=== PATIENT | female | born 1980 | race American Indian/Alaskan Native ===

== ENCOUNTER 2019-06-13 17:12 | Emergency (ER) | payer MEDICARE ==
[2019-06-13 17:28] VITALS: BP 132/84
[2019-06-13] MEDS ORDERED: HYDROcodone/ACETAMINOPHEN 5-325 MG TAB PO ONE (17:30)
--- NOTE | 2019-06-13 17:32 | Event Note ---
ED Screening Note Date of service: 06/13/19 Time: 17:26 ED Screening Note: 38 y o female presents with hot water burn to skin last night cc of pain to site inner thighs applied vaseline last night This initial assessment/diagnostic orders/clinical plan/treatment(s) is/are subject to change based on patients health status, clinical progression and re- assessment by fellow clinical providers in the ED. Further treatment and workup at subsequent clinical providers discretion. Patient/guardian urged not to elope from the ED as their condition may be serious if not clinically assessed and managed. Initial orders include:
--- NOTE | 2019-06-13 18:44 | Emergency Department Report ---
Burn HPI - History Stated Complaint: BURNED INNER THIGH /WATER Chief Complaint: Burn/Smoke Inhalation Time Seen by Provider: 06/13/19 18:39 Duration of Burn: 2 Days Burn Location: Legs (inner thighs) Burn Etiology: Accidental, Hot Object, Other (hot water) Pain: Moderate Tetanus Status: Up to Date Symptoms:: Yes Blistering, Yes Able to Tolerate Fluids, No Malaise, No Myalgias, No Fever, No Vomiting Other History: 38-year-old female presents with pain from accidental burn to her inner thighs from hot water. She denies fevers/chills/nausea vomiting. She states that she is up-to-date on her vaccinations. - Home Meds and Allergies Home Medications: Previous Rx's Medication Instructions Recorded Last Taken Type Cephalexin [Keflex] 750 mg PO BID #20 capsule 06/13/19 Unknown Rx HYDROcodone/APAP 5-325 [[place] 1 each PO Q6HR PRN #10 tablet 06/13/19 Unknown Rx 5/325] Ibuprofen [Motrin] 800 mg PO Q8HR #30 tablet 06/13/19 Unknown Rx Allergies/Adverse Reactions: Allergies Allergy/AdvReac Type Severity Reaction Status Date / Time Penicillins Allergy Swelling Verified 06/13/19 17:18 ED Review of Systems ROS: Stated complaint: BURNED INNER THIGH /WATER Other details as noted in HPI Comment: All other systems reviewed and negative ED Past Medical Hx - Past Medical History Previous Medical History?: Yes Hx Deep Vein Thrombosis: Yes Hx Pulmonary Embolism: Yes Additional medical history: ITP. VASULAR NEUROSIS / LUPUS - Surgical History Past Surgical History?: Yes Hx Cholecystectomy: Yes Additional Surgical History: AMPUITEE. left AKA. left hip surgery x30 per pt. spleenectomy. lower back sx - Social History Smoking Status: Never Smoker Substance Use Type: None - Medications Home Medications: Home Medications Medication Instructions Recorded Confirmed Last Taken Type Cephalexin [Keflex] 750 mg PO BID #20 capsule 06/13/19 Unknown Rx HYDROcodone/APAP 5-325 [[place] 1 each PO Q6HR PRN #10 tablet 06/13/19 Unknown Rx 5/325] Ibuprofen [Motrin] 800 mg PO Q8HR #30 tablet 06/13/19 Unknown Rx Exam - Exam General: Vital signs noted. No distress. Alert and acting appropriately. HEENT: Yes Moist Mucous Membranes, No Conjuctival Injection, No Corneal Edema Skin: Yes Blistering, Yes Tenderness, No Erythroderma, No Edema Exam: Yes Normal Heart Sounds, No Respiratory Distress, No Sensory Deficits, No Musculoskeletal Pain Exam: blisters around inner thighs ED Course Vital Signs 06/13/19 17:26 Temperature 99.5 F Pulse Rate 124 H Respiratory 20 Rate Blood Pressure 132/84 O2 Sat by Pulse 98 Oximetry ED Medical Decision Making - Medical Decision Making Patient is a 38-year-old female presents with superficial first-degree goldman inner thighs from hot water The patient received silver Silvadene cream which was applied to goldman and inner thigh. Patient also received a call in the ED for pain Patient is in no acute distress. Discussed with patient to follow up with her primary care physician within 3-5 days Vital signs are normal patient is in no acute distress. Critical care attestation.: If time is entered above; I have spent that time in minutes in the direct care of this critically ill patient, excluding procedure time. ED Disposition Clinical Impression: First degree burn Disposition: TO HOME OR SELFCARE Is pt being admited?: No Does the pt Need Aspirin: No Condition: Stable Instructions: Superficial Burn (ED), Partial Thickness Burn (ED) Additional Instructions: follow up with burn center and wound care take medication as prescribed Prescriptions: Cephalexin [Keflex] 750 mg PO BID #20 capsule Ibuprofen [Motrin] 800 mg PO Q8HR #30 tablet HYDROcodone/APAP 5-325 [[place] 5/325] 1 each PO Q6HR PRN #10 tablet PRN Reason: Pain Referrals: INGRIS OLIVAS MD [Primary Care Provider] - 3-5 Days [facility] [Outside] - 3-5 Days Forms: Accompanied Note, Work/School Release Form(ED) Time of Disposition: 18:43
== END 2019-06-13 18:52 | disposition home or self-care (01) ==
LOC: ED 17:12
DX: T24.112A Burn of first degree of left thigh, initial encounter (principal); Z88.0 Allergy status to penicillin; Z79.1 Long term (current) use of non-steroidal anti-inflammatories (NSAID); Z86.711 Personal history of pulmonary embolism; Z86.718 Personal history of other venous thrombosis and embolism; Z90.49 Acquired absence of other specified parts of digestive tract; Z98.890 Other specified postprocedural states; Z79.899 Other long term (current) drug therapy; X11.8XXA Contact with other hot tap-water, initial encounter; Y93.89 Activity, other specified; Y92.89 Other specified places as the place of occurrence of the external cause; Y99.8 Other external cause status

== ENCOUNTER 2019-07-11 13:32 | Emergency (ER) | payer MEDICARE ==
--- NOTE | 2019-07-11 16:55 | Event Note ---
ED Screening Note Date of service: 07/11/19 Time: 16:51 ED Screening Note: This is a 39 y.o. F. that presents to the ER with burning sensation and foul smelling drainage to left inner thigh from burn. Patient states she burned her thighs 2 weeks ago prescribed medication with no change in symptoms. + fever States RLE pain and think related to lupus flare. This initial assessment/diagnostic orders/clinical plan/treatment(s) is/are subject to change based on patients health status, clinical progression and re- assessment by fellow clinical providers in the ED. Further treatment and workup at subsequent clinical providers discretion. Patient/guardian urged not to elope from the ED as their condition may be serious if not clinically assessed and managed. Initial orders include: Labs
[2019-07-11 18:08] LABS: Basophils # (Auto) 0.1 K/mm3 (0.0-0.1); Basophils % (Auto) 1.3 % (0.0-1.8); Eosinophils # (Auto) 0.4 K/mm3 (0.0-0.4); Eosinophils % (Auto) 4.9 % (0.0-4.3); Hematocrit 36.1 % (30.3-42.9); Hemoglobin 11.9 gm/dl (10.1-14.3); Lymphocytes # (Auto) 2.9 K/mm3 (1.2-5.4); Lymphocytes % (Auto) 38.6 % (13.4-35.0); Mean Corpuscular HGB Conc 33 % (30-34); Mean Corpuscular Volume 84 fl (79-97); Monocytes # (Auto) 0.6 K/mm3 (0.0-0.8); Monocytes % (Auto) 8.5 % (0.0-7.3); Platelet Count 426 K/mm3 (140-440); Red Blood Count 4.33 M/mm3 (3.65-5.03); Red Cell Distribution Width 17.2 % (13.2-15.2)
[2019-07-11 18:34] LABS: Bilirubin,Urine NEG (Negative); Blood,Urine SM (Negative); Color,Urine Yellow (Yellow); Protein,Urine <15 mg/dL mg/dL (Negative); Urobilinogen,Urine < 2.0 mg/dL (<2.0)
[2019-07-11 18:35] LABS: Albumin 3.8 g/dL (3.9-5); BUN/Creatinine Ratio 26; Blood Urea Nitrogen 13 mg/dL (7-17); Calcium 9.5 mg/dL (8.4-10.2); Hemolysis Index 221
[2019-07-11 18:38] LABS: Alanine Aminotransferase 13 units/L (7-56)
[2019-07-11] MEDS ORDERED: methylPREDNISolone Sod Succinate 125 MG/2 ML INJ IV ONE (19:57)
[2019-07-11] MEDS ORDERED: CLINDAMYCIN 600 MG/50 mL 600 MG/50 ML BAG IV ONE (19:57)
[2019-07-11] MEDS ORDERED: HYDROmorphone 2 MG/1 ML INJ IV ONE (19:57)
--- NOTE | 2019-07-11 19:59 | Emergency Department Report ---
ED General Adult HPI - General Chief complaint: Burn/Smoke Inhalation Stated complaint: POSS INF DUE TO BOLDEN Time Seen by Provider: 07/11/19 19:55 Source: patient Mode of arrival: Wheelchair Limitations: Physical Limitation - History of Present Illness Initial comments: Patient is a 39-year-old female that presents emergency room with a lupus flareup and a possible infection on her right inner thigh secondary to a burn. Patient states she burned her leg 2 weeks ago. Patient states she's had some discharge from the burn site. Patient denies fever and chills. Patient states that her pain is a 10 out of 10. Patient states this pain feels exactly like her last lupus flareup. Patient states her last tetanus was a year ago. Patient states her pain is better with rest and worse with movement. Patient states she had her left leg amputated secondary to the lupus complication. Last tetanus one year ago -: Sudden, days(s) (3-4 days) Severity scale (0 -10): 9 Quality: stabbing Consistency: constant Improves with: rest Worsens with: movement Associated Symptoms: denies: confusion, chest pain, cough, diaphoresis, fever/chills, headaches, loss of appetite, malaise, nausea/vomiting, rash, seizure, shortness of breath, syncope, weakness Treatments Prior to Arrival: none - Related Data Previous Rx's Medication Instructions Recorded Last Taken Type Cephalexin [Keflex] 750 mg PO BID #20 capsule 06/13/19 Unknown Rx Ibuprofen [Motrin] 800 mg PO Q8HR #30 tablet 06/13/19 Unknown Rx HYDROcodone/APAP 5-325 [[place] 1 each PO Q6HR PRN #10 tablet 07/11/19 Unknown Rx 5-325 mg TAB] Silver Sulfadiazine [Silvadene] 400 gm TP BID 10 Days #1 cream..g. 07/11/19 Unknown Rx Sulfamethoxazole/Trimethoprim 1 each PO BID 10 Days #20 tablet 07/11/19 Unknown Rx [Bactrim DS TAB] methylPREDNISolone [Medrol 4MG 4 mg PO DAILY 6 Days #1 tab.ds.pk 07/11/19 Unknown Rx DOSEPAK (21 tabs)] Allergies Allergy/AdvReac Type Severity Reaction Status Date / Time Penicillins Allergy Swelling Verified 07/11/19 16:48 ED Review of Systems ROS: Stated complaint: POSS INF DUE TO BOLDEN Other details as noted in HPI Constitutional: denies: chills, fever Eyes: denies: eye pain, eye discharge, vision change ENT: denies: ear pain, throat pain Respiratory: denies: cough, shortness of breath, wheezing Cardiovascular: denies: chest pain, palpitations Endocrine: no symptoms reported Gastrointestinal: denies: abdominal pain, nausea, diarrhea Genitourinary: denies: urgency, dysuria, discharge Musculoskeletal: back pain, arthralgia, myalgia. denies: joint swelling Skin: denies: rash, lesions Neurological: denies: headache, weakness, paresthesias Psychiatric: denies: anxiety, depression Hematological/Lymphatic: denies: easy bleeding, easy bruising ED Past Medical Hx - Past Medical History Previous Medical History?: Yes Hx Deep Vein Thrombosis: Yes Hx Pulmonary Embolism: Yes Additional medical history: ITP. VASULAR NEUROSIS / LUPUS - Surgical History Past Surgical History?: Yes Hx Cholecystectomy: Yes Additional Surgical History: AMPUITEE. left AKA. left hip surgery x30 per pt. spleenectomy. lower back sx - Family History Family history: no significant - Social History Smoking Status: Never Smoker Substance Use Type: None - Medications Home Medications: Home Medications Medication Instructions Recorded Confirmed Last Taken Type Cephalexin [Keflex] 750 mg PO BID #20 capsule 06/13/19 Unknown Rx Ibuprofen [Motrin] 800 mg PO Q8HR #30 tablet 06/13/19 Unknown Rx HYDROcodone/APAP 5-325 [[place] 1 each PO Q6HR PRN #10 tablet 07/11/19 Unknown Rx 5-325 mg TAB] Silver Sulfadiazine [Silvadene] 400 gm TP BID 10 Days #1 cream..g. 07/11/19 Unknown Rx Sulfamethoxazole/Trimethoprim 1 each PO BID 10 Days #20 tablet 07/11/19 Unknown Rx [Bactrim DS TAB] methylPREDNISolone [Medrol 4MG 4 mg PO DAILY 6 Days #1 tab.ds.pk 07/11/19 Unknown Rx DOSEPAK (21 tabs)] ED Physical Exam - General Limitations: Physical Limitation General appearance: alert, in no apparent distress - Head Head exam: Present: atraumatic, normocephalic - Eye Eye exam: Present: normal appearance - ENT ENT exam: Present: mucous membranes moist - Neck Neck exam: Present: normal inspection - Respiratory Respiratory exam: Present: normal lung sounds bilaterally. Absent: respiratory distress - Cardiovascular Cardiovascular Exam: Present: regular rate, normal rhythm. Absent: systolic murmur, diastolic murmur, rubs, gallop - GI/Abdominal GI/Abdominal exam: Present: soft, normal bowel sounds - Extremities Exam Extremities exam: Present: other (left AKA. Right inner thigh burn noted. Steffi appears to be healing well. Pain: Bed noted. No signs of infection. No redness. No tenderness to palpation. No discharge noted) - Back Exam Back exam: Present: normal inspection - Neurological Exam Neurological exam: Present: alert, oriented X3 - Psychiatric Psychiatric exam: Present: normal affect, normal mood - Skin Skin exam: Present: warm, dry, normal color, other ( Right inner thigh burn noted: Burn appears to be healing well. [place] wound bed noted. No signs of infection. No redness. No tenderness to palpation. No discharge noted). Absent: rash ED Course Vital Signs 07/11/19 07/11/19 07/11/19 16:52 20:35 20:45 Temperature 98.5 F 98.7 F Pulse Rate 111 H 101 H 99 H Respiratory 20 12 12 Rate Blood Pressure 171/113 133/83 Blood Pressure 144/99 [Left] O2 Sat by Pulse 99 100 100 Oximetry 07/11/19 07/11/19 07/11/19 20:58 21:15 21:30 Temperature Pulse Rate 102 H 105 H Respiratory 18 14 12 Rate Blood Pressure 141/81 143/92 Blood Pressure [Left] O2 Sat by Pulse 100 100 Oximetry 07/11/19 07/11/19 21:45 22:15 Temperature Pulse Rate 108 H 112 H Respiratory 19 12 Rate Blood Pressure 149/97 149/93 Blood Pressure [Left] O2 Sat by Pulse 100 99 Oximetry - Reevaluation(s) Reevaluation #1: Patient states her pain has improved. Patient states her pain now is a 3 out of 10. 07/11/19 21:17 Reevaluation #2: Patient states her pain has resolved. Patient is ready for discharge. Patient will be discharged home. Patient given discharge instructions. Patient voiced understanding of discharge instructions. 07/11/19 22:21 ED Medical Decision Making - Lab Data Result diagrams: 07/11/19 17:16 07/11/19 17:16 - Medical Decision Making Patient is a 39-year-old female that presents emergency room with complaints of generalized pain and a lupus flareup and a burn to her right inner thigh. Patient initially stated that her burn site was infected however on examination there is no signs of infection and the burn appears to be healing well. Patient's labs essentially unremarkable for dehydration and a UTI. Patient instructed to increase water. Patient given antibiotics for UTI. Patient given pain medications for her lupus exacerbation. Patient stable for discharge. Patient discharged home. - Differential Diagnosis Lupus flare, UTI, pain, burn, site infection Critical care attestation.: If time is entered above; I have spent that time in minutes in the direct care of this critically ill patient, excluding procedure time. ED Disposition Clinical Impression: Lupus, Burn, Hyperkalemia, Myalgia, SLE exacerbation Leg pain Qualifiers: Laterality: right Qualified Code(s): M79.604 - Pain in right leg UTI (urinary tract infection) Qualifiers: Urinary tract infection type: acute cystitis Hematuria presence: with hematuria Qualified Code(s): N30.01 - Acute cystitis with hematuria Disposition: TO HOME OR SELFCARE Is pt being admited?: No Does the pt Need Aspirin: No Condition: Stable Instructions: Urinary Tract Infection in Women (ED), Superficial Burn (ED), Leg Cramps (ED) Additional Instructions: [place] patient to follow up with primary care in 2-3 days. Patient to return to ER if condition changes, worsens or new symptoms arise. Patient to take Tylenol or ibuprofen when necessary for pain. Patient take meds as directed. Patient increase water. Patient to rest. Patient to return to ER any signs of infection to the right thigh. Patient to use topical prescription as instructed. Prescriptions: Sulfamethoxazole/Trimethoprim [Bactrim DS TAB] 1 each PO BID 10 Days #20 tablet methylPREDNISolone [Medrol 4MG DOSEPAK (21 tabs)] 4 mg PO DAILY 6 Days #1 tab.ds.pk HYDROcodone/APAP 5-325 [[place] 5-325 mg TAB] 1 each PO Q6HR PRN #10 tablet PRN Reason: Pain Silver Sulfadiazine [Silvadene] 400 gm TP BID 10 Days #1 cream..g. Referrals: WILLA BUCKLEY MD [Primary Care Provider] - 3-5 Days Time of Disposition: 22:22
[2019-07-11 22:35] VITALS: BP 149/93
== END 2019-07-11 22:50 | disposition home or self-care (01) ==
LOC: ED 13:32
DX: T24.011D Burn of unspecified degree of right thigh, subsequent encounter (principal); M32.9 Systemic lupus erythematosus, unspecified; E87.5 Hyperkalemia; M79.18 Myalgia, other site; N39.0 Urinary tract infection, site not specified; X58.XXXD Exposure to other specified factors, subsequent encounter
CPT/HCPCS: 36415; 80053; 81001; 82550; 85025; 87086; 96365; 96375; 99284; J1170; J2930

== ENCOUNTER 2019-07-22 14:11 | Emergency (ER) | payer MEDICARE ==
[2019-07-22] MEDS ORDERED: IPRATROPIUM 0.02% NEBU 2.5 ML IH ONE (16:38)
[2019-07-22] MEDS ORDERED: ALBUTEROL 2.5 MG/3 ML NEBU IH ONE (16:38)
--- NOTE | 2019-07-22 16:38 | Event Note ---
ED Screening Note ED Screening Note: productive cough that began three days ago vomiting, diarrhea SOB PMHx Lupus, depression, insomnia, anxiety, asthma uses albuterol inhaler and neb tx LNMP: 07/06/19 This initial assessment/diagnostic orders/clinical plan/treatment(s) is/are subject to change based on patients health status, clinical progression and re- assessment by fellow clinical providers in the ED. Further treatment and workup at subsequent clinical providers discretion. Patient/guardian urged not to elope from the ED as their condition may be serious if not clinically assessed and managed. Initial orders include: CXR, neb tx
--- NOTE | 2019-07-22 18:04 | XRay Report ---
CHEST 2 VIEWS 1735 INDICATION / CLINICAL INFORMATION: productive cough, wheezing COMPARISON: None available. FINDINGS: SUPPORT DEVICES: None. HEART / MEDIASTINUM: No significant abnormality. LUNGS / PLEURA: No significant pulmonary or pleural abnormality. No pneumothorax. ADDITIONAL FINDINGS: Both humeral heads show large areas of bone lysis with sclerotic borders and int erstitial disease. These do not clearly expand the bone but extend to the cortical surface in some ar eas. Given the history of lupus possibly this could represent an unusual presentation of osteonecrosi s. If this is not a known finding clinical correlation is suggested. IMPRESSION: No significant acute abnormality. Humeral head abnormalities as above. Reviewed with a musculoskeletal radiologist. Signer Name: Maxim English MD Signed: 07/22/2019 5:59 PM Workstation Name: [id number]
[2019-07-22] MEDS ORDERED: methylPREDNISolone Sod Succinate 125 MG/2 ML INJ IM ONE (20:53)
--- NOTE | 2019-07-22 20:54 | Emergency Department Report ---
- General Chief Complaint: Upper Respiratory Infection Stated Complaint: LUPUS FLARE UP/SOB Time Seen by Provider: 07/22/19 16:36 Source: patient Mode of arrival: Wheelchair Limitations: No Limitations - History of Present Illness Initial Comments: 39 yo female c/o cough, body-aches,chills, fever x 5 days. She denies chest pain and SOB. States she's wheezing using her inhaler with no results. PMH of Asthma, Lupus and L BKA, Vascular neurosis MD Complaint: fever, cough -: days(s) (5) Consistency: constant Improves With: nothing Worsens With: nothing Associated Symptoms: fever, chills, myalgias, nasal congestion, cough, vomiting, other (generalized body pain ). denies: rhinorrhea, sore throat, abdominal pain - Related Data Previous Rx's Medication Instructions Recorded Last Taken Type Cephalexin [Keflex] 750 mg PO BID #20 capsule 06/13/19 Unknown Rx Ibuprofen [Motrin] 800 mg PO Q8HR #30 tablet 06/13/19 Unknown Rx HYDROcodone/APAP 5-325 [[place] 1 each PO Q6HR PRN #10 tablet 07/11/19 Unknown Rx 5-325 mg TAB] Silver Sulfadiazine [Silvadene] 400 gm TP BID 10 Days #1 cream..g. 07/11/19 Unknown Rx Sulfamethoxazole/Trimethoprim 1 each PO BID 10 Days #20 tablet 07/11/19 Unknown Rx [Bactrim DS TAB] methylPREDNISolone [Medrol 4MG 4 mg PO DAILY 6 Days #1 tab.ds.pk 07/11/19 Unknown Rx DOSEPAK (21 tabs)] Benzonatate [Tessalon Perles] 100 mg PO Q8HR PRN 5 Days #15 07/22/19 Unknown Rx capsule predniSONE [Deltasone] 40 mg PO QDAY 3 Days #6 tab 07/22/19 Unknown Rx Allergies Allergy/AdvReac Type Severity Reaction Status Date / Time Penicillins Allergy Swelling Verified 07/22/19 16:38 ED Review of Systems ROS: Stated complaint: LUPUS FLARE UP/SOB Other details as noted in HPI Comment: All other systems reviewed and negative Constitutional: chills, fever, malaise Respiratory: cough, wheezing Cardiovascular: denies: chest pain, palpitations, dyspnea on exertion Gastrointestinal: vomiting. denies: abdominal pain, diarrhea, constipation, hematemesis ED Past Medical Hx - Past Medical History Previous Medical History?: Yes Hx Deep Vein Thrombosis: Yes Hx Pulmonary Embolism: Yes Additional medical history: ITP. VASULAR NEUROSIS / LUPUS - Surgical History Past Surgical History?: Yes Hx Cholecystectomy: Yes Additional Surgical History: AMPUITEE. left AKA. left hip surgery x30 per pt. spleenectomy. lower back sx - Social History Smoking Status: Never Smoker Substance Use Type: None - Medications Home Medications: Home Medications Medication Instructions Recorded Confirmed Last Taken Type Cephalexin [Keflex] 750 mg PO BID #20 capsule 06/13/19 Unknown Rx Ibuprofen [Motrin] 800 mg PO Q8HR #30 tablet 06/13/19 Unknown Rx HYDROcodone/APAP 5-325 [[place] 1 each PO Q6HR PRN #10 tablet 07/11/19 Unknown Rx 5-325 mg TAB] Silver Sulfadiazine [Silvadene] 400 gm TP BID 10 Days #1 cream..g. 07/11/19 Unknown Rx Sulfamethoxazole/Trimethoprim 1 each PO BID 10 Days #20 tablet 07/11/19 Unknown Rx [Bactrim DS TAB] methylPREDNISolone [Medrol 4MG 4 mg PO DAILY 6 Days #1 tab.ds.pk 07/11/19 Unknown Rx DOSEPAK (21 tabs)] Benzonatate [Tessalon Perles] 100 mg PO Q8HR PRN 5 Days #15 07/22/19 Unknown Rx capsule predniSONE [Deltasone] 40 mg PO QDAY 3 Days #6 tab 07/22/19 Unknown Rx ED Physical Exam - General Limitations: No Limitations General appearance: alert, in no apparent distress - Head Head exam: Present: atraumatic - Eye Eye exam: Present: normal appearance, other (wears corrective lens) - ENT ENT exam: Present: normal exam, mucous membranes moist, TM's normal bilaterally - Neck Neck exam: Absent: tenderness - Respiratory Respiratory exam: Present: wheezes. Absent: accessory muscle use, decreased breath sounds - Cardiovascular Cardiovascular Exam: Present: regular rate, normal rhythm, normal heart sounds - GI/Abdominal GI/Abdominal exam: Absent: soft, distended, tenderness - Extremities Exam Extremities exam: Present: other (left BKA) - Skin Skin exam: Present: dry (excessive dryness ) ED Course Vital Signs 07/22/19 07/22/19 16:36 22:17 Temperature 99 F 98.6 F Pulse Rate 108 H 114 H Respiratory 24 18 Rate Blood Pressure 164/88 140/77 [Right] O2 Sat by Pulse 98 98 Oximetry ED Medical Decision Making - Radiology Data Radiology results: report reviewed chest xray No significant acute abnormality - Medical Decision Making 39 yo female with cough and wheezing. She has hx of Asthma no relief from home inhalers. Cxr no acute findings Solumedrol 125 mg IM and Duoneb treatment given pt reports improvement .Lungs reassed and wheezing has cleared up. Vital signs stable Continue with daily prednisone x 3 days Continue albuterol nebulizer at home Pt without distress no current complaints in my opinion she is safe for discharge home Pt eager to go home she plans to follow up with PCP. Critical care attestation.: If time is entered above; I have spent that time in minutes in the direct care of this critically ill patient, excluding procedure time. ED Disposition Clinical Impression: Asthma Qualifiers: Asthma severity: mild Asthma persistence: intermittent Asthma complication ty pe: uncomplicated Qualified Code(s): J45.20 - Mild intermittent asthma, uncomplicated URI (upper respiratory infection) Qualifiers: URI type: unspecified URI Qualified Code(s): J06.9 - Acute upper respiratory infection, unspecified Disposition: DC-01 TO HOME OR SELFCARE Is pt being admited?: No Does the pt Need Aspirin: No Condition: Stable Instructions: Asthma (ED) Prescriptions: predniSONE [Deltasone] 40 mg PO QDAY 3 Days #6 tab Benzonatate [Tessalon Perles] 100 mg PO Q8HR PRN 5 Days #15 capsule PRN Reason: Cough Referrals: PRIMARY CARE, [Primary Care Provider] - 3-5 Days Time of Disposition: 21:58
[2019-07-22] MEDS ORDERED: oxyCODONE /ACETAMINOPHEN 5-325MG TAB PO ONE (20:59)
[2019-07-22] MEDS ORDERED: IPRATROPIUM/ALBUTEROL SULFATE 3 ML AMPUL.NEB IH ONE ×2 (21:12→21:16)
[2019-07-22 22:21] VITALS: BP 140/77
== END 2019-07-22 22:10 | disposition home or self-care (01) ==
LOC: ED 14:11
DX: J45.909 Unspecified asthma, uncomplicated (principal); J06.9 Acute upper respiratory infection, unspecified; Z90.49 Acquired absence of other specified parts of digestive tract; Z98.890 Other specified postprocedural states; Z79.1 Long term (current) use of non-steroidal anti-inflammatories (NSAID); Z79.899 Other long term (current) drug therapy; Z88.0 Allergy status to penicillin; Z86.718 Personal history of other venous thrombosis and embolism; Z86.711 Personal history of pulmonary embolism
CPT/HCPCS: 71046; 94640; 96372; 99283; J2930

== ENCOUNTER 2019-08-08 15:32 | Inpatient (IN) | payer MEDICARE ==
[2019-08-08] MEDS ORDERED: SODIUM CHLORIDE 0.9% 1000 ML 1,000 ML IV ONE (15:53)
[2019-08-08] MEDS ORDERED: HYDROmorphone 2 MG/1 ML INJ IV ONE (15:53)
[2019-08-08] MEDS ORDERED: methylPREDNISolone Sod Succinate 125 MG/2 ML INJ IV ONE (15:53)
--- NOTE | 2019-08-08 15:54 | Emergency Department Report ---
ED General Adult HPI - General Stated complaint: BODY PAIN Time Seen by Provider: 08/08/19 15:50 Source: patient Mode of arrival: Stretcher Limitations: Physical Limitation - History of Present Illness Initial comments: Patient is a 39-year-old female that presents emergency with complaints of body pain. Patient states her entire body is hurting and has been going on for 2-3 d ays. Patient states her pain is severe at a 10 out of 10. Patient states the pain is better with rest and worse with movement and palpation. Patient states she is having a lupus flareup and she has had lupus for 16 years. -: Sudden Severity scale (0 -10): 10 Quality: stabbing Consistency: constant Improves with: rest Worsens with: movement Associated Symptoms: denies other symptoms, loss of appetite, malaise, weakness. denies: confusion, chest pain, cough, diaphoresis, fever/chills, headaches, nausea/vomiting, rash, seizure, shortness of breath, syncope Treatments Prior to Arrival: none - Related Data Previous Rx's Medication Instructions Recorded Last Taken Type Ibuprofen [Motrin] 800 mg PO Q8HR #30 tablet 06/13/19 Unknown Rx HYDROcodone/APAP 5-325 [[place] 1 each PO Q6HR PRN #10 tablet 07/11/19 Unknown Rx 5-325 mg TAB] Allergies Allergy/AdvReac Type Severity Reaction Status Date / Time Penicillins Allergy Swelling Verified 07/22/19 16:38 ED Review of Systems ROS: Stated complaint: BODY PAIN Other details as noted in HPI Constitutional: denies: chills, fever Eyes: denies: eye pain, eye discharge, vision change ENT: denies: ear pain, throat pain Respiratory: denies: cough, shortness of breath, wheezing Cardiovascular: denies: chest pain, palpitations Endocrine: no symptoms reported Gastrointestinal: denies: abdominal pain, nausea, diarrhea Genitourinary: denies: urgency, dysuria, discharge Musculoskeletal: denies: back pain, joint swelling, arthralgia Skin: denies: rash, lesions Neurological: denies: headache, weakness, paresthesias Psychiatric: denies: anxiety, depression Hematological/Lymphatic: denies: easy bleeding, easy bruising ED Past Medical Hx - Past Medical History Previous Medical History?: Yes Hx Deep Vein Thrombosis: Yes Hx Pulmonary Embolism: Yes Additional medical history: ITP. VASULAR NEUROSIS / LUPUS - Surgical History Past Surgical History?: Yes Hx Cholecystectomy: Yes Additional Surgical History: AMPUITEE. left AKA. left hip surgery x30 per pt. spleenectomy. lower back sx - Family History Family history: no significant - Social History Smoking Status: Never Smoker Substance Use Type: None - Medications Home Medications: Home Medications Medication Instructions Recorded Confirmed Last Taken Type Ibuprofen [Motrin] 800 mg PO Q8HR #30 tablet 06/13/19 08/08/19 Unknown Rx HYDROcodone/APAP 5-325 [[place] 1 each PO Q6HR PRN #10 tablet 07/11/19 08/08/19 Unknown Rx 5-325 mg TAB] ED Physical Exam - General Limitations: Physical Limitation General appearance: alert, in no apparent distress - Head Head exam: Present: atraumatic, normocephalic - Eye Eye exam: Present: normal appearance, PERRL Pupils: Present: normal accommodation - ENT ENT exam: Present: mucous membranes dry - Neck Neck exam: Present: normal inspection - Respiratory Respiratory exam: Present: normal lung sounds bilaterally. Absent: respiratory distress, wheezes, rales - Cardiovascular Cardiovascular Exam: Present: regular rate, normal rhythm. Absent: systolic murmur, diastolic murmur, rubs, gallop - GI/Abdominal GI/Abdominal exam: Present: soft, normal bowel sounds. Absent: distended, tenderness, guarding - Extremities Exam Extremities exam: Present: normal inspection (except for left leg) - Back Exam Back exam: Present: normal inspection - Neurological Exam Neurological exam: Present: alert, oriented X3 - Psychiatric Psychiatric exam: Present: normal affect, normal mood - Skin Skin exam: Present: warm, dry, intact, normal color. Absent: rash ED Course Vital Signs 08/08/19 08/08/19 17:45 18:07 Pulse Rate 74 130 H Respiratory 16 16 Rate Blood Pressure 108/72 109/52 [Left] O2 Sat by Pulse 100 97 Oximetry - Reevaluation(s) Reevaluation #1: Multiple attempts made for a ultrasound-guided peripheral line and multiple peripheral IVs attempted by nurses. Patient's blood pressure is low and patient is tachycardic/. We will start a central line. Patient's current blood pressure is 88/60. 08/08/19 16:33 Reevaluation #2: central line placed without difficulty. The patient will have a chest x-ray and then given a saline bolus. 08/08/19 17:21 Reevaluation #3: A systolic blood pressure has improved with fluids. Patient has received Dilaudid for her pain. Patient states her pain is better. 08/08/19 18:53 - Central Line Placement Right IJ Consent Obtained: verbal consent, emergent situation Time Out Performed: Yes Patient Placed on Monitor/Pulse Ox: Yes MD Prep: mask, gown, gloves Central Line Prep: Chlorhexidine scrub, sterile drapes applied Local Anesthesia Used: Lidocaine 1% Amount of Anesthesia Used (mls): 5 Ultrasound Used for Placement: Yes Central Line Lumen Inserted: triple Bloods Obtained for Lab: Yes Central Line Position: good blood return, all ports aspirated, flus, sutured in place with 2-0 Dressing Applied: Tegaderm Post Procedure X-Ray: tip of catheter in good p Patient Tolerated Procedure: well, no complications Complications: none ED Medical Decision Making - Lab Data Result diagrams: 08/08/19 18:00 08/08/19 17:30 - Radiology Data Radiology results: image reviewed interpreted by me: No acute findings on chest x-ray and line in good placement - Medical Decision Making Patient is a 39-year-old female that presents emergency room with complaints of generalized body pain and fatigue. Patient's initial blood pressure in the ER was low. Multiple attempts made to place a peripheral IV and were unsuccessful. Due the patient's upper situation patient required a central line. Patient had a right IJ place. Patient tolerated procedure well. X-ray done shows good placement. No other acute findings on chest x-ray. Patient responded well to fluids. Patient's blood pressure normalized with fluid. Patient's found to have acute renal failure. Patient does have a history of kidney disease. Patient's only past history is lupus. Patient also found to have lactic acidosis and elevated white count. Patient's source of infection was a UTI. Patient given antibiotics. Patient admitted to the ICU and to the hospitalist team. - Differential Diagnosis sepsis, kidney failure, hypotension, Sirs, generalized pain. Dehydration Critical Care Time: Yes Critical care time in (mins) excluding proc time.: 50 Critical care attestation.: If time is entered above; I have spent that time in minutes in the direct care of this critically ill patient, excluding procedure time. Critical Care Time: 50 minutes ED Disposition Clinical Impression: Generalized pain, Lactic acid acidosis, Metabolic acidosis Hypotension Qualifiers: Hypotension type: unspecified hypotension type Qualified Code(s): I95.9 - Hypotension, unspecified Renal failure Qualifiers: Renal failure chronicity: acute Acute renal failure type: unspecified Qualified Code(s): N17.9 - Acute kidney failure, unspecified Elevated WBC count Qualifiers: Leukocytosis type: unspecified Qualified Code(s): D72.829 - Elevated white blood cell count, unspecified Anemia Qualifiers: Anemia type: unspecified type Qualified Code(s): D64.9 - Anemia, unspecified Lupus (systemic lupus erythematosus) Qualifiers: Systemic lupus erythematosus type: unspecified Systemic lupus erythematosus organ involvement: unspecified Qualified Code(s): M32.9 - Systemic lupus erythematosus, unspecified Sepsis Qualifiers: Sepsis type: sepsis due to unspecified organism Sepsis acute organ dysfunction status: with acute organ dysfunction Severe sepsis acute organ dysfunction type: acute renal failure Acute renal failure type: unspecified Severe sepsis shock status: without septic shock Qualified Code(s): A41.9 - Sepsis, unspecified organism UTI (urinary tract infection) Qualifiers: Urinary tract infection type: acute cystitis Hematuria presence: with hematuria Qualified Code(s): N30.01 - Acute cystitis with hematuria Disposition: OP ADMIT IP TO THIS HOSP Is pt being admited?: Yes Does the pt Need Aspirin: No Condition: Critical Time of Disposition: 19:06
--- NOTE | 2019-08-08 17:51 | XRay Report ---
CHEST 1 VIEW 08/08/2019 5:27 PM INDICATION / CLINICAL INFORMATION: s/p cvl right IJ. COMPARISON: None available. FINDINGS: SUPPORT DEVICES: Right IJ central venous catheter has been placed with the tip projecting over the dominique perior cavoatrial junction. HEART / MEDIASTINUM: No significant abnormality. LUNGS / PLEURA: No significant pulmonary or pleural abnormality. No pneumothorax. ADDITIONAL FINDINGS: No significant additional findings. IMPRESSION: 1. Right IJ central venous catheter tip projects over the superior cavoatrial junction. Signer Name: Kelvin Rousseau MD Signed: 08/08/2019 5:46 PM Workstation Name: [id number]
[2019-08-08] MEDS ORDERED: SODIUM CHLORIDE 0.9% 1000 ML IV SOLN IV ONE (17:54)
[2019-08-08] MEDS ORDERED: methylPREDNISolone Sod Succinate 125 MG/2 ML INJ ONE (18:01)
[2019-08-08] MEDS ORDERED: HYDROmorphone 2 MG/1 ML INJ ONE (18:01)
[2019-08-08 18:05] LABS: Albumin 2.5 g/dL (3.9-5); Calcium 6.3 mg/dL (8.4-10.2)
[2019-08-08 18:39] LABS: Hematocrit 27.9 % (30.3-42.9); Mean Corpuscular HGB Conc 32 % (30-34); Mean Corpuscular Volume 83 fl (79-97); Platelet Count 132 K/mm3 (140-440); Red Blood Count 3.35 M/mm3 (3.65-5.03); Red Cell Distribution Width 17.1 % (13.2-15.2)
[2019-08-08 19:14] LABS: Band Neutrophils # (Manual) 0.5 K/mm3; Basophils % (Manual) 0 % (0.0-1.8); Eosinophils % (Manual) 0 % (0.0-4.3); Total Cells Counted 100
[2019-08-08 20:45] LABS: Bacteria,Urine 1+ /HPF (Negative); Bilirubin,Urine NEG (Negative); Blood,Urine MOD (Negative); Color,Urine Yellow (Yellow); Mucus,Urine FEW /HPF; Protein,Urine >500 mg/dL (Negative); Urobilinogen,Urine < 2.0 mg/dL (<2.0); WBC,Urine > 182.0 /HPF (0.0-6.0)
[2019-08-08] MEDS ORDERED: SODIUM CHLORIDE 0.9% 1000 ML 1,000 ML ONE (23:40)
[2019-08-08] MEDS ORDERED: HYDROmorphone 1 MG/1 ML INJ ONE (23:40)
--- NOTE | 2019-08-08 23:41 | History and Physical Report ---
History of Present Illness Date of examination: 08/08/19 Date of admission: 08/08/19 19:35 Chief complaint: Pain all over for 2 to 3 days History of present illness: 39-year-old -[place] female with history of lupus comes in for pain all over for the last 2 to 3 days. Patient has not been taking Plaquenil because of side effects on the eye. Was on prednisone for 1 week and stopped 1 week ago. Patient is hurting in all the joints the small and big joints. No fever or chills. No nausea no vomiting. No chest pain. No altered sensorium. Past Medical History Previous Medical History?: Yes Deep Vein Thrombosis: Yes Pulmonary Embolism: Yes Additional medical history: ITP. VASULAR NEUROSIS / LUPUS Surgical History Past Surgical History?: Yes Cholecystectomy: Yes Additional Surgical History: AMPUITEE. left AKA. left hip surgery x30 per pt. spleenectomy. lower back sx Family History Family history: no significant Social History Smoking Status: Never Smoker Substance Use Type: None Medications Home Medications: Home Medications Medication Instructions Recorded Confirmed Last Taken Type Ibuprofen [Motrin] 800 mg PO Q8HR #30 tablet 06/13/19 08/08/19 Unknown Rx HYDROcodone/APAP 5-325 [[place] 1 each PO Q6HR PRN #10 tablet 07/11/19 08/08/19 Unknown Rx 5-325 mg TAB] Review of Systems ROS: Stated complaint: BODY PAIN Other details as noted in HPI Constitutional: denies: chills, fever Eyes: denies: eye pain, eye discharge, vision change ENT: denies: ear pain, throat pain Respiratory: denies: cough, shortness of breath, wheezing Cardiovascular: denies: chest pain, palpitations Endocrine: no symptoms reported Gastrointestinal: denies: abdominal pain, nausea, diarrhea Genitourinary: denies: urgency, dysuria, discharge Musculoskeletal: denies: back pain, joint swelling, arthralgia Skin: denies: rash, lesions Neurological: denies: headache, weakness, paresthesias Psychiatric: denies: anxiety, depression Hematological/Lymphatic: denies: easy bleeding, easy bruising Medications and Allergies Allergies Allergy/AdvReac Type Severity Reaction Status Date / Time Penicillins Allergy Swelling Verified 07/22/19 16:38 Home Medications Medication Instructions Recorded Confirmed Last Taken Type Ibuprofen [Motrin] 800 mg PO Q8HR #30 tablet 06/13/19 08/08/19 Unknown Rx HYDROcodone/APAP 5-325 [[place] 1 each PO Q6HR PRN #10 tablet 07/11/19 08/08/19 Unknown Rx 5-325 mg TAB] Exam - Constitutional Vitals: Temp Pulse Resp BP Pulse Ox 130 H 16 109/52 97 08/08/19 18:07 08/08/19 18:07 08/08/19 18:07 08/08/19 18:07 General appearance: Present: mild distress, well-nourished - EENT Eyes: Present: PERRL ENT: hearing intact, clear oral mucosa - Neck Neck: Present: supple, normal ROM - Respiratory Respiratory effort: normal Respiratory: bilateral: CTA - Cardiovascular Heart rate: 76 Rhythm: regular Heart Sounds: Present: S1 & S2. Absent: rub, click - Extremities Extremities: no ischemia, pulses intact, pulses symmetrical, No edema, abnormal Extremity abnormal: other (Left above-knee amputation near the left hip joint) Peripheral Pulses: within normal limits - Abdominal General gastrointestinal: Present: soft, non-tender, non-distended, normal bowel sounds Female genitourinary: Present: normal - Integumentary Integumentary: Present: clear, warm, dry - Musculoskeletal Musculoskeletal: gait normal, strength equal bilaterally - Psychiatric Psychiatric: appropriate mood/affect, intact judgment & insight - Neurologic Neurologic: CNII-XII intact, moves all extremities Results - Labs CBC & Chem 7: 08/08/19 18:00 08/08/19 17:30 Labs: Laboratory Last Values WBC 25.8 K/mm3 (4.5-11.0) H 08/08/19 18:00 RBC 3.35 M/mm3 (3.65-5.03) L 08/08/19 18:00 Hgb 9.0 gm/dl (10.1-14.3) L 08/08/19 18:00 Hct 27.9 % (30.3-42.9) L 08/08/19 18:00 MCV 83 fl (79-97) 08/08/19 18:00 MCH 27 pg (28-32) L 08/08/19 18:00 MCHC 32 % (30-34) 08/08/19 18:00 RDW 17.1 % (13.2-15.2) H 08/08/19 18:00 Plt Count 132 K/mm3 (140-440) L 08/08/19 18:00 [place] % (Auto) Rodent Exterminator 08/08/19 18:00 Lymph # Rodent Exterminator 08/08/19 18:00 Add Manual Diff Complete 08/08/19 18:00 Total Counted 100 08/08/19 18:00 Seg Neuts % (Manual) 79.0 % (40.0-70.0) H 08/08/19 18:00 Band Neutrophils % 2.0 % 08/08/19 18:00 Lymphocytes % (Manual) 18.0 % (13.4-35.0) 08/08/19 18:00 Reactive Lymphs % (Man) 0 % 08/08/19 18:00 Monocytes % (Manual) 1.0 % (0.0-7.3) 08/08/19 18:00 Eosinophils % (Manual) 0 % (0.0-4.3) 08/08/19 18:00 Basophils % (Manual) 0 % (0.0-1.8) 08/08/19 18:00 Metamyelocytes % 0 % 08/08/19 18:00 Myelocytes % 0 % 08/08/19 18:00 Promyelocytes % 0 % 08/08/19 18:00 Blast Cells % 0 % 08/08/19 18:00 Nucleated RBC % Not Reportable 08/08/19 18:00 Seg Neutrophils # Man 20.4 K/mm3 (1.8-7.7) H 08/08/19 18:00 Band Neutrophils # 0.5 K/mm3 08/08/19 18:00 Lymphocytes # (Manual) 4.6 K/mm3 (1.2-5.4) 08/08/19 18:00 Abs React Lymphs (Man) 0.0 K/mm3 08/08/19 18:00 Monocytes # (Manual) 0.3 K/mm3 (0.0-0.8) 08/08/19 18:00 Eosinophils # (Manual) 0.0 K/mm3 (0.0-0.4) 08/08/19 18:00 Basophils # (Manual) 0.0 K/mm3 (0.0-0.1) 08/08/19 18:00 Metamyelocytes # 0.0 K/mm3 08/08/19 18:00 Myelocytes # 0.0 K/mm3 08/08/19 18:00 Promyelocytes # 0.0 K/mm3 08/08/19 18:00 Blast Cells # 0.0 K/mm3 08/08/19 18:00 WBC Morphology Not Reportable 08/08/19 18:00 Hypersegmented Neuts Not Reportable 08/08/19 18:00 Hyposegmented Neuts Not Reportable 08/08/19 18:00 Hypogranular Neuts Not Reportable 08/08/19 18:00 Smudge Cells Not Reportable 08/08/19 18:00 Toxic Granulation Not Reportable 08/08/19 18:00 Toxic Vacuolation Not Reportable 08/08/19 18:00 Dohle Bodies Not Reportable 08/08/19 18:00 Pelger-Huet Anomaly Not Reportable 08/08/19 18:00 Doyle Rods Not Reportable 08/08/19 18:00 Platelet Estimate Not Reportable 08/08/19 18:00 Clumped Platelets Not Reportable 08/08/19 18:00 Plt Clumps, EDTA Not Reportable 08/08/19 18:00 Large Platelets Not Reportable 08/08/19 18:00 Giant Platelets Not Reportable 08/08/19 18:00 Platelet Satelliting Not Reportable 08/08/19 18:00 Plt Morphology Comment Not Reportable 08/08/19 18:00 RBC Morphology Not Reportable 08/08/19 18:00 Dimorphic RBCs Not Reportable 08/08/19 18:00 Polychromasia 1+ 08/08/19 18:00 Hypochromasia Not Reportable 08/08/19 18:00 Poikilocytosis Not Reportable 08/08/19 18:00 Anisocytosis Not Reportable 08/08/19 18:00 Microcytosis Not Reportable 08/08/19 18:00 Macrocytosis Not Reportable 08/08/19 18:00 Spherocytes Not Reportable 08/08/19 18:00 Pappenheimer Bodies Not Reportable 08/08/19 18:00 Sickle Cells Not Reportable 08/08/19 18:00 Target Cells Not Reportable 08/08/19 18:00 Tear Drop Cells Not Reportable 08/08/19 18:00 Ovalocytes Not Reportable 08/08/19 18:00 Helmet Cells Not Reportable 08/08/19 18:00 Quint[place]ornbeak Bodies Not Reportable 08/08/19 18:00 [place] Rings Not Reportable 08/08/19 18:00 Raven Cells Not Reportable 08/08/19 18:00 Bite Cells Not Reportable 08/08/19 18:00 Crenated Cell Not Reportable 08/08/19 18:00 Elliptocytes Not Reportable 08/08/19 18:00 Acanthocytes (Spur) Not Reportable 08/08/19 18:00 Rouleaux Not Reportable 08/08/19 18:00 Hemoglobin C Crystals Not Reportable 08/08/19 18:00 Schistocytes Not Reportable 08/08/19 18:00 Malaria parasites Not Reportable 08/08/19 18:00 Carlo Bodies Not Reportable 08/08/19 18:00 Hem Pathologist Commnt No 08/08/19 18:00 VBG pH 7.183 (7.320-7.420) L* 08/08/19 17:30 Sodium 133 mmol/L (137-145) L 08/08/19 17:30 Potassium 3.2 mmol/L (3.6-5.0) L 08/08/19 17:30 Chloride 95.2 mmol/L (98-107) L 08/08/19 17:30 Carbon Dioxide 10 mmol/L (22-30) L 08/08/19 17:30 Anion Gap 31 mmol/L 08/08/19 17:30 BUN 64 mg/dL (7-17) H 08/08/19 17:30 Creatinine 6.3 mg/dL (0.7-1.2) H 08/08/19 17:30 Estimated GFR 9 ml/min 08/08/19 17:30 BUN/Creatinine Ratio 10 % 08/08/19 17:30 Glucose 82 mg/dL (65-100) 08/08/19 17:30 Lactic Acid 2.40 mmol/L (0.7-2.0) H* 08/08/19 18:25 Calcium 6.3 mg/dL (8.4-10.2) L 08/08/19 17:30 Total Bilirubin 1.30 mg/dL (0.1-1.2) H 08/08/19 17:30 AST 43 units/L (5-40) H 08/08/19 17:30 ALT 32 units/L (7-56) 08/08/19 17: Alkaline Phosphatase 685 units/L (35-129) H 08/08/19: Troponin T 0.011 ng/mL (0.00-0.029) 08/08/19 18:00 Total Protein 7.2 g/dL (6.3-8.2) 08/08/19: Albumin 2.5 g/dL (3.9-5) L 08/08/19 Albumin/Globulin Ratio 0.5 % 08/08/19 Urine Color Yellow (Yellow) 08/08/19: Urine Turbidity Cloudy (Clear) 08/08/19: Urine pH 5.0 (5.0-7.0) 08/08/19 Ur Specific [place] 1.015 (1.003-1.030) 08/08/19: Urine Protein >500 mg/dL (Negative) 08/08/19 Urine Glucose (UA) Neg mg/dL (Negative) 08/08/19 Urine Ketones Neg mg/dL (Negative) 08/08/19: Urine Blood Mod (Negative) 08/08/19: Urine Nitrite Neg (Negative) 08/08/19 Urine Bilirubin Neg (Negative) 08/08/19 Urine Urobilinogen < 2.0 mg/dL (<2.0) 08/08/19 20: Ur Leukocyte Esterase Lg (Negative) 08/08/19: Urine WBC (Auto) > 182.0 /HPF (0.0-6.0) H 08/08/19 Urine RBC (Auto) 61.0 /HPF (0.0-6.0) 08/08/19 Urine Bacteria (Auto) 1+ /HPF (Negative) 08/08/19 Urine WBC Clumps 3+ /HPF 08/08/19 Urine Mucus Few /HPF 08/08/19 Assessment and Plan Advance Directives: Yes (Full code) Plan of care discussed with patient/family: Yes - Patient Problems (1) SIRS (systemic inflammatory response syndrome) Current Visit: Yes Status: Acute Plan to address problem: Elevated lactic acid, tachycardia consistent with Sirs (2) Exacerbation of systemic lupus erythematosus Current Visit: Yes Status: Acute Plan to address problem: Patient initiated on IV Solu-Medrol at low-dose of 40 mg every 8 Patient to be transitioned to prednisone by the primary team Check TITA dsDNA and sed rate (3) MOSES (acute kidney injury) Current Visit: Yes Status: Acute Plan to address problem: Patient's baseline creatinine is not known Possible CKD/end-stage renal disease IV fluids for now gently Nephrology consulted (4) Hypokalemia Current Visit: Yes Status: Acute Plan to address problem: Supplemented (5) Hyponatremia Current Visit: Yes Status: Acute Plan to address problem: Mild Gentle IV hydration for now Renal consult requested for elevated creatinine of 6 (6) DVT prophylaxis Current Visit: Yes Status: Acute Plan to address problem: On heparin and GI prophylaxis
[2019-08-08] MEDS ORDERED: SODIUM CHLORIDE 0.9% 1000 ML 1,000 ML IV SCH (23:45)
[2019-08-08] MEDS ORDERED: ONDANSETRON 4 MG/2 ML INJ IV PRN (23:48)
[2019-08-08] MEDS ORDERED: POTASSIUM CHLORIDE ER 20 MEQ TAB PO ONE (23:51)
[2019-08-09] MEDS ORDERED: HYDROmorphone 1 MG/1 ML INJ IV ONE (00:22)
[2019-08-09] MEDS ORDERED: SODIUM CHLORIDE 0.9% 1000 ML 1,000 ML IV ONE (00:23)
[2019-08-09] MEDS ORDERED: methylPREDNISolone Sod Succinate 40 MG/1 ML INJ ONE ×2 (00:30→06:49)
[2019-08-09] MEDS ORDERED: POTASSIUM CHLORIDE ER 20 MEQ TAB PO ONE (00:30)
[2019-08-09] MEDS: methylPREDNISolone Sod Succinate 40 MG/1 ML INJ IV SCH ×2 (00:39→07:04)
[2019-08-09] MEDS ORDERED: FAMOTIDINE 20 MG TAB ONE ×2 (02:20→13:45)
[2019-08-09] MEDS ORDERED: CLOPIDOGREL 75 MG TAB ONE (02:20)
[2019-08-09 05:22] LABS: Hematocrit 25.3 % (30.3-42.9); Hemoglobin 8.4 gm/dl (10.1-14.3); Mean Corpuscular HGB Conc 33 % (30-34); Mean Corpuscular Volume 83 fl (79-97); Platelet Count 115 K/mm3 (140-440); Red Blood Count 3.05 M/mm3 (3.65-5.03); Red Cell Distribution Width 17.6 % (13.2-15.2)
[2019-08-09 06:03] LABS: Albumin 2.4 g/dL (3.9-5)
[2019-08-09 06:13] LABS: Band Neutrophils # (Manual) 0.5 K/mm3; Basophils % (Manual) 0 % (0.0-1.8); Eosinophils % (Manual) 0 % (0.0-4.3); Monocytes % (Manual) 0 % (0.0-7.3); Target Cells 1+; Total Cells Counted 100
[2019-08-09 06:14] LABS: Burr Cells Few
[2019-08-09 06:15] LABS: Platelet Estimate Consistent w Auto
[2019-08-09 06:37] LABS: Calcium 5.7 mg/dL (8.4-10.2)
[2019-08-09] MEDS ORDERED: SODIUM BICARB 8.4% 50 MEQ/50 ML SYRINGE IV ONE ×2 (06:45→06:49)
--- NOTE | 2019-08-09 06:46 | Event Note ---
Nurse called to report bicarb of 7. Increase IV fluids from 75 to 150. Give bicarb, follow-up BMP
[2019-08-09] MEDS ORDERED: SODIUM CHLORIDE 0.9% 1000 ML 1,000 ML ONE (06:49)
[2019-08-09] MEDS: SODIUM BICARB 8.4% 50 MEQ/50 ML SYRINGE IV ONE ×2 (08:23→08:51)
--- NOTE | 2019-08-09 12:00 | Consultation ---
History of Present Illness - Reason for Consult acute renal failure Requesting physician: ANA GODWIN - History of Present Illness 39-year-old -Malag[place] female with history of lupus comes in for pain all over for the last 2 to 3 days. Patient has not been taking Plaquenil because of side effects on the eye. Was on prednisone for 1 week and stopped 1 week ago. Patient is hurting in all the joints the small and big joints. No fever or chills. No nausea no vomiting. No chest pain. No altered sensorium. Patient states that she has not taken her Plaquenil for at least last 2-3 months. Complains of feeling thirsty. She has been having nausea and vomiting for the past couple of weeks. She has been having shortness of breath as well. She has been taking ibuprofen for her aches and pains. Patient states that several years ago she also had acute kidney injury requiring dialysis for a few months. Past History Past Medical History: other (history of lupus and acute kidney injury) Social history: no significant social history Family history: no significant family history Medications and Allergies Allergies Allergy/AdvReac Type Severity Reaction Status Date / Time Penicillins Allergy Swelling Verified 07/22/19 16:38 Home Medications Medication Instructions Recorded Confirmed Last Taken Type Ibuprofen [Motrin] 800 mg PO Q8HR #30 tablet 06/13/19 08/08/19 Unknown Rx HYDROcodone/APAP 5-325 [[place] 1 each PO Q6HR PRN #10 tablet 07/11/19 08/08/19 Unknown Rx 5-325 mg TAB] Active Meds: Active Medications Acetaminophen (Tylenol) 650 mg PO Q4H PRN PRN Reason: Pain MILD(1-3)/Fever >100.5/MARIO Famotidine (Pepcid) 10 mg PO BID [facility] Hydromorphone HCl (Dilaudid) 0.5 mg IV Q3H PRN PRN Reason: Pain , Severe (7-10) Sodium Chloride (Nacl 0.9% 1000 Ml) 1,000 mls @ 150 mls/hr IV DIRECT SHEKHAR Stop: 08/09/19 12:00 Last Admin: 08/09/19 07:03 Dose: 150 mls/hr Documented by: Methylprednisolone Sodium Succinate (Solu-Medrol) 40 mg IV Q8HR [facility] Last Admin: 08/09/19 07:04 Dose: 40 mg Documented by: Morphine Sulfate (Morphine) 2 mg IV Q4H PRN PRN Reason: Pain, Moderate (4-6) Ondansetron HCl (Zofran) 4 mg IV Q8H PRN PRN Reason: Nausea And Vomiting Oxycodone/Acetaminophen (Percocet 5/325) 1 tab PO Q6H PRN PRN Reason: Pain, Moderate (4-6) Sodium Chloride (Sodium Chloride Flush Syringe 10 Ml) 10 ml IV BID SHEKHAR Sodium Chloride (Sodium Chloride Flush Syringe 10 Ml) 10 ml IV PRN PRN PRN Reason: LINE FLUSH Review of Systems All systems: negative (negative except as noted above) Exam - Vital Signs Vital signs: Vital Signs Pulse Resp BP Pulse Ox 74 16 108/72 100 08/08/19 17:45 08/08/19 17:45 08/08/19 17:45 08/08/19 17:45 - General Appearance General appearance: well-developed, well-nourished, appears stated age EENT: PERRL, mucous membranes dry Neck: Present: neck supple, trachea midline. Absent: JVD/HJR, Masses Respiratory: Clear to Ascultation Heart: regular, normal heart rate, S1S2, no murmurs Gastrointestinal: Present: normal, normoactive bowel sounds Integumentary: no rash, other Results - Lab Results 08/09/19 04:52 08/09/19 04:52 Most recent lab results Calcium 5.7 mg/dL (8.4-10.2) L* 08/09/19 04:52 Assessment and Plan Impression * Acute kidney injury * Severe metabolic acidosis * Lupus * Lactic acidosis * Hypocalcemia * Anemia * Leukocytosis Recommendation * Patient has acute kidney injury with severe metabolic acidosis. Her urine shows 4+ dipstick protein with associated pyuria as well as microhematuria. Need to consider lupus nephritis. Clinically she looks volume depleted as well. She most likely has a component of prerenal azotemia also. * However given her severe acidosis and worsening renal function, she needs renal replacement therapy. * Discussed with vascular surgery for Vas-Cath placement. Plan to initiate dialysis after access * Hydrate her with bicarbonate containing fluid * Check a fractional excretion of sodium * Check vasculitis workup * Avoid nephrotoxins * Monitor fluid status and electrolytes closely * Shall also give her pulse dose steroids * Empirically treated with antibiotic for pyuria. Check a urine culture as well * Thank you very much for the consultation. Shall follow along with you
[2019-08-09] MEDS ORDERED: SODIUM CHLORIDE 0.9% 100 ML IV PRN (12:11)
--- NOTE | 2019-08-09 12:13 | Operative Report ---
Operative Report Operative Report: Exam: Ultrasound guided placement of Vascath Clinical indication: Patient with a history of lupus and acute renal failure requiring dialysis access Date: 08/09/2019 Procedure: Following an explanation of the risks, benefits and alternatives; written informed consent was obtained. The procedure was performed at bedside in the ICU. The patient has a right neck triple-lumen catheter. Review of the chest x-ray demonstrates appropriate positioning in the internal trigger the pain. The patient's right neck and triple-lumen catheter were prepped and draped in the usual sterile fashion. Ultrasound was used to evaluate the catheter positioning and the catheter was noted to be within the internal jugular vein. 1% lidocaine was used for anesthesia of the catheter entry site. His 0.035 guidewire was advanced through the central lumen of the triple-lumen catheter. The triple-lumen catheter was then removed intact. Following serial dilation over the guidewire, a 15 cm dialysis catheter with a pigtail was advanced over the guidewire centrally easily. Guidewire was removed. Nonpulsatile blood return from all 3 ports. The catheter was securely flushed with sterile saline and locked with sterile saline. The catheter was sutured to the neck using 2-0 Ethilon suture and a sterile dressing applied. The patient tolerated the procedure well. There were no immediate post procedure complications. A postprocedure chest x-ray was performed to document appropriate positioning. Impression: Ultrasound guided placement of Vas-Cath via the right internal jugular vein
[2019-08-09] MEDS ORDERED: SODIUM BICARBONATE IV SCH (13:00)
[2019-08-09] MEDS ORDERED: methylPREDNISolone Sod Succinate 40 MG/1 ML INJ IV SCH (13:00)
[2019-08-09] MEDS ORDERED: SODIUM CHLORIDE 0.45% IV SCH (13:00)
--- NOTE | 2019-08-09 13:29 | XRay Report ---
CHEST 1 VIEW INDICATION / CLINICAL INFORMATION: Right IJ TLC to Vascath conversion. COMPARISON: 08/08/2019 FINDINGS: SUPPORT DEVICES: The central line has been exchanged for a larger caliber catheter. Tip remains in th e region of the superior vena cava appearing to be in good position. HEART / MEDIASTINUM: No significant abnormality. LUNGS / PLEURA: No significant pulmonary or pleural abnormality. No pneumothorax. ADDITIONAL FINDINGS: No significant additional findings. IMPRESSION: 1 New central line placement without pneumothorax. Signer Name: Santi Hernandez MD Signed: 08/09/2019 1:24 PM Workstation Name: [id number]
[2019-08-09] MEDS ORDERED: MORPHINE 2 MG/1 ML INJ ONE (13:46)
[2019-08-09] MEDS: MORPHINE 2 MG/1 ML INJ IV PRN (13:46)
[2019-08-09] MEDS ORDERED: methylPREDNISolone Sod Succinate 125 MG/2 ML INJ IV SCH (14:00)
[2019-08-09] MEDS: FAMOTIDINE 10 MG TAB PO SCH ×2 (14:38→21:53)
[2019-08-09] MEDS ORDERED: SODIUM BICARBONATE 150 MEQ in SODIUM CHLORIDE 0.45% 1000 ML 1,000 ML IV ONE (15:00)
--- NOTE | 2019-08-09 15:02 | Progress Note ---
Assessment and Plan Assessment and plan: -- SIRS (systemic inflammatory response syndrome) Elevated lactic acid, tachycardia consistent with Sirs. Follow cultures --Lactic acidosis: Resolved IV fluids and supportive care. Follow cultures --Exacerbation of systemic lupus erythematosus Patient initiated on IV Solu-Medrol at low-dose of 40 mg every 8 Patient to be transitioned to prednisone by the primary team Check TITA dsDNA and sed rate --Possible lupus nephritis; continue IV steroids, nephrology following Patient needs to follow with feed blender Upon discharge --MOSES (acute kidney injury) Severe metabolic acidosis, And acute kidney injury, Nephro, evaluated ,recommend stat hemodialysis Vascular placed, dialysis catheter Hemodialysis today and as needed --Metabolic acidosis; secondary to acute kidney injury Nephrology following, replacement therapy Hemodialysis, closely monitor -- Hypokalemia Supplemented, monitor electrolytes --Hyponatremia Mild, hemodialysis, Gentle IV hydration for now Monitor electrolytes -- DVT prophylaxis On heparin renal dose Monitor closely and adjust management as needed Plan of care reviewed with the patient and her nurse After hemodialysis, if the patient feels better May downgrade to medical floor Critical care time 35 minutes History Interval history: Patient seen and examined medical records reviewed Patient was awaiting in ER for bed assignment 39-year-old -[place] female patient with significant past medical history of lupus was admitted through emergency room with generalized body pains of 2 to 3 days duration on evaluation patient is noted to be in acute renal failure with severe metabolic acidosis nephrology evaluate the patient recommend start hemodialysis vascular placed hemodialysis catheter. Hospitalist Physical - Constitutional Vitals: Temp Pulse Resp BP Pulse Ox 110 H 16 120/85 93 08/09/19 14:45 08/09/19 14:45 08/09/19 14:45 08/09/19 14:45 General appearance: Present: mild distress, well-nourished - EENT Eyes: Present: PERRL - Neck Neck: Present: supple, normal ROM - Respiratory Respiratory effort: normal Respiratory: bilateral: diminished, rales, negative: rhonchi, wheezing - Cardiovascular Rhythm: regular Heart Sounds: Present: S1 & S2 - Extremities Extremities: no ischemia Extremity abnormal: edema - Abdominal General gastrointestinal: soft, non-tender, non-distended, normal bowel sounds - Integumentary Integumentary: Present: clear, warm - Psychiatric Psychiatric: appropriate mood/affect, cooperative - Neurologic Neurologic: CNII-XII intact, moves all extremities Results - Labs CBC & Chem 7: 08/09/19 04:52 08/09/19 04:52 Labs: Laboratory Last Values WBC 24.5 K/mm3 (4.5-11.0) H 08/09/19 04:52 RBC 3.05 M/mm3 (3.65-5.03) L 08/09/19 04:52 Hgb 8.4 gm/dl (10.1-14.3) L 08/09/19 04:52 Hct 25.3 % (30.3-42.9) L 08/09/19 04:52 MCV 83 fl (79-97) 08/09/19 04:52 MCH 28 pg (28-32) 08/09/19 04:52 MCHC 33 % (30-34) 08/09/19 04:52 RDW 17.6 % (13.2-15.2) H 08/09/19 04:52 Plt Count 115 K/mm3 (140-440) L 08/09/19 04:52 [place] % (Auto) [employer] 08/09/19 04:52 Lymph # [employer] 08/09/19 04:52 Add Manual Diff Complete 08/09/19 04:52 Total Counted 100 08/09/19 04:52 Seg Neuts % (Manual) 88.0 % (40.0-70.0) H 08/09/19 04:52 Band Neutrophils % 2.0 % 08/09/19 04:52 Lymphocytes % (Manual) 9.0 % (13.4-35.0) L 08/09/19 04:52 Reactive Lymphs % (Man) 0 % 08/09/19 04:52 Monocytes % (Manual) 0 % (0.0-7.3) 08/09/19 04:52 Eosinophils % (Manual) 0 % (0.0-4.3) 08/09/19 04:52 Basophils % (Manual) 0 % (0.0-1.8) 08/09/19 04:52 Metamyelocytes % 1.0 % 08/09/19 04:52 Myelocytes % 0 % 08/09/19 04:52 Promyelocytes % 0 % 08/09/19 04:52 Blast Cells % 0 % 08/09/19 04:52 Nucleated RBC % 4.0 % (0.0-0.9) H 08/09/19 04:52 Seg Neutrophils # Man 21.6 K/mm3 (1.8-7.7) H 08/09/19 04:52 Band Neutrophils # 0.5 K/mm3 08/09/19 04:52 Lymphocytes # (Manual) 2.2 K/mm3 (1.2-5.4) 08/09/19 04:52 Abs React Lymphs (Man) 0.0 K/mm3 08/09/19 04:52 Monocytes # (Manual) 0.0 K/mm3 (0.0-0.8) 08/09/19 04:52 Eosinophils # (Manual) 0.0 K/mm3 (0.0-0.4) 08/09/19 04:52 Basophils # (Manual) 0.0 K/mm3 (0.0-0.1) 08/09/19 04:52 Metamyelocytes # 0.2 K/mm3 08/09/19 04:52 Myelocytes # 0.0 K/mm3 08/09/19 04:52 Promyelocytes # 0.0 K/mm3 08/09/19 04:52 Blast Cells # 0.0 K/mm3 08/09/19 04:52 WBC Morphology Not Reportable 08/09/19 04:52 Hypersegmented Neuts Not Reportable 08/09/19 04:52 Hyposegmented Neuts Not Reportable 08/09/19 04:52 Hypogranular Neuts Not Reportable 08/09/19 04:52 Smudge Cells Not Reportable 08/09/19 04:52 Toxic Granulation Not Reportable 08/09/19 04:52 Toxic Vacuolation Not Reportable 08/09/19 04:52 Dohle Bodies Not Reportable 08/09/19 04:52 Pelger-Huet Anomaly Not Reportable 08/09/19 04:52 Doyle Rods Not Reportable 08/09/19 04:52 Platelet Estimate Consistent w auto 08/09/19 04:52 Clumped Platelets Not Reportable 08/09/19 04:52 Plt Clumps, EDTA Not Reportable 08/09/19 04:52 Large Platelets Not Reportable 08/09/19 04:52 Giant Platelets Not Reportable 08/09/19 04:52 Platelet Satelliting Not Reportable 08/09/19 04:52 Plt Morphology Comment Not Reportable 08/09/19 04:52 RBC Morphology Not Reportable 08/09/19 04:52 Dimorphic RBCs Not Reportable 08/09/19 04:52 Polychromasia Not Reportable 08/09/19 04:52 Hypochromasia Not Reportable 08/09/19 04:52 Poikilocytosis Not Reportable 08/09/19 04:52 Anisocytosis Not Reportable 08/09/19 04:52 Microcytosis Not Reportable 08/09/19 04:52 Macrocytosis Not Reportable 08/09/19 04:52 Spherocytes Not Reportable 08/09/19 04:52 Pappenheimer Bodies Not Reportable 08/09/19 04:52 Sickle Cells Not Reportable 08/09/19 04:52 Target Cells 1+ 08/09/19 04:52 Tear Drop Cells Not Reportable 08/09/19 04:52 Ovalocytes Not Reportable 08/09/19 04:52 Helmet Cells Not Reportable 08/09/19 04:52 [place] Bodies Not Reportable 08/09/19 04:52 [place] Rings Not Reportable 08/09/19 04:52 Dina Cells Few 08/09/19 04:52 Bite Cells Not Reportable 08/09/19 04:52 Crenated Cell Not Reportable 08/09/19 04:52 Elliptocytes Not Reportable 08/09/19 04:52 Acanthocytes (Spur) Not Reportable 08/09/19 04:52 Rouleaux Not Reportable 08/09/19 04:52 Hemoglobin C Crystals Not Reportable 08/09/19 04:52 Schistocytes Not Reportable 08/09/19 04:52 Malaria parasites Not Reportable 08/09/19 04:52 ESR 99 mm/Hr (0-20) 08/09/19 00:35 Carlo Bodies Not Reportable 08/09/19 04:52 Hem Pathologist Commnt No 08/09/19 04:52 VBG pH 7.183 (7.320-7.420) L* 08/08/19 17:30 Sodium 133 mmol/L (137-145) L 08/09/19 04:52 Potassium 3.9 mmol/L (3.6-5.0) D 08/09/19 04:52 Chloride 99.0 mmol/L (98-107) 08/09/19 04:52 Carbon Dioxide 7 mmol/L (22-30) L* 08/09/19 04:52 Anion Gap 31 mmol/L 08/09/19 04:52 BUN 72 mg/dL (7-17) H 08/09/19 04:52 Creatinine 5.7 mg/dL (0.7-1.2) H 08/09/19 04:52 Estimated GFR 10 ml/min 08/09/19 04:52 BUN/Creatinine Ratio 13 % 08/09/19 04:52 Glucose 98 mg/dL (65-100) 08/09/19 04:52 Hemoglobin A1c 5.4 % (4-6) 08/09/19 04:52 Lactic Acid 1.30 mmol/L (0.7-2.0) 08/08/19 23:28 Calcium 5.7 mg/dL (8.4-10.2) L* 08/09/19 04:52 Total Bilirubin 0.90 mg/dL (0.1-1.2) 08/09/19 04:52 AST 51 units/L (5-40) H 08/09/19 04:52 ALT 31 units/L (7-56) 08/09/19 04:52 Alkaline Phosphatase 531 units/L (35-129) H 08/09/19 04:52 Troponin T 0.011 ng/mL (0.00-0.029) 08/08/19 18:00 Total Protein 7.2 g/dL (6.3-8.2) 08/09/19 04:52 Albumin 2.4 g/dL (3.9-5) L 08/09/19 04:52 Albumin/Globulin Ratio 0.5 % 08/09/19 04:52 Urine Color Yellow (Yellow) 08/08/19 20:23 Urine Turbidity Cloudy (Clear) 08/08/19 20: Urine pH 5.0 (5.0-7.0) 08/08/19 20: Ur Specific [place] 1.015 (1.003-1.030) 08/08/19 20: Urine Protein >500 mg/dL (Negative) 08/08/19 20:23 Urine Glucose (UA) Neg mg/dL (Negative) 08/08/19 20: Urine Ketones Neg mg/dL (Negative) 08/08/19 20:23 Urine Blood Mod (Negative) 08/08/19 20:23 Urine Nitrite Neg (Negative) 08/08/19 20:23 Urine Bilirubin Neg (Negative) 08/08/19 20:23 Urine Urobilinogen < 2.0 mg/dL (<2.0) 08/08/19 20:23 Ur Leukocyte Esterase Lg (Negative) 08/08/19 20:23 Urine WBC (Auto) > 182.0 /HPF (0.0-6.0) H 08/08/19 20:23 Urine RBC (Auto) 61.0 /HPF (0.0-6.0) 08/08/19 20:23 Urine Bacteria (Auto) 1+ /HPF (Negative) 08/08/19 20: Urine WBC Clumps 3+ /HPF 08/08/19 20: Urine Mucus Few /HPF 08/08/19 20:23 Active Medications - Current Medications Current Medications: Generic Name Dose Route Start Last Admin Trade Name Freq PRN Reason Stop Dose Admin Acetaminophen 650 mg 08/08/19 23:48 Tylenol PO Q4H PRN Pain MILD(1-3)/Fever >100.5/MARIO Famotidine 10 mg 08/09/19 10:00 08/09/19 14:38 Pepcid PO 10 mg BID SHEKHAR Administration Hydromorphone HCl 0.5 mg 08/08/19 23:49 Dilaudid IV Q3H PRN Pain , Severe (7-10) Sodium Chloride 100 mls @ 999 mls/hr 08/09/19 12:11 Nacl 0.9% IV JOSE PRN Hypotension Methylprednisolone Sodium 58 mls @ 116 mls/hr 08/09/19 14:00 Succinate 500 mg/ Dextrose IV Q12H [facility] Sodium Bicarbonate 150 meq/ 1,150 mls @ 125 mls/hr 08/09/19 15:00 08/09/19 14:38 Sodium Chloride IV 08/10/19 00:11 125 mls/hr ONCE ONE Administration Morphine Sulfate 2 mg 08/08/19 23:49 08/09/19 13:46 Morphine IV 2 mg Q4H PRN Administration Pain, Moderate (4-6) Ondansetron HCl 4 mg 08/08/19 23:48 Zofran IV Q8H PRN Nausea And Vomiting Oxycodone/Acetaminophen 1 tab 08/08/19 23:49 Percocet 5/325 PO Q6H PRN Pain, Moderate (4-6) Sodium Chloride 10 ml 08/09/19 10:00 08/09/19 13:41 Sodium Chloride Flush Syringe 10 Ml IV 10 ml BID SHEKHAR Administration Sodium Chloride 10 ml 08/08/19 23:48 Sodium Chloride Flush Syringe 10 Ml IV PRN PRN LINE FLUSH
[2019-08-09] MEDS ORDERED: HYDROmorphone 1 MG/1 ML INJ ONE ×2 (15:04→19:19)
[2019-08-09] MEDS: HYDROmorphone 1 MG/1 ML INJ IV PRN ×3 (15:06→21:52)
[2019-08-09] MEDS: WATER IV SCH (15:31)
[2019-08-09] MEDS: METHYLPREDNISOLONE SOD SUC IV SCH (15:31)
[2019-08-09] MEDS: DEXTROSE 5% IV SCH (15:31)
[2019-08-09 23:36] LABS: Hepatitis B Surface Antigen Non-Reactive (Negative); Hepatitis C Virus Antibody Non-Reactive (NonReactive)
[2019-08-10 00:15] LABS: Fractional Sodium Excretion 8.2; Protein/Creatinine Ratio,Urine 3.76
[2019-08-10] MEDS: DEXTROSE 5% IV SCH ×2 (03:18→13:40)
[2019-08-10] MEDS: WATER IV SCH ×2 (03:18→13:40)
[2019-08-10] MEDS: METHYLPREDNISOLONE SOD SUC IV SCH ×2 (03:18→13:40)
[2019-08-10 05:12] LABS: Hematocrit 20.8 % (30.3-42.9); Mean Corpuscular HGB Conc 34 % (30-34); Mean Corpuscular Volume 81 fl (79-97); Red Blood Count 2.57 M/mm3 (3.65-5.03); Red Cell Distribution Width 16.3 % (13.2-15.2)
[2019-08-10 05:15] LABS: Platelet Count 81 K/mm3 (140-440)
[2019-08-10 05:36] LABS: Calcium 7.3 mg/dL (8.4-10.2)
[2019-08-10] MEDS ORDERED: POTASSIUM CHLORIDE ER 20 MEQ TAB PO ONE ×2 (05:48→08:00)
[2019-08-10 06:59] LABS: Basophils % (Manual) 0 % (0.0-1.8); Eosinophils % (Manual) 0 % (0.0-4.3); Total Cells Counted 100
[2019-08-10 07:00] LABS: Anisocytosis Few; Platelet Estimate Consistent w Auto; Target Cells 2+
--- NOTE | 2019-08-10 07:42 | Progress Note ---
Assessment and Plan Assessment and plan: -- Hypokalemia; potassium 2.9 Supplement with oral KCl ,monitor electrolytes --MOSES (acute kidney injury) vasomotor nephropathy Severe metabolic acidosis, And acute kidney injury, Nephro, evaluated ,recommend stat hemodialysis Vascular placed, dialysis catheter Hemodialysis today and as needed --Anemia due to acute kidney injury; Procrit during dialysis, monitor H&H and transfuse as needed --Metabolic acidosis; Slightly improved , received hemodialysis yesterday . Nephrology following, replacement therapy as needed Hemodialysis, closely monitor --Hyponatremia; mild improvement Hemodialysis, Gentle IV hydration Monitor electrolytes. 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 Follow cultures --Lactic acidosis: Resolved IV fluids and supportive care. Follow cultures --Severe malnutrition/hypoalbuminemia; Nutrition supplements and supportive care, nutrition consult As needed -- DVT prophylaxis On heparin renal dose Monitor closely and adjust management as needed Plan of care reviewed with the patient and her nurse Patient is stable to be transferred out of ICU to medical floor Critical care time 32 minutes History Interval history: Patient seen and examined medical records reviewed Patient was admitted with acute renal failure, evaluated by nephrology had started hemodialysis Today patient feels slightly better Complains of mild headache Vital signs reviewed Hospitalist Physical - Constitutional Vitals: Temp Pulse Resp BP Pulse Ox 98.5 F 94 H 11 L 142/90 97 08/10/19 03:30 08/10/19 06:00 08/10/19 06:00 08/10/19 06:00 08/10/19 05:31 General appearance: Present: mild distress, well-nourished - EENT Eyes: Present: PERRL, EOM intact - Neck Neck: Present: supple, normal ROM - Respiratory Respiratory effort: normal Respiratory: bilateral: diminished, rales, negative: rhonchi, wheezing - Cardiovascular Rhythm: regular Heart Sounds: Present: S1 & S2 - Extremities Extremities: no ischemia, No edema - Abdominal General gastrointestinal: soft, non-tender, non-distended, normal bowel sounds - Integumentary Integumentary: Present: clear, warm - Psychiatric Psychiatric: appropriate mood/affect, cooperative - Neurologic Neurologic: CNII-XII intact, moves all extremities Results - Labs CBC & Chem 7: 08/10/19 04:35 08/10/19 04:35 Labs: Laboratory Last Values WBC 11.2 K/mm3 (4.5-11.0) H 08/10/19 04:35 RBC 2.57 M/mm3 (3.65-5.03) L 08/10/19 04:35 Hgb 7.0 gm/dl (10.1-14.3) L 08/10/19 04:35 Hct 20.8 % (30.3-42.9) L 08/10/19 04:35 MCV 81 fl (79-97) 08/10/19 04:35 MCH 27 pg (28-32) L 08/10/19 04:35 MCHC 34 % (30-34) 08/10/19 04:35 RDW 16.3 % (13.2-15.2) H 08/10/19 04:35 Plt Count 81 K/mm3 (140-440) L 08/10/19 04:35 [place] % (Auto) Final Coat Sprayer 08/10/19 04:35 Lymph # Final Coat Sprayer 08/09/19 04:52 Add Manual Diff Complete 08/10/19 04:35 Total Counted 100 08/10/19 04:35 Seg Neuts % (Manual) 90.0 % (40.0-70.0) H 08/10/19 04:35 Band Neutrophils % 0 % 08/10/19 04:35 Lymphocytes % (Manual) 9.0 % (13.4-35.0) L 08/10/19 04:35 Reactive Lymphs % (Man) 0 % 08/10/19 04:35 Monocytes % (Manual) 1.0 % (0.0-7.3) 08/10/19 04:35 Eosinophils % (Manual) 0 % (0.0-4.3) 08/10/19 04:35 Basophils % (Manual) 0 % (0.0-1.8) 08/10/19 04:35 Metamyelocytes % 0 % 08/10/19 04:35 Myelocytes % 0 % 08/10/19 04:35 Promyelocytes % 0 % 08/10/19 04:35 Blast Cells % 0 % 08/10/19 04:35 Nucleated RBC % 3.0 % (0.0-0.9) H 08/10/19 04:35 Seg Neutrophils # Man 10.1 K/mm3 (1.8-7.7) H 08/10/19 04:35 Band Neutrophils # 0.0 K/mm3 08/10/19 04:35 Lymphocytes # (Manual) 1.0 K/mm3 (1.2-5.4) L 08/10/19 04:35 Abs React Lymphs (Man) 0.0 K/mm3 08/10/19 04:35 Monocytes # (Manual) 0.1 K/mm3 (0.0-0.8) 08/10/19 04:35 Eosinophils # (Manual) 0.0 K/mm3 (0.0-0.4) 08/10/19 04:35 Basophils # (Manual) 0.0 K/mm3 (0.0-0.1) 08/10/19 04:35 Metamyelocytes # 0.0 K/mm3 08/10/19 04:35 Myelocytes # 0.0 K/mm3 08/10/19 04:35 Promyelocytes # 0.0 K/mm3 08/10/19 04:35 Blast Cells # 0.0 K/mm3 08/10/19 04:35 WBC Morphology Not Reportable 08/10/19 04:35 Hypersegmented Neuts Not Reportable 08/10/19 04:35 Hyposegmented Neuts Not Reportable 08/10/19 04:35 Hypogranular Neuts Not Reportable 08/10/19 04:35 Smudge Cells Not Reportable 08/10/19 04:35 Toxic Granulation Not Reportable 08/10/19 04:35 Toxic Vacuolation Not Reportable 08/10/19 04:35 Dohle Bodies Not Reportable 08/10/19 04:35 Pelger-Huet Anomaly Not Reportable 08/10/19 04:35 Doyle Rods Not Reportable 08/10/19 04:35 Platelet Estimate Consistent w auto 08/10/19 04:35 Clumped Platelets Not Reportable 08/10/19 04:35 Plt Clumps, EDTA Not Reportable 08/10/19 04:35 Large Platelets Not Reportable 08/10/19 04:35 Giant Platelets Not Reportable 08/10/19 04:35 Platelet Satelliting Not Reportable 08/10/19 04:35 Plt Morphology Comment Not Reportable 08/10/19 04:35 RBC Morphology Not Reportable 08/10/19 04:35 Dimorphic RBCs Not Reportable 08/10/19 04:35 Polychromasia Not Reportable 08/10/19 04:35 Hypochromasia Not Reportable 08/10/19 04:35 Poikilocytosis Not Reportable 08/10/19 04:35 Anisocytosis Few 08/10/19 04:35 Microcytosis Not Reportable 08/10/19 04:35 Macrocytosis Not Reportable 08/10/19 04:35 Spherocytes Not Reportable 08/10/19 04:35 Pappenheimer Bodies Not Reportable 08/10/19 04:35 Sickle Cells Not Reportable 08/10/19 04:35 Target Cells 2+ 08/10/19 04:35 Tear Drop Cells Not Reportable 08/10/19 04:35 Ovalocytes Not Reportable 08/10/19 04:35 Helmet Cells Not Reportable 08/10/19 04:35 Quint[place] Bodies Not Reportable 08/10/19 04:35 [place] Rings Not Reportable 08/10/19 04:35 Dina Cells Not Reportable 08/10/19 04:35 Bite Cells Not Reportable 08/10/19 04:35 Crenated Cell Not Reportable 08/10/19 04:35 Elliptocytes Not Reportable 08/10/19 04:35 Acanthocytes (Spur) Not Reportable 08/10/19 04:35 Rouleaux Not Reportable 08/10/19 04:35 Hemoglobin C Crystals Not Reportable 08/10/19 04:35 Schistocytes Not Reportable 08/10/19 04:35 Malaria parasites Not Reportable 08/10/19 04:35 ESR 99 mm/Hr (0-20) 08/09/19 00:35 Carlo Bodies Not Reportable 08/10/19 04:35 Hem Pathologist Commnt No 08/10/19 04:35 VBG pH 7.183 (7.320-7.420) L* 08/08/19 17:30 Sodium 138 mmol/L (137-145) 08/10/19 04:35 Potassium 2.9 mmol/L (3.6-5.0) L* D 08/10/19 04:35 Chloride 98.4 mmol/L (98-107) 08/10/19 04:35 Carbon Dioxide 18 mmol/L (22-30) L D 08/10/19 04:35 Anion Gap 25 mmol/L 08/10/19 04:35 BUN 45 mg/dL (7-17) H 08/10/19 04:35 Creatinine 3.1 mg/dL (0.7-1.2) H 08/10/19 04:35 Estimated GFR 20 ml/min 08/10/19 04:35 BUN/Creatinine Ratio 15 % 08/10/19 04:35 Glucose 166 mg/dL (65-100) H 08/10/19 04:35 Hemoglobin A1c 5.4 % (4-6) 08/09/19 04:52 Lactic Acid 1.30 mmol/L (0.7-2.0) 08/08/19 23:28 Calcium 7.3 mg/dL (8.4-10.2) L D 08/10/19 04:35 Total Bilirubin 0.90 mg/dL (0.1-1.2) 08/09/19 04:52 AST 51 units/L (5-40) H 08/09/19 04:52 ALT 31 units/L (7-56) 08/09/19 04:52 Alkaline Phosphatase 531 units/L (35-129) H 08/09/19 04:52 Troponin T 0.011 ng/mL (0.00-0.029) 08/08/19 18:00 Total Protein 7.2 g/dL (6.3-8.2) 08/09/19 04:52 Albumin 2.4 g/dL (3.9-5) L 08/09/19 04:52 Albumin/Globulin Ratio 0.5 % 08/09/19 04:52 Urine Color Yellow (Yellow) 08/08/19 20:23 Urine Turbidity Cloudy (Clear) 08/08/19 20:23 Urine pH 5.0 (5.0-7.0) 08/08/19 20:23 Ur Specific [place] 1.015 (1.003-1.030) 08/08/19 20:23 Urine Protein >500 mg/dL (Negative) 08/08/19 20:23 Urine Glucose (UA) Neg mg/dL (Negative) 08/08/19 20:23 Urine Ketones Neg mg/dL (Negative) 08/08/19 20:23 Urine Blood Mod (Negative) 08/08/19 20:23 Urine Nitrite Neg (Negative) 08/08/19 20:23 Urine Bilirubin Neg (Negative) 08/08/19 20:23 Urine Urobilinogen < 2.0 mg/dL (<2.0) 08/08/19 20:23 Ur Leukocyte Esterase Lg (Negative) 08/08/19 20:23 Urine WBC (Auto) > 182.0 /HPF (0.0-6.0) H 08/08/19 20:23 Urine RBC (Auto) 61.0 /HPF (0.0-6.0) 08/08/19 20:23 Urine Bacteria (Auto) 1+ /HPF (Negative) 08/08/19 20: Urine WBC Clumps 3+ /HPF 08/08/19 20:23 Urine Mucus Few /HPF 08/08/19 20:23 Urine Eosinophils None seen (None Seen) 08/09/19 14:46 Urine Creatinine 41.0 mg/dL (0.1-20.0) H 08/09/19 14:46 Protein/Creatinin Ratio 3.76 08/09/19 14:46 Urine Sodium 84 mmol/L 08/09/19 14:46 Fraction Sodium Excret 8.2 08/09/19 14:46 Urine Total Protein 154 mg/dL (5-11.8) H 08/09/19 14:46 Hepatitis A IgM Ab Non-reactive (NonReactive) 08/09/19 12:30 Hep Bs Antigen Non-reactive (Negative) 08/09/19 12:30 Hep B Core IgM Ab Non-reactive (NonReactive) 08/09/19 12:30 Hepatitis C Antibody Non-reactive (NonReactive) 08/09/19 12:30 Active Medications - Current Medications Current Medications: Generic Name Dose Route Start Last Admin Trade Name Freq PRN Reason Stop Dose Admin Acetaminophen 650 mg 08/08/19 23:48 Tylenol PO Q4H PRN Pain MILD(1-3)/Fever >100.5/MARIO Famotidine 10 mg 08/09/19 10:00 08/09/19 21:53 Pepcid PO 10 mg BID SHEKHAR Administration Hydromorphone HCl 0.5 mg 08/08/19 23:49 08/09/19 21:52 Dilaudid IV 0.5 mg Q3H PRN Administration Pain , Severe (7-10) Sodium Chloride 100 mls @ 999 mls/hr 08/09/19 12:11 Nacl 0.9% IV JOSE PRN Hypotension Methylprednisolone Sodium 58 mls @ 116 mls/hr 08/09/19 14:00 08/10/19 03:18 Succinate 500 mg/ Dextrose IV 116 mls/hr Q12H SHEKHAR Administration Morphine Sulfate 2 mg 08/08/19 23:49 08/09/19 13:46 Morphine IV 2 mg Q4H PRN Administration Pain, Moderate (4-6) Ondansetron HCl 4 mg 08/08/19 23:48 Zofran IV Q8H PRN Nausea And Vomiting Oxycodone/Acetaminophen 1 tab 08/08/19 23:49 Percocet 5/325 PO Q6H PRN Pain, Moderate (4-6) Potassium Chloride 40 meq 08/10/19 10:00 K-Dur PO 08/10/19 10:01 ONCE ONE Sodium Chloride 10 ml 08/09/19 10:00 08/09/19 21:54 Sodium Chloride Flush Syringe 10 Ml IV 10 ml BID SHEKHAR Administration Sodium Chloride 10 ml 08/08/19 23:48 Sodium Chloride Flush Syringe 10 Ml IV PRN PRN LINE FLUSH
[2019-08-10] MEDS: HYDROmorphone 1 MG/1 ML INJ IV PRN ×2 (09:23→12:02)
[2019-08-10] MEDS: FAMOTIDINE 10 MG TAB PO SCH ×2 (09:26→22:07)
--- NOTE | 2019-08-10 12:22 | Progress Note ---
Assessment and Plan Impression * Acute kidney injury * Severe metabolic acidosis * Lupus * Lactic acidosis * Hypocalcemia * Anemia * Leukocytosis Recommendation * Patient has acute kidney injury with severe metabolic acidosis. Her urine shows 4+ dipstick protein with associated pyuria as well as microhematuria. Need to consider lupus nephritis. * Patient had urgent hemodialysis yesterday mainly because of severe metabolic acidosis. * Patient is approximately 125 mL of concentrated urine in the urine bag. Fractional excretion of sodium however came back as 8.4%. Urine is negative for eosinophils * No urgent indication for dialysis today. Reassess tomorrow regarding need for dialysis * Continue IV fluid with bicarbonate. * She will most likely require a kidney biopsy. Discussed briefly with patient. Tentatively shall plan for Sunday. Check coags tomorrow . * Follow up results of vasculitis workup * Avoid nephrotoxins * Monitor fluid status and electrolytes closely * Day 2 of pulse dose steroids. Patient will need high-dose oral prednisone after 3 days of IV steroids * Continue broad-spectrum IV antibiotic. Urine culture showing mixed azeb Subjective Date of service: 08/10/19 Interval history: Patient is currently in the ICU. Right IJ Vas-Cath was placed yesterday and she had urgent dialysis yesterday. Her shortness of breath is better. She still complains of feeling somewhat thirsty. Currently has indwelling Meyer catheter in place. Objective - Vital Signs Vital signs: Vital Signs - 12hr 08/10/19 08/10/19 08/10/19 00:31 01:00 01:31 Temperature Pulse Rate 100 H 103 H 102 H Pulse Rate [ From Monitor] Respiratory 10 L 11 L 10 L Rate Blood Pressure 137/84 141/85 141/85 O2 Sat by Pulse 98 96 96 Oximetry 08/10/19 08/10/19 08/10/19 02:00 02:31 03:00 Temperature Pulse Rate 105 H 102 H 100 H Pulse Rate [ From Monitor] Respiratory 10 L 11 L 8 L Rate Blood Pressure 138/82 138/82 138/87 O2 Sat by Pulse 97 95 98 Oximetry 08/10/19 08/10/19 08/10/19 03:30 03:31 04:00 Temperature 98.5 F Pulse Rate 97 H 97 H Pulse Rate [ 97 H From Monitor] Respiratory 11 L 12 Rate Blood Pressure 138/87 148/85 O2 Sat by Pulse 97 96 Oximetry 08/10/19 08/10/1908/10/20 04:31 05:00 05:31 Temperature Pulse Rate 97 H 100 H 96 H Pulse Rate [ From Monitor] Respiratory 10 L 12 9 L Rate Blood Pressure 148/85 142/86 142/86 O2 Sat by Pulse 97 97 97 Oximetry 08/10/19 08/10/19 08/10/19 06:00 06:30 07:00 Temperature Pulse Rate 94 H 97 H 93 H Pulse Rate [ From Monitor] Respiratory 11 L 10 L 12 Rate Blood Pressure 142/90 142/90 143/90 O2 Sat by Pulse 98 97 Oximetry 08/10/19 08/10/19 08/10/19 07:31 08:00 08:31 Temperature 98.2 F Pulse Rate 99 H 94 H 94 H Pulse Rate [ From Monitor] Respiratory 11 L 12 12 Rate Blood Pressure 143/90 144/91 144/91 O2 Sat by Pulse 99 100 Oximetry 08/10/19 08/10/19 08/10/19 09:00 09:31 10:00 Temperature Pulse Rate 93 H 101 H 95 H Pulse Rate [ From Monitor] Respiratory 12 12 11 L Rate Blood Pressure 147/91 147/91 154/100 O2 Sat by Pulse Oximetry 08/10/19 08/10/19 08/10/19 10:31 11:00 11:31 Temperature Pulse Rate 93 H 96 H 95 H Pulse Rate [ From Monitor] Respiratory 13 12 13 Rate Blood Pressure 154/100 152/99 152/99 O2 Sat by Pulse Oximetry - General Appearance General appearance: well-developed, well-nourished, appears stated age EENT: PERRL, mucous membranes dry Neck: no JVD, no thyromegaly, no carotid bruit, supple, other (right IJ Vas-Cath in place) Respiratory: Present: Clear to Ascultation Cardiology: regular, normal heart rate, S1S2, no murmurs Gastrointestinal: normal, normoactive bowel sounds Integumentary: other (no edema) - Lab 08/10/19 04:35 08/10/19 04:35 Most recent lab results Calcium 7.3 mg/dL (8.4-10.2) L D 08/10/19 04:35 Urine Creatinine 41.0 mg/dL (0.1-20.0) H 08/09/19 14:46 Urine Sodium 84 mmol/L 08/09/19 14:46 Urine Total Protein 154 mg/dL (5-11.8) H 08/09/19 14:46 Medications & Allergies - Medications Allergies/Adverse Reactions: Allergies Penicillins Allergy (Verified 07/22/19 16:38) Swelling Home Medications: Home Medications Medication Instructions Recorded Confirmed Last Taken Type Ibuprofen [Motrin] 800 mg PO Q8HR #30 tablet 06/13/19 08/08/19 Unknown Rx HYDROcodone/APAP 5-325 [[place] 1 each PO Q6HR PRN #10 tablet 07/11/19 08/08/19 Unknown Rx 5-325 mg TAB] Active Medications: Generic Name Dose Route Start Last Admin Trade Name Freq PRN Reason Stop Dose Admin Acetaminophen 650 mg 08/08/19 23:48 Tylenol PO Q4H PRN Pain MILD(1-3)/Fever >100.5/MARIO Famotidine 10 mg 08/09/19 10:00 08/10/19 09:26 Pepcid PO 10 mg BID SHEKHAR Administration Hydromorphone HCl 0.5 mg 08/08/19 23:49 08/10/19 12:02 Dilaudid IV 0.5 mg Q3H PRN Administration Pain , Severe (7-10) Sodium Chloride 100 mls @ 999 mls/hr 08/09/19 12:11 Nacl 0.9% IV JOSE PRN Hypotension Methylprednisolone Sodium 58 mls @ 116 mls/hr 08/09/19 14:00 08/10/19 03:18 Succinate 500 mg/ Dextrose IV 116 mls/hr Q12H SHEKHAR Administration Morphine Sulfate 2 mg 08/08/19 23:49 08/09/19 13:46 Morphine IV 2 mg Q4H PRN Administration Pain, Moderate (4-6) Ondansetron HCl 4 mg 08/08/19 23:48 Zofran IV Q8H PRN Nausea And Vomiting Oxycodone/Acetaminophen 1 tab 08/08/19 23:49 Percocet 5/325 PO Q6H PRN Pain, Moderate (4-6) Sodium Chloride 10 ml 08/09/19 10:00 08/10/19 12:03 Sodium Chloride Flush Syringe 10 Ml IV 10 ml BID SHEKHAR Administration Sodium Chloride 10 ml 08/08/19 23:48 Sodium Chloride Flush Syringe 10 Ml IV PRN PRN LINE FLUSH
[2019-08-10] MEDS ORDERED: SODIUM CHLORIDE 0.45% 1000 ML 1,000 ML with SODIUM BICARBONATE 75 MEQ IV SCH (13:00)
--- NOTE | 2019-08-10 19:15 | Ultrasound Report ---
ULTRASOUND RENAL INDICATION / CLINICAL INFORMATION: acute kidney injury. COMPARISON: None available. FINDINGS: RIGHT KIDNEY: Length = 14.8 cm. - Echogenicity: Normal. - Cortical Thickness: Normal. - Hydronephrosis: None. - Cyst or mass: No significant abnormality. - Stones: None seen. LEFT KIDNEY: Length = 12.8 cm. - Echogenicity: Normal. - Cortical Thickness: Normal. - Hydronephrosis: None. - Cyst or mass: No significant abnormality. - Stones: None seen. URINARY BLADDER: Contracted around a Meyer catheter. FREE FLUID: None. ADDITIONAL FINDINGS: None. IMPRESSION: 1. No acute sonographic abnormality of the kidneys. Signer Name: Ashwin Bran MD Signed: 08/10/2019 7:11 PM Workstation Name: [id number]
[2019-08-10] MEDS: MORPHINE 2 MG/1 ML INJ IV PRN (22:07)
[2019-08-11] MEDS: DEXTROSE 5% IV SCH ×2 (01:56→14:00)
[2019-08-11] MEDS: WATER IV SCH ×2 (01:56→14:00)
[2019-08-11] MEDS: METHYLPREDNISOLONE SOD SUC IV SCH ×2 (01:56→14:00)
[2019-08-11] MEDS: MORPHINE 2 MG/1 ML INJ IV PRN ×3 (02:01→16:34)
[2019-08-11 07:03] LABS: Hemoglobin 6.6 gm/dl (10.1-14.3); Mean Corpuscular HGB Conc 35 % (30-34); Mean Corpuscular Volume 80 fl (79-97); Red Blood Count 2.41 M/mm3 (3.65-5.03); Red Cell Distribution Width 16.6 % (13.2-15.2)
[2019-08-11 07:13] LABS: Platelet Count 69 K/mm3 (140-440)
[2019-08-11 07:15] LABS: Hematocrit 19.2 % (30.3-42.9)
[2019-08-11 07:29] LABS: Calcium 6.4 mg/dL (8.4-10.2)
[2019-08-11 08:10] LABS: Basophils % (Manual) 0 % (0.0-1.8); Eosinophils % (Manual) 0 % (0.0-4.3); Total Cells Counted 100
[2019-08-11 08:11] LABS: Anisocytosis Few; Large Platelets Rare; Platelet Estimate Consistent w Auto; Target Cells 3+
[2019-08-11] MEDS ORDERED: SODIUM CHLORIDE 0.9% 500 ML 500 ML IV NR (09:03)
[2019-08-11] MEDS: SODIUM BICARBONATE 150 MEQ in DEXTROSE 5% IN WATER 1,000 ML IV SCH (09:29)
[2019-08-11] MEDS: FAMOTIDINE 10 MG TAB PO SCH ×2 (10:13→22:34)
--- NOTE | 2019-08-11 10:14 | Progress Note ---
Assessment and Plan - Patient Problems (1) MOSES (acute kidney injury) Current Visit: Yes Status: Acute Plan to address problem: Acute kidney injury baseline creatinine about 0.5 mg/DL Worsening renal function noted Her dialysis catheter placed on admission currently on dialysis I reviewed urinalysis which showed significant proteinuria numerous white blood cells and numerous red blood cells Patient does appear clinically volume depleted however given proteinuria hematuria and underlying SLE concern for lupus flare Currently on pulse dose steroids She will benefit from renal biopsy unless kidney function improves Obtain repeat urinalysis Continue intravenous fluids Dialysis for solute clearance given underlying confusion Patient does have some thrombocytopenia Check coagulation studies Giving confusion concern for UTI and significant thrombocytopenia would need a lot of this to improve before she would be able to tolerate to biopsy given risks involved We'll repeat dialysis today (2) Anemia Current Visit: Yes Status: Acute Qualifiers: Anemia type: unspecified type Qualified Code(s): D64.9 - Anemia, unspecified Plan to address problem: Worsening anemia Recommend 2 units of PRBC Avoid heparin given low platelet counts Recommend obtaining a hematology evaluation (3) Exacerbation of systemic lupus erythematosus Current Visit: Yes Status: Acute Plan to address problem: Sle Concern for lupus nephritis Needs rheumatology involvement as well Currently on pulse steroids (4) UTI (urinary tract infection) Current Visit: Yes Status: Acute Qualifiers: Urinary tract infection type: acute cystitis Hematuria presence: with hematuria Qualified Code(s): N30.01 - Acute cystitis with hematuria Plan to address problem: UTi please obtain repeat urinalysis Continue antibiotics (5) Encephalopathy Current Visit: Yes Status: Acute Plan to address problem: Encephalopathy. This does not resolve obtain CT imaging Neurology involvement Continue treatment of underlying lupus Subjective Interval history: 39 year old lady with systemic lupus previously on Plaquenil and steroids admitted with acute kidney injury currently requiring dialysis Patient appears very confused this morning unable to provide any history Nurses staff refused IV fluids overnight-up patient cannot make a decision at this point given her confusion Meyer in place urine Will repeat Dialysis today given confusion and worsening renal function Has had worsening anemia Objective - Vital Signs Vital signs: Vital Signs - 12hr 08/11/19 05:13 Temperature 98.0 F Pulse Rate 84 Respiratory 20 Rate Blood Pressure 149/97 O2 Sat by Pulse 100 Oximetry - General Appearance General appearance: well-developed, well-nourished EENT: ATNC, PERRL Neck: no JVD Respiratory: Present: Clear to Ascultation Cardiology: regular, S1S2 Gastrointestinal: normal, normoactive bowel sounds Integumentary: no rash Neurologic: confused, disoriented Musculoskeletal: other (left leg [id number] amputation) Psychiatric: depressed - Lab 08/11/19 Unknown 08/11/19 Unknown Most recent lab results Calcium 6.4 mg/dL (8.4-10.2) L 08/11/19 Unknown Urine Creatinine 41.0 mg/dL (0.1-20.0) H 08/09/19 14:46 Urine Sodium 84 mmol/L 08/09/19 14:46 Urine Total Protein 154 mg/dL (5-11.8) H 08/09/19 14:46 - Imaging Chest x-ray: image reviewed (chest x-ray reviewed without edema) Medications & Allergies - Medications Allergies/Adverse Reactions: Allergies Penicillins Allergy (Verified 07/22/19 16:38) Swelling Home Medications: Home Medications Medication Instructions Recorded Confirmed Last Taken Type Ibuprofen [Motrin] 800 mg PO Q8HR #30 tablet 06/13/19 08/08/19 Unknown Rx HYDROcodone/APAP 5-325 [[place] 1 each PO Q6HR PRN #10 tablet 07/11/19 08/08/19 Unknown Rx 5-325 mg TAB] Active Medications: Generic Name Dose Route Start Last Admin Trade Name Efraq PRN Reason Stop Dose Admin Acetaminophen 650 mg 08/08/19 23:48 Tylenol PO Q4H PRN Pain MILD(1-3)/Fever >100.5/MARIO Famotidine 10 mg 08/09/19 10:00 08/10/19 22:07 Pepcid PO 10 mg BID SHEKHAR Administration Hydromorphone HCl 0.5 mg 08/08/19 23:49 08/10/19 12:02 Dilaudid IV 0.5 mg Q3H PRN Administration Pain , Severe (7-10) Sodium Chloride 100 mls @ 999 mls/hr 08/09/19 12:11 Nacl 0.9% IV JOSE PRN Hypotension Methylprednisolone Sodium 58 mls @ 116 mls/hr 08/09/19 14:00 08/11/19 01:56 Succinate 500 mg/ Dextrose IV 116 mls/hr Q12H SHEKHAR Administration Sodium Bicarbonate 150 meq/ 1,150 mls @ 150 mls/hr 08/11/19 09:00 08/11/19 09:29 Dextrose IV 150 mls/hr DIRECT SHEKHAR Administration Sodium Chloride 500 mls @ 0 mls/hr 08/11/19 09:03 Nacl 0.9% 500 Ml IV 08/11/19 12:00 ONCE NR As Directed Morphine Sulfate 2 mg 08/08/19 23:49 08/11/19 02:01 Morphine IV 2 mg Q4H PRN Administration Pain, Moderate (4-6) Ondansetron HCl 4 mg 08/08/19 23:48 Zofran IV Q8H PRN Nausea And Vomiting Oxycodone/Acetaminophen 1 tab 08/08/19 23:49 Percocet 5/325 PO Q6H PRN Pain, Moderate (4-6) Sodium Chloride 10 ml 08/09/19 10:00 08/10/19 22:08 Sodium Chloride Flush Syringe 10 Ml IV 10 ml BID SHEKHAR Administration Sodium Chloride 10 ml 08/08/19 23:48 Sodium Chloride Flush Syringe 10 Ml IV PRN PRN LINE FLUSH
[2019-08-11 12:11] LABS: INR 1.2 (0.87-1.13)
[2019-08-11 12:12] LABS: Partial Thromboplastin Time 25.8 Sec. (24.2-36.6)
--- NOTE | 2019-08-11 14:43 | Progress Note ---
Assessment and Plan Assessment and plan: -- Gram neg sepsis: positive blood cultures Ecoli antibiotics,ID evaluation -- Hypokalemia; potassium 2.9 Supplement with oral KCl ,monitor electrolytes --MOSES (acute kidney injury) vasomotor nephropathy Severe metabolic acidosis, And acute kidney injury, Nephro, evaluated ,recommend stat hemodialysis Vascular placed, dialysis catheter Hemodialysis today and as needed --Anemia due to acute kidney injury; Procrit during dialysis, monitor H&H and transfuse as needed --Metabolic acidosis; Slightly improved , received hemodialysis yesterday . Nephrology following, replacement therapy as needed Hemodialysis, closely monitor --Hyponatremia; mild improvement Hemodialysis, Gentle IV hydration Monitor electrolytes. --Exacerbation of systemic lupus erythematosus Steroids, pain medication, supportive care Advised to follow superintendent circus upon discharge --Possible lupus nephritis; continue IV steroids, nephrology following Patient needs to follow with superintendent circus Upon discharge -- SIRS (systemic inflammatory response syndrome) Elevated lactic acid, tachycardia consistent with Sirs. Follow cultures --Lactic acidosis: Resolved IV fluids and supportive care. Follow cultures --Severe malnutrition/hypoalbuminemia; Nutrition supplements and supportive care, nutrition consult As needed -- DVT prophylaxis On heparin renal dose Monitor closely and adjust management as needed Plan of care reviewed with the patient and her nurse Disposition:Out patient HD set up DC when stable History Interval history: Patient feels better No new complaints Vital signs stable Hospitalist Physical - Constitutional Vitals: Temp Pulse Resp BP Pulse Ox 98.2 F 84 18 194/117 194 H 08/11/19 14:27 08/11/19 14:27 08/11/19 14:27 08/11/19 14:27 08/11/19 14:27 General appearance: Present: mild distress, well-nourished - EENT Eyes: Present: PERRL, EOM intact - Neck Neck: Present: supple, normal ROM - Respiratory Respiratory effort: normal Respiratory: bilateral: diminished, wheezing, negative: rales, rhonchi - Cardiovascular Rhythm: regular Heart Sounds: Present: S1 & S2 - Extremities Extremities: no ischemia, No edema - Abdominal General gastrointestinal: soft, non-tender, non-distended, normal bowel sounds - Integumentary Integumentary: Present: clear, warm - Psychiatric Psychiatric: appropriate mood/affect, cooperative - Neurologic Neurologic: moves all extremities Results - Labs CBC & Chem 7: 08/11/19 Unknown 08/11/19 Unknown Labs: Laboratory Last Values WBC 8.7 K/mm3 (4.5-11.0) 08/11/19 Unknown RBC 2.41 M/mm3 (3.65-5.03) L 08/11/19 Unknown Hgb 6.6 gm/dl (10.1-14.3) L 08/11/19 Unknown Hct 19.2 % (30.3-42.9) L* 08/11/19 Unknown MCV 80 fl (79-97) 08/11/19 Unknown MCH 28 pg (28-32) 08/11/19 Unknown MCHC 35 % (30-34) H 08/11/19 Unknown RDW 16.6 % (13.2-15.2) H 08/11/19 Unknown Plt Count 69 K/mm3 (140-440) L 08/11/19 Unknown [place] % (Auto) Electroencephalograph Technologist 08/10/19 04:35 Lymph # Electroencephalograph Technologist 08/09/19 04:52 Add Manual Diff Complete 08/11/19 Unknown Total Counted 100 08/11/19 Unknown Seg Neuts % (Manual) 85.0 % (40.0-70.0) H 08/11/19 Unknown Band Neutrophils % 0 % 08/11/19 Unknown Lymphocytes % (Manual) 12.0 % (13.4-35.0) L 08/11/19 Unknown Reactive Lymphs % (Man) 0 % 08/11/19 Unknown Monocytes % (Manual) 3.0 % (0.0-7.3) 08/11/19 Unknown Eosinophils % (Manual) 0 % (0.0-4.3) 08/11/19 Unknown Basophils % (Manual) 0 % (0.0-1.8) 08/11/19 Unknown Metamyelocytes % 0 % 08/11/19 Unknown Myelocytes % 0 % 08/11/19 Unknown Promyelocytes % 0 % 08/11/19 Unknown Blast Cells % 0 % 08/11/19 Unknown Nucleated RBC % Not Reportable 08/11/19 Unknown Seg Neutrophils # Man 7.4 K/mm3 (1.8-7.7) 08/11/19 Unknown Band Neutrophils # 0.0 K/mm3 08/11/19 Unknown Lymphocytes # (Manual) 1.0 K/mm3 (1.2-5.4) L 08/11/19 Unknown Abs React Lymphs (Man) 0.0 K/mm3 08/11/19 Unknown Monocytes # (Manual) 0.3 K/mm3 (0.0-0.8) 08/11/19 Unknown Eosinophils # (Manual) 0.0 K/mm3 (0.0-0.4) 08/11/19 Unknown Basophils # (Manual) 0.0 K/mm3 (0.0-0.1) 08/11/19 Unknown Metamyelocytes # 0.0 K/mm3 08/11/19 Unknown Myelocytes # 0.0 K/mm3 08/11/19 Unknown Promyelocytes # 0.0 K/mm3 08/11/19 Unknown Blast Cells # 0.0 K/mm3 08/11/19 Unknown WBC Morphology Not Reportable 08/11/19 Unknown Hypersegmented Neuts Not Reportable 08/11/19 Unknown Hyposegmented Neuts Not Reportable 08/11/19 Unknown Hypogranular Neuts Not Reportable 08/11/19 Unknown Smudge Cells Not Reportable 08/11/19 Unknown Toxic Granulation Not Reportable 08/11/19 Unknown Toxic Vacuolation Not Reportable 08/11/19 Unknown Dohle Bodies Not Reportable 08/11/19 Unknown Pelger-Huet Anomaly Not Reportable 08/11/19 Unknown Doyle Rods Not Reportable 08/11/19 Unknown Platelet Estimate Consistent w auto 08/11/19 Unknown Clumped Platelets Not Reportable 08/11/19 Unknown Plt Clumps, EDTA Not Reportable 08/11/19 Unknown Large Platelets Rare 08/11/19 Unknown Giant Platelets Not Reportable 08/11/19 Unknown Platelet Satelliting Not Reportable 08/11/19 Unknown Plt Morphology Comment Not Reportable 08/11/19 Unknown RBC Morphology Not Reportable 08/11/19 Unknown Dimorphic RBCs Not Reportable 08/11/19 Unknown Polychromasia Not Reportable 08/11/19 Unknown Hypochromasia Not Reportable 08/11/19 Unknown Poikilocytosis Not Reportable 08/11/19 Unknown Anisocytosis Few 08/11/19 Unknown Microcytosis Not Reportable 08/11/19 Unknown Macrocytosis Not Reportable 08/11/19 Unknown Spherocytes Not Reportable 08/11/19 Unknown Pappenheimer Bodies Not Reportable 08/11/19 Unknown Sickle Cells Not Reportable 08/11/19 Unknown Target Cells 3+ 08/11/19 Unknown Tear Drop Cells Not Reportable 08/11/19 Unknown Ovalocytes Not Reportable 08/11/19 Unknown Helmet Cells Not Reportable 08/11/19 Unknown [place] Bodies Not Reportable 08/11/19 Unknown [place] Rings Not Reportable 08/11/19 Unknown Dina Cells Not Reportable 08/11/19 Unknown Bite Cells Not Reportable 08/11/19 Unknown Crenated Cell Not Reportable 08/11/19 Unknown Elliptocytes Not Reportable 08/11/19 Unknown Acanthocytes (Spur) Few 08/11/19 Unknown Rouleaux Not Reportable 08/11/19 Unknown Hemoglobin C Crystals Not Reportable 08/11/19 Unknown Schistocytes Not Reportable 08/11/19 Unknown Malaria parasites Not Reportable 08/11/19 Unknown ESR 99 mm/Hr (0-20) 08/09/19 00:35 Carlo Bodies Not Reportable 08/11/19 Unknown Hem Pathologist Commnt No 08/11/19 Unknown PT 15.4 Sec. (12.2-14.9) H 08/11/19 11:35 INR 1.20 (0.87-1.13) H 08/11/19 11:35 APTT 25.8 Sec. (24.2-36.6) 08/11/19 11:35 VBG pH 7.183 (7.320-7.420) L* 08/08/19 17:30 Sodium 135 mmol/L (137-145) L 08/11/19 Unknown Potassium 3.5 mmol/L (3.6-5.0) L D 08/11/19 Unknown Chloride 97.0 mmol/L (98-107) L 08/11/19 Unknown Carbon Dioxide 16 mmol/L (22-30) L 08/11/19 Unknown Anion Gap 26 mmol/L 08/11/19 Unknown BUN 85 mg/dL (7-17) H 08/11/19 Unknown Creatinine 4.3 mg/dL (0.7-1.2) H 08/11/19 Unknown Estimated GFR 14 ml/min 08/11/19 Unknown BUN/Creatinine Ratio 20 % 08/11/19 Unknown Glucose 166 mg/dL (65-100) H 08/11/19 Unknown Hemoglobin A1c 5.4 % (4-6) 08/09/19 04:52 Lactic Acid 1.30 mmol/L (0.7-2.0) 08/08/19 23:28 Calcium 6.4 mg/dL (8.4-10.2) L 08/11/19 Unknown Total Bilirubin 0.90 mg/dL (0.1-1.2) 08/09/19 04:52 AST 51 units/L (5-40) H 08/09/19 04:52 ALT 31 units/L (7-56) 08/09/19 04:52 Alkaline Phosphatase 531 units/L (35-129) H 08/09/19 04:52 Troponin T 0.011 ng/mL (0.00-0.029) 08/08/19 18:00 NT-Pro-B Natriuret Pep 038306 pg/mL (0-450) H 08/11/19 Unknown Total Protein 7.2 g/dL (6.3-8.2) 08/09/19 04:52 Albumin 2.4 g/dL (3.9-5) L 08/09/19 04:52 Albumin/Globulin Ratio 0.5 % 08/09/19 04:52 Urine Color Yellow (Yellow) 08/08/19 20: Urine Turbidity Cloudy (Clear) 08/08/19 20: Urine pH 5.0 (5.0-7.0) 08/08/19 20: Ur Specific [place] 1.015 (1.003-1.030) 08/08/19 20: Urine Protein >500 mg/dL (Negative) 08/08/19 20: Urine Glucose (UA) Neg mg/dL (Negative) 08/08/19 20: Urine Ketones Neg mg/dL (Negative) 08/08/19 20: Urine Blood Mod (Negative) 08/08/19 20: Urine Nitrite Neg (Negative) 08/08/19: Urine Bilirubin Neg (Negative) 08/08/19 Urine Urobilinogen < 2.0 mg/dL (<2.0) 08/08/19 20: Ur Leukocyte Esterase Lg (Negative) 08/08/19 20: Urine WBC (Auto) > 182.0 /HPF (0.0-6.0) H 08/08/19 20: Urine RBC (Auto) 61.0 /HPF (0.0-6.0) 08/08/19 20:23 Urine Bacteria (Auto) 1+ /HPF (Negative) 08/08/19 20:23 Urine WBC Clumps 3+ /HPF 08/08/19 20:23 Urine Mucus Few /HPF 08/08/19 20:23 Urine Eosinophils None seen (None Seen) 08/09/19 14:46 Urine Creatinine 41.0 mg/dL (0.1-20.0) H 08/09/19 14:46 Protein/Creatinin Ratio 3.76 08/09/19 14:46 Urine Sodium 84 mmol/L 08/09/19 14:46 Fraction Sodium Excret 8.2 08/09/19 14:46 Urine Total Protein 154 mg/dL (5-11.8) H 08/09/19 14:46 Hepatitis A IgM Ab Non-reactive (NonReactive) 08/09/19 12:30 Hep Bs Antigen Non-reactive (Negative) 08/09/19 12:30 Hep B Core IgM Ab Non-reactive (NonReactive) 08/09/19 12:30 Hepatitis C Antibody Non-reactive (NonReactive) 08/09/19 12:30 Blood Type O POSITIVE 08/11/19 11:35 Antibody Screen Negative 08/11/19 11:35 Crossmatch See Detail 08/11/19 11:35 Active Medications - Current Medications Current Medications: Generic Name Dose Route Start Last Admin Trade Name Freq PRN Reason Stop Dose Admin Acetaminophen 650 mg 08/08/19 23:48 Tylenol PO Q4H PRN Pain MILD(1-3)/Fever >100.5/MARIO Famotidine 10 mg 08/09/19 10:00 08/11/19 10:13 Pepcid PO 10 mg BID SHEKHAR Administration Hydromorphone HCl 0.5 mg 08/08/19 23:49 08/10/19 12:02 Dilaudid IV 0.5 mg Q3H PRN Administration Pain , Severe (7-10) Sodium Chloride 100 mls @ 999 mls/hr 08/09/19 12:11 Nacl 0.9% IV JOSE PRN Hypotension Methylprednisolone Sodium 58 mls @ 116 mls/hr 08/09/19 14:00 08/11/19 01:56 Succinate 500 mg/ Dextrose IV 116 mls/hr Q12H SHEKHAR Administration Sodium Bicarbonate 150 meq/ 1,150 mls @ 150 mls/hr 08/11/19 09:00 08/11/19 09:29 Dextrose IV 150 mls/hr DIRECT SHEKHAR Administration Morphine Sulfate 2 mg 08/08/19 23:49 08/11/19 10:12 Morphine IV 2 mg Q4H PRN Administration Pain, Moderate (4-6) Ondansetron HCl 4 mg 08/08/19 23:48 Zofran IV Q8H PRN Nausea And Vomiting Oxycodone/Acetaminophen 1 tab 08/08/19 23:49 Percocet 5/325 PO Q6H PRN Pain, Moderate (4-6) Sodium Chloride 10 ml 08/09/19 10:00 08/11/19 10:14 Sodium Chloride Flush Syringe 10 Ml IV 10 ml BID SHEKHAR Administration Sodium Chloride 10 ml 08/08/19 23:48 Sodium Chloride Flush Syringe 10 Ml IV PRN PRN LINE FLUSH
[2019-08-11] MEDS: HYDROmorphone 1 MG/1 ML INJ IV PRN (20:29)
[2019-08-11] MEDS ORDERED: CEFEPIME/NS 2 GM/100 ML 2 GM/100 ML BAG IV SCH (22:00)
[2019-08-11] MEDS: CEFEPIME/NS 1 GM/100 ML 1 GM/100 ML BAG IV SCH (22:35)
[2019-08-12] MEDS: WATER IV SCH ×2 (03:48→15:05)
[2019-08-12] MEDS: DEXTROSE 5% IV SCH ×2 (03:48→15:05)
[2019-08-12] MEDS: METHYLPREDNISOLONE SOD SUC IV SCH ×2 (03:48→15:05)
[2019-08-12] MEDS ORDERED: SODIUM CHLORIDE 0.9% 500 ML 500 ML IV NR (08:46)
[2019-08-12 09:40] LABS: Hematocrit 31.1 % (30.3-42.9); Hemoglobin 10.5 gm/dl (10.1-14.3); Mean Corpuscular HGB Conc 34 % (30-34); Mean Corpuscular Volume 81 fl (79-97); Red Blood Count 3.84 M/mm3 (3.65-5.03); Red Cell Distribution Width 17.2 % (13.2-15.2)
[2019-08-12 09:46] LABS: Platelet Count 23 K/mm3 (140-440)
[2019-08-12] MEDS: FAMOTIDINE 10 MG TAB PO SCH ×2 (09:49→22:13)
[2019-08-12] MEDS: MORPHINE 2 MG/1 ML INJ IV PRN ×4 (09:50→23:16)
[2019-08-12] MEDS: CEFEPIME/NS 1 GM/100 ML 1 GM/100 ML BAG IV SCH (09:50)
[2019-08-12 10:03] LABS: Calcium 7.6 mg/dL (8.4-10.2)
[2019-08-12 13:36] LABS: Bilirubin,Urine NEG (Negative); Blood,Urine LG (Negative); Color,Urine Yellow (Yellow); Mucus,Urine FEW /HPF; Urobilinogen,Urine < 2.0 mg/dL (<2.0)
--- NOTE | 2019-08-12 13:51 | Consultation ---
History of Present Illness - Reason for Consult Consult date: 08/12/19 - History of Present Illness 39-year-old female with past medical history of lupus into the hospital for generalized pain. She notices symptoms began approximately 3 days prior to admission. She usually takes Plaquenil for her lupus. However she has not been taking it recently due to side effects. Denies receiving a one-week course of prednisone which finished approximately a week prior to admission. The pain is particularly present in all of her joints. She otherwise denies symptoms including fevers, sweats, chills. She denies abdominal pain, nausea, vomiting, diarrhea. she does report recent goldman to bilateral inner thighs due to hot water. She also has a chronic sacral wound. She denies any foul odor or increased discharge from the sacral wound. Afebrile since admission with a white count of 13. She is currently receiving cefepime. Urinalysis with pyuria, blood cultures positive for Escherichia coli. imaging personally reviewed: chest x-ray: No acute infectious abnormality. Review of Systems: Bold if positive, otherwise negative General: fevers, chills, rigors HEENT: visual disturbance, diplopia, eye pain Respiratory: cough, sputum, hemoptysis, shortness of breath Cardiovascular: chest pain, syncope Gastrointestinal: nausea, vomiting, diarrhea, abdominal pain Genitourinary: dysuria, hematuria, flank pain Musculoskeletal: neck pain, back pain, joint pain, edema Neurologic: headaches, seizures Hematologic: easy bruising or bleeding Endocrine: night sweats, acute weight loss Skin: rash, jaundice, redness Psychiatric: suicidal, homicidal ideation Past History Past Medical History: other (history of lupus and acute kidney injury) Social history: no significant social history Family history: no significant family history Medications and Allergies Allergies Allergy/AdvReac Type Severity Reaction Status Date / Time Penicillins Allergy Swelling Verified 07/22/19 16:38 Home Medications Medication Instructions Recorded Confirmed Last Taken Type Ibuprofen [Motrin] 800 mg PO Q8HR #30 tablet 06/13/19 08/08/19 Unknown Rx HYDROcodone/APAP 5-325 [[place] 1 each PO Q6HR PRN #10 tablet 07/11/19 08/08/19 Unknown Rx 5-325 mg TAB] Active Meds: Active Medications Acetaminophen (Tylenol) 650 mg PO Q4H PRN PRN Reason: Pain MILD(1-3)/Fever >100.5/MARIO Famotidine (Pepcid) 10 mg PO BID [facility] Last Admin: 08/12/19 09:49 Dose: 10 mg Documented by: Hydromorphone HCl (Dilaudid) 0.5 mg IV Q3H PRN PRN Reason: Pain , Severe (7-10) Last Admin: 08/11/19 20:29 Dose: 0.5 mg Documented by: Sodium Chloride (Nacl 0.9%) 100 mls @ 999 mls/hr IV JOSE PRN PRN Reason: Hypotension Methylprednisolone Sodium (Succinate 500 mg/ Dextrose) 58 mls @ 116 mls/hr IV Q12H SHEKHAR Last Admin: 08/12/19 03:48 Dose: 116 mls/hr Documented by: Sodium Bicarbonate 150 meq/ (Dextrose) 1,150 mls @ 150 mls/hr IV DIRECT [facility] Last Admin: 08/11/19 09:29 Dose: 150 mls/hr Documented by: Sodium Chloride (Nacl 0.9% 500 Ml) 500 mls @ 0 mls/hr IV ONCE NR Stop: 08/13/19 08:45 Cefepime HCl (Cefepime/Ns 2 Gm/100 Ml) 2 gm in 100 mls @ 200 mls/hr IV Q24HR [facility]; Protocol Morphine Sulfate (Morphine) 2 mg IV Q4H PRN PRN Reason: Pain, Moderate (4-6) Last Admin: 08/12/19 09:50 Dose: 2 mg Documented by: Ondansetron HCl (Zofran) 4 mg IV Q8H PRN PRN Reason: Nausea And Vomiting Oxycodone/Acetaminophen (Percocet 5/325) 1 tab PO Q6H PRN PRN Reason: Pain, Moderate (4-6) Sodium Chloride (Sodium Chloride Flush Syringe 10 Ml) 10 ml IV BID [facility] Last Admin: 08/12/19 10:07 Dose: 10 ml Documented by: Sodium Chloride (Sodium Chloride Flush Syringe 10 Ml) 10 ml IV PRN PRN PRN Reason: LINE FLUSH Last Admin: 08/12/19 03:48 Dose: 10 ml Documented by: Physical Examination - Physical Exam Narrative exam: Constitutional: Alert, cooperative. No acute distress Head, Ears, Nose: Normocephalic, atraumatic. External ears, nose normal Eyes: Conjunctivae/corneas clear. No icterus. No ptosis. Neck: Supple, no meningeal signs Oral: dentition fair, no thrush Cardiovascular: S1, S2 normal. Respiratory: Good air entry, clear to auscultation bilaterally GI: Soft, non-tender; bowel sounds normal. No peritoneal signs. Musculoskeletal: No pedal edema, no cyanosis. Sacral wound without obvious drainage. Skin: No rash or abscess. Bilateral inner thigh wounds, clean/dry/intact Hem/Lymphatic: No palpable cervical or supraclavicular nodes. No lymphangitis Psych: Mood ok. Affect normal Neurological: Awake, alert, oriented. No gross abnormality - Constitutional Vitals: Vital Signs Temp Pulse Resp BP Pulse Ox 98.8 F 79 18 150/99 96 08/12/19 12:53 08/12/19 12:53 08/12/19 12:53 08/12/19 12:53 08/12/19 12:53 Temperature -Last 24 Hours Temperature 98.8 F Temperature 97.6 F Temperature 98.3 F Temperature 99.1 F Temperature 98.6 F Temperature 98.1 F Temperature 98.2 F Temperature 98.2 F Results - Labs CBC & Chem 7: 08/12/19 08:56 08/12/19 08:56 Labs: Abnormal lab results 08/11/19 08/12/19 08/12/19 Range/Units 11:35 08:56 08:56 WBC 13.3 H (4.5-11.0) K/mm3 MCH 27 L (28-32) pg RDW 17.2 H (13.2-15.2) % Plt Count 23 L (140-440) K/mm3 Sodium 134 L (137-145) mmol/L Potassium 3.4 L (3.6-5.0) mmol/L Chloride 94.6 L (98-107) mmol/L BUN 51 H (7-17) mg/dL Creatinine 2.5 H (0.7-1.2) mg/dL Glucose 228 H (65-100) mg/dL Calcium 7.6 L D (8.4-10.2) mg/dL NT-Pro-B Natriuret Pep (0-450) pg/mL Urine WBC (Auto) (0.0-6.0) /HPF Crossmatch See Detail 08/12/19 08/12/19 Range/Units 08:56 Unknown WBC (4.5-11.0) K/mm3 MCH (28-32) pg RDW (13.2-15.2) % Plt Count (140-440) K/mm3 Sodium (137-145) mmol/L Potassium (3.6-5.0) mmol/L Chloride (98-107) mmol/L BUN (7-17) mg/dL Creatinine (0.7-1.2) mg/dL Glucose (65-100) mg/dL Calcium (8.4-10.2) mg/dL NT-Pro-B Natriuret Pep 77317 H (0-450) pg/mL Urine WBC (Auto) 154.0 H (0.0-6.0) /HPF Crossmatch Assessment and Plan Cultures: 08/08/2019 blood cultures: E coli, I to Cipro 08/08/2019 urine culture: negative A&P - 39 yo F PMHx Lupus, not currently beingtreated admitted for generalized myalgias found to have MOSES requiring HD and E coli Bacteremia. #E coli bacteremia - from urine vs sacral wound source. More likely urine given pyuria. Would de-escalate to ceftriaxone for now, no need for Pseudomonas coverage with cefepime. Also, given possibly improving renal function will be easier to keep up with dosing. #UTI - as above #MOSES requiring HD - had vas cath placed emergently while bacteremic. OK to keep for now during treatment given fairly non-virulent bacteria as potential to be removed if renal function recovers. If patient is to require a more permanent line, would recommend removal of vas cath and obtaining new blood cultures after removal to ensure bacteremia is cleared prior to placement of permanent line. #Lupus - no current treatment, recently finished a prednisone course. #Penicillin allergy - tolerating cefepime without issue. Recommendations: - stopped cefepime - started ceftriaxone 2g q24h - recommend removal of vas-cath when feasible from HD standpoint. - if placing permacath, recommend repeat blood cultures after removal of vas cath prior to placement of permacath. Thank you for the consult, will follow. MD Fabi Hernandez [facility] M: [phone] O: [phone] F: [phone]
[2019-08-12 14:27] LABS: Anisocytosis 1+; Basophils % (Manual) 0 % (0.0-1.8); Eosinophils % (Manual) 0 % (0.0-4.3); Monocytes % (Manual) 0 % (0.0-7.3); Platelet Estimate Consistent w Auto; Poikilocytosis 3+; Target Cells 3+; Total Cells Counted 100
--- NOTE | 2019-08-12 15:07 | Progress Note ---
Assessment and Plan /Gram neg bacteremia with sepsis: positive blood cultures Ecoli antibiotics,ID evaluation / Hypokalemia; Supplemented with oral KCl ,monitor electrolytes /MOSES (acute kidney injury) vasomotor nephropathy Severe metabolic acidosis, And acute kidney injury, Nephro, evaluated, recommend stat hemodialysis Vascular placed dialysis catheter, on HD now /Anemia due to acute kidney injury; Procrit during dialysis, monitor H&H and transfuse as needed /Metabolic acidosis; Slightly improved , received hemodialysis yesterday . Nephrology following, replacement therapy as needed Hemodialysis, closely monitor /-Hyponatremia; mild improvement Hemodialysis, Gentle IV hydration Monitor electrolytes. /Exacerbation of systemic lupus erythematosus Steroids, pain medication, supportive care Advised to follow hot frame tender upon discharge /-Possible lupus nephritis; continue IV steroids, nephrology following Patient needs to follow with hot frame tender Upon discharge /Lactic acidosis: Resolved IV fluids and supportive care. Follow cultures /-Severe malnutrition/hypoalbuminemia; Nutrition supplements and supportive care, nutrition consult As needed -- DVT prophylaxis On heparin renal dose Monitor closely and adjust management as needed Plan of care reviewed with the patient and her nurse Disposition:Out patient HD set up DC when stable Hospitalist Physical General appearance: Present: mild distress, well-nourished - EENT Eyes: Present: PERRL, EOM intact - Neck Neck: Present: supple, normal ROM - Respiratory Respiratory effort: normal Respiratory: bilateral: diminished, wheezing, negative: rales, rhonchi - Cardiovascular Rhythm: regular Heart Sounds: Present: S1 & S2 - Extremities Extremities: no ischemia, No edema - Abdominal General gastrointestinal: soft, non-tender, non-distended, normal bowel sounds - Integumentary Integumentary: Present: clear, warm - Psychiatric Psychiatric: appropriate mood/affect, cooperative - Neurologic Neurologic: moves all extremities Subjective Date of service: 08/12/19 Interval history: Patient seen and examined c/o generalized weakness no chest pain Objective - Constitutional Vitals: Vital Signs - 12hr 08/12/19 08/12/19 08/12/19 05:23 06:32 12:53 Temperature 97.6 F 98.8 F Pulse Rate 73 79 Respiratory 20 18 18 Rate Blood Pressure 167/101 157/105 150/99 O2 Sat by Pulse 100 96 Oximetry - Labs CBC & Chem 7: 08/12/19 08:56 08/13/19 13:40 Labs: Abnormal lab results 08/11/19 08/12/19 08/12/19 Range/Units 11:35 08:56 08:56 WBC 13.3 H (4.5-11.0) K/mm3 MCH 27 L (28-32) pg RDW 17.2 H (13.2-15.2) % Plt Count 23 L (140-440) K/mm3 Seg Neuts % (Manual) 96.0 H (40.0-70.0) % Lymphocytes % (Manual) 3.0 L (13.4-35.0) % Nucleated RBC % 4.0 H (0.0-0.9) % Seg Neutrophils # Man 12.8 H (1.8-7.7) K/mm3 Lymphocytes # (Manual) 0.4 L (1.2-5.4) K/mm3 Sodium 134 L (137-145) mmol/L Potassium 3.4 L (3.6-5.0) mmol/L Chloride 94.6 L (98-107) mmol/L BUN 51 H (7-17) mg/dL Creatinine 2.5 H (0.7-1.2) mg/dL Glucose 228 H (65-100) mg/dL Calcium 7.6 L D (8.4-10.2) mg/dL NT-Pro-B Natriuret Pep (0-450) pg/mL Urine WBC (Auto) (0.0-6.0) /HPF Crossmatch See Detail 08/12/19 08/12/19 Range/Units 08:56 Unknown WBC (4.5-11.0) K/mm3 MCH (28-32) pg RDW (13.2-15.2) % Plt Count (140-440) K/mm3 Seg Neuts % (Manual) (40.0-70.0) % Lymphocytes % (Manual) (13.4-35.0) % Nucleated RBC % (0.0-0.9) % Seg Neutrophils # Man (1.8-7.7) K/mm3 Lymphocytes # (Manual) (1.2-5.4) K/mm3 Sodium (137-145) mmol/L Potassium (3.6-5.0) mmol/L Chloride (98-107) mmol/L BUN (7-17) mg/dL Creatinine (0.7-1.2) mg/dL Glucose (65-100) mg/dL Calcium (8.4-10.2) mg/dL NT-Pro-B Natriuret Pep 93945 H (0-450) pg/mL Urine WBC (Auto) 154.0 H (0.0-6.0) /HPF Crossmatch
--- NOTE | 2019-08-12 17:22 | Progress Note ---
Assessment and Plan - Patient Problems (1) MOSES (acute kidney injury) Current Visit: Yes Status: Acute Plan to address problem: Acute kidney injury baseline creatinine about 0.5 mg/DL Worsening renal function noted Her dialysis catheter placed on admission currently on dialysis I reviewed urinalysis which showed significant proteinuria numerous white blood cells and numerous red blood cells Patient does appear clinically volume depleted however given proteinuria hematuria and underlying SLE concern for lupus flare Currently on pulse dose steroids She will benefit from renal biopsy unless kidney function improves Obtain repeat urinalysis Continue intravenous fluids Dialysis for solute clearance given underlying confusion Patient does have some thrombocytopenia which is worsening so we'll have to hold off kidney biopsy for now Check coagulation studies Encephalopathy appears resolved (2) Anemia Current Visit: Yes Status: Acute Qualifiers: Anemia type: unspecified type Qualified Code(s): D64.9 - Anemia, unspecified Plan to address problem: Anemia improved current hemoglobin is 10 Avoid heparin given low platelet counts Recommend obtaining a hematology evaluation (3) Exacerbation of systemic lupus erythematosus Current Visit: Yes Status: Acute Plan to address problem: Sle Concern for lupus nephritis Needs rheumatology involvement as well Currently on pulse steroids (4) UTI (urinary tract infection) Current Visit: Yes Status: Acute Qualifiers: Urinary tract infection type: acute cystitis Hematuria presence: with hematuria Qualified Code(s): N30.01 - Acute cystitis with hematuria Plan to address problem: UTi please obtain repeat urinalysis Continue antibiotics (5) Encephalopathy Current Visit: Yes Status: Acute Plan to address problem: Encephalopathy. Resolved Neurology involvement Continue treatment of underlying lupus Subjective Interval history: 39 year old lady with systemic lupus previously on Plaquenil and steroids adm itted with acute kidney injury currently requiring dialysis Patient is much less confused today appears oriented to person and place and time Tolerated dialysis yesterday She appears agreeable to the kidney biopsy However she significantly thrombocytopenic I will have to hold off until this improves Continue fluid hydration Objective - Vital Signs Vital signs: Vital Signs - 12hr 08/12/19 08/12/19 08/12/19 05:23 06:32 12:53 Temperature 97.6 F 98.8 F Pulse Rate 73 79 Respiratory 20 18 18 Rate Blood Pressure 167/101 157/105 150/99 O2 Sat by Pulse 100 96 Oximetry - General Appearance General appearance: well-developed, well-nourished EENT: ATNC, PERRL Neck: no JVD Respiratory: Present: Clear to Ascultation Cardiology: regular, S1S2 Gastrointestinal: normal, normoactive bowel sounds Integumentary: no rash Neurologic: alert and oriented x3 Psychiatric: mood/affect appropriate - Lab 08/12/19 08:56 08/12/19 08:56 Most recent lab results Calcium 7.6 mg/dL (8.4-10.2) L D 08/12/19 08:56 Urine Creatinine 41.0 mg/dL (0.1-20.0) H 08/09/19 14:46 Urine Sodium 84 mmol/L 08/09/19 14:46 Urine Total Protein 154 mg/dL (5-11.8) H 08/09/19 14:46 - Imaging Chest x-ray: image reviewed (I reviewed chest x-ray I reviewed chest x-ray) Medications & Allergies - Medications Allergies/Adverse Reactions: Allergies Penicillins Allergy (Verified 07/22/19 16:38) Swelling Home Medications: Home Medications Medication Instructions Recorded Confirmed Last Taken Type Ibuprofen [Motrin] 800 mg PO Q8HR #30 tablet 06/13/19 08/08/19 Unknown Rx HYDROcodone/APAP 5-325 [[place] 1 each PO Q6HR PRN #10 tablet 07/11/19 08/08/19 Unknown Rx 5-325 mg TAB] Active Medications: Generic Name Dose Route Start Last Admin Trade Name Freq PRN Reason Stop Dose Admin Acetaminophen 650 mg 08/08/19 23:48 Tylenol PO Q4H PRN Pain MILD(1-3)/Fever >100.5/MARIO Famotidine 10 mg 08/09/19 10:00 08/12/19 09:49 Pepcid PO 10 mg BID SHEKHAR Administration Hydromorphone HCl 0.5 mg 08/08/19 23:49 08/11/19 20:29 Dilaudid IV 0.5 mg Q3H PRN Administration Pain , Severe (7-10) Sodium Chloride 100 mls @ 999 mls/hr 08/09/19 12:11 Nacl 0.9% IV JOSE PRN Hypotension Methylprednisolone Sodium 58 mls @ 116 mls/hr 08/09/19 14:00 08/12/19 15:05 Succinate 500 mg/ Dextrose IV 116 mls/hr Q12H SHEKHAR Administration Sodium Bicarbonate 150 meq/ 1,150 mls @ 150 mls/hr 08/11/19 09:00 08/11/19 09:29 Dextrose IV 150 mls/hr DIRECT SHEKHAR Administration Sodium Chloride 500 mls @ 0 mls/hr 08/12/19 08:46 Nacl 0.9% 500 Ml IV 08/13/19 08:45 ONCE NR As Directed Ceftriaxone Sodium 2 gm in 100 mls @ 200 mls/hr 08/12/19 16:00 Rocephin/Ns 2 Gm/100 Ml IV Q24HR SHE[facility] Protocol Morphine Sulfate 2 mg 08/08/19 23:49 08/12/19 15:01 Morphine IV 2 mg Q4H PRN Administration Pain, Moderate (4-6) Ondansetron HCl 4 mg 08/08/19 23:48 Zofran IV Q8H PRN Nausea And Vomiting Oxycodone/Acetaminophen 1 tab 08/08/19 23:49 Percocet 5/325 PO Q6H PRN Pain, Moderate (4-6) Sodium Chloride 10 ml 08/09/19 10:00 08/12/19 10:07 Sodium Chloride Flush Syringe 10 Ml IV 10 ml BID SHEKHAR Administration Sodium Chloride 10 ml 08/08/19 23:48 08/12/19 03:48 Sodium Chloride Flush Syringe 10 Ml IV 10 ml PRN PRN Administration LINE FLUSH
[2019-08-12] MEDS: cefTRIAXone/NS 2 GM/100 ML 2 GM/100 ML BAG IV SCH (18:23)
[2019-08-12] MEDS: SODIUM BICARBONATE 150 MEQ in DEXTROSE 5% IN WATER 1,000 ML IV SCH (20:23)
[2019-08-13] MEDS: DEXTROSE 5% IV SCH ×2 (01:44→13:28)
[2019-08-13] MEDS: WATER IV SCH ×2 (01:44→13:28)
[2019-08-13] MEDS: METHYLPREDNISOLONE SOD SUC IV SCH ×2 (01:44→13:28)
[2019-08-13] MEDS: MORPHINE 2 MG/1 ML INJ IV PRN ×4 (03:28→20:31)
[2019-08-13] MEDS: SODIUM BICARBONATE 150 MEQ in DEXTROSE 5% IN WATER 1,000 ML IV SCH ×2 (04:37→15:44)
--- NOTE | 2019-08-13 07:51 | Event Note ---
Date: 08/13/19 LOW PLT - h/o ITP in past - pt on steroids for renal issues HIV test - def Ix and follow Lupus or meds may have a role pharmacy review of meds will help [phone]
[2019-08-13 09:24] LABS: Iron 75 ug/dL (37-170); Total Iron Binding Capacity 197 mcg/dL (250-450)
[2019-08-13] MEDS: cefTRIAXone/NS 2 GM/100 ML 2 GM/100 ML BAG IV SCH (09:53)
[2019-08-13] MEDS: FAMOTIDINE 10 MG TAB PO SCH ×2 (09:53→21:08)
[2019-08-13] MEDS ORDERED: CEFEPIME/NS 2 GM/100 ML 2 GM/100 ML BAG IV SCH (10:00)
[2019-08-13] MEDS: HYDROmorphone 1 MG/1 ML INJ IV PRN ×4 (10:32→22:27)
--- NOTE | 2019-08-13 13:44 | Progress Note ---
Assessment and Plan Cultures: 08/08/2019 blood cultures: E coli, I to Cipro 08/08/2019 urine culture: negative A&P - 39 yo F PMHx Lupus, not currently beingtreated admitted for generalized myalgias found to have MOSES requiring HD and E coli Bacteremia. #E coli bacteremia - from urine vs sacral wound source. More likely urine given pyuria. Would de-escalate to ceftriaxone for now, no need for Pseudomonas coverage with cefepime. Also, given possibly improving renal function will be easier to keep up with dosing. #UTI - as above #MOSES requiring HD - had vas cath placed emergently while bacteremic. OK to keep for now during treatment given fairly non-virulent bacteria as potential to be removed if renal function recovers. If patient is to require a more permanent line, would recommend removal of vas cath and obtaining new blood cultures after removal to ensure bacteremia is cleared prior to placement of permanent line. #Lupus - no current treatment, recently finished a prednisone course. #Penicillin allergy - tolerating cefepime without issue. Recommendations: - continue ceftriaxone 2g q24h - recommend removal of vas-cath when feasible from HD standpoint. - if placing permacath, recommend repeat blood cultures after removal of vas cath prior to placement of permacath. - repeat CBC in a.m. Thank you for the consult, will follow. Chanel Mcadams MD [facility] M: [phone] O: [phone] F: [phone] Subjective Date of service: 08/13/19 Interval history: afebrile, slightly increased white count. No new complaints. Objective - Exam Narrative Exam: Constitutional: Alert, cooperative. No acute distress Cardiovascular: S1, S2 normal. Respiratory: Good air entry, clear to auscultation bilaterally GI: Soft, non-tender; bowel sounds normal. No peritoneal signs. Musculoskeletal: No pedal edema, no cyanosis. Sacral wound without obvious drainage. Skin: No rash or abscess. Bilateral inner thigh wounds, clean/dry/intact Hem/Lymphatic: No palpable cervical or supraclavicular nodes. No lymphangitis Psych: Mood ok. Affect normal Neurological: Awake, alert, oriented. No gross abnormality - Constitutional Vitals: Vital Signs Temp Pulse Resp BP Pulse Ox 98.2 F 85 20 130/71 95 08/13/19 11:11 08/13/19 11:11 08/13/19 13:25 08/13/19 11:11 08/13/19 11:11 Temperature -Last 24 Hours Temperature 98.2 F Temperature 98.7 F Temperature 98.6 F Temperature 99.5 F - Labs CBC & Chem 7: 08/12/19 08:56 08/12/19 08:56 Labs: Abnormal lab results 08/12/19 08/13/19 08/13/19 Range/Units 08:56 08:32 08:32 Seg Neuts % (Manual) 96.0 H (40.0-70.0) % Lymphocytes % (Manual) 3.0 L (13.4-35.0) % Nucleated RBC % 4.0 H (0.0-0.9) % Seg Neutrophils # Man 12.8 H (1.8-7.7) K/mm3 Lymphocytes # (Manual) 0.4 L (1.2-5.4) K/mm3 TIBC 197 L (250-450) mcg/dL Ferritin 1990.0 H (13.0-400.0) ng/mL Vitamin B12 (211-911) pg/mL Folate (7.3-26.0) ng/mL 08/13/19 08/13/19 Range/Units 08:32 08:32 Seg Neuts % (Manual) (40.0-70.0) % Lymphocytes % (Manual) (13.4-35.0) % Nucleated RBC % (0.0-0.9) % Seg Neutrophils # Man (1.8-7.7) K/mm3 Lymphocytes # (Manual) (1.2-5.4) K/mm3 TIBC (250-450) mcg/dL Ferritin (13.0-400.0) ng/mL Vitamin B12 1229 H (211-911) pg/mL Folate 5.36 L (7.3-26.0) ng/mL
[2019-08-13 14:22] LABS: INR 1.12 (0.87-1.13)
[2019-08-13 14:23] LABS: Partial Thromboplastin Time 22.7 Sec. (24.2-36.6)
--- NOTE | 2019-08-13 14:37 | Progress Note ---
Assessment and Plan - Patient Problems (1) MOSES (acute kidney injury) Current Visit: Yes Status: Acute Plan to address problem: Acute kidney injury baseline creatinine about 0.5 mg/DL Her dialysis catheter placed on admission currently on dialysis I reviewed urinalysis which showed significant proteinuria numerous white blood cells and numerous red blood cells Patient does appear clinically volume depleted however given proteinuria hematuria and underlying SLE concern for lupus flare We'll change PULSE steroids to prednisone 60 mg Creatinine appears stable in the past 24 hours likely some renal recovery She will benefit from renal biopsy unless kidney function improves Obtain repeat urinalysis Continue intravenous fluids We'll hold off Dialysis for solute clearance Patient does have some thrombocytopenia which is worsening so we'll have to hold off kidney biopsy for now Check coagulation studies Encephalopathy appears resolved (2) Anemia Current Visit: Yes Status: Acute Qualifiers: Anemia type: unspecified type Qualified Code(s): D64.9 - Anemia, unspecified Plan to address problem: Anemia improved current hemoglobin is 10 Avoid heparin given low platelet counts Recommend obtaining a hematology evaluation (3) Exacerbation of systemic lupus erythematosus Current Visit: Yes Status: Acute Plan to address problem: Sle Concern for lupus nephritis Needs rheumatology involvement as well DC IV steroids Complement levels are within normal limits We'll change to oral steroids (4) UTI (urinary tract infection) Current Visit: Yes Status: Acute Qualifiers: Urinary tract infection type: acute cystitis Hematuria presence: with hematuria Qualified Code(s): N30.01 - Acute cystitis with hematuria (5) Encephalopathy Current Visit: Yes Status: Acute Plan to address problem: Encephalopathy. Resolved Neurology involvement Continue treatment of underlying lupus Subjective Interval history: 39 year old lady with systemic lupus previously on Plaquenil and steroids admi tted with acute kidney injury and has required dialysis Patient is much less confused today appears oriented to person and place and time Last dialysis was 08/11 She appears agreeable to the kidney biopsy However she significantly thrombocytopenic I will have to hold off until this improves Continue fluid hydration Objective - Vital Signs Vital signs: Vital Signs - 12hr 08/13/19 08/13/19 08/13/19 05:35 11:11 13:25 Temperature 98.7 F 98.2 F Pulse Rate 75 85 Respiratory 20 20 20 Rate Blood Pressure 129/73 130/71 O2 Sat by Pulse 96 95 Oximetry - General Appearance General appearance: well-developed, well-nourished EENT: ATNC, PERRL Neck: no JVD Respiratory: Present: Clear to Ascultation Cardiology: regular, S1S2 Gastrointestinal: normal, normoactive bowel sounds Integumentary: no rash Neurologic: alert and oriented x3, CN 3-12 intact Psychiatric: mood/affect appropriate - Lab 08/12/19 08:56 08/13/19 13:40 Most recent lab results Calcium 6.0 mg/dL (8.4-10.2) L D 08/13/19 13:40 Urine Creatinine 41.0 mg/dL (0.1-20.0) H 08/09/19 14:46 Urine Sodium 84 mmol/L 08/09/19 14:46 Urine Total Protein 154 mg/dL (5-11.8) H 08/09/19 14:46 Medications & Allergies - Medications Allergies/Adverse Reactions: Allergies Penicillins Allergy (Verified 07/22/19 16:38) Swelling Home Medications: Home Medications Medication Instructions Recorded Confirmed Last Taken Type Ibuprofen [Motrin] 800 mg PO Q8HR #30 tablet 06/13/19 08/08/19 Unknown Rx HYDROcodone/APAP 5-325 [[place] 1 each PO Q6HR PRN #10 tablet 07/11/19 08/08/19 Unknown Rx 5-325 mg TAB] Active Medications: Generic Name Dose Route Start Last Admin Trade Name Efraq PRN Reason Stop Dose Admin Acetaminophen 650 mg 08/08/19 23:48 Tylenol PO Q4H PRN Pain MILD(1-3)/Fever >100.5/MARIO Famotidine 10 mg 08/09/19 10:00 08/13/19 09:53 Pepcid PO 10 mg BID SHEKHAR Administration Hydromorphone HCl 0.5 mg 08/08/19 23:49 08/13/19 10:32 Dilaudid IV 0.5 mg Q3H PRN Administration Pain , Severe (7-10) Sodium Bicarbonate 150 meq/ 1,150 mls @ 150 mls/hr 08/11/19 09:00 08/13/19 04:37 Dextrose IV 150 mls/hr DIRECT SHEKHAR Administration Ceftriaxone Sodium 2 gm in 100 mls @ 200 mls/hr 08/12/19 16:00 08/13/19 09:53 Rocephin/Ns 2 Gm/100 Ml IV 200 mls/hr Q24HR SHEKHAR Administration Protocol Morphine Sulfate 2 mg 08/08/19 23:49 08/13/19 13:25 Morphine IV 2 mg Q4H PRN Administration Pain, Moderate (4-6) Ondansetron HCl 4 mg 08/08/19 23:48 Zofran IV Q8H PRN Nausea And Vomiting Oxycodone/Acetaminophen 1 tab 08/08/19 23:49 Percocet 5/325 PO Q6H PRN Pain, Moderate (4-6) Prednisone 60 mg 08/14/19 10:00 Deltasone PO QDAY SHEKHAR Sodium Chloride 10 ml 08/09/19 10:00 08/13/19 09:54 Sodium Chloride Flush Syringe 10 Ml IV 10 ml BID SHEKHAR Administration Sodium Chloride 10 ml 08/08/19 23:48 08/12/19 03:48 Sodium Chloride Flush Syringe 10 Ml IV 10 ml PRN PRN Administration LINE FLUSH
[2019-08-13] MEDS ORDERED: POTASSIUM CHLORIDE ER 20 MEQ TAB PO ONE (16:55)
--- NOTE | 2019-08-13 16:59 | Progress Note ---
Assessment and Plan /Gram neg bacteremia with sepsis: positive blood cultures Ecoli cont antibiotics, ID following - need vas cath removed / Hypokalemia; Supplement with oral and iv KCl, monitor electrolytes /MOSES (acute kidney injury) vasomotor nephropathy Severe metabolic acidosis with acute kidney injury, Nephro evaluated, stated on hemodialysis placed on vas cath - need to remove vascath /Anemia due to acute kidney injury; Procrit during dialysis, monitor H&H and transfuse as needed /Metabolic acidosis; Slightly improved , received hemodialysis yesterday . Nephrology following, replacement therapy as needed Hemodialysis, closely monitor /-Hyponatremia; mild improvement Hemodialysis, Gentle IV hydration Monitor electrolytes. /Exacerbation of systemic lupus erythematosus Steroids, pain medication, supportive care Advised to follow geological specialist upon discharge /-Possible lupus nephritis; continue IV steroids, nephrology following Patient needs to follow with geological specialist Upon discharge /Lactic acidosis: Resolved IV fluids and supportive care. Follow cultures /-Severe malnutrition/hypoalbuminemia; Nutrition supplements and supportive care, nutrition consult As needed -- DVT prophylaxis On heparin renal dose Monitor closely and adjust management as needed Plan of care reviewed with the patient and her nurse Disposition:Out patient HD set up DC when stable Hospitalist Physical General appearance: Present: mild distress, well-nourished - EENT Eyes: Present: PERRL, EOM intact - Neck Neck: Present: supple, normal ROM - Respiratory Respiratory effort: normal Respiratory: bilateral: diminished, wheezing, negative: rales, rhonchi - Cardiovascular Rhythm: regular Heart Sounds: Present: S1 & S2 - Extremities Extremities: no ischemia, No edema, left leg amputated - single right leg - Abdominal General gastrointestinal: soft, non-tender, non-distended, normal bowel sounds - Integumentary Integumentary: Present: clear, warm - Psychiatric Psychiatric: appropriate mood/affect, cooperative - Neurologic Neurologic: moves all extremities Subjective Date of service: 08/13/19 Interval history: Patient seen and examined c/o generalized weakness no chest pain k level 2.9, h/h stable Objective - Constitutional Vitals: Vital Signs - 12hr 08/13/19 08/13/19 08/13/19 05:35 11:11 13:25 Temperature 98.7 F 98.2 F Pulse Rate 75 85 Respiratory 20 20 20 Rate Blood Pressure 129/73 130/71 O2 Sat by Pulse 96 95 Oximetry 08/13/19 13:55 Temperature Pulse Rate Respiratory 20 Rate Blood Pressure O2 Sat by Pulse Oximetry - Labs CBC & Chem 7: 08/14/19 07:07 08/14/19 07:07 Labs: Abnormal lab results 08/13/19 08/13/19 08/13/19 Range/Units 08:32 08:32 08:32 APTT (24.2-36.6) Sec. Sodium (137-145) mmol/L Potassium (3.6-5.0) mmol/L Chloride (98-107) mmol/L BUN (7-17) mg/dL Creatinine (0.7-1.2) mg/dL Glucose (65-100) mg/dL Calcium (8.4-10.2) mg/dL TIBC 197 L (250-450) mcg/dL Ferritin 1990.0 H (13.0-400.0) ng/mL Vitamin B12 1229 H (211-911) pg/mL Folate (7.3-26.0) ng/mL 08/13/19 08/13/19 08/13/19 Range/Units 08:32 13:40 13:40 APTT 22.7 L (24.2-36.6) Sec. Sodium 131 L (137-145) mmol/L Potassium 2.6 L* D (3.6-5.0) mmol/L Chloride 80.5 L (98-107) mmol/L BUN 66 H (7-17) mg/dL Creatinine 2.5 H (0.7-1.2) mg/dL Glucose 425 H (65-100) mg/dL Calcium 6.0 L D (8.4-10.2) mg/dL TIBC (250-450) mcg/dL Ferritin (13.0-400.0) ng/mL Vitamin B12 (211-911) pg/mL Folate 5.36 L (7.3-26.0) ng/mL
[2019-08-13 20:27] LABS: Myeloperoxidase Antibody <1.0 AI (<1.0)
[2019-08-13] MEDS: POTASSIUM CHLORIDE 10 MEQ 10 MEQ/100 ML BAG IV SCH ×3 (21:09→23:56)
[2019-08-13 23:17] LABS: Albumin 2.1 g/dL (3.8-4.8); Gamma Globulin 1.3 g/dL (0.8-1.7)
[2019-08-14] MEDS: MORPHINE 2 MG/1 ML INJ IV PRN ×2 (00:06→06:40)
[2019-08-14] MEDS: oxyCODONE /ACETAMINOPHEN 5-325MG TAB PO PRN (02:02)
[2019-08-14] MEDS: HYDROmorphone 1 MG/1 ML INJ IV PRN ×5 (03:54→22:05)
[2019-08-14] MEDS: SODIUM BICARBONATE 150 MEQ in DEXTROSE 5% IN WATER 1,000 ML IV SCH (04:30)
--- NOTE | 2019-08-14 07:17 | Hem/Onc Progress Note ---
Assessment and Plan 1. 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 This may be idiopathic thrombocytopenic purpura issues. The patient is already on steroid treatment for renal issues. We will continue the same. 2. Renal impairment. Nephrology following. 3. Anemia, chronic kidney disease may have a role. 4. History of left above-knee amputation. 5. History of splenectomy. 6. We will follow the trend of platelets if needed. If there is no improvement, we will look into other intervention like IVIG. Due to her renal issues, would need coordination with Nephrology team. ITP - on steroids - Patient Problems (1) Thrombocytopenia Current Visit: Yes Status: Acute Subjective Date of service: 08/14/19 Principal diagnosis: LOW PLT Interval history: no bleeding Objective - Exam Narrative Exam: Pain - none General appearance - feeling better Performance status limited self care Eyes - no icterus ENT - no bleeding LNs cervical not palpable Neck - no LN Respiratory Normal - on o2 Breath sounds - decreased air entry in bases CVS S1 S2 + Extremities no edema General GI Soft Rectal deferred female - deferred Skin warm Musculoskeletal - moves limbs Neurologically awake - oriented - Constitutional Vitals: Last Vital Signs Temp 98.7 F 08/14/19 05:15 Pulse 86 08/14/19 05:15 Resp 18 08/14/19 05:15 BP 126/62 08/14/19 05:15 Pulse Ox 90 08/14/19 05:15 - Labs Lab Results: Laboratory Results - last 24 hr 08/09/19 08/09/19 08/09/19 12:30 12:30 12:30 PT INR APTT Sodium Potassium Chloride Carbon Dioxide Anion Gap BUN Creatinine Estimated GFR BUN/Creatinine Ratio Glucose Calcium Iron TIBC Ferritin Serum Total Protein Albumin Lgwdf-6-Wdxvbnqdh Qvfyy-5-Lutjtasun Beta Globulins Gamma Globulins Abnorm Protein Band 1 PEP Interpretation Vitamin B12 Folate Proteinase 3 (PR3) Ab <1.0 Myeloperoxidase Ab <1.0 Complement C3 150 Complement C4 49 08/10/19 08/13/19 08/13/19 04:35 08:32 08:32 PT INR APTT Sodium Potassium Chloride Carbon Dioxide Anion Gap BUN Creatinine Estimated GFR BUN/Creatinine Ratio Glucose Calcium Iron 75 TIBC 197 L Ferritin 1990.0 H Serum Total Protein 5.5 L Albumin 2.1 L Borwe-2-Lqzhgxjse 0.8 H Pzbhj-3-Esetyzcof 0.7 Beta Globulins 0.4 Gamma Globulins 1.3 Abnorm Protein Band 1 see below PEP Interpretation see below H Vitamin B12 Folate Proteinase 3 (PR3) Ab Myeloperoxidase Ab Complement C3 Complement C4 08/13/19 08/13/19 08/13/19 08:32 08:32 13:40 PT 14.6 INR 1.12 APTT 22.7 L Sodium Potassium Chloride Carbon Dioxide Anion Gap BUN Creatinine Estimated GFR BUN/Creatinine Ratio Glucose Calcium Iron TIBC Ferritin Serum Total Protein Albumin Ryiod-8-Ghgklonwu Arjjl-6-Fpayibxrv Beta Globulins Gamma Globulins Abnorm Protein Band 1 PEP Interpretation Vitamin B12 1229 H Folate 5.36 L Proteinase 3 (PR3) Ab Myeloperoxidase Ab Complement C3 Complement C4 08/13/19 13:40 PT INR APTT Sodium 131 L Potassium 2.6 L* D Chloride 80.5 L Carbon Dioxide 30 D Anion Gap 23 BUN 66 H Creatinine 2.5 H Estimated GFR 26 BUN/Creatinine Ratio 26 Glucose 425 H Calcium 6.0 L D Iron TIBC Ferritin Serum Total Protein Albumin Dbiti-8-Bzqlujqxd Cagnu-7-Ryjlfumry Beta Globulins Gamma Globulins Abnorm Protein Band 1 PEP Interpretation Vitamin B12 Folate Proteinase 3 (PR3) Ab Myeloperoxidase Ab Complement C3 Complement C4 Medications & Allergies - Medications Allergies/Adverse Reactions: Allergies Penicillins Allergy (Verified 07/22/19 16:38) Swelling Home Medications: Home Medications Medication Instructions Recorded Confirmed Last Taken Type Ibuprofen [Motrin] 800 mg PO Q8HR #30 tablet 06/13/19 08/08/19 Unknown Rx HYDROcodone/APAP 5-325 [[place] 1 each PO Q6HR PRN #10 tablet 07/11/19 08/08/19 Unknown Rx 5-325 mg TAB] Active Medications: Generic Name Dose Route Start Last Admin Trade Name Freq PRN Reason Stop Dose Admin Acetaminophen 650 mg 08/08/19 23:48 Tylenol PO Q4H PRN Pain MILD(1-3)/Fever >100.5/MARIO Famotidine 10 mg 08/09/19 10:00 08/13/19 21:08 Pepcid PO 10 mg BID SHEKHAR Administration Hydromorphone HCl 0.5 mg 08/08/19 23:49 08/14/19 03:54 Dilaudid IV 0.5 mg Q3H PRN Administration Pain , Severe (7-10) Sodium Bicarbonate 150 meq/ 1,150 mls @ 150 mls/hr 08/11/19 09:00 08/14/19 04:30 Dextrose IV 150 mls/hr DIRECT SHEKHAR Administration Ceftriaxone Sodium 2 gm in 100 mls @ 200 mls/hr 08/12/19 16:00 08/13/19 09:53 Rocephin/Ns 2 Gm/100 Ml IV 200 mls/hr Q24HR SHEKHAR Administration Protocol Morphine Sulfate 2 mg 08/08/19 23:49 08/14/19 06:40 Morphine IV 2 mg Q4H PRN Administration Pain, Moderate (4-6) Ondansetron HCl 4 mg 08/08/19 23:48 Zofran IV Q8H PRN Nausea And Vomiting Oxycodone/Acetaminophen 1 tab 08/08/19 23:49 08/14/19 02:02 Percocet 5/325 PO 1 tab Q6H PRN Administration Pain, Moderate (4-6) Prednisone 60 mg 08/14/19 10:00 Deltasone PO QDAY SHEKHAR Sodium Chloride 10 ml 08/09/19 10:00 08/13/19 22:34 Sodium Chloride Flush Syringe 10 Ml IV 10 ml BID SHEKHAR Administration Sodium Chloride 10 ml 08/08/19 23:48 08/12/19 03:48 Sodium Chloride Flush Syringe 10 Ml IV 10 ml PRN PRN Administration LINE FLUSH
--- NOTE | 2019-08-14 07:41 | Consultation ---
HISTORY OF PRESENT ILLNESS: I saw the patient, a 39-year-old female in the medical floor. The patient has history of lupus with pain issues. She was on Plaquenil in the past, but this was stopped because of issues. The patient was also given steroids. The patient is having joint pain issues. PAST MEDICAL HISTORY: ITP, lupus. PAST SURGICAL HISTORY: Left leg surgery and hip surgery, spleen removal. FAMILY HISTORY: Noncontributory. SOCIAL HISTORY: Nonsmoker. HOME MEDICATIONS: IBUPROFEN, HYDROCODONE. REVIEW OF SYSTEMS: During this hospitalization, the patient has been seen by Nephrology and ID team. No history of abdominal pain, nausea, vomiting, diarrhea. Chronic sacral wound present. I have been consulted because of low platelet. PHYSICAL EXAMINATION: VITAL SIGNS: Temperature 98.2, pulse 85, respirations 20, BP 136/77. GENERAL: During this admission, the patient was anemic and she received transfusion support. The patient has been seen by the Nephrology team for renal impairment. Dialysis is being planned. HEENT: Pallor present, no icterus. NECK: No neck lymph nodes. HEART: S1, S2. LUNGS: Clear to auscultation anteriorly. ABDOMEN: Soft. EXTREMITIES: Left leg surgery. NEUROLOGIC: Alert, awake, answers simple questions. LABORATORY DATA: White cell 13, hemoglobin 10.5, MCV 81, platelet 169 and then 23, hemoglobin was 6.6 and then 10.5. RADIOLOGY: Renal ultrasound and chest x-ray was done. ASSESSMENT: 1. 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 This may be idiopathic thrombocytopenic purpura issues. The patient is already on steroid treatment for renal issues. We will continue the same. 2. Renal impairment. Nephrology following. 3. Anemia, chronic kidney disease may have a role. 4. History of left above-knee amputation. 5. History of splenectomy. 6. We will follow the trend of platelets if needed. If there is no improvement, we will look into other intervention like IVIG. Due to her renal issues, would need coordination with Nephrology team. JOB# [id number] NM/NTS
[2019-08-14 08:50] LABS: Hematocrit 23.4 % (30.3-42.9); Hemoglobin 7.9 gm/dl (10.1-14.3); Mean Corpuscular HGB Conc 34 % (30-34); Mean Corpuscular Volume 82 fl (79-97); Red Blood Count 2.86 M/mm3 (3.65-5.03); Red Cell Distribution Width 16.7 % (13.2-15.2)
[2019-08-14] MEDS: FAMOTIDINE 10 MG TAB PO SCH ×2 (09:14→21:29)
[2019-08-14] MEDS: cefTRIAXone/NS 2 GM/100 ML 2 GM/100 ML BAG IV SCH (09:14)
[2019-08-14 09:38] LABS: Calcium 5.6 mg/dL (8.4-10.2)
[2019-08-14 09:49] LABS: Basophils % (Manual) 0 % (0.0-1.8); Eosinophils % (Manual) 0 % (0.0-4.3); Total Cells Counted 100
[2019-08-14 09:50] LABS: Anisocytosis 1+; Ovalocytes Few; Platelet Estimate Consistent w Auto; Poikilocytosis 3+; Target Cells 3+
[2019-08-14 09:52] LABS: Platelet Count 47 K/mm3 (140-440)
[2019-08-14] MEDS ORDERED: predniSONE 20 MG TAB PO SCH (10:00)
[2019-08-14] MEDS ORDERED: CALCIUM GLUCONATE IV ONE (10:30)
[2019-08-14] MEDS ORDERED: POTASSIUM CHLORIDE ER 20 MEQ TAB PO ONE ×2 (10:30→18:00)
[2019-08-14] MEDS ORDERED: SODIUM CHLORIDE 0.9% IV ONE (10:30)
[2019-08-14] MEDS: POTASSIUM CHLORIDE 10 MEQ 10 MEQ/100 ML BAG IV SCH ×3 (12:33→16:45)
--- NOTE | 2019-08-14 13:05 | Progress Note ---
Assessment and Plan - Patient Problems (1) MOSES (acute kidney injury) Current Visit: Yes Status: Acute Plan to address problem: Acute kidney injury baseline creatinine about 0.5 mg/DL Her dialysis catheter placed on admission currently on dialysis I reviewed urinalysis which showed significant proteinuria numerous white blood cells and numerous red blood cells Patient does appear clinically volume depleted however given proteinuria hematuria and underlying SLE concern for lupus flare We'll change PULSE steroids to prednisone 60 mg Creatinine slightly improved past 24 hours likely some renal recovery Creatinine 2.3 mg/DL She will benefit from renal biopsy unless kidney function improves Obtain repeat urinalysis Continue intravenous fluids We'll hold off Dialysis for solute clearance Patient does have some thrombocytopenia which is worsening so we'll have to hold off kidney biopsy for now Check coagulation studies Encephalopathy appears resolved (2) Anemia Current Visit: Yes Status: Acute Qualifiers: Anemia type: unspecified type Qualified Code(s): D64.9 - Anemia, unspecified Plan to address problem: Anemia improved current hemoglobin is 10 Avoid heparin given low platelet counts Recommend obtaining a hematology evaluation (3) Exacerbation of systemic lupus erythematosus Current Visit: Yes Status: Acute Plan to address problem: Sle Concern for lupus nephritis Needs rheumatology involvement as well DC IV steroids Complement levels are within normal limits We'll change to oral steroids (4) UTI (urinary tract infection) Current Visit: Yes Status: Acute Qualifiers: Urinary tract infection type: acute cystitis Hematuria presence: with hematuria Qualified Code(s): N30.01 - Acute cystitis with hematuria Plan to address problem: UTi please obtain repeat urinalysis Continue antibiotics (5) Encephalopathy Current Visit: Yes Status: Acute Plan to address problem: Encephalopathy. Resolved Neurology involvement Continue treatment of underlying lupus (6) Thrombocytopenia Current Visit: Yes Status: Acute Plan to address problem: Platelet angy was 23,000 current count is 47,000 appreciate hematology evaluation Hold off biopsy for now given severe thrombocytopenia and improving renal function. Subjective Interval history: 39 year old lady with systemic lupus previously on Plaquenil and steroids admitted with acute kidney injury and has required dialysis Patient is much less confused today appears oriented to person and place and time Last dialysis was 08/11 She appears agreeable to the kidney biopsy However she significantly thrombocytopenic I will have to hold off until this improves Continue fluid hydration Renal function continues to improve Objective - Vital Signs Vital signs: Vital Signs - 12hr 08/14/19 08/14/19 08/14/19 02:02 03:54 05:15 Temperature 98.7 F Pulse Rate 86 Respiratory 0 L 18 18 Rate Blood Pressure 126/62 O2 Sat by Pulse 90 Oximetry - General Appearance General appearance: well-developed, well-nourished EENT: ATNC, PERRL Neck: no JVD ( ) Respiratory: Present: Clear to Ascultation Cardiology: regular, S1S2 Gastrointestinal: normal, normoactive bowel sounds Integumentary: no rash Neurologic: alert and oriented x3, CN 3-12 intact Psychiatric: mood/affect appropriate - Lab 08/14/19 07:07 08/14/19 07:07 Most recent lab results Calcium 5.6 mg/dL (8.4-10.2) L* 08/14/19 07:07 Urine Creatinine 41.0 mg/dL (0.1-20.0) H 08/09/19 14:46 Urine Sodium 84 mmol/L 08/09/19 14:46 Urine Total Protein 154 mg/dL (5-11.8) H 08/09/19 14:46 - Imaging Chest x-ray: image reviewed (review chest x-ray without pulmonary edema) Medications & Allergies - Medications Allergies/Adverse Reactions: Allergies Penicillins Allergy (Verified 07/22/19 16:38) Swelling Home Medications: Home Medications Medication Instructions Recorded Confirmed Last Taken Type Ibuprofen [Motrin] 800 mg PO Q8HR #30 tablet 06/13/19 08/08/19 Unknown Rx HYDROcodone/APAP 5-325 [[place] 1 each PO Q6HR PRN #10 tablet 07/11/19 08/08/19 Unknown Rx 5-325 mg TAB] Active Medications: Generic Name Dose Route Start Last Admin Trade Name Freq PRN Reason Stop Dose Admin Acetaminophen 650 mg 08/08/19 23:48 Tylenol PO Q4H PRN Pain MILD(1-3)/Fever >100.5/MARIO Calcium Carbonate/Glycine 1,250 mg 08/15/19 10:00 Oscal PO QDAY SHEKHAR Famotidine 10 mg 08/09/19 10:00 08/14/19 09:14 Pepcid PO 10 mg BID SHEKHAR Administration Hydromorphone HCl 0.5 mg 08/08/19 23:49 08/14/19 09:37 Dilaudid IV 0.5 mg Q3H PRN Administration Pain , Severe (7-10) Ceftriaxone Sodium 2 gm in 100 mls @ 200 mls/hr 08/12/19 16:00 08/14/19 09:14 Rocephin/Ns 2 Gm/100 Ml IV 200 mls/hr Q24HR SHEKHAR Administration Protocol Potassium Chloride 10 meq in 100 mls @ 100 mls/hr 08/14/19 11:30 08/14/19 12:33 Kcl 10meq/100ml IV 08/14/19 14:29 100 mls/hr Q1H SHEKHAR Administration Sodium Chloride 1,000 mls @ 75 mls/hr 08/14/19 13:00 Nacl 0.9% 1000 Ml IV DIRECT SHEKHAR Morphine Sulfate 2 mg 08/08/19 23:49 08/14/19 06:40 Morphine IV 2 mg Q4H PRN Administration Pain, Moderate (4-6) Ondansetron HCl 4 mg 08/08/19 23:48 Zofran IV Q8H PRN Nausea And Vomiting Oxycodone/Acetaminophen 1 tab 08/08/19 23:49 08/14/19 02:02 Percocet 5/325 PO 1 tab Q6H PRN Administration Pain, Moderate (4-6) Potassium Chloride 40 meq 08/14/19 18:00 K-Dur PO 08/14/19 18:01 ONCE ONE Prednisone 30 mg 08/14/19 12:57 Deltasone PO QDAY SHEKHAR Sodium Chloride 10 ml 08/09/19 10:00 08/14/19 09:15 Sodium Chloride Flush Syringe 10 Ml IV 10 ml BID SHEKHAR Administration Sodium Chloride 10 ml 08/08/19 23:48 08/12/19 03:48 Sodium Chloride Flush Syringe 10 Ml IV 10 ml PRN PRN Administration LINE FLUSH
[2019-08-14] MEDS: SODIUM CHLORIDE 0.9% 1000 ML 1,000 ML IV SCH (14:13)
--- NOTE | 2019-08-14 14:42 | Progress Note ---
Assessment and Plan Cultures: 08/08/2019 blood cultures: E coli, I to Cipro 08/08/2019 urine culture: negative A&P - 39 yo F PMHx Lupus, not currently beingtreated admitted for generalized myalgias found to have MOSES requiring HD and E coli Bacteremia. #E coli bacteremia - from urine vs sacral wound source. More likely urine given pyuria. Would de-escalate to ceftriaxone for now, no need for Pseudomonas coverage with cefepime. Also, given possibly improving renal function will be easier to keep up with dosing. #UTI - as above #MOSES requiring HD - had vas cath placed emergently while bacteremic. OK to keep for now during treatment given fairly non-virulent bacteria as potential to be removed if renal function recovers. If patient is to require a more permanent line, would recommend removal of vas cath and obtaining new blood cultures after removal to ensure bacteremia is cleared prior to placement of permanent line. #Lupus - no current treatment, recently finished a prednisone course. #Penicillin allergy - tolerating cefepime without issue. Recommendations: - continue ceftriaxone 2g q24h - recommend removal of vas-cath when feasible from HD standpoint. - if placing permacath, recommend repeat blood cultures after removal of vas cath prior to placement of permacath. - repeated blood cultures - Ordered CT abdomen and pelvis to rule out abscess formation given largely increased white count - if CT negative would recommend immediate removal of Vas-Cath Thank you for the consult, will follow. Chanel Mcadams MD [facility] M: [phone] O: [phone] F: [phone] Subjective Date of service: 08/14/19 Interval history: afebrile, white count largely increased. Objective - Exam Narrative Exam: Constitutional: Alert, cooperative. No acute distress Cardiovascular: S1, S2 normal. Respiratory: Good air entry, clear to auscultation bilaterally GI: Soft, non-tender; bowel sounds normal. No peritoneal signs. Musculoskeletal: No pedal edema, no cyanosis. Sacral wound without obvious drainage. Skin: No rash or abscess. Bilateral inner thigh wounds, clean/dry/intact Hem/Lymphatic: No palpable cervical or supraclavicular nodes. No lymphangitis Psych: Mood ok. Affect normal Neurological: Awake, alert, oriented. No gross abnormality - Constitutional Vitals: Vital Signs Temp Pulse Resp BP Pulse Ox 98.0 F 83 20 127/52 100 08/14/19 11:40 08/14/19 11:40 08/14/19 11:40 08/14/19 11:40 08/14/19 11:40 Temperature -Last 24 Hours Temperature 98.0 F Temperature 98.7 F Temperature 98.2 F Temperature 97.0 F - Labs CBC & Chem 7: 08/14/19 07:07 08/14/19 07:07 Labs: Abnormal lab results 08/10/19 08/14/19 08/14/19 Range/Units 04:35 07:07 07:07 WBC 23.5 H (4.5-11.0) K/mm3 RBC 2.86 L (3.65-5.03) M/mm3 Hgb 7.9 L (10.1-14.3) gm/dl Hct 23.4 L D (30.3-42.9) % RDW 16.7 H (13.2-15.2) % Plt Count 47 L D (140-440) K/mm3 Seg Neuts % (Manual) 95.0 H (40.0-70.0) % Lymphocytes % (Manual) 2.0 L (13.4-35.0) % Seg Neutrophils # Man 22.3 H (1.8-7.7) K/mm3 Lymphocytes # (Manual) 0.5 L (1.2-5.4) K/mm3 Sodium 135 L (137-145) mmol/L Potassium 2.9 L* (3.6-5.0) mmol/L Chloride 82.2 L (98-107) mmol/L Carbon Dioxide 33 H (22-30) mmol/L BUN 61 H (7-17) mg/dL Creatinine 2.3 H (0.7-1.2) mg/dL Glucose 289 H (65-100) mg/dL Calcium 5.6 L* (8.4-10.2) mg/dL Serum Total Protein 5.5 L (6.1-8.1) g/dL Albumin 2.1 L (3.8-4.8) g/dL [id number] 0.8 H (0.2-0.3) g/dL PEP Interpretation see below H
--- NOTE | 2019-08-14 16:04 | Progress Note ---
Assessment and Plan /Gram neg bacteremia with sepsis: positive blood cultures Ecoli cont antibiotics, ID following - need vas cath removed - vascular consulted / Hypokalemia; Supplement with oral and iv KCl, monitor electrolytes /hypocalcemia, replete, follow nephrology recommendation /MOSES (acute kidney injury) vasomotor nephropathy and -Possible lupus nephritis; Severe metabolic acidosis with acute kidney injury, Nephro evaluated, stated on hemodialysis as needed placed on vas cath - need to remove vascath for bacteremia continue IV steroids, nephrology following Patient needs to follow with product support representative Upon discharge /Anemia due to acute kidney injury; Procrit during dialysis, monitor H&H and transfuse as needed /Metabolic acidosis; Slightly improved , received hemodialysis yesterday . Nephrology following, replacement therapy as needed Hemodialysis, closely monitor /-Hyponatremia; mild improvement Gentle IV hydration Monitor electrolytes. /Exacerbation of systemic lupus erythematosus Steroids, pain medication, supportive care Advised to follow product support representative upon discharge /h/o Lupus continue IV steroids, Patient needs to follow with product support representative Upon discharge /Lactic acidosis: Resolved IV fluids and supportive care. Follow cultures /-Severe malnutrition/hypoalbuminemia; Nutrition supplements and supportive care, nutrition consult As needed -- DVT prophylaxis On heparin renal dose Monitor closely and adjust management as needed Plan of care reviewed with the patient and her nurse Disposition:Out patient HD set up DC when stable Hospitalist Physical General appearance: Present: mild distress, well-nourished - EENT Eyes: Present: PERRL, EOM intact - Neck Neck: Present: supple, normal ROM - Respiratory Respiratory effort: normal Respiratory: bilateral: diminished, wheezing, negative: rales, rhonchi - Cardiovascular Rhythm: regular Heart Sounds: Present: S1 & S2 - Extremities Extremities: no ischemia, No edema, left leg amputated - single right leg - Abdominal General gastrointestinal: soft, non-tender, non-distended, normal bowel sounds - Integumentary Integumentary: Present: clear, warm - Psychiatric Psychiatric: appropriate mood/affect, cooperative - Neurologic Neurologic: moves all extremities Subjective Date of service: 08/21/19 Interval history: Patient seen and examined c/o generalized weakness no chest pain K and Ca level noted low Objective - Constitutional Vitals: Vital Signs - 12hr 08/14/19 08/14/19 05:15 11:40 Temperature 98.7 F 98.0 F Pulse Rate 86 83 Respiratory 18 20 Rate Blood Pressure 126/62 127/52 O2 Sat by Pulse 90 100 Oximetry - Labs CBC & Chem 7: 08/14/19 07:07 08/15/19 06:45 Labs: Abnormal lab results 08/10/19 08/14/19 08/14/19 Range/Units 04:35 07:07 07:07 WBC 23.5 H (4.5-11.0) K/mm3 RBC 2.86 L (3.65-5.03) M/mm3 Hgb 7.9 L (10.1-14.3) gm/dl Hct 23.4 L D (30.3-42.9) % RDW 16.7 H (13.2-15.2) % Plt Count 47 L D (140-440) K/mm3 Seg Neuts % (Manual) 95.0 H (40.0-70.0) % Lymphocytes % (Manual) 2.0 L (13.4-35.0) % Seg Neutrophils # Man 22.3 H (1.8-7.7) K/mm3 Lymphocytes # (Manual) 0.5 L (1.2-5.4) K/mm3 Sodium 135 L (137-145) mmol/L Potassium 2.9 L* (3.6-5.0) mmol/L Chloride 82.2 L (98-107) mmol/L Carbon Dioxide 33 H (22-30) mmol/L BUN 61 H (7-17) mg/dL Creatinine 2.3 H (0.7-1.2) mg/dL Glucose 289 H (65-100) mg/dL Calcium 5.6 L* (8.4-10.2) mg/dL Serum Total Protein 5.5 L (6.1-8.1) g/dL Albumin 2.1 L (3.8-4.8) g/dL [id number] 0.8 H (0.2-0.3) g/dL PEP Interpretation see below H
[2019-08-14] MEDS: LOPERAMIDE 2 MG CAP PO PRN (21:38)
[2019-08-15] MEDS: HYDROmorphone 1 MG/1 ML INJ IV PRN ×4 (01:43→12:37)
[2019-08-15] MEDS: LOPERAMIDE 2 MG CAP PO PRN (04:19)
[2019-08-15] MEDS: oxyCODONE /ACETAMINOPHEN 5-325MG TAB PO PRN ×2 (04:19→22:09)
[2019-08-15] MEDS: SODIUM CHLORIDE 0.9% 1000 ML 1,000 ML IV SCH ×2 (04:34→23:55)
[2019-08-15 07:31] LABS: Calcium 5.2 mg/dL (8.4-10.2)
--- NOTE | 2019-08-15 08:14 | Hem/Onc Progress Note ---
Assessment and Plan 1. 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 This may be idiopathic thrombocytopenic purpura issues. The patient is already on steroid treatment for renal issues. We will continue the same. 2. Renal impairment. Nephrology following. 3. Anemia, chronic kidney disease may have a role. 4. History of left above-knee amputation. 5. History of splenectomy. 6. We will follow the trend of platelets if needed. If there is no improvement, we will look into other intervention like IVIG. Due to her renal issues, would need coordination with Nephrology team. ITP - on steroids Plt improving - Patient Problems (1) Thrombocytopenia Current Visit: Yes Status: Acute Subjective Date of service: 08/15/19 Principal diagnosis: ITP Interval history: no bleeding requesting jose l and maria guadalupe Objective - Exam Narrative Exam: Pain - none General appearance - feeling better Performance status limited self care Eyes - no icterus ENT - no bleeding LNs cervical not palpable Neck - no LN Respiratory Normal - on o2 Breath sounds - decreased air entry in bases CVS S1 S2 + Extremities no edema General GI Soft Rectal deferred female - deferred Skin warm Musculoskeletal - moves limbs Neurologically awake - oriented - Constitutional Vitals: Last Vital Signs Temp 98.6 F 08/15/19 03:39 Pulse 87 08/14/19 17:16 Resp 17 08/15/19 05:08 BP 131/62 08/15/19 03:39 Pulse Ox 94 08/15/19 03:00 - Labs Lab Results: Laboratory Results - last 24 hr 08/14/19 08/14/19 08/15/19 07:07 07:07 06:45 WBC 23.5 H RBC 2.86 L Hgb 7.9 L Hct 23.4 L D MCV 82 MCH 28 MCHC 34 RDW 16.7 H Plt Count 47 L D Add Manual Diff Complete Total Counted 100 Seg Neutrophils % Bunch Maker Seg Neuts % (Manual) 95.0 H Band Neutrophils % 0 Lymphocytes % (Manual) 2.0 L Reactive Lymphs % (Man) 0 Monocytes % (Manual) 3.0 Eosinophils % (Manual) 0 Basophils % (Manual) 0 Metamyelocytes % 0 Myelocytes % 0 Promyelocytes % 0 Blast Cells % 0 Nucleated RBC % Not Reportable Seg Neutrophils # Man 22.3 H Band Neutrophils # 0.0 Lymphocytes # (Manual) 0.5 L Abs React Lymphs (Man) 0.0 Monocytes # (Manual) 0.7 Eosinophils # (Manual) 0.0 Basophils # (Manual) 0.0 Metamyelocytes # 0.0 Myelocytes # 0.0 Promyelocytes # 0.0 Blast Cells # 0.0 WBC Morphology Not Reportable Hypersegmented Neuts Not Reportable Hyposegmented Neuts Not Reportable Hypogranular Neuts Not Reportable Smudge Cells Not Reportable Toxic Granulation Not Reportable Toxic Vacuolation Not Reportable Dohle Bodies Not Reportable Pelger-Huet Anomaly Not Reportable Doyle Rods Not Reportable Platelet Estimate Consistent w auto Clumped Platelets Not Reportable Plt Clumps, EDTA Not Reportable Large Platelets Not Reportable Giant Platelets Not Reportable Platelet Satelliting Not Reportable Plt Morphology Comment Not Reportable RBC Morphology Not Reportable Dimorphic RBCs Not Reportable Polychromasia Not Reportable Hypochromasia Not Reportable Poikilocytosis 3+ Anisocytosis 1+ Microcytosis Not Reportable Macrocytosis Not Reportable Spherocytes Not Reportable Pappenheimer Bodies Not Reportable Sickle Cells Not Reportable Target Cells 3+ Tear Drop Cells Not Reportable Ovalocytes Few Helmet Cells Not Reportable [place] Bodies Not Reportable [place] Rings Not Reportable Dixon Cells Not Reportable Bite Cells Not Reportable Crenated Cell Not Reportable Elliptocytes Not Reportable Acanthocytes (Spur) Not Reportable Rouleaux Not Reportable Hemoglobin C Crystals Not Reportable Schistocytes Not Reportable Malaria parasites Not Reportable Carlo Bodies Not Reportable Hem Pathologist Commnt No Sodium 135 L Potassium 2.9 L* Chloride 82.2 L Carbon Dioxide 33 H Anion Gap 23 BUN 61 H Creatinine 2.3 H Estimated GFR 29 BUN/Creatinine Ratio 27 Glucose 289 H Calcium 5.6 L* Phosphorus 2.40 L 08/15/19 06:45 WBC RBC Hgb Hct MCV MCH MCHC RDW Plt Count Add Manual Diff Total Counted Seg Neutrophils % Seg Neuts % (Manual) Band Neutrophils % Lymphocytes % (Manual) Reactive Lymphs % (Man) Monocytes % (Manual) Eosinophils % (Manual) Basophils % (Manual) Metamyelocytes % Myelocytes % Promyelocytes % Blast Cells % Nucleated RBC % Seg Neutrophils # Man Band Neutrophils # Lymphocytes # (Manual) Abs React Lymphs (Man) Monocytes # (Manual) Eosinophils # (Manual) Basophils # (Manual) Metamyelocytes # Myelocytes # Promyelocytes # Blast Cells # WBC Morphology Hypersegmented Neuts Hyposegmented Neuts Hypogranular Neuts Smudge Cells Toxic Granulation Toxic Vacuolation Dohle Bodies Pelger-Huet Anomaly Doyle Rods Platelet Estimate Clumped Platelets Plt Clumps, EDTA Large Platelets Giant Platelets Platelet Satelliting Plt Morphology Comment RBC Morphology Dimorphic RBCs Polychromasia Hypochromasia Poikilocytosis Anisocytosis Microcytosis Macrocytosis Spherocytes Pappenheimer Bodies Sickle Cells Target Cells Tear Drop Cells Ovalocytes Helmet Cells [place] Bodies [place] Rings Dina Cells Bite Cells Crenated Cell Elliptocytes Acanthocytes (Spur) Rouleaux Hemoglobin C Crystals Schistocytes Malaria parasites Carlo Bodies Hem Pathologist Commnt Sodium 140 Potassium 3.1 L Chloride 89.0 L Carbon Dioxide 35 H Anion Gap 19 BUN 43 H Creatinine 1.6 H Estimated GFR 44 BUN/Creatinine Ratio 27 Glucose 140 H Calcium 5.2 L* Phosphorus Medications & Allergies - Medications Allergies/Adverse Reactions: Allergies Penicillins Allergy (Verified 07/22/19 16:38) Swelling Home Medications: Home Medications Medication Instructions Recorded Confirmed Last Taken Type Ibuprofen [Motrin] 800 mg PO Q8HR #30 tablet 06/13/19 08/08/19 Unknown Rx HYDROcodone/APAP 5-325 [[place] 1 each PO Q6HR PRN #10 tablet 07/11/19 08/08/19 Unknown Rx 5-325 mg TAB] Active Medications: Generic Name Dose Route Start Last Admin Trade Name Freq PRN Reason Stop Dose Admin Acetaminophen 650 mg 08/08/19 23:48 Tylenol PO Q4H PRN Pain MILD(1-3)/Fever >100.5/MARIO Calcium Carbonate/Glycine 1,250 mg 08/15/19 10:00 Oscal PO QDAY SHEKHAR Famotidine 10 mg 08/09/19 10:00 08/14/19 21:29 Pepcid PO 10 mg BID SHEKHAR Administration Hydromorphone HCl 0.5 mg 08/08/19 23:49 08/15/19 07:42 Dilaudid IV 0.5 mg Q3H PRN Administration Pain , Severe (7-10) Ceftriaxone Sodium 2 gm in 100 mls @ 200 mls/hr 08/12/19 16:00 08/14/19 09:14 Rocephin/Ns 2 Gm/100 Ml IV 200 mls/hr Q24HR SHEKHAR Administration Protocol Sodium Chloride 1,000 mls @ 75 mls/hr 08/14/19 13:00 08/15/19 04:34 Nacl 0.9% 1000 Ml IV 75 mls/hr DIRECT SHEKHAR Administration Calcium Gluconate 2,000 mg/ 270 mls @ 270 mls/hr 08/15/19 09:00 Sodium Chloride IV 08/15/19 09:59 ONCE ONE Loperamide HCl 2 mg 08/14/19 18:47 08/15/19 04:19 Imodium PO 2 mg Q2H PRN Administration Diarrhea Morphine Sulfate 2 mg 08/08/19 23:49 08/14/19 06:40 Morphine IV 2 mg Q4H PRN Administration Pain, Moderate (4-6) Ondansetron HCl 4 mg 08/08/19 23:48 Zofran IV Q8H PRN Nausea And Vomiting Oxycodone/Acetaminophen 1 tab 08/08/19 23:49 08/14/19 02:02 Percocet 5/325 PO 1 tab Q6H PRN Administration Pain, Moderate (4-6) Potassium Chloride 30 meq 08/15/19 10:00 K-Dur PO QDAY SHEKHAR Prednisone 30 mg 08/15/19 10:00 Deltasone PO QDAY SHEKHAR Sodium Chloride 10 ml 08/09/19 10:00 08/14/19 21:31 Sodium Chloride Flush Syringe 10 Ml IV 10 ml BID SHEKHAR Administration Sodium Chloride 10 ml 08/08/19 23:48 08/12/19 03:48 Sodium Chloride Flush Syringe 10 Ml IV 10 ml PRN PRN Administration LINE FLUSH
[2019-08-15] MEDS ORDERED: CALCIUM GLUCONATE IV ONE (09:00)
[2019-08-15] MEDS ORDERED: SODIUM CHLORIDE 0.9% IV ONE (09:00)
--- NOTE | 2019-08-15 10:34 | Cat Scan Report ---
CT ABDOMEN AND PELVIS WITH CONTRAST INDICATION: Possible abscess. COMPARISON: Renal ultrasound from 08/09/2019. TECHNIQUE: Axial, coronal and sagittal CT imaging of the abdomen and pelvis was performed after inje ction of 100 mL Omnipaque [address] scans at this location are performed using CT dose re duction for ALARA by means of automated exposure control. FINDINGS: LOWER CHEST: Small bilateral pleural effusions are seen with associated atelectasis. No additional si gnificant abnormality. LIVER: No significant abnormality. BILIARY: Prior cholecystectomy. No biliary ductal dilatation. PANCREAS: No significant abnormality. SPLEEN: Surgically absent. ADRENALS: No significant abnormality. KIDNEYS AND URETERS: Generalized heterogeneity is noted throughout the kidneys with numerous bilatera l probable tiny cysts. No suspicious mass, hydroureteronephrosis or stones are seen. GI TRACT: No significant abnormality of the stomach, small bowel or colon. Unremarkable appendix. PERITONEUM: A small amount of free fluid is seen along the pelvis. No free air. No fluid collection. LYMPH NODES: No significant adenopathy. VASCULATURE: No significant abnormality. An infrarenal IVC filter appears unremarkable. URINARY BLADDER: Drained by a Meyer catheter. REPRODUCTIVE ORGANS: No significant abnormality. ADDITIONAL FINDINGS: Anasarca is noted. SKELETAL SYSTEM: The left femur is absent. Irregularity of the left acetabulum is nonspecific, but co uld be related to prior trauma, surgery or infection. Sclerosis is noted along the right femoral head with irregularity and destruction of the right acetabulum and severe right hip joint space loss. No other significant abnormality. IMPRESSION: 1. No abscess is identified within the abdomen or pelvis. 2. Nonspecific heterogeneity of the kidneys as above could be secondary to polynephritis or other chr onic kidney disease. Please correlate with clinical findings. 3. Nonspecific abnormal appearance of the bones of the pelvis as above could be related to prior trau ma/surgery or infection. Please correlate with the clinical findings. 4. Additional findings as above. Signer Name: Alfredo Mendez MD Signed: 08/15/2019 10:30 AM Workstation Name: [id number]
[2019-08-15] MEDS: POTASSIUM CHLORIDE ER 10 MEQ TAB PO SCH (10:54)
[2019-08-15] MEDS: predniSONE 20 MG TAB PO SCH (10:54)
[2019-08-15] MEDS: FAMOTIDINE 10 MG TAB PO SCH ×2 (10:54→22:10)
[2019-08-15] MEDS: cefTRIAXone/NS 2 GM/100 ML 2 GM/100 ML BAG IV SCH (10:55)
[2019-08-15] MEDS: CALCIUM CARBONATE 1250 MG TAB PO SCH (10:55)
--- NOTE | 2019-08-15 12:04 | Progress Note ---
Assessment and Plan Cultures: 08/08/2019 blood cultures: E coli, I to Cipro 08/08/2019 urine culture: negative A&P - 39 yo F PMHx Lupus, not currently beingtreated admitted for generalized myalgias found to have MOSES requiring HD and E coli Bacteremia. #E coli bacteremia - from urine vs sacral wound source. More likely urine given pyuria. Would de-escalate to ceftriaxone for now, no need for Pseudomonas coverage with cefepime. Also, given possibly improving renal function will be easier to keep up with dosing. #UTI - as above #MOSES requiring HD - had vas cath placed emergently while bacteremic. OK to keep for now during treatment given fairly non-virulent bacteria as potential to be removed if renal function recovers. If patient is to require a more permanent line, would recommend removal of vas cath and obtaining new blood cultures after removal to ensure bacteremia is cleared prior to placement of permanent line. #Lupus - no current treatment, recently finished a prednisone course. #Penicillin allergy - tolerating cefepime without issue. #Leukocytosis - possibly secondary to high dose steroids. Patient remains afebrile. #Sacral wound - possible osteomyelitis seen on CT, will order MRI to further evaluate infection. Recommendations: - continue ceftriaxone 2g q24h - recommend removal of vas-cath when feasible from HD standpoint. - if placing permacath, recommend repeat blood cultures after removal of vas cath prior to placement of permacath. - repeated blood cultures - ordered MRi to evaluate possible osteo seen on CT. Thank you for the consult, will follow. MD [facility] M: [phone] O: [phone] F: [phone] Subjective Date of service: 08/15/19 Principal diagnosis: LOW PLT Interval history: afebrile, no new complaints. Remains mildly confused. Objective - Exam Narrative Exam: Constitutional: Alert, cooperative. No acute distress Cardiovascular: S1, S2 normal. Respiratory: Good air entry, clear to auscultation bilaterally GI: Soft, non-tender; bowel sounds normal. No peritoneal signs. Musculoskeletal: No pedal edema, no cyanosis. Sacral wound without obvious drainage. Skin: No rash or abscess. Bilateral inner thigh wounds, clean/dry/intact Hem/Lymphatic: No palpable cervical or supraclavicular nodes. No lymphangitis Psych: Mood ok. Affect normal Neurological: Awake, alert, oriented. No gross abnormality - Constitutional Vitals: Vital Signs Temp Pulse Resp BP Pulse Ox 98.6 F 87 17 131/62 94 08/15/19 03:39 08/14/19 17:16 08/15/19 05:08 08/15/19 03:39 08/15/19 03:00 Temperature -Last 24 Hours Temperature 98.6 F Temperature 98.6 F Temperature 98.7 F Temperature 97.0 F - Labs CBC & Chem 7: 08/14/19 07:07 08/15/19 06:45 Labs: Abnormal lab results 08/15/19 08/15/19 Range/Units 06:45 06:45 Potassium 3.1 L (3.6-5.0) mmol/L Chloride 89.0 L (98-107) mmol/L Carbon Dioxide 35 H (22-30) mmol/L BUN 43 H (7-17) mg/dL Creatinine 1.6 H (0.7-1.2) mg/dL Glucose 140 H (65-100) mg/dL Calcium 5.2 L* (8.4-10.2) mg/dL Phosphorus 2.40 L (2.5-4.5) mg/dL
[2019-08-15] MEDS: PHOS-NAK POWDER PACKET PO SCH ×2 (12:37→22:10)
--- NOTE | 2019-08-15 14:09 | Progress Note ---
Assessment and Plan /Gram neg bacteremia with sepsis: positive blood cultures Ecoli cont antibiotics, ID following - need vas cath removed - ordered / Hypokalemia; Supplement with oral and iv KCl, monitor electrolytes /hypocalcemia, replete, follow nephrology recommendation /MOSES (acute kidney injury) vasomotor nephropathy vs Drug induced ATN with -Possi ble lupus nephritis; Severe metabolic acidosis with acute kidney injury, Nephro evaluated, placed on vas cath , stated on hemodialysis as needed continue IV steroids, nephrology following Patient needs to follow with ice hockey coach Upon discharge not on HD now, - need to remove vascath for bacteremia /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 Nephrology following, replacement therapy as needed Hemodialysis, closely monitor /-Hyponatremia; mild improvement Gentle IV hydration Monitor electrolytes. /Exacerbation of systemic lupus erythematosus Steroids, pain medication, supportive care Advised to follow ice hockey coach upon discharge /Lactic acidosis: Resolved IV fluids and supportive care. Follow cultures /-Severe malnutrition/hypoalbuminemia; Nutrition supplements and supportive care, nutrition consult As needed /Chronic pain syndrome with drug seeking behaviour - minimize pain meds as tolerated, counselled in length at bedside with mother and with pt -- DVT prophylaxis On heparin renal dose Monitor closely and adjust management as needed Plan of care reviewed with the patient and her nurse Disposition:need SNF and DC when clinically stable Hospitalist Physical General appearance: Present: mild distress, well-nourished - EENT Eyes: Present: PERRL, EOM intact - Neck Neck: Present: supple, normal ROM - Respiratory Respiratory effort: normal Respiratory: bilateral: diminished, wheezing, negative: rales, rhonchi - Cardiovascular Rhythm: regular Heart Sounds: Present: S1 & S2 - Extremities Extremities: no ischemia, No edema, left leg amputated - single right leg - Abdominal General gastrointestinal: soft, non-tender, non-distended, normal bowel sounds - Integumentary Integumentary: Present: clear, warm - Psychiatric Psychiatric: appropriate mood/affect, cooperative - Neurologic Neurologic: moves all extremities Subjective Date of service: 08/15/19 Principal diagnosis: LOW PLT Interval history: Patient seen and examined c/o generalized weakness no chest pain K and Ca level noted low discussed with patient's mother - pt has drug seeking behaviour and had multiple similar admission in the past for drug OD leading to renal failure. reviewed her pain medication which were filled on 07/28/19 for a month of supply but those are all empty now Objective - Constitutional Vitals: Vital Signs - 12hr 08/15/19 08/15/19 08/15/19 02:13 03:00 03:39 Temperature 98.6 F 98.6 F Pulse Rate Respiratory 18 18 18 Rate Blood Pressure 131/62 131/62 O2 Sat by Pulse 94 Oximetry 08/15/19 08/15/19 08/15/19 04:38 05:08 11:20 Temperature 98.0 F Pulse Rate 98 H Respiratory 18 17 18 Rate Blood Pressure 133/79 O2 Sat by Pulse 89 Oximetry - Labs CBC & Chem 7: 08/16/19 04:30 08/16/19 04:30 Labs: Abnormal lab results 08/15/19 08/15/19 Range/Units 06:45 06:45 Potassium 3.1 L (3.6-5.0) mmol/L Chloride 89.0 L (98-107) mmol/L Carbon Dioxide 35 H (22-30) mmol/L BUN 43 H (7-17) mg/dL Creatinine 1.6 H (0.7-1.2) mg/dL Glucose 140 H (65-100) mg/dL Calcium 5.2 L* (8.4-10.2) mg/dL Phosphorus 2.40 L (2.5-4.5) mg/dL
--- NOTE | 2019-08-15 15:36 | Progress Note ---
Assessment and Plan - Patient Problems (1) MOSES (acute kidney injury) Current Visit: Yes Status: Acute Plan to address problem: Acute kidney injury baseline creatinine about 0.5 mg/DL Her dialysis catheter placed on admission currently on dialysis I reviewed urinalysis which showed significant proteinuria numerous white blood cells and numerous red blood cells Patient does appear clinically volume depleted however given proteinuria hematuria and underlying SLE concern for lupus flare We'll change PULSE steroids to prednisone 30 mg Creatinine improving consistent with renal recovery Creatinine 1.6 mg/DL Patient received CT with contrast today and is at risk for contrast injury. She may benefit from renal biopsy though this may be outpatient or later in hospitalization given signficant thrombocytopenia. No indication for dialysis. continue Current IVF . coagulation studies reviewed Encephalopathy appears resolved (2) Anemia Current Visit: Yes Status: Acute Qualifiers: Anemia type: unspecified type Qualified Code(s): D64.9 - Anemia, unspecified Plan to address problem: Anemia improved current hemoglobin is 7.9 Avoid heparin given low platelet counts appreciate hematology recs history of ITP Patient is already on steroids. (3) Exacerbation of systemic lupus erythematosus Current Visit: Yes Status: Acute Plan to address problem: Sle Concern for lupus nephritis Needs rheumatology involvement as well DC IV steroids Complement levels are within normal limits We'll change to oral steroids resume Plaquenil as well. (4) UTI (urinary tract infection) Current Visit: Yes Status: Acute Qualifiers: Urinary tract infection type: acute cystitis Hematuria presence: with hematuria Qualified Code(s): N30.01 - Acute cystitis with hematuria Plan to address problem: UTi please obtain repeat urinalysis Continue antibiotics (5) Encephalopathy Current Visit: Yes Status: Acute Plan to address problem: Encephalopathy. Resolved Neurology involvement Continue treatment of underlying lupus (6) Thrombocytopenia Current Visit: Yes Status: Acute Plan to address problem: Platelet angy was 23,000 current count is 47,000 appreciate hematology evaluation history of idiopathic thrombocytopenic purpura. Hold off biopsy for now given severe thrombocytopenia and improving renal function. Subjective Principal diagnosis: LOW PLT Interval history: 39 year old lady with systemic lupus previously on Plaquenil and steroids admitted with acute kidney injury and has required dialysis Patient is much less confused today appears oriented to person and place and time Last dialysis was 08/11 She appears agreeable to the kidney biopsy However she is significantly thrombocytopenic I will have to hold off until this improves Continue fluid hydration Renal function continues to improve Objective - Vital Signs Vital signs: Vital Signs - 12hr 08/15/19 08/15/19 08/15/19 03:39 04:38 05:08 Temperature 98.6 F Pulse Rate Respiratory 18 18 17 Rate Blood Pressure 131/62 O2 Sat by Pulse Oximetry 08/15/19 11:20 Temperature 98.0 F Pulse Rate 98 H Respiratory 18 Rate Blood Pressure 133/79 O2 Sat by Pulse 89 Oximetry - General Appearance General appearance: well-developed, well-nourished EENT: ATNC, PERRL, mucous membranes moist Neck: no JVD Respiratory: Present: Clear to Ascultation Cardiology: regular, S1S2 Gastrointestinal: normal, normoactive bowel sounds Integumentary: no rash Neurologic: no focal deficit, alert and oriented x3 Psychiatric: mood/affect appropriate - Lab 08/14/19 07:07 08/15/19 06:45 Most recent lab results Calcium 5.2 mg/dL (8.4-10.2) L* 08/15/19 06:45 Phosphorus 2.40 mg/dL (2.5-4.5) L 08/15/19 06:45 Urine Creatinine 41.0 mg/dL (0.1-20.0) H 08/09/19 14:46 Urine Sodium 84 mmol/L 08/09/19 14:46 Urine Total Protein 154 mg/dL (5-11.8) H 08/09/19 14:46 - Imaging Chest x-ray: image reviewed (i reviewed CXR without pulmonary edema. ) Medications & Allergies - Medications Allergies/Adverse Reactions: Allergies Penicillins Allergy (Verified 07/22/19 16:38) Swelling Home Medications: Home Medications Medication Instructions Recorded Confirmed Last Taken Type Ibuprofen [Motrin] 800 mg PO Q8HR #30 tablet 06/13/19 08/08/19 Unknown Rx HYDROcodone/APAP 5-325 [[place] 1 each PO Q6HR PRN #10 tablet 07/11/19 08/08/19 Unknown Rx 5-325 mg TAB] Active Medications: Generic Name Dose Route Start Last Admin Trade Name Freq PRN Reason Stop Dose Admin Acetaminophen 650 mg 08/08/19 23:48 Tylenol PO Q4H PRN Pain MILD(1-3)/Fever >100.5/MARIO Calcium Carbonate/Glycine 1,250 mg 08/15/19 10:00 08/15/19 10:55 Oscal PO 1,250 mg QDAY SHEKHAR Administration Famotidine 10 mg 08/09/19 10:00 08/15/19 10:54 Pepcid PO 10 mg BID SHEKHAR Administration Hydromorphone HCl 0.5 mg 08/08/19 23:49 08/15/19 12:37 Dilaudid IV 0.5 mg Q3H PRN Administration Pain , Severe (7-10) Ceftriaxone Sodium 2 gm in 100 mls @ 200 mls/hr 08/12/19 16:00 08/15/19 10:55 Rocephin/Ns 2 Gm/100 Ml IV 200 mls/hr Q24HR SHEKHAR Administration Protocol Sodium Chloride 1,000 mls @ 75 mls/hr 08/14/19 13:00 08/15/19 04:34 Nacl 0.9% 1000 Ml IV 75 mls/hr DIRECT SHEKHAR Administration Loperamide HCl 2 mg 08/14/19 18:47 08/15/19 04:19 Imodium PO 2 mg Q2H PRN Administration Diarrhea Morphine Sulfate 2 mg 08/08/19 23:49 08/14/19 06:40 Morphine IV 2 mg Q4H PRN Administration Pain, Moderate (4-6) Ondansetron HCl 4 mg 08/08/19 23:48 Zofran IV Q8H PRN Nausea And Vomiting Oxycodone/Acetaminophen 1 tab 08/08/19 23:49 08/14/19 02:02 Percocet 5/325 PO 1 tab Q6H PRN Administration Pain, Moderate (4-6) Potassium Chloride 30 meq 08/15/19 10:00 08/15/19 10:54 K-Dur PO 30 meq QDAY SHEKHAR Administration Potassium Phos/Sodium Phos 1 each 08/15/19 12:00 08/15/19 12:37 Phos-Nak PO 1 each Q12HR SHEKHAR Administration Prednisone 30 mg 08/15/19 10:00 08/15/19 10:54 Deltasone PO 30 mg QDAY SHEKHAR Administration Sodium Chloride 10 ml 08/09/19 10:00 08/15/19 10:55 Sodium Chloride Flush Syringe 10 Ml IV 10 ml BID SHEKHAR Administration Sodium Chloride 10 ml 08/08/19 23:48 08/12/19 03:48 Sodium Chloride Flush Syringe 10 Ml IV 10 ml PRN PRN Administration LINE FLUSH
[2019-08-15] MEDS: POTASSIUM CHLORIDE 10 MEQ 10 MEQ/100 ML BAG IV SCH (16:59)
--- NOTE | 2019-08-15 17:52 | Magnetic Resonance Report ---
MR pelvis wo con INDICATION / CLINICAL INFORMATION: r.o osteomyelitis. TECHNIQUE: Multiplanar, multisequence MR images were obtained. COMPARISON: CT abdomen and pelvis from today FINDINGS: The majority of the left leg has been amputated up to the groin region. No large fluid collection is seen. Diffuse subcutaneous edema is seen in the pelvis and thighs. Abnormal signal is seen in the rig ht femoral head which could represent avascular necrosis or severe degenerative change. A small right hip joint effusion is present. A small amount of ascites is seen in the pelvis. There is no evidence of osteomyelitis on this exam IMPRESSION: 1. High left thigh amputation 2. Few subcutaneous edema in the pelvis and thighs 3. Abnormal signal in the right femoral head representing either avascular necrosis or severe degener ative change. A small right hip joint effusion is present. The presence of septic arthritis is possib le. 4. No definite evidence of osteomyelitis on this exam 5. Small bowel ascites in the pelvis Signer Name: Michael Abbott MD FACR Signed: 08/15/2019 5:48 PM Workstation Name: [id number]
[2019-08-16 05:36] LABS: Hemoglobin 8.2 gm/dl (10.1-14.3); Mean Corpuscular HGB Conc 33 % (30-34); Mean Corpuscular Volume 83 fl (79-97); Platelet Count 151 K/mm3 (140-440); Red Cell Distribution Width 17.3 % (13.2-15.2)
[2019-08-16 05:46] LABS: BUN/Creatinine Ratio 22; Blood Urea Nitrogen 24 mg/dL (7-17); Hemolysis Index 7
[2019-08-16 05:58] LABS: Calcium 4.9 mg/dL (8.4-10.2)
--- NOTE | 2019-08-16 06:04 | Hem/Onc Progress Note ---
Assessment and Plan 1. 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 This may be idiopathic thrombocytopenic purpura issues. The patient is already on steroid treatment for renal issues. We will continue the same. 2. Renal impairment. Nephrology following. 3. Anemia, chronic kidney disease may have a role. 4. History of left above-knee amputation. 5. History of splenectomy. 6. We will follow the trend of platelets if needed. If there is no improvement, we will look into other intervention like IVIG. Due to her renal issues, would need coordination with Nephrology team. ITP - on steroids Plt improving - >100k - Patient Problems (1) Thrombocytopenia Current Visit: Yes Status: Acute Subjective Date of service: 08/16/19 Principal diagnosis: ITP Interval history: No bleeding D/w RN Objective - Exam Narrative Exam: Pain - none General appearance - feeling better Performance status limited self care Eyes - no icterus ENT - no bleeding LNs cervical not palpable Neck - no LN Respiratory Normal - on o2 Breath sounds - decreased air entry in bases CVS S1 S2 + Extremities no edema General GI Soft Rectal deferred female - deferred Skin warm Musculoskeletal - moves limbs Neurologically awake - oriented - Constitutional Vitals: Last Vital Signs Temp 98.8 F 08/15/19 22:37 Pulse 94 H 08/15/19 22:37 Resp 20 08/15/19 22:37 BP 136/67 08/15/19 22:37 Pulse Ox 88 08/15/19 22:37 - Labs Lab Results: Laboratory Results - last 24 hr 08/08/19 08/09/19 08/15/19 18:00 00:35 06:45 WBC RBC Hgb Hct MCV MCH MCHC RDW Plt Count WBC Morphology Not Reportable Sodium Potassium Chloride Carbon Dioxide Anion Gap BUN Creatinine Estimated GFR BUN/Creatinine Ratio Glucose Calcium Phosphorus 2.40 L Double Strand DNA Ab See scanned result 08/15/19 08/16/19 08/16/19 06:45 04:30 04:30 WBC 27.5 H RBC 3.00 L Hgb 8.2 L Hct 25.0 L MCV 83 MCH 27 L MCHC 33 RDW 17.3 H Plt Count 151 D WBC Morphology Sodium 140 143 Potassium 3.1 L 3.0 L Chloride 89.0 L 92.4 L Carbon Dioxide 35 H 35 H Anion Gap 19 19 BUN 43 H 24 H Creatinine 1.6 H 1.1 Estimated GFR 44 > 60 BUN/Creatinine Ratio 27 22 Glucose 140 H 116 H Calcium 5.2 L* 4.9 L* Phosphorus Double Strand DNA Ab Medications & Allergies - Medications Allergies/Adverse Reactions: Allergies Penicillins Allergy (Verified 07/22/19 16:38) Swelling Home Medications: Home Medications Medication Instructions Recorded Confirmed Last Taken Type Ibuprofen [Motrin] 800 mg PO Q8HR #30 tablet 06/13/19 08/08/19 Unknown Rx HYDROcodone/APAP 5-325 [[place] 1 each PO Q6HR PRN #10 tablet 07/11/19 08/08/19 Unknown Rx 5-325 mg TAB] Active Medications: Generic Name Dose Route Start Last Admin Trade Name Freq PRN Reason Stop Dose Admin Acetaminophen 650 mg 08/08/19 23:48 Tylenol PO Q4H PRN Pain MILD(1-3)/Fever >100.5/MARIO Calcium Carbonate/Glycine 1,250 mg 08/15/19 10:00 08/15/19 10:55 Oscal PO 1,250 mg QDAY SHEKHAR Administration Famotidine 10 mg 08/09/19 10:00 08/15/19 22:10 Pepcid PO 10 mg BID SHEKHAR Administration Ceftriaxone Sodium 2 gm in 100 mls @ 200 mls/hr 08/12/19 16:00 08/15/19 10:55 Rocephin/Ns 2 Gm/100 Ml IV 200 mls/hr Q24HR SHEKHAR Administration Protocol Sodium Chloride 1,000 mls @ 75 mls/hr 08/14/19 13:00 08/15/19 23:55 Nacl 0.9% 1000 Ml IV 75 mls/hr DIRECT SHEKHAR Administration Loperamide HCl 2 mg 08/14/19 18:47 08/15/19 04:19 Imodium PO 2 mg Q2H PRN Administration Diarrhea Morphine Sulfate 2 mg 08/15/19 16:06 Morphine IV Q8H PRN Pain , Severe (7-10) Ondansetron HCl 4 mg 08/08/19 23:48 Zofran IV Q8H PRN Nausea And Vomiting Oxycodone/Acetaminophen 1 tab 08/08/19 23:49 08/15/19 22:09 Percocet 5/325 PO 1 tab Q6H PRN Administration Pain, Moderate (4-6) Oxycodone/Acetaminophen 1 tab 08/15/19 16:06 Percocet 5/325 PO Q6H PRN Pain, Moderate (4-6) Potassium Chloride 30 meq 08/15/19 10:00 08/15/19 10:54 K-Dur PO 30 meq QDAY SHEKHAR Administration Potassium Phos/Sodium Phos 1 each 08/15/19 12:00 08/15/19 22:10 Phos-Nak PO 1 each Q12HR SHEKHAR Administration Prednisone 30 mg 08/15/19 10:00 08/15/19 10:54 Deltasone PO 30 mg QDAY SHEKHAR Administration Sodium Chloride 10 ml 08/09/19 10:00 08/15/19 22:10 Sodium Chloride Flush Syringe 10 Ml IV 10 ml BID SHEKHAR Administration Sodium Chloride 10 ml 08/08/19 23:48 08/12/19 03:48 Sodium Chloride Flush Syringe 10 Ml IV 10 ml PRN PRN Administration LINE FLUSH
[2019-08-16] MEDS ORDERED: SODIUM CHLORIDE 0.9% IV ONE (06:18)
[2019-08-16] MEDS ORDERED: CALCIUM GLUCONATE IV ONE (06:18)
[2019-08-16] MEDS ORDERED: CALCIUM GLUCONATE 2,000 MG in SODIUM CHLORIDE 0.9% 100 ML IV ONE ×2 (07:00→11:50)
[2019-08-16 08:25] LABS: Band Neutrophils # (Manual) 0.3 K/mm3; Total Cells Counted 100
[2019-08-16 08:26] LABS: Anisocytosis 1+; Basophils % (Manual) 0 % (0.0-1.8); Hypochromasia 2+; Poikilocytosis 3+; Target Cells 3+
[2019-08-16 08:27] LABS: Ovalocytes 1+; Platelet Estimate Consistent w Auto; Schistocytes Rare
[2019-08-16] MEDS: FAMOTIDINE 10 MG TAB PO SCH ×2 (10:15→21:39)
[2019-08-16] MEDS: POTASSIUM CHLORIDE ER 10 MEQ TAB PO SCH (10:15)
[2019-08-16] MEDS: predniSONE 20 MG TAB PO SCH (10:16)
[2019-08-16] MEDS: PHOS-NAK POWDER PACKET PO SCH ×2 (10:17→21:39)
[2019-08-16] MEDS: oxyCODONE /ACETAMINOPHEN 5-325MG TAB PO PRN ×2 (10:17→21:38)
[2019-08-16] MEDS: CALCIUM CARBONATE 1250 MG TAB PO SCH (10:20)
--- NOTE | 2019-08-16 13:24 | Progress Note ---
Assessment and Plan /Gram neg bacteremia with sepsis: positive blood cultures Ecoli cont antibiotics, ID following - need vas cath removed - ordered persistent leukocytosis likely from chronic steroid /Avascular necrosis of Rt hip - may need ortho evaluation, cont to monitor / Hypokalemia; Supplement with oral and iv KCl, monitor electrolytes /hypocalcemia, replete, follow nephrology recommendation /MOSES (acute kidney injury) vasomotor nephropathy vs Drug induced ATN with - Possible lupus nephritis; Severe metabolic acidosis with acute kidney injury, Nephro evaluated, placed on vas cath , stated on hemodialysis as needed continue IV steroids, nephrology following Patient needs to follow with desktop publishing operator Upon discharge not on HD now, - need to remove vascath for bacteremia /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 Nephrology following, replacement therapy as needed Hemodialysis, closely monitor /-Hyponatremia; mild improvement Gentle IV hydration Monitor electrolytes. /Exacerbation of systemic lupus erythematosus Steroids, pain medication, supportive care Advised to follow desktop publishing operator upon discharge /Lactic acidosis: Resolved IV fluids and supportive care. Follow cultures /-Severe malnutrition/hypoalbuminemia; Nutrition supplements and supportive care, nutrition consult As needed /Chronic pain syndrome with drug seeking behaviour - minimize pain meds as tolerated, counselled in length at bedside with mother and with pt -- DVT prophylaxis On heparin renal dose Monitor closely and adjust management as needed Plan of care reviewed with the patient and her nurse Disposition:need SNF and DC when clinically stable Hospitalist Physical General appearance: Present: mild distress, well-nourished - EENT Eyes: Present: PERRL, EOM intact - Neck Neck: Present: supple, normal ROM - Respiratory Respiratory effort: normal Respiratory: bilateral: diminished, wheezing, negative: rales, rhonchi - Cardiovascular Rhythm: regular Heart Sounds: Present: S1 & S2 - Extremities Extremities: no ischemia, No edema, left leg amputated - single right leg - Abdominal General gastrointestinal: soft, non-tender, non-distended, normal bowel sounds - Integumentary Integumentary: Present: clear, warm - Psychiatric Psychiatric: appropriate mood/affect, cooperative - Neurologic Neurologic: moves all extremities Subjective Date of service: 08/16/19 Principal diagnosis: LOW PLT Interval history: Patient seen and examined c/o generalized weakness no chest pain K and Ca level noted low Objective - Constitutional Vitals: Vital Signs - 12hr 08/16/19 08/16/19 05:18 11:54 Temperature 99.0 F 98.9 F Pulse Rate 95 H 129 H Respiratory 18 22 Rate Blood Pressure 136/65 149/85 O2 Sat by Pulse 100 85 Oximetry - Labs CBC & Chem 7: 08/18/19 08:19 08/18/19 08:19 Labs: Abnormal lab results 08/16/19 08/16/19 Range/Units 04:30 04:30 WBC 27.5 H (4.5-11.0) K/mm3 RBC 3.00 L (3.65-5.03) M/mm3 Hgb 8.2 L (10.1-14.3) gm/dl Hct 25.0 L (30.3-42.9) % MCH 27 L (28-32) pg RDW 17.3 H (13.2-15.2) % Seg Neuts % (Manual) 91.0 H (40.0-70.0) % Lymphocytes % (Manual) 4.0 L (13.4-35.0) % Seg Neutrophils # Man 25.0 H (1.8-7.7) K/mm3 Lymphocytes # (Manual) 1.1 L (1.2-5.4) K/mm3 Potassium 3.0 L (3.6-5.0) mmol/L Chloride 92.4 L (98-107) mmol/L Carbon Dioxide 35 H (22-30) mmol/L BUN 24 H (7-17) mg/dL Glucose 116 H (65-100) mg/dL Calcium 4.9 L* (8.4-10.2) mg/dL
[2019-08-16] MEDS: SODIUM CHLORIDE 0.9% 1000 ML 1,000 ML IV SCH ×2 (13:47→21:50)
[2019-08-16] MEDS: MORPHINE 2 MG/1 ML INJ IV PRN (14:21)
[2019-08-16] MEDS: cefTRIAXone/NS 2 GM/100 ML 2 GM/100 ML BAG IV SCH (16:15)
--- NOTE | 2019-08-16 16:25 | Progress Note ---
Assessment and Plan Impression * Nonolguric acute kidney injury - resolved --Etiology secondary to lupus nephritis (however, rarely resolves this quickly; C3,C4 wnl) vs prerenal azotemia * EColi bacteremia * Severe metabolic acidosis secondary to lactic acidosis * SLE * Hypocalcemia * Anemia * Thrombocytopenia Recommendation * No acute indication for hemodialysis - renal function has recovered * Agree with removing vascath in light of fever * Abx per primary team * Hold kidney bx for now in light of thrombocytopenia, recovery of renal function * She is s/p pulse steroids - continue daily prednisone * Note order for Ca repletion. Will obtain iCa in AM * Avoid nephrotoxins * Monitor fluid status and electrolytes closely Subjective Date of service: 08/16/19 Principal diagnosis: LOW PLT Interval history: Patient febrile today. Objective - Vital Signs Vital signs: Vital Signs - 12hr 08/16/19 08/16/19 05:18 11:54 Temperature 99.0 F 98.9 F Pulse Rate 95 H 129 H Respiratory 18 22 Rate Blood Pressure 136/65 149/85 O2 Sat by Pulse 100 85 Oximetry - General Appearance General appearance: well-developed, well-nourished EENT: ATNC Respiratory: Present: Decreased Breath Sounds Cardiology: regular, S1S2 Integumentary: warm and dry Musculoskeletal: other (no edema) Psychiatric: cooperative - Lab 08/16/19 04:30 08/16/19 04:30 Most recent lab results Calcium 4.9 mg/dL (8.4-10.2) L* 08/16/19 04:30 Phosphorus 2.40 mg/dL (2.5-4.5) L 08/15/19 06:45 Urine Creatinine 41.0 mg/dL (0.1-20.0) H 08/09/19 14:46 Urine Sodium 84 mmol/L 08/09/19 14:46 Urine Total Protein 154 mg/dL (5-11.8) H 08/09/19 14:46 Medications & Allergies - Medications Allergies/Adverse Reactions: Allergies Penicillins Allergy (Verified 07/22/19 16:38) Swelling Home Medications: Home Medications Medication Instructions Recorded Confirmed Last Taken Type Ibuprofen [Motrin] 800 mg PO Q8HR #30 tablet 06/13/19 08/08/19 Unknown Rx HYDROcodone/APAP 5-325 [[place] 1 each PO Q6HR PRN #10 tablet 07/11/19 08/08/19 Unknown Rx 5-325 mg TAB] Active Medications: Generic Name Dose Route Start Last Admin Trade Name Freq PRN Reason Stop Dose Admin Acetaminophen 650 mg 08/08/19 23:48 Tylenol PO Q4H PRN Pain MILD(1-3)/Fever >100.5/MARIO Calcium Carbonate/Glycine 1,250 mg 08/15/19 10:00 08/16/19 10:20 Oscal PO 1,250 mg QDAY SHEKHAR Administration Famotidine 10 mg 08/09/19 10:00 08/16/19 10:15 Pepcid PO 10 mg BID SHEKHAR Administration Ceftriaxone Sodium 2 gm in 100 mls @ 200 mls/hr 08/12/19 16:00 08/16/19 16:15 Rocephin/Ns 2 Gm/100 Ml IV 200 mls/hr Q24HR SHEKHAR Administration Protocol Sodium Chloride 1,000 mls @ 75 mls/hr 08/14/19 13:00 08/16/19 13:47 Nacl 0.9% 1000 Ml IV 75 mls/hr DIRECT SHEKHAR Administration Loperamide HCl 2 mg 08/14/19 18:47 08/15/19 04:19 Imodium PO 2 mg Q2H PRN Administration Diarrhea Morphine Sulfate 2 mg 08/15/19 16:06 08/16/19 14:21 Morphine IV 2 mg Q8H PRN Administration Pain , Severe (7-10) Ondansetron HCl 4 mg 08/08/19 23:48 Zofran IV Q8H PRN Nausea And Vomiting Oxycodone/Acetaminophen 1 tab 08/15/19 16:06 Percocet 5/325 PO Q6H PRN Pain, Moderate (4-6) Potassium Chloride 30 meq 08/15/19 10:00 08/16/19 10:15 K-Dur PO 30 meq QDAY SHEKHAR Administration Potassium Phos/Sodium Phos 1 each 08/15/19 12:00 08/16/19 10:17 Phos-Nak PO 1 each Q12HR SHEKHAR Administration Prednisone 30 mg 08/15/19 10:00 08/16/19 10:16 Deltasone PO 30 mg QDAY SHEKHAR Administration Sodium Chloride 10 ml 08/09/19 10:00 08/16/19 13:48 Sodium Chloride Flush Syringe 10 Ml IV 10 ml BID SHEKHAR Administration Sodium Chloride 10 ml 08/08/19 23:48 08/12/19 03:48 Sodium Chloride Flush Syringe 10 Ml IV 10 ml PRN PRN Administration LINE FLUSH
[2019-08-16] MEDS: ACETAMINOPHEN 325 MG TAB PO PRN (17:40)
--- NOTE | 2019-08-16 21:58 | XRay Report ---
. 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 Osteonecrosis righ t femoral head with advanced degenerative arthrosis of right hip. SOFT TISSUES: No significant abnormality. ADDITIONAL FINDINGS: Amputation of left femur, unchanged. Signer Name: Ever Cadet MD Signed: 08/16/2019 9:54 PM Workstation Name: [id number]
[2019-08-17 07:40] LABS: BUN/Creatinine Ratio 14; Blood Urea Nitrogen 15 mg/dL (7-17); Hemolysis Index 5
[2019-08-17 07:58] LABS: Calcium 4.8 mg/dL (8.4-10.2)
--- NOTE | 2019-08-17 08:14 | Hem/Onc Progress Note ---
Assessment and Plan 1. 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 This may be idiopathic thrombocytopenic purpura issues. The patient is already on steroid treatment for renal issues. We will continue the same. 2. Renal impairment. Nephrology following. 3. Anemia, chronic kidney disease may have a role. 4. History of left above-knee amputation. 5. History of splenectomy. 6. We will follow the trend of platelets if needed. If there is no improvement, we will look into other intervention like IVIG. Due to her renal issues, would need coordination with Nephrology team. ITP - on steroids Plt improving - >100k - Patient Problems (1) Thrombocytopenia Current Visit: Yes Status: Acute Subjective Date of service: 08/17/19 Principal diagnosis: ITP Interval history: feeling better Objective - Exam Narrative Exam: Pain - none General appearance - feeling better Performance status limited self care Eyes - no icterus ENT - no bleeding LNs cervical not palpable Neck - no LN Respiratory Normal - on o2 Breath sounds - decreased air entry in bases CVS S1 S2 + Extremities no edema General GI Soft Rectal deferred female - deferred Skin warm Musculoskeletal - moves limb - left leg amputation Neurologically awake - oriented - Constitutional Vitals: Last Vital Signs Temp 99.6 F 08/17/19 04:59 Pulse 97 H 08/17/19 04:59 Resp 20 08/17/19 04:59 BP 144/81 08/17/19 04:59 Pulse Ox 92 08/17/19 04:59 - Labs Lab Results: Laboratory Results - last 24 hr 08/16/19 08/17/19 04:30 06:54 Add Manual Diff Complete Total Counted 100 Seg Neuts % (Manual) 91.0 H Band Neutrophils % 1.0 Lymphocytes % (Manual) 4.0 L Reactive Lymphs % (Man) 0 Monocytes % (Manual) 3.0 Eosinophils % (Manual) 1.0 Basophils % (Manual) 0 Metamyelocytes % 0 Myelocytes % 0 Promyelocytes % 0 Blast Cells % 0 Nucleated RBC % Not Reportable Seg Neutrophils # Man 25.0 H Band Neutrophils # 0.3 Lymphocytes # (Manual) 1.1 L Abs React Lymphs (Man) 0.0 Monocytes # (Manual) 0.8 Eosinophils # (Manual) 0.3 Basophils # (Manual) 0.0 Metamyelocytes # 0.0 Myelocytes # 0.0 Promyelocytes # 0.0 Blast Cells # 0.0 WBC Morphology Not Reportable Hypersegmented Neuts Not Reportable Hyposegmented Neuts Not Reportable Hypogranular Neuts Not Reportable Smudge Cells Not Reportable Toxic Granulation Not Reportable Toxic Vacuolation Not Reportable Dohle Bodies Not Reportable Pelger-Huet Anomaly Not Reportable Doyle Rods Not Reportable Platelet Estimate Consistent w auto Clumped Platelets Not Reportable Plt Clumps, EDTA Not Reportable Large Platelets Not Reportable Giant Platelets Not Reportable Platelet Satelliting Not Reportable Plt Morphology Comment Not Reportable RBC Morphology Not Reportable Dimorphic RBCs Not Reportable Polychromasia Not Reportable Hypochromasia 2+ Poikilocytosis 3+ Anisocytosis 1+ Microcytosis Not Reportable Macrocytosis Not Reportable Spherocytes Not Reportable Pappenheimer Bodies Not Reportable Sickle Cells Not Reportable Target Cells 3+ Tear Drop Cells Not Reportable Ovalocytes 1+ Helmet Cells Not Reportable [place] Bodies Not Reportable Hustler Rings Not Reportable Dina Cells Not Reportable Bite Cells Not Reportable Crenated Cell Not Reportable Elliptocytes Few Acanthocytes (Spur) Not Reportable Rouleaux Not Reportable Hemoglobin C Crystals Not Reportable Schistocytes Rare Malaria parasites Not Reportable Carlo Bodies Not Reportable Hem Pathologist Commnt No Sodium 143 Potassium 2.9 L* Chloride 97.9 L Carbon Dioxide 26 D Anion Gap 22 BUN 15 Creatinine 1.1 Estimated GFR > 60 BUN/Creatinine Ratio 14 Glucose 139 H Calcium 4.8 L* Medications & Allergies - Medications Allergies/Adverse Reactions: Allergies Penicillins Allergy (Verified 07/22/19 16:38) Swelling Home Medications: Home Medications Medication Instructions Recorded Confirmed Last Taken Type Ibuprofen [Motrin] 800 mg PO Q8HR #30 tablet 06/13/19 08/08/19 Unknown Rx HYDROcodone/APAP 5-325 [[place] 1 each PO Q6HR PRN #10 tablet 07/11/19 08/08/19 Unknown Rx 5-325 mg TAB] Active Medications: Generic Name Dose Route Start Last Admin Trade Name Freq PRN Reason Stop Dose Admin Acetaminophen 650 mg 08/08/19 23:48 08/16/19 17:40 Tylenol PO 650 mg Q4H PRN Administration Pain MILD(1-3)/Fever >100.5/MARIO Calcium Carbonate/Glycine 1,250 mg 08/15/19 10:00 08/16/19 10:20 Oscal PO 1,250 mg QDAY SHEKHAR Administration Famotidine 10 mg 08/09/19 10:00 08/16/19 21:39 Pepcid PO 10 mg BID SHEKHAR Administration Ceftriaxone Sodium 2 gm in 100 mls @ 200 mls/hr 08/12/19 16:00 08/16/19 16:15 Rocephin/Ns 2 Gm/100 Ml IV 200 mls/hr Q24HR SHEKHAR Administration Protocol Sodium Chloride 1,000 mls @ 75 mls/hr 08/14/19 13:00 08/16/19 21:50 Nacl 0.9% 1000 Ml IV 75 mls/hr DIRECT SHEKHAR Administration Loperamide HCl 2 mg 08/14/19 18:47 08/15/19 04:19 Imodium PO 2 mg Q2H PRN Administration Diarrhea Morphine Sulfate 2 mg 08/15/19 16:06 08/16/19 14:21 Morphine IV 2 mg Q8H PRN Administration Pain , Severe (7-10) Ondansetron HCl 4 mg 08/08/19 23:48 Zofran IV Q8H PRN Nausea And Vomiting Oxycodone/Acetaminophen 1 tab 08/15/19 16:06 08/16/19 21:38 Percocet 5/325 PO 1 tab Q6H PRN Administration Pain, Moderate (4-6) Potassium Chloride 30 meq 08/15/19 10:00 08/16/19 10:15 K-Dur PO 30 meq QDAY SHEKHAR Administration Potassium Phos/Sodium Phos 1 each 08/15/19 12:00 08/16/19 21:39 Phos-Nak PO 1 each Q12HR SHEKHAR Administration Prednisone 30 mg 08/15/19 10:00 08/16/19 10:16 Deltasone PO 30 mg QDAY SHEKHAR Administration Sodium Chloride 10 ml 08/09/19 10:00 08/16/19 23:06 Sodium Chloride Flush Syringe 10 Ml IV 10 ml BID SHEKHAR Administration Sodium Chloride 10 ml 08/08/19 23:48 08/12/19 03:48 Sodium Chloride Flush Syringe 10 Ml IV 10 ml PRN PRN Administration LINE FLUSH
--- NOTE | 2019-08-17 09:30 | Consultation ---
History of Present Illness - HPI Consult date: 08/17/19 Consult reason: joint pain History of present illness: 39 y/o female with c/o right hip pain, hx of Lupus, s/p left hip disarticular '17... Past History Past Medical History: other (history of lupus and acute kidney injury) Social history: no significant social history Family history: no significant family history Medications and Allergies Allergies Allergy/AdvReac Type Severity Reaction Status Date / Time Penicillins Allergy Swelling Verified 07/22/19 16:38 Home Medications Medication Instructions Recorded Confirmed Last Taken Type Ibuprofen [Motrin] 800 mg PO Q8HR #30 tablet 06/13/19 08/08/19 Unknown Rx HYDROcodone/APAP 5-325 [[place] 1 each PO Q6HR PRN #10 tablet 07/11/19 08/08/19 Unknown Rx 5-325 mg TAB] Active Meds: Active Medications Acetaminophen (Tylenol) 650 mg PO Q4H PRN PRN Reason: Pain MILD(1-3)/Fever >100.5/MARIO Last Admin: 08/16/19 17:40 Dose: 650 mg Documented by: Calcium Carbonate/Glycine (Oscal) 1,250 mg PO QDAY [facility] Last Admin: 08/16/19 10:20 Dose: 1,250 mg Documented by: Famotidine (Pepcid) 10 mg PO BID [facility] Last Admin: 08/16/19 21:39 Dose: 10 mg Documented by: Ceftriaxone Sodium (Rocephin/Ns 2 Gm/100 Ml) 2 gm in 100 mls @ 200 mls/hr IV Q24HR SHEKHAR; Protocol Last Admin: 08/16/19 16:15 Dose: 200 mls/hr Documented by: Sodium Chloride (Nacl 0.9% 1000 Ml) 1,000 mls @ 75 mls/hr IV DIRECT SHEKHAR Last Admin: 08/16/19 21:50 Dose: 75 mls/hr Documented by: Loperamide HCl (Imodium) 2 mg PO Q2H PRN PRN Reason: Diarrhea Last Admin: 08/15/19 04:19 Dose: 2 mg Documented by: Morphine Sulfate (Morphine) 2 mg IV Q8H PRN PRN Reason: Pain , Severe (7-10) Last Admin: 08/16/19 14:21 Dose: 2 mg Documented by: Ondansetron HCl (Zofran) 4 mg IV Q8H PRN PRN Reason: Nausea And Vomiting Oxycodone/Acetaminophen (Percocet 5/325) 1 tab PO Q6H PRN PRN Reason: Pain, Moderate (4-6) Last Admin: 08/16/19 21:38 Dose: 1 tab Documented by: Potassium Chloride (K-Dur) 30 meq PO QDAY [facility] Last Admin: 08/16/19 10:15 Dose: 30 meq Documented by: Potassium Phos/Sodium Phos (Phos-Nak) 1 each PO Q12HR [facility] Last Admin: 08/16/19 21:39 Dose: 1 each Documented by: Prednisone (Deltasone) 30 mg PO QDAY [facility] Last Admin: 08/16/19 10:16 Dose: 30 mg Documented by: Sodium Chloride (Sodium Chloride Flush Syringe 10 Ml) 10 ml IV BID [facility] Last Admin: 08/16/19 23:06 Dose: 10 ml Documented by: Sodium Chloride (Sodium Chloride Flush Syringe 10 Ml) 10 ml IV PRN PRN PRN Reason: LINE FLUSH Last Admin: 08/12/19 03:48 Dose: 10 ml Documented by: Physical Examination - Physical exam Narrative exam: On physical examination we have a female who appears older than stated age patient has multiple skin rashes and lesions to face and upper body areas significant musculoskeletal findings relates to the lower extremity. Patient told to have a well-healed hip to Zyrtec on the left on the right patient does have some tenderness on palpation in the groin area as well as passive range of motion elicits pain and tenderness plain xrays right hip reveal significant OA from AVN right femoral head... Eyes: PERRL ENT: Positive: clear oral mucosa Respiratory effort: normal Respiratory: bilateral: CTA Rhythm: regular Heart Sounds: Positive: S1 & S2 General gastrointestinal: Positive: soft, non-tender, non-distended, normal bowel sounds Integumentary: clear, warm, dry Neurologic: Positive: CNII-XII intact, moves all extremities, gait normal. Negative: focal deficits Assessment and Plan AVN right hip with significant DJD will try conservative route, intra-articular depomedrol injection may help...
[2019-08-17] MEDS ORDERED: CALCIUM GLUCONATE 2,000 MG in SODIUM CHLORIDE 0.9% 100 ML IV ONE ×2 (11:20→16:26)
[2019-08-17] MEDS: POTASSIUM CHLORIDE 10 MEQ 10 MEQ/100 ML BAG IV SCH ×4 (11:21→15:47)
[2019-08-17] MEDS: POTASSIUM CHLORIDE ER 10 MEQ TAB PO SCH (11:28)
[2019-08-17] MEDS: CALCIUM CARBONATE 1250 MG TAB PO SCH ×2 (11:28→20:27)
[2019-08-17] MEDS: FAMOTIDINE 10 MG TAB PO SCH ×2 (11:28→22:43)
[2019-08-17] MEDS: predniSONE 20 MG TAB PO SCH (11:29)
[2019-08-17] MEDS: PHOS-NAK POWDER PACKET PO SCH ×2 (11:33→22:43)
[2019-08-17] MEDS: SODIUM CHLORIDE 0.9% 1000 ML 1,000 ML IV SCH (14:16)
[2019-08-17] MEDS: oxyCODONE /ACETAMINOPHEN 5-325MG TAB PO PRN ×2 (14:16→20:26)
[2019-08-17 14:34] LABS: ANA Screen, IFA Positive (Negative)
--- NOTE | 2019-08-17 15:27 | Progress Note ---
Assessment and Plan Impression * Nonolguric acute kidney injury - resolved --Etiology secondary to lupus nephritis (however, rarely resolves this quickly; C3,C4 wnl) vs prerenal azotemia * EColi bacteremia * Blood cx: EColi (Aug 08), NGTD (Aug 14), Pending (Aug 16) * Severe metabolic acidosis secondary to lactic acidosis * SLE * Hypocalcemia * Anemia * Thrombocytopenia Recommendation * No acute indication for hemodialysis - renal function has recovered * Replete K - patient is s/p KCl 40meq IV and 30meq po today. * Ionized calcium pending. Increase calcium from daily to TID; start calcitriol. She is s/p Ca Gluconate. Will reorder * AM labs - renal panel and Mg * Abx per ID * Hematology following * Hold kidney bx for now in light of thrombocytopenia, recovery of renal function * She is s/p pulse steroids - continue daily prednisone * Avoid nephrotoxins * Monitor fluid status and electrolytes closely Subjective Date of service: 08/17/19 Principal diagnosis: LOW PLT Interval history: Vas cath removed yesterday. Patient has no complaints this AM. Mental status improved c/w yesterday. Objective - Vital Signs Vital signs: Vital Signs - 12hr 08/17/19 08/17/19 04:59 12:24 Temperature 99.6 F 99.5 F Pulse Rate 97 H 96 H Respiratory 20 32 H Rate Blood Pressure 144/81 137/77 O2 Sat by Pulse 92 96 Oximetry - General Appearance General appearance: well-developed EENT: ATNC Respiratory: Present: Clear to Ascultation Cardiology: regular, S1S2 Gastrointestinal: normal Integumentary: warm and dry Musculoskeletal: other (Left LE amputeation) Psychiatric: cooperative - Lab 08/16/19 04:30 08/17/19 06:54 Most recent lab results Calcium 4.8 mg/dL (8.4-10.2) L* 08/17/19 06:54 Phosphorus 2.40 mg/dL (2.5-4.5) L 08/15/19 06:45 Urine Creatinine 41.0 mg/dL (0.1-20.0) H 08/09/19 14:46 Urine Sodium 84 mmol/L 08/09/19 14:46 Urine Total Protein 154 mg/dL (5-11.8) H 08/09/19 14:46 Medications & Allergies - Medications Allergies/Adverse Reactions: Allergies Penicillins Allergy (Verified 07/22/19 16:38) Swelling Home Medications: Home Medications Medication Instructions Recorded Confirmed Last Taken Type Ibuprofen [Motrin] 800 mg PO Q8HR #30 tablet 06/13/19 08/08/19 Unknown Rx HYDROcodone/APAP 5-325 [[place] 1 each PO Q6HR PRN #10 tablet 07/11/19 08/08/19 Unknown Rx 5-325 mg TAB] Active Medications: Generic Name Dose Route Start Last Admin Trade Name Freq PRN Reason Stop Dose Admin Acetaminophen 650 mg 08/08/19 23:48 08/16/19 17:40 Tylenol PO 650 mg Q4H PRN Administration Pain MILD(1-3)/Fever >100.5/MARIO Calcium Carbonate/Glycine 1,250 mg 08/15/19 10:00 08/17/19 11:28 Oscal PO 1,250 mg QDAY SHEKHAR Administration Famotidine 10 mg 08/09/19 10:00 08/17/19 11:28 Pepcid PO 10 mg BID SHEKHAR Administration Ceftriaxone Sodium 2 gm in 100 mls @ 200 mls/hr 08/12/19 16:00 08/16/19 16:15 Rocephin/Ns 2 Gm/100 Ml IV 200 mls/hr Q24HR SHEKHAR Administration Protocol Sodium Chloride 1,000 mls @ 75 mls/hr 08/14/19 13:00 08/17/19 14:16 Nacl 0.9% 1000 Ml IV 75 mls/hr DIRECT SHEKHAR Administration Loperamide HCl 2 mg 08/14/19 18:47 08/15/19 04:19 Imodium PO 2 mg Q2H PRN Administration Diarrhea Morphine Sulfate 2 mg 08/15/19 16:06 08/16/19 14:21 Morphine IV 2 mg Q8H PRN Administration Pain , Severe (7-10) Ondansetron HCl 4 mg 08/08/19 23:48 Zofran IV Q8H PRN Nausea And Vomiting Oxycodone/Acetaminophen 1 tab 08/15/19 16:06 08/17/19 14:16 Percocet 5/325 PO 1 tab Q6H PRN Administration Pain, Moderate (4-6) Potassium Chloride 30 meq 08/15/19 10:00 08/17/19 11:28 K-Dur PO 30 meq QDAY SHEKHAR Administration Potassium Phos/Sodium Phos 1 each 08/15/19 12:00 08/17/19 11:33 Phos-Nak PO 1 each Q12HR SHEKHAR Administration Prednisone 30 mg 08/15/19 10:00 08/17/19 11:29 Deltasone PO 30 mg QDAY SHEKHAR Administration Sodium Chloride 10 ml 08/09/19 10:00 08/17/19 11:36 Sodium Chloride Flush Syringe 10 Ml IV 10 ml BID SHEKHAR Administration Sodium Chloride 10 ml 08/08/19 23:48 08/12/19 03:48 Sodium Chloride Flush Syringe 10 Ml IV 10 ml PRN PRN Administration LINE FLUSH
--- NOTE | 2019-08-17 17:01 | Progress Note ---
Assessment and Plan /Gram neg bacteremia with sepsis: positive blood cultures Ecoli cont antibiotics, ID following - need vas cath removed - ordered persistent leukocytosis likely from chronic steroid /Avascular necrosis of Rt hip - consulted ortho : recommended intra-articular depomedrol injection / Hypokalemia; Supplement with oral and iv KCl, monitor electrolytes check Mg level /hypocalcemia, replete, follow nephrology recommendation /MOSES (acute kidney injury) vasomotor nephropathy vs Drug induced ATN with - Possible lupus nephritis; Severe metabolic acidosis with acute kidney injury, Nephro evaluated, placed on vas cath , stated on hemodialysis as needed continue IV steroids, nephrology following Patient 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 Nephrology following, replacement therapy as needed Hemodialysis, closely monitor /-Hyponatremia; mild improvement Gentle IV hydration Monitor electrolytes. /Exacerbation of systemic lupus erythematosus Steroids, pain medication, supportive care Advised to follow millinery department manager upon discharge /Lactic acidosis: Resolved IV fluids and supportive care. Follow cultures /-Severe malnutrition/hypoalbuminemia; Nutrition supplements and supportive care, nutrition consult As needed /Chronic pain syndrome with drug seeking behaviour - minimize pain meds as tolerated, counselled in length at bedside with mother and with pt -- DVT prophylaxis On heparin renal dose Monitor closely and adjust management as needed Plan of care reviewed with the patient and her nurse Disposition:need SNF and DC when clinically stable and electrolytes stable Hospitalist Physical General appearance: Present: mild distress, well-nourished - EENT Eyes: Present: PERRL, EOM intact - Neck Neck: Present: supple, normal ROM - Respiratory Respiratory effort: normal Respiratory: bilateral: diminished, wheezing, negative: rales, rhonchi - Cardiovascular Rhythm: regular Heart Sounds: Present: S1 & S2 - Extremities Extremities: no ischemia, No edema, left leg amputated - single right leg - Abdominal General gastrointestinal: soft, non-tender, non-distended, normal bowel sounds - Integumentary Integumentary: Present: clear, warm - Psychiatric Psychiatric: appropriate mood/affect, cooperative - Neurologic Neurologic: moves all extremities Subjective Date of service: 08/17/19 Principal diagnosis: LOW PLT Interval history: Patient seen and examined c/o generalized weakness no chest pain K and Ca level noted low Objective - Constitutional Vitals: Vital Signs - 12hr 08/17/19 08/17/19 12:24 16:41 Temperature 99.5 F 99.7 F H Pulse Rate 96 H 91 H Respiratory 32 H 28 H Rate Blood Pressure 137/77 150/97 O2 Sat by Pulse 96 100 Oximetry - Labs CBC & Chem 7: 08/18/19 08:19 08/18/19 08:19 Labs: Abnormal lab results 08/09/19 08/17/19 Range/Units 00:35 06:54 Potassium 2.9 L* (3.6-5.0) mmol/L Chloride 97.9 L (98-107) mmol/L Glucose 139 H (65-100) mg/dL Calcium 4.8 L* (8.4-10.2) mg/dL TITA Screen Positive H (Negative)
[2019-08-17] MEDS: cefTRIAXone/NS 2 GM/100 ML 2 GM/100 ML BAG IV SCH (18:04)
[2019-08-17] MEDS: CALCITRIOL 0.5 MCG CAP PO SCH (18:44)
[2019-08-17] MEDS: ACETAMINOPHEN 325 MG TAB PO PRN (20:31)
[2019-08-18 07:05] LABS: HIV-1 Antibody Differentiation SEE SCANNED RESULT; HIV-2 Antibody Differentiation SEE SCANNED RESULT
--- NOTE | 2019-08-18 08:21 | Hem/Onc Progress Note ---
Assessment and Plan 1. 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 This may be idiopathic thrombocytopenic purpura issues. The patient got steroid treatment for renal issues. We will continue the same. 2. Renal impairment. Nephrology following. 3. Anemia, chronic kidney disease may have a role. 4. History of left above-knee amputation. 5. History of splenectomy. 6. We will follow the trend of platelets if needed. If there is no improvement, we will look into other intervention like IVIG. Due to her renal issues, would need coordination with Nephrology team. ITP - steroids - that was used for renal/lupus issues - helped the pt Plt improving - >100k - Patient Problems (1) Thrombocytopenia Current Visit: Yes Status: Acute Subjective Date of service: 08/18/19 Principal diagnosis: ITP - anemia Interval history: no bleeding Objective - Exam Narrative Exam: Pain - none General appearance - feeling better Performance status limited self care Eyes - no icterus ENT - no bleeding LNs cervical not palpable Neck - no LN Respiratory Normal - on o2 Breath sounds - decreased air entry in bases CVS S1 S2 + Extremities no edema General GI Soft Rectal deferred female - deferred Skin warm Musculoskeletal - moves limb - left leg amputation Neurologically awake - oriented - Constitutional Vitals: Last Vital Signs Temp 97.7 F 08/18/19 05:47 Pulse 86 08/18/19 05:47 Resp 20 08/18/19 05:47 BP 159/80 08/18/19 05:47 Pulse Ox 97 08/18/19 05:47 - Labs Lab Results: Laboratory Results - last 24 hr 08/09/19 08/13/19 00:35 08:32 TITA Screen Positive H HIV-1 Antibody See scanned result HIV-2 Ab (Immunoblot) See scanned result Medications & Allergies - Medications Allergies/Adverse Reactions: Allergies Penicillins Allergy (Verified 07/22/19 16:38) Swelling Home Medications: Home Medications Medication Instructions Recorded Confirmed Last Taken Type Ibuprofen [Motrin] 800 mg PO Q8HR #30 tablet 06/13/19 08/08/19 Unknown Rx HYDROcodone/APAP 5-325 [[place] 1 each PO Q6HR PRN #10 tablet 07/11/19 08/08/19 Unknown Rx 5-325 mg TAB] Active Medications: Generic Name Dose Route Start Last Admin Trade Name Freq PRN Reason Stop Dose Admin Acetaminophen 650 mg 08/08/19 23:48 08/17/19 20:31 Tylenol PO 650 mg Q4H PRN Administration Pain MILD(1-3)/Fever >100.5/MARIO Calcitriol 0.5 mcg 08/17/19 18:00 08/17/19 18:44 Rocaltrol PO 0.5 mcg QDAY SHEKHAR Administration Calcium Carbonate/Glycine 1,250 mg 08/17/19 20:00 08/17/19 20:27 Oscal PO 1,250 mg TID SHEKHAR Administration Famotidine 10 mg 08/09/19 10:00 08/17/19 22:43 Pepcid PO 10 mg BID SHEKHAR Administration Ceftriaxone Sodium 2 gm in 100 mls @ 200 mls/hr 08/12/19 16:00 08/17/19 18:04 Rocephin/Ns 2 Gm/100 Ml IV 200 mls/hr Q24HR SHEKHAR Administration Protocol Sodium Chloride 1,000 mls @ 75 mls/hr 08/14/19 13:00 08/17/19 14:16 Nacl 0.9% 1000 Ml IV 75 mls/hr DIRECT SHEKHAR Administration Loperamide HCl 2 mg 08/14/19 18:47 08/15/19 04:19 Imodium PO 2 mg Q2H PRN Administration Diarrhea Morphine Sulfate 2 mg 08/15/19 16:06 08/16/19 14:21 Morphine IV 2 mg Q8H PRN Administration Pain , Severe (7-10) Ondansetron HCl 4 mg 08/08/19 23:48 Zofran IV Q8H PRN Nausea And Vomiting Oxycodone/Acetaminophen 1 tab 08/15/19 16:06 08/17/19 20:26 Percocet 5/325 PO 1 tab Q6H PRN Administration Pain, Moderate (4-6) Potassium Chloride 30 meq 08/15/19 10:00 08/17/19 11:28 K-Dur PO 30 meq QDAY SHEKHAR Administration Potassium Phos/Sodium Phos 1 each 08/15/19 12:00 08/17/19 22:43 Phos-Nak PO 1 each Q12HR SHEKHAR Administration Prednisone 30 mg 08/15/19 10:00 08/17/19 11:29 Deltasone PO 30 mg QDAY SHEKHAR Administration Sodium Chloride 10 ml 08/09/19 10:00 01/26/20 22:46 Sodium Chloride Flush Syringe 10 Ml IV 10 ml BID SHEKHAR Administration Sodium Chloride 10 ml 08/08/19 23:48 08/12/19 03:48 Sodium Chloride Flush Syringe 10 Ml IV 10 ml PRN PRN Administration LINE FLUSH
[2019-08-18 08:40] LABS: Hematocrit 23.9 % (30.3-42.9); Hemoglobin 7.7 gm/dl (10.1-14.3); Mean Corpuscular HGB Conc 32 % (30-34); Mean Corpuscular Volume 84 fl (79-97); Platelet Count 270 K/mm3 (140-440); Red Blood Count 2.85 M/mm3 (3.65-5.03)
[2019-08-18 08:58] LABS: BUN/Creatinine Ratio 10; Blood Urea Nitrogen 11 mg/dL (7-17); Hemolysis Index 2
[2019-08-18 09:04] LABS: Calcium 4.8 mg/dL (8.4-10.2)
[2019-08-18 09:42] LABS: Basophils % (Manual) 0 % (0.0-1.8); Eosinophils % (Manual) 0 % (0.0-4.3); Total Cells Counted 100
[2019-08-18 09:43] LABS: Anisocytosis 1+; Hypochromasia Few; Large Platelets Rare; Ovalocytes 1+; Platelet Estimate Consistent w Auto; Poikilocytosis 1+; Schistocytes Rare; Target Cells 2+
[2019-08-18] MEDS: CALCITRIOL 0.5 MCG CAP PO SCH (10:14)
[2019-08-18] MEDS: CALCIUM CARBONATE 1250 MG TAB PO SCH ×3 (10:15→20:22)
[2019-08-18] MEDS: predniSONE 20 MG TAB PO SCH (10:15)
[2019-08-18] MEDS: POTASSIUM CHLORIDE ER 10 MEQ TAB PO SCH (10:15)
[2019-08-18] MEDS: cefTRIAXone/NS 2 GM/100 ML 2 GM/100 ML BAG IV SCH (10:16)
[2019-08-18] MEDS: PHOS-NAK POWDER PACKET PO SCH ×2 (10:16→22:04)
[2019-08-18] MEDS: FAMOTIDINE 10 MG TAB PO SCH ×2 (10:16→22:04)
--- NOTE | 2019-08-18 10:57 | Progress Note ---
Assessment and Plan Impression * Nonolguric acute kidney injury - resolved --Etiology secondary to lupus nephritis (however, rarely resolves this quickly; C3,C4 wnl) vs prerenal azotemia * EColi bacteremia * Blood cx: EColi (Aug 08), NGTD (Aug 14), Pending (Aug 16) * Severe metabolic acidosis secondary to lactic acidosis * SLE * Hypocalcemia * hypomagnesemia * hypokalemia * Anemia * Thrombocytopenia Recommendation * No acute indication for hemodialysis - renal function has recovered * Replete K - and Mag prn * Ionized calcium pending. Increase calcium from daily to TID; increase calcitriol. She is s/p Ca Gluconate. Will reorder * AM labs - renal panel and Mg daily * Abx per ID * Hematology following * Hold kidney bx for now in light of thrombocytopenia, recovery of renal function * She is s/p pulse steroids - add hydrocortisone with elec derangements * may have RTA, will follow up daily * Avoid nephrotoxins * Monitor fluid status and electrolytes closely Subjective Date of service: 08/18/19 Principal diagnosis: ITP Interval history: resting in bed today Objective - Exam Narrative Exam: General appearance: well-developed EENT: ATNC Respiratory: Present: Clear to Ascultation Cardiology: regular, S1S2 Gastrointestinal: normal Integumentary: warm and dry Musculoskeletal: other (Left LE amputeation) Psychiatric: cooperative - Vital Signs Vital signs: Vital Signs - 12hr 08/18/19 05:47 Temperature 97.7 F Pulse Rate 86 Respiratory 20 Rate Blood Pressure 159/80 O2 Sat by Pulse 97 Oximetry - Lab 08/18/19 08:19 08/18/19 08:19 Most recent lab results Calcium 4.8 mg/dL (8.4-10.2) L* 08/18/19 08:19 Phosphorus 2.40 mg/dL (2.5-4.5) L 08/15/19 06:45 Magnesium 0.50 mg/dL (1.7-2.3) L* 08/18/19 08:19 Urine Creatinine 41.0 mg/dL (0.1-20.0) H 08/09/19 14:46 Urine Sodium 84 mmol/L 08/09/19 14:46 Urine Total Protein 154 mg/dL (5-11.8) H 08/09/19 14:46 Medications & Allergies - Medications Allergies/Adverse Reactions: Allergies Penicillins Allergy (Verified 07/22/19 16:38) Swelling Home Medications: Home Medications Medication Instructions Recorded Confirmed Last Taken Type Ibuprofen [Motrin] 800 mg PO Q8HR #30 tablet 06/13/19 08/08/19 Unknown Rx HYDROcodone/APAP 5-325 [[place] 1 each PO Q6HR PRN #10 tablet 07/11/19 08/08/19 Unknown Rx 5-325 mg TAB] Active Medications: Generic Name Dose Route Start Last Admin Trade Name Freq PRN Reason Stop Dose Admin Acetaminophen 650 mg 08/08/19 23:48 08/17/19 20:31 Tylenol PO 650 mg Q4H PRN Administration Pain MILD(1-3)/Fever >100.5/MARIO Calcitriol 1 mcg 08/18/19 10:51 Rocaltrol PO QDAY SHEKHAR Calcium Carbonate/Glycine 1,250 mg 08/17/19 20:00 08/18/19 10:15 Oscal PO 1,250 mg TID SHEKHAR Administration Famotidine 10 mg 08/09/19 10:00 08/18/19 10:16 Pepcid PO 10 mg BID SHEKHAR Administration Ceftriaxone Sodium 2 gm in 100 mls @ 200 mls/hr 08/12/19 16:00 08/18/19 10:16 Rocephin/Ns 2 Gm/100 Ml IV 200 mls/hr Q24HR SHEKHAR Administration Protocol Sodium Chloride 1,000 mls @ 75 mls/hr 08/14/19 13:00 08/17/19 14:16 Nacl 0.9% 1000 Ml IV 75 mls/hr DIRECT SHEKHAR Administration Magnesium Sulfate 2 gm in 50 mls @ 25 mls/hr 08/18/19 10:50 Magnesium Sulfate 2gm/50ml IV 08/18/19 12:49 DAILY ONE Calcium Gluconate 2,000 mg/ 120 mls @ 660 mls/hr 08/18/19 10:51 Sodium Chloride IV 08/18/19 11:01 ONCE ONE Loperamide HCl 2 mg 08/14/19 18:47 08/15/19 04:19 Imodium PO 2 mg Q2H PRN Administration Diarrhea Morphine Sulfate 2 mg 08/15/19 16:06 08/16/19 14:21 Morphine IV 2 mg Q8H PRN Administration Pain , Severe (7-10) Ondansetron HCl 4 mg 08/08/19 23:48 Zofran IV Q8H PRN Nausea And Vomiting Oxycodone/Acetaminophen 1 tab 08/15/19 16:06 08/17/19 20:26 Percocet 5/325 PO 1 tab Q6H PRN Administration Pain, Moderate (4-6) Potassium Chloride 30 meq 08/15/19 10:00 08/18/19 10:15 K-Dur PO 30 meq QDAY SHEKHAR Administration Potassium Phos/Sodium Phos 1 each 08/15/19 12:00 08/18/19 10:16 Phos-Nak PO 1 each Q12HR SHEKHAR Administration Prednisone 30 mg 08/15/19 10:00 08/18/19 10:15 Deltasone PO 30 mg QDAY SHEKHAR Administration Sodium Chloride 10 ml 08/09/19 10:00 08/18/19 10:17 Sodium Chloride Flush Syringe 10 Ml IV Not Given BID SHEKHAR Sodium Chloride 10 ml 08/08/19 23:48 08/12/19 03:48 Sodium Chloride Flush Syringe 10 Ml IV 10 ml PRN PRN Administration LINE FLUSH
[2019-08-18] MEDS: HYDROCORTISONE 10 MG TAB PO SCH ×2 (12:00→22:04)
[2019-08-18] MEDS ORDERED: CALCITRIOL 0.5 MCG CAP PO ONE (12:00)
[2019-08-18] MEDS ORDERED: SODIUM CHLORIDE 0.9% IV ONE (12:00)
[2019-08-18] MEDS: MAGNESIUM OXIDE 400 MG TAB PO SCH ×2 (12:00→22:04)
[2019-08-18] MEDS ORDERED: CALCIUM GLUCONATE IV ONE (12:00)
--- NOTE | 2019-08-18 12:37 | Progress Note ---
Assessment and Plan /Gram neg bacteremia with sepsis: positive blood cultures Ecoli cont antibiotics, ID following -s/p vas cath removed persistent leukocytosis likely from chronic steroid last dose of ABX TODAY /Avascular necrosis of Rt hip - consulted ortho : recommended intra-articular depomedrol injection / Hypokalemia and hypomagnesemia Supplement with oral and iv KCl, monitor electrolytes check Mg level /hypocalcemia, replete, follow nephrology recommendation /MOSES (acute kidney injury) vasomotor nephropathy vs Drug induced ATN with - Possible lupus nephritis; Severe metabolic acidosis with acute kidney injury, Nephro evaluated, placed on vas cath , stated on hemodialysis as needed continue IV steroids, nephrology following Patient needs to follow with check processor Upon discharge not on HD now - ordered to remove vascath for bacteremia /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 Nephrology following, replacement therapy as needed Hemodialysis, closely monitor /-Hyponatremia; mild improvement Gentle IV hydration Monitor electrolytes. /Exacerbation of systemic lupus erythematosus Steroids, pain medication, supportive care Advised to follow check processor upon discharge /Lactic acidosis: Resolved IV fluids and supportive care. Follow cultures /-Severe malnutrition/hypoalbuminemia; Nutrition supplements and supportive care, nutrition consult /Chronic pain syndrome with drug seeking behaviour - minimize pain meds as tolerated, counselled in length at bedside with mother and with pt /Physical debility, need SNF placement -- DVT prophylaxis On heparin renal dose Monitor closely and adjust management as needed Plan of care reviewed with the patient and her nurse Disposition: need SNF and DC when clinically stable and electrolytes stable Hospitalist Physical General appearance: Present: mild distress, well-nourished - EENT Eyes: Present: PERRL, EOM intact - Neck Neck: Present: supple, normal ROM - Respiratory Respiratory effort: normal Respiratory: bilateral: diminished, wheezing, negative: rales, rhonchi - Cardiovascular Rhythm: regular Heart Sounds: Present: S1 & S2 - Extremities Extremities: no ischemia, No edema, left leg amputated - single right leg - Abdominal General gastrointestinal: soft, non-tender, non-distended, normal bowel sounds - Integumentary Integumentary: Present: clear, warm - Psychiatric Psychiatric: appropriate mood/affect, cooperative - Neurologic Neurologic: moves all extremities Subjective Date of service: 08/18/19 Principal diagnosis: LOW PLT Interval history: Patient seen and examined c/o generalized weakness no chest pain, tolerating diet better K and Ca level STILL noted low, with low Mg Objective - Constitutional Vitals: Vital Signs - 12hr 08/18/19 08/18/19 05:47 11:31 Temperature 97.7 F 97.8 F Pulse Rate 86 83 Respiratory 20 16 Rate Blood Pressure 159/80 148/81 O2 Sat by Pulse 97 95 Oximetry - Labs CBC & Chem 7: 08/19/19 04:26 08/19/19 04:26 Labs: Abnormal lab results 08/09/19 08/18/19 08/18/19 Range/Units 00:35 08:19 08:19 WBC 21.6 H (4.5-11.0) K/mm3 RBC 2.85 L (3.65-5.03) M/mm3 Hgb 7.7 L (10.1-14.3) gm/dl Hct 23.9 L (30.3-42.9) % MCH 27 L (28-32) pg RDW 17.0 H (13.2-15.2) % Seg Neuts % (Manual) 84.0 H (40.0-70.0) % Lymphocytes % (Manual) 9.0 L (13.4-35.0) % Seg Neutrophils # Man 18.1 H (1.8-7.7) K/mm3 Monocytes # (Manual) 1.5 H (0.0-0.8) K/mm3 Potassium 3.3 L (3.6-5.0) mmol/L Carbon Dioxide 21 L (22-30) mmol/L Glucose 115 H (65-100) mg/dL Calcium 4.8 L* (8.4-10.2) mg/dL Magnesium 0.50 L* (1.7-2.3) mg/dL TITA Screen Positive H (Negative)
[2019-08-18] MEDS: MAGNESIUM SULFATE 2 GM/50 ML BAG IV SCH (13:15)
--- NOTE | 2019-08-18 13:36 | Progress Note ---
Assessment and Plan Cultures: 08/08/2019 blood cultures: E coli 08/08/2019 urine culture: negative Repeat blood cultures are negative 08/16/2019 VasCath tip culture: in process. A&P: 39 yo F PMHx Lupus, not currently beingtreated admitted for generalized myalgias found to have MOSES requiring HD and E coli Bacteremia. #E. coli bacteremia: from urine. #UTI - as above #MOSES requiring HD - nephrology following. Creatinine much improved, off dialysis. HD cath was removed on 08/16/2019. #Lupus - on steroids #Penicillin allergy - tolerated cephalosporins. #Leukocytosis - possibly secondary to high dose steroids. #Sacral wound: MRI negative for osteomyelitis Recommendations: - last day of ceftriaxone today Teagan Rider MD, FACP [facility] ([facility] C: [phone] O: [phone] F: [phone] Subjective Date of service: 08/18/19 Principal diagnosis: LOW PLT Interval history: Low grade fever yesterday, none today. Denies any complaints. Denies cough, shortness of breath. Denies nausea, vomiting or diarrhea. Had HD cath removed on 08/16/2019. Objective - Exam Narrative Exam: Physical Exam: Constitutional: Alert, cooperative. No acute distress Head, Ears, Nose: Normocephalic, atraumatic. External ears, nose normal Eyes: Conjunctivae/corneas clear. No icterus. No ptosis. Neck: Supple, no meningeal signs Cardiovascular: S1, S2 normal. Respiratory: Good air entry, clear to auscultation bilaterally GI: Soft, non-tender; bowel sounds normal. No peritoneal signs Musculoskeletal: No pedal edema. Left hip disarticulation. Sacral wound superficial Skin: No rash or abscess Hem/Lymphatic: No palpable cervical or supraclavicular nodes. No lymphangitis Psych: flat affect Neurological: Awake, alert, oriented - Constitutional Vitals: Vital Signs Temp Pulse Resp BP Pulse Ox 97.8 F 83 16 148/81 95 08/18/19 11:31 08/18/19 11:31 08/18/19 11:31 08/18/19 11:31 08/18/19 11:31 Temperature -Last 24 Hours Temperature 97.8 F Temperature 97.7 F Temperature 99.0 F Temperature 99.7 F - Labs CBC & Chem 7: 08/18/19 08:19 08/18/19 08:19 Labs: Abnormal lab results 08/09/19 08/18/19 08/18/19 Range/Units 00:35 08:19 08:19 WBC 21.6 H (4.5-11.0) K/mm3 RBC 2.85 L (3.65-5.03) M/mm3 Hgb 7.7 L (10.1-14.3) gm/dl Hct 23.9 L (30.3-42.9) % MCH 27 L (28-32) pg RDW 17.0 H (13.2-15.2) % Seg Neuts % (Manual) 84.0 H (40.0-70.0) % Lymphocytes % (Manual) 9.0 L (13.4-35.0) % Seg Neutrophils # Man 18.1 H (1.8-7.7) K/mm3 Monocytes # (Manual) 1.5 H (0.0-0.8) K/mm3 Potassium 3.3 L (3.6-5.0) mmol/L Carbon Dioxide 21 L (22-30) mmol/L Glucose 115 H (65-100) mg/dL Calcium 4.8 L* (8.4-10.2) mg/dL Magnesium 0.50 L* (1.7-2.3) mg/dL TITA Screen Positive H (Negative)
[2019-08-18] MEDS: oxyCODONE /ACETAMINOPHEN 5-325MG TAB PO PRN (20:23)
[2019-08-19] MEDS: SODIUM CHLORIDE 0.9% 1000 ML 1,000 ML IV SCH ×2 (00:40→16:43)
[2019-08-19 05:07] LABS: Basophils # (Auto) 0.1 K/mm3 (0.0-0.1); Basophils % (Auto) 0.3 % (0.0-1.8); Hematocrit 25.9 % (30.3-42.9); Hemoglobin 8.3 gm/dl (10.1-14.3); Lymphocytes # (Auto) 0.6 K/mm3 (1.2-5.4); Lymphocytes % (Auto) 3.2 % (13.4-35.0); Mean Corpuscular HGB Conc 32 % (30-34); Mean Corpuscular Volume 84 fl (79-97); Monocytes # (Auto) 1.4 K/mm3 (0.0-0.8); Monocytes % (Auto) 7.8 % (0.0-7.3); Platelet Count 326 K/mm3 (140-440); Red Blood Count 3.09 M/mm3 (3.65-5.03); Red Cell Distribution Width 17.3 % (13.2-15.2)
[2019-08-19 05:23] LABS: BUN/Creatinine Ratio 16; Blood Urea Nitrogen 14 mg/dL (7-17)
[2019-08-19 05:41] LABS: Hemolysis Index 0
[2019-08-19 06:10] LABS: Calcium 5.3 mg/dL (8.4-10.2)
--- NOTE | 2019-08-19 08:07 | Hem/Onc Progress Note ---
Assessment and Plan 1. 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 This may be idiopathic thrombocytopenic purpura issues. The patient got steroid treatment for renal issues. We will continue the same. 2. Renal impairment. Nephrology following. 3. Anemia, kidney disease or lupus may have a role. 4. History of left above-knee amputation. 5. History of splenectomy. 6. We will follow the trend of platelets if needed. If there is no improvement, we will look into other intervention like IVIG. Due to her renal issues, would need coordination with Nephrology team. ITP - steroids - that was used for renal/lupus issues - helped the pt Plt improving - >100k 08/19 - anemia - ? lupus related? low folate - Folic acid and vitamin replacement - Patient Problems (1) Thrombocytopenia Current Visit: Yes Status: Acute Subjective Date of service: 08/19/19 Principal diagnosis: ITP - anemia Interval history: feeling better more awake Objective - Exam Narrative Exam: Pain - none General appearance - feeling better Performance status limited self care Eyes - no icterus ENT - no bleeding LNs cervical not palpable Neck - no LN Respiratory Normal - on o2 Breath sounds - decreased air entry in bases CVS S1 S2 + Extremities no edema General GI Soft Rectal deferred female - deferred Skin warm Musculoskeletal - moves limb - left leg amputation Neurologically awake - oriented - Constitutional Vitals: Last Vital Signs Temp 97.2 F L 08/19/19 05:22 Pulse 89 08/18/19 22:14 Resp 18 08/19/19 05:22 BP 132/75 08/19/19 05:22 Pulse Ox 97 08/18/19 22:14 - Labs Lab Results: Laboratory Results - last 24 hr 08/18/19 08/18/19 08/19/19 08:19 08:19 04:26 WBC 21.6 H RBC 2.85 L Hgb 7.7 L Hct 23.9 L MCV 84 MCH 27 L MCHC 32 RDW 17.0 H Plt Count 270 Lymph % (Auto) [place] % (Auto) Eos % (Auto) Baso % (Auto) Lymph # [place] # Eos # Baso # Add Manual Diff Complete Total Counted 100 Seg Neutrophils % Seg Neuts % (Manual) 84.0 H Band Neutrophils % 0 Lymphocytes % (Manual) 9.0 L Reactive Lymphs % (Man) 0 Monocytes % (Manual) 7.0 Eosinophils % (Manual) 0 Basophils % (Manual) 0 Metamyelocytes % 0 Myelocytes % 0 Promyelocytes % 0 Blast Cells % 0 Nucleated RBC % Not Reportable Seg Neutrophils # Seg Neutrophils # Man 18.1 H Band Neutrophils # 0.0 Lymphocytes # (Manual) 1.9 Abs React Lymphs (Man) 0.0 Monocytes # (Manual) 1.5 H Eosinophils # (Manual) 0.0 Basophils # (Manual) 0.0 Metamyelocytes # 0.0 Myelocytes # 0.0 Promyelocytes # 0.0 Blast Cells # 0.0 WBC Morphology Not Reportable Hypersegmented Neuts Not Reportable Hyposegmented Neuts Not Reportable Hypogranular Neuts Not Reportable Smudge Cells Not Reportable Toxic Granulation Not Reportable Toxic Vacuolation Not Reportable Dohle Bodies Not Reportable Pelger-Huet Anomaly Not Reportable Doyle Rods Not Reportable Platelet Estimate Consistent w auto Clumped Platelets Not Reportable Plt Clumps, EDTA Not Reportable Large Platelets Rare Giant Platelets Not Reportable Platelet Satelliting Not Reportable Plt Morphology Comment Not Reportable RBC Morphology Not Reportable Dimorphic RBCs Not Reportable Polychromasia Not Reportable Hypochromasia Few Poikilocytosis 1+ Anisocytosis 1+ Microcytosis Not Reportable Macrocytosis Not Reportable Spherocytes Not Reportable Pappenheimer Bodies Not Reportable Sickle Cells Not Reportable Target Cells 2+ Tear Drop Cells Not Reportable Ovalocytes 1+ Helmet Cells Not Reportable [place] Bodies Not Reportable [place] Rings Not Reportable [place] Cells Not Reportable Bite Cells Not Reportable Crenated Cell Not Reportable Elliptocytes Not Reportable Acanthocytes (Spur) Not Reportable Rouleaux Not Reportable Hemoglobin C Crystals Not Reportable Schistocytes Rare Malaria parasites Not Reportable Carlo Bodies Not Reportable Hem Pathologist Commnt No Sodium 139 139 Potassium 3.3 L 3.5 L Chloride 98.6 103.4 Carbon Dioxide 21 L 18 L Anion Gap 23 21 BUN 11 14 Creatinine 1.1 0.9 Estimated GFR > 60 > 60 BUN/Creatinine Ratio 10 16 Glucose 115 H 130 H Calcium 4.8 L* 5.3 L* Magnesium 0.50 L* 1.00 L 08/19/19 04:26 WBC 17.7 H RBC 3.09 L Hgb 8.3 L Hct 25.9 L MCV 84 MCH 27 L MCHC 32 RDW 17.3 H Plt Count 326 Lymph % (Auto) 3.2 L [place] % (Auto) 7.8 H Eos % (Auto) 0.0 Baso % (Auto) 0.3 Lymph # 0.6 L [place] # 1.4 H Eos # 0.0 Baso # 0.1 Add Manual Diff Total Counted Seg Neutrophils % 88.7 H Seg Neuts % (Manual) Band Neutrophils % Lymphocytes % (Manual) Reactive Lymphs % (Man) Monocytes % (Manual) Eosinophils % (Manual) Basophils % (Manual) Metamyelocytes % Myelocytes % Promyelocytes % Blast Cells % Nucleated RBC % Seg Neutrophils # 15.7 H Seg Neutrophils # Man Band Neutrophils # Lymphocytes # (Manual) Abs React Lymphs (Man) Monocytes # (Manual) Eosinophils # (Manual) Basophils # (Manual) Metamyelocytes # Myelocytes # Promyelocytes # Blast Cells # WBC Morphology Hypersegmented Neuts Hyposegmented Neuts Hypogranular Neuts Smudge Cells Toxic Granulation Toxic Vacuolation Dohle Bodies Pelger-Huet Anomaly [place] Rods Platelet Estimate Clumped Platelets Plt Clumps, EDTA Large Platelets Giant Platelets Platelet Satelliting Plt Morphology Comment RBC Morphology Dimorphic RBCs Polychromasia Hypochromasia Poikilocytosis Anisocytosis Microcytosis Macrocytosis Spherocytes Pappenheimer Bodies Sickle Cells Target Cells Tear Drop Cells Ovalocytes Helmet Cells [place] Bodies [place] Rings [place] Cells Bite Cells Crenated Cell Elliptocytes Acanthocytes (Spur) Rouleaux Hemoglobin C Crystals Schistocytes Malaria parasites Carlo Bodies Hem Pathologist Commnt Sodium Potassium Chloride Carbon Dioxide Anion Gap BUN Creatinine Estimated GFR BUN/Creatinine Ratio Glucose Calcium Magnesium Medications & Allergies - Medications Allergies/Adverse Reactions: Allergies Penicillins Allergy (Verified 07/22/19 16:38) Swelling Home Medications: Home Medications Medication Instructions Recorded Confirmed Last Taken Type Ibuprofen [Motrin] 800 mg PO Q8HR #30 tablet 06/13/19 08/08/19 Unknown Rx HYDROcodone/APAP 5-325 [[place] 1 each PO Q6HR PRN #10 tablet 07/11/19 08/08/19 Unknown Rx 5-325 mg TAB] Active Medications: Generic Name Dose Route Start Last Admin Trade Name Freq PRN Reason Stop Dose Admin Acetaminophen 650 mg 08/08/19 23:48 08/17/19 20:31 Tylenol PO 650 mg Q4H PRN Administration Pain MILD(1-3)/Fever >100.5/MARIO Calcitriol 1 mcg 08/19/19 10:00 Rocaltrol PO QDAY SHEKHAR Calcium Carbonate/Glycine 1,250 mg 08/17/19 20:00 08/18/19 20:22 Oscal PO 1,250 mg TID SHEKHAR Administration Famotidine 10 mg 08/09/19 10:00 08/18/19 22:04 Pepcid PO 10 mg BID SHEKHAR Administration Hydrocortisone Acetate 10 mg 08/18/19 12:00 08/18/19 22:04 Cortef PO 10 mg Q12HR SHEKHAR Administration Ceftriaxone Sodium 2 gm in 100 mls @ 200 mls/hr 08/12/19 16:00 08/18/19 10:16 Rocephin/Ns 2 Gm/100 Ml IV 200 mls/hr Q24HR SHEKHAR Administration Protocol Sodium Chloride 1,000 mls @ 75 mls/hr 08/14/19 13:00 08/19/19 00:40 Nacl 0.9% 1000 Ml IV 75 mls/hr DIRECT SHEKHAR Administration Magnesium Sulfate 2 gm in 50 mls @ 25 mls/hr 08/18/19 12:00 08/18/19 13:15 Magnesium Sulfate 2gm/50ml IV 25 mls/hr DAILY SHEKHAR Administration Loperamide HCl 2 mg 08/14/19 18:47 08/15/19 04:19 Imodium PO 2 mg Q2H PRN Administration Diarrhea Magnesium Oxide 400 mg 08/18/19 11:00 08/18/19 22:04 Mag-Ox PO 400 mg BID SHEKHAR Administration Morphine Sulfate 2 mg 08/15/19 16:06 08/16/19 14:21 Morphine IV 2 mg Q8H PRN Administration Pain , Severe (7-10) Ondansetron HCl 4 mg 08/08/19 23:48 Zofran IV Q8H PRN Nausea And Vomiting Oxycodone/Acetaminophen 1 tab 08/15/19 16:06 08/18/19 20:23 Percocet 5/325 PO 1 tab Q6H PRN Administration Pain, Moderate (4-6) Potassium Chloride 30 meq 08/15/19 10:00 08/18/19 10:15 K-Dur PO 30 meq QDAY SHEKHAR Administration Potassium Phos/Sodium Phos 1 each 08/15/19 12:00 08/18/19 22:04 Phos-Nak PO 1 each Q12HR SHEKHAR Administration Sodium Chloride 10 ml 08/09/19 10:00 08/18/19 22:04 Sodium Chloride Flush Syringe 10 Ml IV 10 ml BID SHEKHAR Administration Sodium Chloride 10 ml 08/08/19 23:48 08/12/19 03:48 Sodium Chloride Flush Syringe 10 Ml IV 10 ml PRN PRN Administration LINE FLUSH
[2019-08-19] MEDS: oxyCODONE /ACETAMINOPHEN 5-325MG TAB PO PRN ×2 (08:35→20:30)
[2019-08-19] MEDS: CALCIUM CARBONATE 1250 MG TAB PO SCH ×3 (08:39→20:30)
[2019-08-19] MEDS: MAGNESIUM OXIDE 400 MG TAB PO SCH ×2 (09:13→23:29)
[2019-08-19] MEDS: FAMOTIDINE 10 MG TAB PO SCH ×2 (09:13→23:29)
[2019-08-19] MEDS: PHOS-NAK POWDER PACKET PO SCH ×2 (09:13→23:29)
[2019-08-19] MEDS: HYDROCORTISONE 10 MG TAB PO SCH ×2 (09:13→23:29)
[2019-08-19] MEDS: CALCITRIOL 0.5 MCG CAP PO SCH (09:13)
[2019-08-19] MEDS: POTASSIUM CHLORIDE ER 10 MEQ TAB PO SCH (09:13)
[2019-08-19] MEDS: cefTRIAXone/NS 2 GM/100 ML 2 GM/100 ML BAG IV SCH (09:14)
[2019-08-19] MEDS: MAGNESIUM SULFATE 2 GM/50 ML BAG IV SCH (09:14)
[2019-08-19] MEDS: FOLIC ACID/VIT B COMP W-C 1 MG (RENAL CAPS) PO SCH (09:29)
--- NOTE | 2019-08-19 10:37 | Progress Note ---
Assessment and Plan Impression * Nonolguric acute kidney injury - resolved --Etiology secondary to lupus nephritis (however, rarely resolves this quickly; C3,C4 wnl) vs prerenal azotemia * EColi bacteremia * Blood cx: EColi (Aug 08), NGTD (Aug 14), Pending (Aug 16) * Severe metabolic acidosis secondary to lactic acidosis * SLE * Hypocalcemia * hypomagnesemia * hypokalemia * Anemia * Thrombocytopenia Recommendation * No acute indication for hemodialysis - renal function has recovered * Replete K - and Mag prn * She is s/p Ca Gluconate. Will reorder * AM labs - renal panel and Mg daily * k and mag better today * Abx per ID * Hematology following * Hold kidney bx for now in light of thrombocytopenia, recovery of renal function * She is s/p pulse steroids - added hydrocortisone with elec derangements * may have RTA, will follow up daily, added sodium bicarb * Avoid nephrotoxins * Monitor fluid status and electrolytes closely Subjective Date of service: 08/19/19 Principal diagnosis: ITP - anemia Interval history: resting in bed today Objective - Exam Narrative Exam: General appearance: well-developed EENT: ATNC Respiratory: Present: Clear to Ascultation Cardiology: regular, S1S2 Gastrointestinal: normal Integumentary: warm and dry Musculoskeletal: other (Left LE amputeation) Psychiatric: cooperative - Vital Signs Vital signs: Vital Signs - 12hr 08/19/19 05:22 Temperature 97.2 F L Respiratory 18 Rate Blood Pressure 132/75 - Lab 08/19/19 04:26 08/19/19 04:26 Most recent lab results Calcium 5.3 mg/dL (8.4-10.2) L* 08/19/19 04:26 Phosphorus 2.40 mg/dL (2.5-4.5) L 08/15/19 06:45 Magnesium 1.00 mg/dL (1.7-2.3) L 08/19/19 04:26 Urine Creatinine 41.0 mg/dL (0.1-20.0) H 08/09/19 14:46 Urine Sodium 84 mmol/L 08/09/19 14:46 Urine Total Protein 154 mg/dL (5-11.8) H 08/09/19 14:46 Medications & Allergies - Medications Allergies/Adverse Reactions: Allergies Penicillins Allergy (Verified 07/22/19 16:38) Swelling Home Medications: Home Medications Medication Instructions Recorded Confirmed Last Taken Type Ibuprofen [Motrin] 800 mg PO Q8HR #30 tablet 06/13/19 08/08/19 Unknown Rx HYDROcodone/APAP 5-325 [[place] 1 each PO Q6HR PRN #10 tablet 07/11/19 08/08/19 Unknown Rx 5-325 mg TAB] Active Medications: Generic Name Dose Route Start Last Admin Trade Name Freq PRN Reason Stop Dose Admin Acetaminophen 650 mg 08/08/19 23:48 08/17/19 20:31 Tylenol PO 650 mg Q4H PRN Administration Pain MILD(1-3)/Fever >100.5/MARIO Calcitriol 1 mcg 08/19/19 10:00 08/19/19 09:13 Rocaltrol PO 1 mcg QDAY SHEKHAR Administration Calcium Carbonate/Glycine 1,250 mg 08/17/19 20:00 08/19/19 08:39 Oscal PO 1,250 mg TID SHEKHAR Administration Famotidine 10 mg 08/09/19 10:00 08/19/19 09:13 Pepcid PO 10 mg BID SHEKHAR Administration Hydrocortisone Acetate 10 mg 08/18/19 12:00 08/19/19 09:13 Cortef PO 10 mg Q12HR SHEKHAR Administration Ceftriaxone Sodium 2 gm in 100 mls @ 200 mls/hr 08/12/19 16:00 08/19/19 09:14 Rocephin/Ns 2 Gm/100 Ml IV 08/19/19 10:59 200 mls/hr Q24HR SHEKHAR Administration Protocol Sodium Chloride 1,000 mls @ 75 mls/hr 08/14/19 13:00 08/19/19 00:40 Nacl 0.9% 1000 Ml IV 75 mls/hr DIRECT SHEKHAR Administration Magnesium Sulfate 2 gm in 50 mls @ 25 mls/hr 08/18/19 12:00 08/19/19 09:14 Magnesium Sulfate 2gm/50ml IV 25 mls/hr DAILY SHEKHAR Administration Loperamide HCl 2 mg 08/14/19 18:47 08/15/19 04:19 Imodium PO 2 mg Q2H PRN Administration Diarrhea Magnesium Oxide 400 mg 08/18/19 11:00 08/19/19 09:13 Mag-Ox PO 400 mg BID SHEKHAR Administration Morphine Sulfate 2 mg 08/15/19 16:06 08/16/19 14:21 Morphine IV 2 mg Q8H PRN Administration Pain , Severe (7-10) Multivit/Ca Carb/B Cmplx/FA/Prenat 1 cap 08/19/19 10:00 08/19/19 09:29 Renal Caps PO 1 cap QDAY SHEKHAR Administration Ondansetron HCl 4 mg 08/08/19 23:48 Zofran IV Q8H PRN Nausea And Vomiting Oxycodone/Acetaminophen 1 tab 08/15/19 16:06 08/19/19 08:35 Percocet 5/325 PO 1 tab Q6H PRN Administration Pain, Moderate (4-6) Potassium Chloride 30 meq 08/15/19 10:00 08/19/19 09:13 K-Dur PO 30 meq QDAY SHEKHAR Administration Potassium Phos/Sodium Phos 1 each 08/15/19 12:00 08/19/19 09:13 Phos-Nak PO 1 each Q12HR SHEKHAR Administration Sodium Chloride 10 ml 08/09/19 10:00 08/19/19 09:14 Sodium Chloride Flush Syringe 10 Ml IV Not Given BID SHEKHAR Sodium Chloride 10 ml 08/08/19 23:48 08/12/19 03:48 Sodium Chloride Flush Syringe 10 Ml IV 10 ml PRN PRN Administration LINE FLUSH
[2019-08-19] MEDS: LOPERAMIDE 2 MG CAP PO PRN ×2 (10:49→17:35)
[2019-08-19] MEDS: SODIUM BICARBONATE 650 MG TAB PO SCH ×2 (10:49→23:29)
--- NOTE | 2019-08-19 11:21 | Discharge Summary ---
Providers - Providers Date of Admission: 08/08/19 19:35 Date of discharge: 08/20/19 Attending physician: FEDERICA SIEGEL 08/08/19 23:48 Consult to Physician [CONS] Routine Comment: Consulting Provider: KELLY ALLRED Physician Instructions: Reason For Exam: MOSES/CKD 08/09/19 12:04 Consult to Physician [CONS] Urgent Comment: Consulting Provider: PHILIPP VALDES Physician Instructions: Reason For Exam: vascath placement 08/10/19 19:44 Consult to Wound/ET Nurse [CONS] Routine Reason For Exam: wound eval 08/11/19 17:54 Consult to Physician [CONS] Routine Comment: Consulting Provider: MESSI MEJIA Physician Instructions: Reason For Exam: Gram neg sepsis 08/12/19 03:30 Consult to Wound/ET Nurse [CONS] Routine Reason For Exam: wound eval 08/12/19 08:47 Consult to Physician [CONS] Routine Comment: Consulting Provider: MAYCOL FERMIN Physician Instructions: Reason For Exam: anemia with h/o lupus 08/16/19 16:54 Consult to Physician [CONS] Routine Comment: Consulting Provider: ONOFRE LORENZO Physician Instructions: Reason For Exam: avascular necrosis of rt femur head Hospitalization Condition: Critical Pertinent studies: CXR Abdomen/pelvis CT Pelvis MRI Renal US Hospital course: 39-year-old female with past medical history of lupus presented to the hospital with generalized pain, lupus flare, sepsis with E.coli bacteremia/UTI, MOSES, electrolytes abnormalities. Urinalysis with pyuria, blood cultures positive for Escherichia coli. Received cefepime for bacteremia. Nephrology consulted for MOSES - HD started temporarily, now removed vascath, renal function stable. Replaced with Kcl. Mg and calcium gluconate for electrolytes imbalance. Patient was then discharged to SNF with outpt followup. Discharge diagnosis and Mx: /Gram neg bacteremia with sepsis: positive blood cultures Ecoli ID following -s/p vas cath removed persistent leukocytosis likely from chronic steroid completed iv abx treatment - vascath tip culture MRSA <15 colonies and CoNS >15 colonies, no bacteremia. Reflects colonization of the cath since blood cultures were negative. 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; Severe metabolic acidosis with acute kidney injury, Nephro evaluated, placed on vas cath , stated on hemodialysis as needed placed on IV steroids then changes to po on discharge Patient needs to follow with pick pack worker Upon discharge not on HD now - ordered to remove vascath for bacteremia /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; Procrit during dialysis, monitor H&H and transfuse as needed /Metabolic acidosis; Improved with HD and Iv fluid /-Hyponatremia; improved s/p IV hydration /Exacerbation of systemic lupus erythematosus managed with Steroids, pain medication, supportive care Advised to follow pick pack worker upon discharge /Lactic acidosis: Resolved, likely from sepsis /-Severe malnutrition/hypoalbuminemia; Nutrition supplements and supportive care, nutrition consult /Chronic pain syndrome with drug seeking behaviour - minimize pain meds as tolerated, counselled in length at bedside with mother and with pt /Chronic diarrhea, loperamide as needed /Physical debility, need SNF placement -- DVT prophylaxis On heparin renal dose Disposition: SNF Hospitalist Physical General appearance: Present: mild distress, well-nourished - EENT Eyes: Present: PERRL, EOM intact - Neck Neck: Present: supple, normal ROM - Respiratory Respiratory effort: normal Respiratory: bilateral: diminished, wheezing, negative: rales, rhonchi - Cardiovascular Rhythm: regular Heart Sounds: Present: S1 & S2 - Extremities Extremities: no ischemia, No edema, left leg amputated - single right leg - Abdominal General gastrointestinal: soft, non-tender, non-distended, normal bowel sounds - Integumentary Integumentary: Present: clear, warm - Psychiatric Psychiatric: appropriate mood/affect, cooperative - Neurologic Neurologic: moves all extremities Disposition: DC/TX-03 SNF W [facility] Time spent for discharge: 34 minutes Core Measure Documentation - Palliative Care Palliative Care/ Comfort Measures: Not Applicable - Core Measures Any of the following diagnoses?: history only Exam - Constitutional Vitals: Temp Pulse Resp BP Pulse Ox 97.2 F L 89 18 132/75 97 08/19/19 05:22 08/18/19 22:14 08/19/19 05:22 08/19/19 05:08/18/19 22:14 Plan Activity: up only with assistance, fall precautions Weight Bearing Status: Non-Weight Bearing Diet: renal Follow up with: SARAH BUCKLEY MD [Other] - 3-5 Days Prescriptions: Linezolid 600 mg PO BID #14 tablet oxyCODONE /ACETAMINOPHEN [Percocet 5/325 mg] 1 tab PO Q6H PRN #14 tablet PRN Reason: Pain, Moderate (4-6)
--- NOTE | 2019-08-19 14:25 | Progress Note ---
Assessment and Plan Cultures: 08/08/2019 blood cultures: E coli 08/08/2019 urine culture: negative Repeat blood cultures are negative 08/16/2019 VasCath tip culture: Staph aureus <15 colonies and CoNS >15 colonies A&P: 39 yo F PMHx Lupus, not currently beingtreated admitted for generalized myalgias found to have MOSES requiring HD and E coli Bacteremia. #E. coli bacteremia: from urine. Completed antibiotic course with IV Ceftriaxone #UTI - as above #MOSES requiring HD: nephrology following. Creatinine much improved, off dialysis. HD cath was removed on 08/16/2019. #Lupus: on steroids #Penicillin allergy - tolerated cephalosporins. #Leukocytosis - possibly secondary to high dose steroids. Now trending down #Sacral wound: MRI negative for osteomyelitis. Continue wound care. Recommendations: - completed abx - vascath tip culture Staph aureus <15 colonies and CoNS >15 colonies, no bacte remia. Reflects colonization of the cath, no antibiotics needed at this point Teagan Rider MD, FACP [facility] ([facility]) C: [phone] O: [phone] F: [phone] Subjective Date of service: 08/19/19 Principal diagnosis: LOW PLT Interval history: No fever. Complains of knee pain. No cough or shortness of breath. Objective - Exam Narrative Exam: Physical Exam: Constitutional: Alert, cooperative. No acute distress Head, Ears, Nose: Normocephalic, atraumatic. External ears, nose normal Eyes: Conjunctivae/corneas clear. No icterus. No ptosis. Neck: Supple, no meningeal signs Cardiovascular: S1, S2 normal. Respiratory: Good air entry, clear to auscultation bilaterally GI: Soft, non-tender; bowel sounds normal. No peritoneal signs Musculoskeletal: No pedal edema. Left hip disarticulation. Sacral wound superficial. Right knee without warmth, swelling or redness Skin: No rash or abscess Hem/Lymphatic: No palpable cervical or supraclavicular nodes. No lymphangitis Psych: flat affect Neurological: Awake, alert, oriented - Constitutional Vitals: Vital Signs Temp Pulse Resp BP Pulse Ox 98.4 F 93 H 18 148/89 98 08/19/19 11:53 08/19/19 11:53 08/19/19 11:53 08/19/19 11:53 08/19/19 11:53 Temperature -Last 24 Hours Temperature 98.4 F Temperature 97.2 F Temperature 98.3 F Temperature 97.8 F - Labs CBC & Chem 7: 08/19/19 04:26 08/19/19 04:26 Labs: Abnormal lab results 08/19/19 08/19/19 Range/Units 04:26 04:26 WBC 17.7 H (4.5-11.0) K/mm3 RBC 3.09 L (3.65-5.03) M/mm3 Hgb 8.3 L (10.1-14.3) gm/dl Hct 25.9 L (30.3-42.9) % MCH 27 L (28-32) pg RDW 17.3 H (13.2-15.2) % Lymph % (Auto) 3.2 L (13.4-35.0) % [place] % (Auto) 7.8 H (0.0-7.3) % Lymph # 0.6 L (1.2-5.4) K/mm3 [place] # 1.4 H (0.0-0.8) K/mm3 Seg Neutrophils % 88.7 H (40.0-70.0) % Seg Neutrophils # 15.7 H (1.8-7.7) K/mm3 Potassium 3.5 L (3.6-5.0) mmol/L Carbon Dioxide 18 L (22-30) mmol/L Glucose 130 H (65-100) mg/dL Calcium 5.3 L* (8.4-10.2) mg/dL Magnesium 1.00 L (1.7-2.3) mg/dL
[2019-08-19] MEDS: ACETAMINOPHEN 325 MG TAB PO PRN (17:32)
[2019-08-20] MEDS: SODIUM CHLORIDE 0.9% 1000 ML 1,000 ML IV SCH (03:59)
--- NOTE | 2019-08-20 07:29 | Hem/Onc Progress Note ---
Assessment and Plan 1. 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 This may be idiopathic thrombocytopenic purpura issues. The patient got steroid treatment for renal issues. We will continue the same. 2. Renal impairment. Nephrology following. 3. Anemia, kidney disease or lupus may have a role. 4. History of left above-knee amputation. 5. History of splenectomy. 6. We will follow the trend of platelets if needed. If there is no improvement, we will look into other intervention like IVIG. Due to her renal issues, would need coordination with Nephrology team. ITP - steroids - that was used for renal/lupus issues - may have helped the pt Plt improved - >100k 08/20 - anemia - ? lupus related? low folate - Folic acid and vitamin replacement - Patient Problems (1) Thrombocytopenia Current Visit: Yes Status: Acute Subjective Date of service: 08/20/19 Principal diagnosis: LOW PLT - anemia Interval history: c/o pain issues Objective - Exam Narrative Exam: Pain - none General appearance - feeling better Performance status limited self care Eyes - no icterus ENT - no bleeding LNs cervical not palpable Neck - no LN Respiratory Normal - on o2 Breath sounds - CTA anteriorly CVS S1 S2 + Extremities no edema General GI Soft Rectal deferred female - deferred Skin warm Musculoskeletal - moves limb - left leg amputation Neurologically awake - oriented - Constitutional Vitals: Last Vital Signs Temp 98.7 F 08/20/19 04:16 Pulse 74 08/20/19 04:16 Resp 16 08/20/19 04:16 BP 158/88 08/20/19 04:16 Pulse Ox 100 08/20/19 04:16 - Labs Lab Results: Laboratory Results - last 24 hr 08/17/19 06:54 Ionized Calcium 2.8 L* Medications & Allergies - Medications Allergies/Adverse Reactions: Allergies Penicillins Allergy (Verified 07/22/19 16:38) Swelling Home Medications: Home Medications Medication Instructions Recorded Confirmed Last Taken Type Calcium Carbonate [Oscal 1250MG 1,250 mg PO TID tablet 08/19/19 Unknown Rx TAB] Famotidine [Pepcid] 10 mg PO BID tablet 08/19/19 Unknown Rx Folic Acid/Vit B Comp W-C [Renal 1 cap PO QDAY capsule 08/19/19 Unknown Rx Caps] Hydrocortisone [Cortef TAB] 10 mg PO Q12HR tablet 08/19/19 Unknown Rx Loperamide [Imodium] 2 mg PO Q2H PRN capsule 08/19/19 Unknown Rx Magnesium Oxide [Mag-Ox] 400 mg PO BID tablet 08/19/19 Unknown Rx Pot Phosphate/Na Phosphate 1 each PO Q12HR powd.pack 08/19/19 Unknown Rx [Phos-Nak] Potassium Chloride [K-Dur] 30 meq PO QDAY tablet 08/19/19 Unknown Rx calcitrioL [Rocaltrol] 1 mcg PO QDAY capsule 08/19/19 Unknown Rx oxyCODONE /ACETAMINOPHEN [Percocet 1 tab PO Q6H PRN #14 tablet 08/19/19 Unknown Rx 5/325 mg] Active Medications: Generic Name Dose Route Start Last Admin Trade Name Freq PRN Reason Stop Dose Admin Acetaminophen 650 mg 08/08/19 23:48 08/19/19 17:32 Tylenol PO 650 mg Q4H PRN Administration Pain MILD(1-3)/Fever >100.5/MARIO Calcitriol 1 mcg 08/19/19 10:00 08/19/19 09:13 Rocaltrol PO 1 mcg QDAY SHEKHAR Administration Calcium Carbonate/Glycine 1,250 mg 08/17/19 20:00 08/19/19 20:30 Oscal PO 1,250 mg TID SHEKHAR Administration Famotidine 10 mg 08/09/19 10:00 08/19/19 23:29 Pepcid PO 10 mg BID SHEKHAR Administration Hydrocortisone Acetate 10 mg 08/18/19 12:00 08/19/19 23:29 Cortef PO 10 mg Q12HR SHEKHAR Administration Sodium Chloride 1,000 mls @ 75 mls/hr 08/14/19 13:00 08/20/19 03:59 Nacl 0.9% 1000 Ml IV 75 mls/hr DIRECT SHEKHAR Administration Magnesium Sulfate 2 gm in 50 mls @ 25 mls/hr 08/18/19 12:00 08/19/19 09:14 Magnesium Sulfate 2gm/50ml IV 25 mls/hr DAILY SHEKHAR Administration Loperamide HCl 2 mg 08/14/19 18:47 08/19/19 17:35 Imodium PO 2 mg Q2H PRN Administration Diarrhea Magnesium Oxide 400 mg 08/18/19 11:00 08/19/19 23:29 Mag-Ox PO 400 mg BID SHEKHAR Administration Morphine Sulfate 2 mg 08/15/19 16:06 08/16/19 14:21 Morphine IV 2 mg Q8H PRN Administration Pain , Severe (7-10) Multivit/Ca Carb/B Cmplx/FA/Prenat 1 cap 08/19/19 10:00 08/19/19 09:29 Renal Caps PO 1 cap QDAY SHEKHAR Administration Ondansetron HCl 4 mg 08/08/19 23:48 Zofran IV Q8H PRN Nausea And Vomiting Oxycodone/Acetaminophen 1 tab 08/15/19 16:06 08/19/19 20:30 Percocet 5/325 PO 1 tab Q6H PRN Administration Pain, Moderate (4-6) Potassium Chloride 30 meq 08/15/19 10:00 08/19/19 09:13 K-Dur PO 30 meq QDAY SHEKHAR Administration Potassium Phos/Sodium Phos 1 each 08/15/19 12:00 08/19/19 23:29 Phos-Nak PO 1 each Q12HR SHEKHAR Administration Sodium Bicarbonate 1,300 mg 08/19/19 11:00 08/19/19 23:29 Sodium Bicarbonate PO 1,300 mg BID SHEKHAR Administration Sodium Chloride 10 ml 08/09/19 10:00 08/19/19 23:29 Sodium Chloride Flush Syringe 10 Ml IV 10 ml BID SHEKHAR Administration Sodium Chloride 10 ml 08/08/19 23:48 08/12/19 03:48 Sodium Chloride Flush Syringe 10 Ml IV 10 ml PRN PRN Administration LINE FLUSH
[2019-08-20 07:54] LABS: BUN/Creatinine Ratio 18; Blood Urea Nitrogen 14 mg/dL (7-17); Calcium 6.1 mg/dL (8.4-10.2); Hemolysis Index 5
[2019-08-20] MEDS: MORPHINE 2 MG/1 ML INJ IV PRN ×2 (08:12→17:03)
[2019-08-20] MEDS: CALCIUM CARBONATE 1250 MG TAB PO SCH ×2 (09:21→17:26)
[2019-08-20] MEDS: CALCITRIOL 0.5 MCG CAP PO SCH (09:22)
[2019-08-20] MEDS: SODIUM BICARBONATE 650 MG TAB PO SCH (09:22)
[2019-08-20] MEDS: FAMOTIDINE 10 MG TAB PO SCH (09:22)
[2019-08-20] MEDS: HYDROCORTISONE 10 MG TAB PO SCH (09:22)
[2019-08-20] MEDS: FOLIC ACID/VIT B COMP W-C 1 MG (RENAL CAPS) PO SCH (09:23)
[2019-08-20] MEDS: MAGNESIUM OXIDE 400 MG TAB PO SCH (09:23)
[2019-08-20] MEDS: MAGNESIUM SULFATE 2 GM/50 ML BAG IV SCH (09:23)
[2019-08-20] MEDS: POTASSIUM CHLORIDE ER 10 MEQ TAB PO SCH (09:23)
[2019-08-20] MEDS: PHOS-NAK POWDER PACKET PO SCH (09:27)
--- NOTE | 2019-08-20 10:28 | Progress Note ---
Assessment and Plan Impression * Nonolguric acute kidney injury - resolved --Etiology secondary to lupus nephritis (however, rarely resolves this quickly; C3,C4 wnl) vs prerenal azotemia * EColi bacteremia * Blood cx: EColi (Aug 08), NGTD (Aug 14), Pending (Aug 16) * Severe metabolic acidosis secondary to lactic acidosis * SLE * Hypocalcemia * hypomagnesemia * hypokalemia * Anemia * Thrombocytopenia Recommendation * No acute indication for hemodialysis - renal function has recovered * Replete K - and Mag prn * She is s/p Ca Gluconate. Will reorder * AM labs - renal panel and Mg daily * k and mag better today * Abx per ID * Hematology following * Hold kidney bx for now in light of thrombocytopenia, recovery of renal function * She is s/p pulse steroids - added hydrocortisone with elec derangements * may have RTA, will follow up daily, added sodium bicarb * Avoid nephrotoxins * Monitor fluid status and electrolytes closely * would not discharge until mag is above 1.5 and calcium is above 7.5 Subjective Date of service: 08/20/19 Principal diagnosis: LOW PLT - anemia Interval history: resting in bed today Objective - Exam Narrative Exam: General appearance: well-developed EENT: ATNC Respiratory: Present: Clear to Ascultation Cardiology: regular, S1S2 Gastrointestinal: normal Integumentary: warm and dry Musculoskeletal: other (Left LE amputeation) Psychiatric: cooperative - Vital Signs Vital signs: Vital Signs - 12hr 08/20/19 04:16 Temperature 98.7 F Pulse Rate 74 Respiratory 16 Rate Blood Pressure 158/88 O2 Sat by Pulse 100 Oximetry - Lab 08/19/19 04:26 08/20/19 06:34 Most recent lab results Calcium 6.1 mg/dL (8.4-10.2) L D 08/20/19 06:34 Phosphorus 2.40 mg/dL (2.5-4.5) L 08/15/19 06:45 Magnesium 1.10 mg/dL (1.7-2.3) L 08/20/19 06:34 Urine Creatinine 41.0 mg/dL (0.1-20.0) H 08/09/19 14:46 Urine Sodium 84 mmol/L 08/09/19 14:46 Urine Total Protein 154 mg/dL (5-11.8) H 08/09/19 14:46 Medications & Allergies - Medications Allergies/Adverse Reactions: Allergies Penicillins Allergy (Verified 07/22/19 16:38) Swelling Home Medications: Home Medications Medication Instructions Recorded Confirmed Last Taken Type Calcium Carbonate [Oscal 1250MG 1,250 mg PO TID tablet 08/19/19 Unknown Rx TAB] Famotidine [Pepcid] 10 mg PO BID tablet 08/19/19 Unknown Rx Folic Acid/Vit B Comp W-C [Renal 1 cap PO QDAY capsule 08/19/19 Unknown Rx Caps] Hydrocortisone [Cortef TAB] 10 mg PO Q12HR tablet 08/19/19 Unknown Rx Loperamide [Imodium] 2 mg PO Q2H PRN capsule 08/19/19 Unknown Rx Magnesium Oxide [Mag-Ox] 400 mg PO BID tablet 08/19/19 Unknown Rx Pot Phosphate/Na Phosphate 1 each PO Q12HR powd.pack 08/19/19 Unknown Rx [Phos-Nak] Potassium Chloride [K-Dur] 30 meq PO QDAY tablet 08/19/19 Unknown Rx calcitrioL [Rocaltrol] 1 mcg PO QDAY capsule 08/19/19 Unknown Rx oxyCODONE /ACETAMINOPHEN [Percocet 1 tab PO Q6H PRN #14 tablet 08/19/19 Unknown Rx 5/325 mg] Active Medications: Generic Name Dose Route Start Last Admin Trade Name Freq PRN Reason Stop Dose Admin Acetaminophen 650 mg 08/08/19 23:48 08/19/19 17:32 Tylenol PO 650 mg Q4H PRN Administration Pain MILD(1-3)/Fever >100.5/MARIO Calcitriol 1 mcg 08/19/19 10:00 08/20/19 09:22 Rocaltrol PO 1 mcg QDAY SHEKHAR Administration Calcium Carbonate/Glycine 1,250 mg 08/17/19 20:00 08/20/19 09:21 Oscal PO 1,250 mg TID SHEKHAR Administration Famotidine 10 mg 08/09/19 10:00 08/20/19 09:22 Pepcid PO 10 mg BID SHEKHAR Administration Hydrocortisone Acetate 10 mg 08/18/19 12:00 08/20/19 09:22 Cortef PO 10 mg Q12HR SHEKHAR Administration Sodium Chloride 1,000 mls @ 75 mls/hr 08/14/19 13:00 08/20/19 03:59 Nacl 0.9% 1000 Ml IV 75 mls/hr DIRECT SHEKHAR Administration Magnesium Sulfate 2 gm in 50 mls @ 25 mls/hr 08/18/19 12:00 08/20/19 09:23 Magnesium Sulfate 2gm/50ml IV 25 mls/hr DAILY SHEKHAR Administration Loperamide HCl 2 mg 08/14/19 18:47 08/19/19 17:35 Imodium PO 2 mg Q2H PRN Administration Diarrhea Magnesium Oxide 400 mg 08/18/19 11:00 08/20/19 09:23 Mag-Ox PO 400 mg BID SHEKHAR Administration Morphine Sulfate 2 mg 08/15/19 16:06 08/20/19 08:12 Morphine IV 2 mg Q8H PRN Administration Pain , Severe (7-10) Multivit/Ca Carb/B Cmplx/FA/Prenat 1 cap 08/19/19 10:00 08/20/19 09:23 Renal Caps PO 1 cap QDAY SHEKHAR Administration Ondansetron HCl 4 mg 08/08/19 23:48 Zofran IV Q8H PRN Nausea And Vomiting Oxycodone/Acetaminophen 1 tab 08/15/19 16:06 08/19/19 20:30 Percocet 5/325 PO 1 tab Q6H PRN Administration Pain, Moderate (4-6) Potassium Chloride 30 meq 08/15/19 10:00 08/20/19 09:23 K-Dur PO 30 meq QDAY SHEKHAR Administration Potassium Phos/Sodium Phos 1 each 08/15/19 12:00 08/20/19 09:27 Phos-Nak PO 1 each Q12HR SHEKHAR Administration Sodium Bicarbonate 1,300 mg 08/19/19 11:00 08/20/19 09:22 Sodium Bicarbonate PO 1,300 mg BID SHEKHAR Administration Sodium Chloride 10 ml 08/09/19 10:00 08/19/19 23:29 Sodium Chloride Flush Syringe 10 Ml IV 10 ml BID SHEKHAR Administration Sodium Chloride 10 ml 08/08/19 23:48 08/12/19 03:48 Sodium Chloride Flush Syringe 10 Ml IV 10 ml PRN PRN Administration LINE FLUSH
[2019-08-20] MEDS ORDERED: CALCIUM GLUCONATE IV ONE (12:00)
[2019-08-20] MEDS ORDERED: SODIUM CHLORIDE 0.9% IV ONE (12:00)
--- NOTE | 2019-08-20 13:02 | Progress Note ---
Assessment and Plan Cultures: 08/08/2019 blood cultures: E coli 08/08/2019 urine culture: negative Repeat blood cultures are negative 08/16/2019 VasCath tip culture: MRSA <15 colonies and CoNS >15 colonies A&P: 39 yo F PMHx Lupus, not currently beingtreated admitted for generalized myalgias found to have MOSES requiring HD and E coli Bacteremia. #E. coli bacteremia: from urine. Completed antibiotic course with IV Ceftriaxone #UTI: as above #MOSES requiring HD: nephrology following. Creatinine much improved, off dialysis. HD cath was removed on 08/16/2019. #Lupus: on steroids #Penicillin allergy - tolerated cephalosporins. #Leukocytosis - possibly secondary to high dose steroids. Now trending down #Sacral wound: MRI negative for osteomyelitis. Continue wound care. Recommendations: - completed abx - vascath tip culture MRSA <15 colonies and CoNS >15 colonies, no bacteremia. Reflects colonization of the cath since blood cultures were negative. Will prescribe PO Linezolid 600 mg BID x 7 days d/w Dr. Brunner. Teagan Rider MD, FACP [facility] ([facility]) C: [phone] O: [phone] F: [phone] Subjective Date of service: 08/20/19 Principal diagnosis: LOW PLT - anemia Interval history: No fever. No complaints. Eating her lunch. Objective - Exam Narrative Exam: Physical Exam: Constitutional: Alert, cooperative. No acute distress Head, Ears, Nose: Normocephalic, atraumatic. External ears, nose normal Eyes: Conjunctivae/corneas clear. No icterus. No ptosis. Neck: Supple, no meningeal signs Cardiovascular: S1, S2 normal. Respiratory: Good air entry, clear to auscultation bilaterally GI: Soft, non-tender; bowel sounds normal. No peritoneal signs Musculoskeletal: No pedal edema. Left hip disarticulation. Sacral wound superficial. Skin: No rash or abscess Hem/Lymphatic: No palpable cervical or supraclavicular nodes. No lymphangitis Psych: flat affect Neurological: Awake, alert, oriented - Constitutional Vitals: Vital Signs Temp Pulse Resp BP Pulse Ox 98.7 F 74 16 158/88 100 08/20/19 04:16 08/20/19 04:16 08/20/19 04:16 08/20/19 04:16 08/20/19 04:16 Temperature -Last 24 Hours Temperature 98.7 F Temperature 98.9 F Temperature 98.8 F - Labs CBC & Chem 7: 08/19/19 04:26 08/20/19 06:34 Labs: Abnormal lab results 08/17/19 08/20/19 Range/Units 06:54 06:34 Carbon Dioxide 17 L (22-30) mmol/L Glucose 107 H (65-100) mg/dL Calcium 6.1 L D (8.4-10.2) mg/dL Ionized Calcium 2.8 L* (4.8-5.6) mg/dL Magnesium 1.10 L (1.7-2.3) mg/dL
[2019-08-20] MEDS: oxyCODONE /ACETAMINOPHEN 5-325MG TAB PO PRN (13:05)
--- NOTE | 2019-08-20 13:10 | Progress Note ---
Assessment and Plan /Gram neg bacteremia with sepsis: positive blood cultures Ecoli cont antibiotics, ID following -s/p vas cath removed persistent leukocytosis likely from chronic steroid completed abx /Avascular necrosis of Rt hip - consulted ortho : recommended intra-articular depomedrol injection / Hypokalemia and hypomagnesemia Supplement with oral and iv KCl, monitor electrolytes check Mg level /hypocalcemia, replete, follow nephrology recommendation /MOSES (acute kidney injury) vasomotor nephropathy vs Drug induced ATN with - Possible lupus nephritis; Severe metabolic acidosis with acute kidney injury, Nephro evaluated, placed on vas cath , stated on hemodialysis as needed continue IV steroids, nephrology following Patient needs to follow with sales service supervisor Upon discharge not on HD now - ordered to remove vascath for bacteremia /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 Nephrology following, replacement therapy as needed Hemodialysis, closely monitor /-Hyponatremia; mild improvement Gentle IV hydration Monitor electrolytes. /Exacerbation of systemic lupus erythematosus Steroids, pain medication, supportive care Advised to follow sales service supervisor upon discharge /Lactic acidosis: Resolved IV fluids and supportive care. Follow cultures /-Severe malnutrition/hypoalbuminemia; Nutrition supplements and supportive care, nutrition consult /Chronic pain syndrome with drug seeking behaviour - minimize pain meds as tolerated, counselled in length at bedside with mother and with pt /Physical debility, need SNF placement -- DVT prophylaxis On heparin renal dose Monitor closely and adjust management as needed Plan of care reviewed with the patient and her nurse Disposition: need SNF and DC when clinically stable and electrolytes stable Hospitalist Physical General appearance: Present: mild distress, well-nourished - EENT Eyes: Present: PERRL, EOM intact - Neck Neck: Present: supple, normal ROM - Respiratory Respiratory effort: normal Respiratory: bilateral: diminished, wheezing, negative: rales, rhonchi - Cardiovascular Rhythm: regular Heart Sounds: Present: S1 & S2 - Extremities Extremities: no ischemia, No edema, left leg amputated - single right leg - Abdominal General gastrointestinal: soft, non-tender, non-distended, normal bowel sounds - Integumentary Integumentary: Present: clear, warm - Psychiatric Psychiatric: appropriate mood/affect, cooperative - Neurologic Neurologic: moves all extremities Subjective Date of service: 08/19/19 Principal diagnosis: LOW PLT - anemia Interval history: Patient seen and examined c/o generalized weakness no chest pain, tolerating diet better K and Ca level STILL noted low, with low Mg Pending placement Objective - Constitutional Vitals: Vital Signs - 12hr 08/20/19 04:16 Temperature 98.7 F Pulse Rate 74 Respiratory 16 Rate Blood Pressure 158/88 O2 Sat by Pulse 100 Oximetry - Labs CBC & Chem 7: 08/19/19 04:26 08/20/19 06:34 Labs: Abnormal lab results 08/17/19 08/20/19 Range/Units 06:54 06:34 Carbon Dioxide 17 L (22-30) mmol/L Glucose 107 H (65-100) mg/dL Calcium 6.1 L D (8.4-10.2) mg/dL Ionized Calcium 2.8 L* (4.8-5.6) mg/dL Magnesium 1.10 L (1.7-2.3) mg/dL
[2019-08-20 18:03] VITALS: BP 129/76
== END 2019-08-20 18:00 | DRG 871 ==
LOC: ED 15:32 → CC1 19:35 → 3A 08-10 12:33
PROVIDERS: ADMIT Internal Medicine; ATTEND Internal Medicine
PROC: 02HV33Z Insertion of Infusion Device into Superior Vena Cava, Percutaneous Approach (ICD-10-PCS; principal; 2019-08-08)
PROC: B548ZZA Ultrasonography of Superior Vena Cava, Guidance (ICD-10-PCS; 2019-08-08)
PROC: 5A1D70Z Performance of Urinary Filtration, Intermittent, Less than 6 Hours Per Day (ICD-10-PCS; 2019-08-09)
PROC: 02PYX3Z Removal of Infusion Device from Great Vessel, External Approach (ICD-10-PCS; 2019-08-09)
PROC: 02HV33Z Insertion of Infusion Device into Superior Vena Cava, Percutaneous Approach (ICD-10-PCS; 2019-08-09)
PROC: B548ZZA Ultrasonography of Superior Vena Cava, Guidance (ICD-10-PCS; 2019-08-09)
PROC: 30233N1 Transfusion of Nonautologous Red Blood Cells into Peripheral Vein, Percutaneous Approach (ICD-10-PCS; 2019-08-11)
PROC: 5A1D70Z Performance of Urinary Filtration, Intermittent, Less than 6 Hours Per Day (ICD-10-PCS; 2019-08-11)
DX: A41.50 Gram-negative sepsis, unspecified (principal); N17.0 Acute kidney failure with tubular necrosis; E43 Unspecified severe protein-calorie malnutrition; E87.1 Hypo-osmolality and hyponatremia; M87.88 Other osteonecrosis, other site; N30.01 Acute cystitis with hematuria; D69.3 Immune thrombocytopenic purpura; G93.40 Encephalopathy, unspecified; M32.9 Systemic lupus erythematosus, unspecified; E87.8 Other disorders of electrolyte and fluid balance, not elsewhere classified; E83.42 Hypomagnesemia; E87.6 Hypokalemia; E83.51 Hypocalcemia; D63.8 Anemia in other chronic diseases classified elsewhere; E88.09 Other disorders of plasma-protein metabolism, not elsewhere classified; G89.4 Chronic pain syndrome; K52.9 Noninfective gastroenteritis and colitis, unspecified; D69.6 Thrombocytopenia, unspecified; S31.000A Unspecified open wound of lower back and pelvis without penetration into retroperitoneum, initial encounter; N18.9 Chronic kidney disease, unspecified; Z88.0 Allergy status to penicillin; Z79.899 Other long term (current) drug therapy; Z89.612 Acquired absence of left leg above knee; Z90.81 Acquired absence of spleen; Z86.718 Personal history of other venous thrombosis and embolism; Z86.711 Personal history of pulmonary embolism; Z90.49 Acquired absence of other specified parts of digestive tract
CPT/HCPCS: 36415; 36430; 71045; 72195; 74177; 76770; 80048; 80053; 80074; 81001; 82140; 82330; 82570; 82607; 82728; 82747; 82805; 83036; 83550; 83735; 83880; 84100; 84156; 84165; 84300; 84484; 85007; 85025; 85610; 85652; 85730; 86021; 86038; 86160; 86225; 86689; 86850; 86900; 86901; 86920; 87040; 87076; 87086; 87116; 87186; 89050; 96365; 96366; 96375; 96376; G0378; J0610; J0692; J0696; J1170; J1956; J2270; J2920; J2930; J3475; J3480; J7030; J7050; J7070; J7512; P9016; Q9967

== ENCOUNTER 2021-02-16 22:54 | Emergency (ER) | payer MEDICARE ==
[2021-02-16 23:20] VITALS: BP 112/51
[2021-02-16] MEDS ORDERED: ASPIRIN 325 MG TAB PO ONE (23:27)
--- NOTE | 2021-02-16 23:55 | XRay Report ---
CHEST 2 VIEWS INDICATION / CLINICAL INFORMATION: chest pain. COMPARISON: One view of the chest from 08/09/2019 FINDINGS: SUPPORT DEVICES: None. HEART / MEDIASTINUM: No significant abnormality. LUNGS / PLEURA: No significant pulmonary abnormality. No significant pleural effusion. No pneumothora x. ADDITIONAL FINDINGS: The bones are unchanged. IMPRESSION: 1. No acute abnormality of the chest. Signer Name: Alfredo Mendez MD Signed: 02/16/2021 11:50 PM Workstation Name: [id number]
[2021-02-17 00:01] LABS: Hemoglobin 9.1 gm/dl (10.1-14.3); Mean Corpuscular HGB Conc 31 % (30-34); Mean Corpuscular Volume 83 fl (79-97); Platelet Count 225 K/mm3 (140-440); Red Blood Count 3.51 M/mm3 (3.65-5.03); Red Cell Distribution Width 16.2 % (13.2-15.2)
[2021-02-17 00:27] LABS: Alanine Aminotransferase 17 units/L (7-56); Albumin 3.4 g/dL (3.9-5); BUN/Creatinine Ratio 17; Blood Urea Nitrogen 17 mg/dL (7-17); Calcium 8.7 mg/dL (8.4-10.2); Hemolysis Index 0
[2021-02-17 00:59] LABS: Total Cells Counted 100
[2021-02-17 01:00] LABS: Anisocytosis 1+; Target Cells Few
[2021-02-17 01:01] LABS: Hypochromasia 1+
[2021-02-17 01:08] LABS: Platelet Estimate Consistent w Auto
--- NOTE | 2021-02-18 17:41 | Electrocardiograph Report ---
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
== END 2021-02-16 23:36 | disposition left against medical advice (07) ==
LOC: ED 22:54
DX: R06.00 Dyspnea, unspecified (principal); R07.9 Chest pain, unspecified; Z53.21 Procedure and treatment not carried out due to patient leaving prior to being seen by health care provider
CPT/HCPCS: 36415; 71046; 80053; 84484; 85007; 85025; 93005

== ENCOUNTER 2021-02-24 23:51 | Emergency (ER) | payer MEDICARE ==
[2021-02-25] MEDS ORDERED: SODIUM CHLORIDE 0.9% 1000 ML 1,000 ML IV ONE ×2 (00:29→02:08)
[2021-02-25 00:58] LABS: Bacteria,Urine 1+ /HPF (Negative); Bilirubin,Urine NEG (Negative); Blood,Urine MOD (Negative); Color,Urine Yellow (Yellow); Urobilinogen,Urine < 2.0 mg/dL (<2.0)
[2021-02-25 01:04] LABS: Amphetamine Screen,Urine PRESUMPTIVE NEGATIVE; Benzodiazepines Screen,Urine PRESUMPTIVE POSITIVE; Cannabinoid Screen,Urine PRESUMPTIVE NEGATIVE; Cocaine Screen,Urine PRESUMPTIVE NEGATIVE; Methadone Screen,Urine PRESUMPTIVE NEGATIVE; Opiate Screen,Urine PRESUMPTIVE POSITIVE
--- NOTE | 2021-02-25 01:08 | Cat Scan Report ---
CT HEAD WITHOUT CONTRAST INDICATION / CLINICAL INFORMATION: Per EMS, pt fell from her wheelchair, unknown if she had any LOC.. TECHNIQUE: All CT scans at this location are performed using CT dose reduction for ALARA by means of automated exposure control. COMPARISON: None available. FINDINGS: HEMORRHAGE: None. EXTRA-AXIAL SPACES: Normal in size and morphology for the patient's age. VENTRICULAR SYSTEM: Normal in size and morphology for the patient's age. CEREBRAL PARENCHYMA: Basal ganglia calcifications. No acute territorial infarct. MIDLINE SHIFT / HERNIATION: None. CEREBELLUM / BRAINSTEM: No significant abnormality. ORBITS: Normal as visualized. SOFT TISSUES: No significant abnormality. SKULL: No significant abnormality. PARANASAL SINUSES / MASTOID AIR CELLS: Mucosal thickening throughout all visualized sinuses. ADDITIONAL FINDINGS: None. IMPRESSION: 1. No acute intracranial abnormality. 2. Diffuse sinus mucosal thickening. Signer Name: Ashwin Bran MD Signed: 02/25/2021 1:04 AM Workstation Name: [id number]
--- NOTE | 2021-02-25 01:09 | Cat Scan Report ---
CT CERVICAL SPINE WITHOUT CONTRAST INDICATION / CLINICAL INFORMATION: Per EMS, pt fell from her wheelchair, unknown if she had any LOC.. TECHNIQUE: Axial CT images were obtained through the cervical spine. Sagittal and coronal reformatted images were produced. All CT scans at this location are performed using CT dose reduction for ALARA by means of automated exposure control. COMPARISON: None available. FINDINGS: VERTEBRAE: No significant abnormality. ALIGNMENT: No significant abnormality. DISC SPACES: No significant abnormality. FACET JOINTS: No significant abnormality. CRANIOCERVICAL JUNCTION:No significant abnormality. SPINAL CANAL: No significant abnormality. PARASPINAL SOFT TISSUES: No significant abnormality. ADDITIONAL FINDINGS: None. LUNG APICES: No significant abnormality of visualized lungs. IMPRESSION: 1. No significant abnormality. Signer Name: Ashwin Bran MD Signed: 02/25/2021 1:05 AM Workstation Name: [id number]
--- NOTE | 2021-02-25 01:21 | Emergency Department Report ---
HPI <MARTIN MCLAUGHLIN - Last Filed: 02/25/21 08:40> - HPI HPI: 40-year-old female with history of SLE on chronic steroids as well as prior left [id number]-[id number]-[id number] amputation is brought in by EMS after the patient suffered a fall from her wheelchair and complained of right hip pain. According to the EMS report, when they arrived, the patient was extremely somnolent and with snoring respirations as well as slurred speech. She was found to have pinpoint pupils and had several bottles of medications in her purse which she reported taking including morphine, Ativan, and zolpidem. She was given 2 mg of intranasal Narcan without any significant effect. The patient is extremely somnolent but is arousable to very loud voice. She speaks in short sentences but is able to answer questions. She states that she fell out of her wheelchair onto her right hip. She is unsure whether she hit her head or lost consciousness. She reports that she took 2 pills of her ativan 2mg, 1 pill of her zolpidem 10 mg, and 1 pill of her morphine 60mg ER in preparation for bed. At this time she reports pain in her right hip as well as mild headache. She denies ingestion any other substances. She denies SI or HI. She denies any auditory or visual hallucinations. She denies any vision change, back pain, chest pain, shortness of breath, cough, abdominal pain, nausea/vomiting, fever, focal weakness, or any other complaints. She says she is vaccinated against COVID-19. <TAJ HODGES - Last Filed: 02/25/21 19:55> - General Chief Complaint: Fall Time Seen by Provider: 02/25/21 00:11 ED Past Medical Hx <MARTIN MCLAUGHLIN - Last Filed: 02/25/21 08:40> - Past Medical History Previous Medical History?: Yes Hx Deep Vein Thrombosis: Yes Hx Pulmonary Embolism: Yes Additional medical history: ITP. VASULAR NEUROSIS / LUPUS - Surgical History Past Surgical History?: Yes Hx Cholecystectomy: Yes Additional Surgical History: AMPUITEE. left AKA. left hip surgery x30 per pt. spleenectomy. lower back sx - Social History Smoking Status: Never Smoker <TAJ HODGES - Last Filed: 02/25/21 19:55> - Medications Home Medications: Home Medications Medication Instructions Recorded Confirmed Last Taken Type Calcium Carbonate [Oscal 1250MG 1,250 mg PO TID tablet 08/19/19 Unknown Rx TAB] Famotidine [Pepcid] 10 mg PO BID tablet 08/19/19 Unknown Rx Folic Acid/Vit B Comp W-C [Renal 1 cap PO QDAY capsule 08/19/19 Unknown Rx Caps] Hydrocortisone [Cortef TAB] 10 mg PO Q12HR tablet 08/19/19 Unknown Rx Loperamide [Imodium] 2 mg PO Q2H PRN capsule 08/19/19 Unknown Rx Magnesium Oxide [Mag-Ox] 400 mg PO BID tablet 08/19/19 Unknown Rx Pot Phosphate/Na Phosphate 1 each PO Q12HR powd.pack 08/19/19 Unknown Rx [Phos-Nak] Potassium Chloride [K-Dur] 30 meq PO QDAY tablet 08/19/19 Unknown Rx calcitrioL [Rocaltrol] 1 mcg PO QDAY capsule 08/19/19 Unknown Rx oxyCODONE /ACETAMINOPHEN [Percocet 1 tab PO Q6H PRN #14 tablet 08/19/19 Unknown Rx 5/325 mg] Linezolid 600 mg PO BID #14 tablet 08/20/19 Unknown Rx ED Review of Systems ROS: Stated complaint: OVERDOSE Other details as noted in HPI <MARTIN MCLAUGHLIN - Last Filed: 02/25/21 08:40> ROS: Stated complaint: OVERDOSE Other details as noted in HPI Constitutional: denies: chills, fever Eyes: denies: eye pain, vision change ENT: denies: throat pain, congestion Respiratory: denies: cough, shortness of breath Cardiovascular: denies: chest pain, palpitations Gastrointestinal: denies: abdominal pain, nausea, vomiting, diarrhea, con stipation Genitourinary: denies: dysuria, frequency Musculoskeletal: denies: back pain, joint swelling Skin: denies: rash, lesions Neurological: headache. denies: weakness, numbness, paresthesias Psychiatric: denies: auditory hallucinations, visual hallucinations, homicidal thoughts, suicidal thoughts <TAJ HODGES - Last Filed: 02/25/21 19:55> Physical Exam - Physical Exam Vital Signs: Vital Signs 02/25/21 02/25/21 02/25/21 00:10 00:26 01:01 Temperature 98.5 F Pulse Rate 113 H 107 H Respiratory 19 13 Rate Blood Pressure 116/72 Blood Pressure 116/72 [Left] O2 Sat by Pulse 96 98 97 Oximetry 02/25/21 02/25/21 02/25/21 02:01 03:01 04:01 Temperature Pulse Rate 110 H 110 H 114 H Respiratory 13 13 11 L Rate Blood Pressure 116/72 141/91 131/89 Blood Pressure [Left] O2 Sat by Pulse 95 93 93 Oximetry 02/25/21 02/25/21 02/25/21 05:01 06:01 07:01 Temperature Pulse Rate 115 H 113 H 112 H Respiratory 16 12 12 Rate Blood Pressure 127/79 110/60 110/60 Blood Pressure [Left] O2 Sat by Pulse 93 95 95 Oximetry 02/25/21 08:01 Temperature Pulse Rate 113 H Respiratory 11 L Rate Blood Pressure 122/68 Blood Pressure [Left] O2 Sat by Pulse 97 Oximetry <MARTIN MCLAUGHLIN - Last Filed: 02/25/21 08:40> - Physical Exam Vital Signs: Vital Signs 02/25/21 02/25/21 00:10 00:26 Temperature 98.5 F Pulse Rate 113 H Respiratory 19 Rate Blood Pressure 116/72 [Left] O2 Sat by Pulse 96 98 Oximetry Physical Exam: GENERAL: Well developed and well nourished. Extremely somnolent but arousable to loud voice or sternal rub HEAD: Normocephalic. No obvious signs of trauma. ENT: Very dry mucous membranes. EYES: Extraocular movements are intact. Pupils are equal round and reactive to light bilaterally NECK: Supple. Full ROM is intact. Trachea is midline. LUNGS: Nonlabored breathing. Equal chest rise bilaterally. Clear to auscultation bilaterally. CARDIOVASCULAR: Tachycardic but with regular rhythm. No murmurs or rubs. VASCULAR: Cap refill < 2 seconds ABDOMEN: Abdomen is soft and nondistended. There is no significant tenderness, guarding or rebound. SKIN: Skin is warm and dry NEURO: Patient is extremely somnolent but arousable to loud voice or sternal rub. She is oriented x4. azure principal solution specialist II-XII grossly intact. No focal deficits. Normal motor and sensory exam throughout. MUSCULOSKELETAL: No obvious deformities. Pelvis is stable. There is tenderness of the right hip. Patient is able to range the right hip but complains of pain. There is otherwise full range of motion throughout. No tenderness of the thigh, knee, leg, or foot. There is a left [id number] amputation. BACK/SPINE: No midline tenderness or step-offs of the C/T/L spine. No costovertebral angle tenderness. <TAJ HODGES - Last Filed: 02/25/21 19:55> ED Course Vital Signs 02/25/21 02/25/21 02/25/21 00:10 00:26 01:01 Temperature 98.5 F Pulse Rate 113 H 107 H Respiratory 19 13 Rate Blood Pressure 116/72 Blood Pressure 116/72 [Left] O2 Sat by Pulse 96 98 97 Oximetry 02/25/21 02/25/21 02/25/21 02:01 03:01 04:01 Temperature Pulse Rate 110 H 110 H 114 H Respiratory 13 13 11 L Rate Blood Pressure 116/72 141/91 131/89 Blood Pressure [Left] O2 Sat by Pulse 95 93 93 Oximetry 02/25/21 02/25/21 02/25/21 05:01 06:01 07:01 Temperature Pulse Rate 115 H 113 H 112 H Respiratory 16 12 12 Rate Blood Pressure 127/79 110/60 110/60 Blood Pressure [Left] O2 Sat by Pulse 93 95 95 Oximetry 02/25/21 08:01 Temperature Pulse Rate 113 H Respiratory 11 L Rate Blood Pressure 122/68 Blood Pressure [Left] O2 Sat by Pulse 97 Oximetry <MARTIN MCLAUGHLIN - Last Filed: 02/25/21 08:40> Vital Signs 02/25/21 02/25/21 00:10 00:26 Temperature 98.5 F Pulse Rate 113 H Respiratory 19 Rate Blood Pressure 116/72 [Left] O2 Sat by Pulse 96 98 Oximetry <TAJ HODGES - Last Filed: 02/25/21 19:55> ED Medical Decision Making - Lab Data Result diagrams: 02/25/21 00:57 02/25/21 00:57 - Medical Decision Making I evaluated patient. Although plan was to admit, admission orders were not in place. Unclear if admitting physician was contacted. I evaluated patient. Her presentation was caused by polypharmacy. She took pills from both 'I have reviewed labs. S allocation in her pillbox. She thinks she may have taken additional medication in order to address severe chronic hip pain. She requires hip replacement. She denies suicidal ideation. She denies any illness at this time other than severe chronic pain. Patient is discharged home. Patient had mild metabolic acidosis attributed to CKD which was appropriately addressed with IV fluid therapy. Urine tox screen positive for opiates and benzodiazepine. Also suspect hyperammonemia with intact liver function due to lab error. I have also reviewed the results of imaging including right hip, CT head, CT C-spine. Chest radiograph. <MCLAUGHLINMARTIN - Last Filed: 02/25/21 08:40> - Lab Data Result diagrams: 02/25/21 00:57 02/25/21 00:57 Lab Results 02/25/21 02/25/21 02/25/21 Range/Units 00:36 00:36 00:57 WBC 10.7 (4.5-11.0) K/mm3 RBC 3.07 L (3.65-5.03) M/mm3 Hgb 8.0 L (10.1-14.3) gm/dl Hct 24.7 L (30.3-42.9) % MCV 80 (79-97) fl MCH 26 L (28-32) pg MCHC 32 (30-34) % RDW 16.6 H (13.2-15.2) % Plt Count 356 (140-440) K/mm3 Eos % (Auto) [employer]er Sodium (137-145) mmol/L Potassium (3.6-5.0) mmol/L Chloride (98-107) mmol/L Carbon Dioxide (22-30) mmol/L Anion Gap mmol/L BUN (7-17) mg/dL Creatinine (0.6-1.2) mg/dL Estimated GFR ml/min BUN/Creatinine Ratio % Glucose (65-100) mg/dL Calcium (8.4-10.2) mg/dL Magnesium (1.7-2.3) mg/dL Total Bilirubin (0.1-1.2) mg/dL Direct Bilirubin (0-0.2) mg/dL Indirect Bilirubin mg/dL AST (5-40) units/L ALT (7-56) units/L Alkaline Phosphatase (35-129) units/L Ammonia (25-60) umol/L Total Protein (6.3-8.2) g/dL Albumin (3.9-5) g/dL Albumin/Globulin Ratio % Urine Color Yellow (Yellow) Urine Turbidity Clear (Clear) Urine pH 6.0 (5.0-7.0) Ur Specific [place] 1.012 (1.003-1.030) Urine Protein 100 mg/dl (Negative) mg/dL Urine Glucose (UA) Neg (Negative) mg/dL Urine Ketones Neg (Negative) mg/dL Urine Blood Mod (Negative) Urine Nitrite Neg (Negative) Urine Bilirubin Neg (Negative) Urine Urobilinogen < 2.0 (<2.0) mg/dL Ur Leukocyte Esterase Neg (Negative) Urine WBC (Auto) 1.0 (0.0-6.0) /HPF Urine RBC (Auto) 2.0 (0.0-6.0) /HPF U Epithel Cells (Auto) 3.0 (0-13.0) /HPF Urine Bacteria (Auto) 1+ (Negative) /HPF Salicylates (2.8-20.0) mg/dL Urine Opiates Screen Presumptive positive Urine Methadone Screen Presumptive negative Acetaminophen (10.0-30.0) ug/mL Ur Barbiturates Screen Presumptive negative Ur Phencyclidine Scrn Presumptive negative Ur Amphetamines Screen Presumptive negative U Benzodiazepines Scrn Presumptive positive Urine Cocaine Screen Presumptive negative U Marijuana (THC) Screen Presumptive negative Drugs of Abuse Note Disclamer Plasma/Serum Alcohol (0-0.07) % 02/25/21 02/25/21 02/25/21 Range/Units 00:57 00:57 00:57 WBC (4.5-11.0) K/mm3 RBC (3.65-5.03) M/mm3 Hgb (10.1-14.3) gm/dl Hct (30.3-42.9) % MCV (79-97) fl MCH (28-32) pg MCHC (30-34) % RDW (13.2-15.2) % Plt Count (140-440) K/mm3 Eos % (Auto) Sodium 140 (137-145) mmol/L Potassium 3.7 (3.6-5.0) mmol/L Chloride 113.2 H (98-107) mmol/L Carbon Dioxide 14 L (22-30) mmol/L Anion Gap 17 mmol/L BUN 21 H (7-17) mg/dL Creatinine 1.5 H (0.6-1.2) mg/dL Estimated GFR 47 ml/min BUN/Creatinine Ratio 14 % Glucose 104 H (65-100) mg/dL Calcium 8.8 (8.4-10.2) mg/dL Magnesium 1.80 (1.7-2.3) mg/dL Total Bilirubin < 0.20 (0.1-1.2) mg/dL Direct Bilirubin < 0.2 (0-0.2) mg/dL Indirect Bilirubin 0.0 mg/dL AST 39 (5-40) units/L ALT 17 (7-56) units/L Alkaline Phosphatase 164 H (35-129) units/L Ammonia 76.0 H (25-60) umol/L Total Protein 7.9 (6.3-8.2) g/dL Albumin 3.3 L (3.9-5) g/dL Albumin/Globulin Ratio 0.7 % Urine Color (Yellow) Urine Turbidity (Clear) Urine pH (5.0-7.0) Ur Specific [place] (1.003-1.030) Urine Protein (Negative) mg/dL Urine Glucose (UA) (Negative) mg/dL Urine Ketones (Negative) mg/dL Urine Blood (Negative) Urine Nitrite (Negative) Urine Bilirubin (Negative) Urine Urobilinogen (<2.0) mg/dL Ur Leukocyte Esterase (Negative) Urine WBC (Auto) (0.0-6.0) /HPF Urine RBC (Auto) (0.0-6.0) /HPF U Epithel Cells (Auto) (0-13.0) /HPF Urine Bacteria (Auto) (Negative) /HPF Salicylates < 0.3 L (2.8-20.0) mg/dL Urine Opiates Screen Urine Methadone Screen Acetaminophen (10.0-30.0) ug/mL Ur Barbiturates Screen Ur Phencyclidine Scrn Ur Amphetamines Screen U Benzodiazepines Scrn Urine Cocaine Screen U Marijuana (THC) Screen Drugs of Abuse Note Plasma/Serum Alcohol (0-0.07) % 02/25/21 02/25/21 Range/Units 00:57 00:57 WBC (4.5-11.0) K/mm3 RBC (3.65-5.03) M/mm3 Hgb (10.1-14.3) gm/dl Hct (30.3-42.9) % MCV (79-97) fl MCH (28-32) pg MCHC (30-34) % RDW (13.2-15.2) % Plt Count (140-440) K/mm3 Eos % (Auto) Sodium (137-145) mmol/L Potassium (3.6-5.0) mmol/L Chloride (98-107) mmol/L Carbon Dioxide (22-30) mmol/L Anion Gap mmol/L BUN (7-17) mg/dL Creatinine (0.6-1.2) mg/dL Estimated GFR ml/min BUN/Creatinine Ratio % Glucose (65-100) mg/dL Calcium (8.4-10.2) mg/dL Magnesium (1.7-2.3) mg/dL Total Bilirubin (0.1-1.2) mg/dL Direct Bilirubin (0-0.2) mg/dL Indirect Bilirubin mg/dL AST (5-40) units/L ALT (7-56) units/L Alkaline Phosphatase (35-129) units/L Ammonia (25-60) umol/L Total Protein (6.3-8.2) g/dL Albumin (3.9-5) g/dL Albumin/Globulin Ratio % Urine Color (Yellow) Urine Turbidity (Clear) Urine pH (5.0-7.0) Ur Specific [place] (1.003-1.030) Urine Protein (Negative) mg/dL Urine Glucose (UA) (Negative) mg/dL Urine Ketones (Negative) mg/dL Urine Blood (Negative) Urine Nitrite (Negative) Urine Bilirubin (Negative) Urine Urobilinogen (<2.0) mg/dL Ur Leukocyte Esterase (Negative) Urine WBC (Auto) (0.0-6.0) /HPF Urine RBC (Auto) (0.0-6.0) /HPF U Epithel Cells (Auto) (0-13.0) /HPF Urine Bacteria (Auto) (Negative) /HPF Salicylates (2.8-20.0) mg/dL Urine Opiates Screen Urine Methadone Screen Acetaminophen 5.0 L (10.0-30.0) ug/mL Ur Barbiturates Screen Ur Phencyclidine Scrn Ur Amphetamines Screen U Benzodiazepines Scrn Urine Cocaine Screen U Marijuana (THC) Screen Drugs of Abuse Note Plasma/Serum Alcohol < 0.01 (0-0.07) % - EKG Data -: EKG Interpreted by Me - EKG Data 02/25/21 02:14 Sinus tachycardia. Normal axis. Normal intervals. No ectopy. No significant ST segment or T wave abnormalities. - Radiology Data CT HEAD WITHOUT CONTRAST INDICATION / CLINICAL INFORMATION: Per EMS, pt fell from her wheelchair, unknown if she had any LOC.. TECHNIQUE: All CT scans at this location are performed using CT dose reduction for ALARA by means of automated exposure control. COMPARISON: None available. FINDINGS: HEMORRHAGE: None. EXTRA-AXIAL SPACES: Normal in size and morphology for the patient's age. VENTRICULAR SYSTEM: Normal in size and morphology for the patient's age. CEREBRAL PARENCHYMA: Basal ganglia calcifications. No acute territorial infarct. MIDLINE SHIFT / HERNIATION: None. CEREBELLUM / BRAINSTEM: No significant abnormality. ORBITS: Normal as visualized. SOFT TISSUES: No significant abnormality. SKULL: No significant abnormality. PARANASAL SINUSES / MASTOID AIR CELLS: Mucosal thickening throughout all visualized sinuses. ADDITIONAL FINDINGS: None. IMPRESSION: 1. No acute intracranial abnormality. 2. Diffuse sinus mucosal thickening. Signer Name: Ashwin Bran MD Signed: 02/25/2021 12:04 AM Workstation Name: [email or web address] CT CERVICAL SPINE WITHOUT CONTRAST INDICATION / CLINICAL INFORMATION: Per EMS, pt fell from her wheelchair, unknown if she had any LOC.. TECHNIQUE: Axial CT images were obtained through the cervical spine. Sagittal and coronal reformatted images were produced. All CT scans at this location are performed using CT dose reduction for ALARA by means of automated exposure control. COMPARISON: None available. FINDINGS: VERTEBRAE: No significant abnormality. ALIGNMENT: No significant abnormality. DISC SPACES: No significant abnormality. FACET JOINTS: No significant abnormality. CRANIOCERVICAL JUNCTION:No significant abnormality. SPINAL CANAL: No significant abnormality. PARASPINAL SOFT TISSUES: No significant abnormality. ADDITIONAL FINDINGS: None. LUNG APICES: No sign ificant abnormality of visualized lungs. IMPRESSION: 1. No significant abnormality. Signer Name: Ashwin Bran MD Signed: 02/25/2021 12:05 AM Workstation Name: [email or web address] CHEST 1 VIEW 02/25/2021 12:50 AM INDICATION / CLINICAL INFORMATION: fall from wheelchair. COMPARISON: 02/16/21 FINDINGS: SUPPORT DEVICES: None. HEART / MEDIASTINUM: No significant abnormality. LUNGS / PLEURA: No significant pulmonary or pleural abnormality. No pneumothorax. ADDITIONAL FINDINGS: Bilateral humeral head osteonecrosis/AVN is unchanged. No acute skeletal abnormality. IMPRESSION: 1. No acute findings. No change. Signer Name: Ashwin Bran MD Signed: 02/25/2021 12:31 AM Workstation Name: [id number] RIGHT HIP 3 VIEW(S) INDICATION / CLINICAL INFORMATION: trauma status post fall from wheelchair. COMPARISON: 08/16/19 FINDINGS: BONES / JOINT(S): Interval resection of right femoral head with placement of cement spacer. Small amount of cement has migrated into the lateral right hip soft tissues. Cerclage wire around the proximal right femoral shaft. No acute fracture or subluxation. Amputation of the left lower extremity is unchanged. SOFT TISSUES: No significant abnormality. ADDITIONAL FINDINGS: IVC Filter Recommendation: IVC filters should be removed if possible when they are no longer clinically necessary. (1) Refer to the established IVC filter management plan; (2) If there is no established plan for the patient's IVC filter, consider referral to interventional/vascular clinician on a nonemergent basis for evaluation. IMPRESSION: 1. No acute fracture or subluxation. 2. Right hip cement spacer with migration of a small amount of cement. Signer Name: Ashwin Bran MD Signed: 02/25/2021 12:34 AM Workstation Name: [id number] - Medical Decision Making 40-year-old female with history of SLE on chronic steroids brought in by EMS for initial complaint of a fall out of her wheelchair with right hip pain. However, when EMS arrived, the patient was found to be extremely somnolent and almost unarousable with very slurred speech. She admitted to taking several of her prescribed medications which include Ativan, morphine, and zolpidem. Patient was given 2 mg of intranasal Narcan without significant effect on her somnolence. When I assessed the patient, she is noted to be extremely somnolent but arouses to very loud voice or sternal rub. She is afebrile with normal vital signs with the exception of elevated heart rate in the 110s. She has e xtremely dry mucous membranes. She is noted to have an left [id number]-[id number] amputation. She has tenderness of the right hip. The pelvis is stable. She is able to move the right lower extremity with normal strength but complains of pain with range of motion. She reports mild headache but there is no obvious signs of trauma. There is no midline tenderness of the C/T/L-spine and there is no CVA tenderness. Given that the patient admits to taking several sedative medications including both zolpidem and 4 mg of Ativan at the same time, I suspect that her somnolence is related to oversedation. Nonetheless, she is noted to be tachycardic and with very dry mucous membranes. Although there is no obvious signs of trauma to the head, given that the story is unclear we will obtain CT of the head and C-spine to assess for evidence of intracranial hemorrhage versus spinal fracture given the possibility of head/neck trauma in a patient who is intoxicated. The patient denies SI/HI and denies any intent to harm herself. We will perform full work-up with full set of labs as well as the CT scans mentioned. We will also obtain plain film x-rays of the chest, pelvis, and right hip. We will give 1 L of IV fluids for now and reassess. Review of the patient's past medical records reveals that she has had acute renal failure in the past requiring initiation of hemodialysis. Patient is no longer on hemodialysis however. She also has a history of avascular necrosis of the right hip. She has had prior placement of an IVC filter. CT of the head and C-spine revealed no acute abnormalities. Chest x-ray and pelvis/hip x-ray revealed no acute abnormalities and the patient's right hip cement spacer is in place. On repeat assessment at 2:20 AM, the patient's heart rate has improved slightly to the 100s from the 110s. She remains with otherwise stable vital signs. Labs have resulted and reveal no significant leukocytosis. The patient's hemoglobin is 8.0 which is around her baseline. The patient's creatinine is elevated at 1.5 from her baseline of 0.8-1.0. She is acidotic with a CO2 of 14 and elevated ammonia of 76. I suspect that the patient's lab abnormalities are related to her dehydration and poor volume status. I will order an additional 1 L of IV fluids and plan to admit the patient to the hospitalist for further care. <TAJ HODGES - Last Filed: 02/25/21 19:55> Critical care attestation.: If time is entered above; I have spent that time in minutes in the direct care of this critically ill patient, excluding procedure time. <MARTIN MCLAUGHLIN - Last Filed: 02/25/21 08:40> Critical care attestation.: If time is entered above; I have spent that time in minutes in the direct care of this critically ill patient, excluding procedure time. <TAJ HODGES - Last Filed: 02/25/21 19:55> ED Disposition Is pt being admited?: No Does the pt Need Aspirin: No <MATRIN MCLAUGHLIN - Last Filed: 02/25/21 08:40> Is pt being admited?: No <TAJ HODGES - Last Filed: 02/25/21 19:55> Clinical Impression: Lupus (systemic lupus erythematosus), Anemia, MOSES (acute kidney injury), Sedative overdose, Hyperammonemia Disposition: - TO HOME OR SELFCARE Condition: Stable Referrals: PRIMARY CARE, [Primary Care Provider] - 3-5 Days
[2021-02-25 01:33] LABS: Hematocrit 24.7 % (30.3-42.9); Mean Corpuscular HGB Conc 32 % (30-34); Mean Corpuscular Volume 80 fl (79-97); Platelet Count 356 K/mm3 (140-440); Red Blood Count 3.07 M/mm3 (3.65-5.03); Red Cell Distribution Width 16.6 % (13.2-15.2)
--- NOTE | 2021-02-25 01:35 | XRay Report ---
CHEST 1 VIEW 02/25/2021 12:50 AM INDICATION / CLINICAL INFORMATION: fall from wheelchair. COMPARISON: 02/16/21 FINDINGS: SUPPORT DEVICES: None. HEART / MEDIASTINUM: No significant abnormality. LUNGS / PLEURA: No significant pulmonary or pleural abnormality. No pneumothorax. ADDITIONAL FINDINGS: Bilateral humeral head osteonecrosis/AVN is unchanged. No acute skeletal abnorma lity. IMPRESSION: 1. No acute findings. No change. Signer Name: Ashwin Bran MD Signed: 02/25/2021 1:31 AM Workstation Name: [id number]
--- NOTE | 2021-02-25 01:39 | XRay Report ---
RIGHT HIP 3 VIEW(S) INDICATION / CLINICAL INFORMATION: trauma status post fall from wheelchair. COMPARISON: 08/16/19 FINDINGS: BONES / JOINT(S): Interval resection of right femoral head with placement of cement spacer. Small jessica unt of cement has migrated into the lateral right hip soft tissues. Cerclage wire around the proximal right femoral shaft. No acute fracture or subluxation. Amputation of the left lower extremity is unc hanged. SOFT TISSUES: No significant abnormality. ADDITIONAL FINDINGS: IVC Filter Recommendation: IVC filters should be removed if possible when they a re no longer clinically necessary. (1) Refer to the established IVC filter management plan; (2) If th ere is no established plan for the patient's IVC filter, consider referral to interventional/vascular clinician on a nonemergent basis for evaluation. IMPRESSION: 1. No acute fracture or subluxation. 2. Right hip cement spacer with migration of a small amount of cement. Signer Name: Ashwin Bran MD Signed: 02/25/2021 1:34 AM Workstation Name: [email or web address][id number]
[2021-02-25 01:45] LABS: Alanine Aminotransferase 17 units/L (7-56); Albumin 3.3 g/dL (3.9-5); BUN/Creatinine Ratio 14; Blood Urea Nitrogen 21 mg/dL (7-17); Calcium 8.8 mg/dL (8.4-10.2); Hemolysis Index 4
[2021-02-25 01:54] LABS: Bilirubin,Direct < 0.2 mg/dL (0-0.2)
[2021-02-25 02:15] LABS: Anisocytosis 1+; Hypochromasia 1+; Target Cells Few; Total Cells Counted 100
[2021-02-25 08:52] VITALS: BP 113/62
--- NOTE | 2021-02-25 10:49 | History and Physical Report ---
History of Present Illness Date of examination: 02/25/21 History of present illness: 40-year-old female with history of SLE on chronic steroids as well as prior left [id number] amputation is brought in by EMS after the patient suffered a fall from her wheelchair and complained of right hip pain. According to the EMS report, when they arrived, the patient was extremely somnolent and with snoring respirations as well as slurred speech. She was found to have pinpoint pupils and had several bottles of medications in her purse which she reported taking including morphine, Ativan, and zolpidem. She was given 2 mg of intranasal Narcan without any significant effect. The patient is extremely somnolent but is arousable to very loud voice. She speaks in short sentences but is able to answer questions. She states that she fell out of her wheelchair onto her right hip. She is unsure whether she hit her head or lost consciousness. She reports that she took 2 pills of her ativan 2mg, 1 pill of her zolpidem 10 mg, and 1 pill of her morphine 60mg ER in preparation for bed. At this time she reports pain in her right hip as well as mild headache. She denies ingestion any other substances. She denies SI or HI. She denies any auditory or visual hallucinations. She denies any vision change, back pain, chest pain, shortness of breath, cough, abdominal pain, nausea/vomiting, fever, focal weakness, or any other complaints. She says she is vaccinated against COVID-19. Medications and Allergies Allergies Allergy/AdvReac Type Severity Reaction Status Date / Time codeine Allergy Unknown Verified 02/16/21 23:21 Penicillins Allergy Swelling Verified 07/22/19 16:38 strawberry Allergy Unknown Verified 02/16/21 23:21 Home Medications Medication Instructions Recorded Confirmed Last Taken Type Calcium Carbonate [Oscal 1250MG 1,250 mg PO TID tablet 08/19/19 Unknown Rx TAB] Famotidine [Pepcid] 10 mg PO BID tablet 08/19/19 Unknown Rx Folic Acid/Vit B Comp W-C [Renal 1 cap PO QDAY capsule 08/19/19 Unknown Rx Caps] Hydrocortisone [Cortef TAB] 10 mg PO Q12HR tablet 08/19/19 Unknown Rx Loperamide [Imodium] 2 mg PO Q2H PRN capsule 08/19/19 Unknown Rx Magnesium Oxide [Mag-Ox] 400 mg PO BID tablet 08/19/19 Unknown Rx Pot Phosphate/Na Phosphate 1 each PO Q12HR powd.pack 08/19/19 Unknown Rx [Phos-Nak] Potassium Chloride [K-Dur] 30 meq PO QDAY tablet 08/19/19 Unknown Rx calcitrioL [Rocaltrol] 1 mcg PO QDAY capsule 08/19/19 Unknown Rx oxyCODONE /ACETAMINOPHEN [Percocet 1 tab PO Q6H PRN #14 tablet 08/19/19 Unknown Rx 5/325 mg] Linezolid 600 mg PO BID #14 tablet 08/20/19 Unknown Rx Exam - Constitutional Vitals: Temp Pulse Resp BP Pulse Ox 98.5 F 119 H 17 113/62 95 02/25/21 00:10 02/25/21 08:50 02/25/21 08:50 02/25/21 08:50 02/25/21 08:50 Results - Labs CBC & Chem 7: 02/25/21 00:57 02/25/21 00:57 Labs: Abnormal lab results 02/25/21 02/25/21 02/25/21 Range/Units 00:57 00:57 00:57 RBC 3.07 L (3.65-5.03) M/mm3 Hgb 8.0 L (10.1-14.3) gm/dl Hct 24.7 L (30.3-42.9) % MCH 26 L (28-32) pg RDW 16.6 H (13.2-15.2) % Monocytes % (Manual) 8.0 H (0.0-7.3) % Eosinophils % (Manual) 22.0 H (0.0-4.3) % Monocytes # (Manual) 0.9 H (0.0-0.8) K/mm3 Eosinophils # (Manual) 2.4 H (0.0-0.4) K/mm3 Chloride 113.2 H (98-107) mmol/L Carbon Dioxide 14 L (22-30) mmol/L BUN 21 H (7-17) mg/dL Creatinine 1.5 H (0.6-1.2) mg/dL Glucose 104 H (65-100) mg/dL Alkaline Phosphatase 164 H (35-129) units/L Ammonia 76.0 H (25-60) umol/L Albumin 3.3 L (3.9-5) g/dL Salicylates (2.8-20.0) mg/dL Acetaminophen (10.0-30.0) ug/mL 02/25/21 02/25/21 Range/Units 00:57 00:57 RBC (3.65-5.03) M/mm3 Hgb (10.1-14.3) gm/dl Hct (30.3-42.9) % MCH (28-32) pg RDW (13.2-15.2) % Monocytes % (Manual) (0.0-7.3) % Eosinophils % (Manual) (0.0-4.3) % Monocytes # (Manual) (0.0-0.8) K/mm3 Eosinophils # (Manual) (0.0-0.4) K/mm3 Chloride (98-107) mmol/L Carbon Dioxide (22-30) mmol/L BUN (7-17) mg/dL Creatinine (0.6-1.2) mg/dL Glucose (65-100) mg/dL Alkaline Phosphatase (35-129) units/L Ammonia (25-60) umol/L Albumin (3.9-5) g/dL Salicylates < 0.3 L (2.8-20.0) mg/dL Acetaminophen 5.0 L (10.0-30.0) ug/mL
[2021-02-25] MEDS ORDERED: ONDANSETRON 4 MG/2 ML INJ IV PRN (10:50)
[2021-02-25] MEDS ORDERED: ACETAMINOPHEN 325 MG TAB PO PRN (10:50)
[2021-02-25] MEDS ORDERED: SODIUM CHLORIDE 0.9% 1000 ML 1,000 ML IV SCH (11:00)
--- NOTE | 2021-02-25 13:03 | Electrocardiograph Report ---
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
[2021-02-25] MEDS ORDERED: CALCIUM CARBONATE 1250 MG TAB PO SCH (14:00)
[2021-02-25] MEDS ORDERED: HEPARIN 5,000 UNIT/1 ML VIAL SUB-Q SCH (14:00)
[2021-02-25] MEDS ORDERED: FAMOTIDINE 10 MG TAB PO SCH (22:00)
[2021-02-25] MEDS ORDERED: HYDROCORTISONE 10 MG TAB PO SCH (22:00)
[2021-02-26] MEDS ORDERED: FOLIC ACID/VIT B COMP W-C 1 MG (RENAL CAPS) PO SCH (10:00)
[2021-02-26] MEDS ORDERED: CALCITRIOL 0.5 MCG CAP PO SCH (10:00)
== END 2021-02-25 09:10 | disposition home or self-care (01) ==
LOC: ED 23:51
DX: T42.71XA Poisoning by unspecified antiepileptic and sedative-hypnotic drugs, accidental (unintentional), initial encounter (principal); M32.9 Systemic lupus erythematosus, unspecified; D64.9 Anemia, unspecified; N17.9 Acute kidney failure, unspecified; E72.20 Disorder of urea cycle metabolism, unspecified; M25.551 Pain in right hip; W05.0XXA Fall from non-moving wheelchair, initial encounter; Y93.89 Activity, other specified; Y92.89 Other specified places as the place of occurrence of the external cause; Y99.8 Other external cause status
CPT/HCPCS: 36415; 70450; 71045; 72125; 73502; 80048; 80076; 80307; 81001; 82140; 83735; 85007; 85025; 93005; 96360; 96361; 99285; J7030; 80320; G0480

== ENCOUNTER 2021-03-30 10:47 | Emergency (ER) | payer MEDICARE ==
--- NOTE | 2021-03-30 10:53 | Emergency Department Report ---
ED Shortness of Breath HPI - General Stated Complaint: ASTHMA / SHARON Time Seen by Provider: 03/30/21 10:48 - History of Present Illness Initial Comments: Patient presents by ambulance with shortness of breath. She states that her asthma is been acting up for several days now. She did use an inhaler at home. She used her nebulizer. Last week, she had to call EMS for a nebulizer. She tried to see her doctor. They not been able to see her recently. She woke up this morning because of shortness of breath. She used her nebulizer at 2 AM. She woke up at 9 AM. She did not use a nebulizer. She called EMS. EMS transported her here. They report that she had 100% saturations. They did administer albuterol 5 mg in route. She was given Solu-Medrol 125 mg IM. Patient states that she is still feels as though she is having trouble breathing. She has had a dry cough. There is no fevers or chills. She has had no sick contacts. There is no known exposure to coronavirus. She also states that her lupus is acting up and she is having an exacerbation of her chronic pain. She alternates between morphine and Dilaudid at home. She states that her pain is under control normally, but today is not. Pain is diffuse. It involves her right leg. Left leg has been amputated due to avascular necrosis. - Related Data Previous Rx's Medication Instructions Recorded Last Taken Type Calcium Carbonate [Oscal 1250MG 1,250 mg PO TID tablet 08/19/19 Unknown Rx TAB] Famotidine [Pepcid] 10 mg PO BID tablet 08/19/19 Unknown Rx Folic Acid/Vit B Comp W-C [Renal 1 cap PO QDAY capsule 08/19/19 Unknown Rx Caps] Hydrocortisone [Cortef TAB] 10 mg PO Q12HR tablet 08/19/19 Unknown Rx Loperamide [Imodium] 2 mg PO Q2H PRN capsule 08/19/19 Unknown Rx Magnesium Oxide [Mag-Ox] 400 mg PO BID tablet 08/19/19 Unknown Rx Pot Phosphate/Na Phosphate 1 each PO Q12HR powd.pack 08/19/19 Unknown Rx [Phos-Nak] Potassium Chloride [K-Dur] 30 meq PO QDAY tablet 08/19/19 Unknown Rx calcitrioL [Rocaltrol] 1 mcg PO QDAY capsule 08/19/19 Unknown Rx oxyCODONE /ACETAMINOPHEN [Percocet 1 tab PO Q6H PRN #14 tablet 08/19/19 Unknown Rx 5/325 mg] Linezolid 600 mg PO BID #14 tablet 08/20/19 Unknown Rx Allergies Allergy/AdvReac Type Severity Reaction Status Date / Time codeine Allergy Unknown Verified 02/16/21 23:21 Penicillins Allergy Swelling Verified 07/22/19 16:38 strawberry Allergy Unknown Verified 02/16/21 23:21 ED Review of Systems ROS: Stated complaint: ASTHMA / SHARON Other details as noted in HPI Comment: All other systems reviewed and negative Constitutional: denies: fever Eyes: denies: eye discharge ENT: denies: throat pain Respiratory: no symptoms reported Cardiovascular: denies: chest pain Endocrine: denies: increased thirst, increased urine Gastrointestinal: denies: vomiting, diarrhea Genitourinary: denies: dysuria Musculoskeletal: denies: back pain Skin: denies: rash Neurological: denies: headache Hematological/Lymphatic: denies: easy bruising ED Past Medical Hx - Past Medical History Hx Deep Vein Thrombosis: Yes Hx Pulmonary Embolism: Yes Additional medical history: ITP. VASULAR NEUROSIS / LUPUS - Surgical History Hx Cholecystectomy: Yes Additional Surgical History: AMPUITEE. left AKA. left hip surgery x30 per pt. spleenectomy. lower back sx - Social History Smoking Status: Never Smoker - Medications Home Medications: Home Medications Medication Instructions Recorded Confirmed Last Taken Type Calcium Carbonate [Oscal 1250MG 1,250 mg PO TID tablet 08/19/19 Unknown Rx TAB] Famotidine [Pepcid] 10 mg PO BID tablet 08/19/19 Unknown Rx Folic Acid/Vit B Comp W-C [Renal 1 cap PO QDAY capsule 08/19/19 Unknown Rx Caps] Hydrocortisone [Cortef TAB] 10 mg PO Q12HR tablet 08/19/19 Unknown Rx Loperamide [Imodium] 2 mg PO Q2H PRN capsule 08/19/19 Unknown Rx Magnesium Oxide [Mag-Ox] 400 mg PO BID tablet 08/19/19 Unknown Rx Pot Phosphate/Na Phosphate 1 each PO Q12HR powd.pack 08/19/19 Unknown Rx [Phos-Nak] Potassium Chloride [K-Dur] 30 meq PO QDAY tablet 08/19/19 Unknown Rx calcitrioL [Rocaltrol] 1 mcg PO QDAY capsule 08/19/19 Unknown Rx oxyCODONE /ACETAMINOPHEN [Percocet 1 tab PO Q6H PRN #14 tablet 08/19/19 Unknown Rx 5/325 mg] Linezolid 600 mg PO BID #14 tablet 08/20/19 Unknown Rx ED Physical Exam - General General appearance: alert, in no apparent distress (Disheveled) - Head Head exam: Present: atraumatic, normocephalic - Eye Eye exam: Present: normal appearance, PERRL, EOMI - ENT ENT exam: Present: normal exam, normal orophraynx - Neck Neck exam: Present: normal inspection. Absent: meningismus - Respiratory Respiratory exam: Present: wheezes. Absent: respiratory distress - Cardiovascular Cardiovascular Exam: Present: regular rate, normal rhythm - GI/Abdominal GI/Abdominal exam: Present: soft. Absent: distended, tenderness - Extremities Exam Extremities exam: Absent: pedal edema - Back Exam Back exam: Absent: CVA tenderness (R), CVA tenderness (L) - Neurological Exam Neurological exam: Present: alert, oriented X3 - Psychiatric Psychiatric exam: Present: other (Tearful) - Skin Skin exam: Present: warm, dry ED Course - Reevaluation(s) Reevaluation #1: 03/30/21 10:52 EMS was met upon arrival at 10:45 AM. DuoNeb and chest x-ray were ordered. Reevaluation #2: 03/30/21 11:49 Chest x-ray was noted. There is no evidence of pneumonia. Patient was discharged. She is not hypoxic. ED Medical Decision Making - Radiology Data Radiology results: image reviewed interpreted by me: Chest x-ray reveals no pneumonia or infiltrate. There is no pneumothorax. Cardiac silhouette is normal. There is no subcutaneous emphysema noted. This is based on my review. - Medical Decision Making Patient presented with exacerbation of her chronic pain. There is no indication that she has any type of infectious pathology. There is no history of trauma. I do not believe administration of parenteral opioids is indicated for a chronic condition at this time. Patient was comfortable taking her own medication at home. She also complained of an asthma exacerbation. This was treated empirically with a DuoNeb. She had already been given steroids by paramedics. Patient did not want to use steroids at home due to her lupus. She states that she has an appointment to see her regular physician. She was not hypoxic. There was no symptomatology that would have suggested coronavirus infection. Again, chest x-ray failed to demonstrate pneumonia, congestive heart failure, or pneumothorax. Critical Care Time: No Critical care attestation.: If time is entered above; I have spent that time in minutes in the direct care of this critically ill patient, excluding procedure time. ED Disposition Clinical Impression: Chronic pain disorder Asthma exacerbation Qualifiers: Asthma severity: moderate Asthma persistence: persistent Qualified Code(s): J45.41 - Moderate persistent asthma with (acute) exacerbation Disposition: HOME / SELF CARE / HOMELESS Is pt being admited?: No Does the pt Need Aspirin: No Condition: Stable Instructions: Asthma, Adult, Chronic Pain, Adult, Opioid Pain Medicine Management, Asthma Attack Additional Instructions: Drink any water. Take your own pain medications at home. Use your nebulizers as described. Follow-up with your regular doctor for consideration of steroid burst.
[2021-03-30] MEDS ORDERED: IPRATROPIUM/ALBUTEROL SULFATE 3 ML AMPUL.NEB IH ONE (11:48)
--- NOTE | 2021-03-30 11:53 | XRay Report ---
CHEST 1 VIEW 03/30/2021 10:46 AM INDICATION / CLINICAL INFORMATION: Shortness of breath for 3 days. Lupus. COMPARISON: 02/25/21. FINDINGS: SUPPORT DEVICES: None. HEART / MEDIASTINUM: The heart size and pulmonary vasculature are normal. LUNGS / PLEURA: No significant pulmonary or pleural abnormality. No pneumothorax. ADDITIONAL FINDINGS: There are moderate degenerative changes involving both shoulders with evidence o f avascular necrosis involving both humeral heads, unchanged. IMPRESSION: No acute abnormality or significant change. Signer Name: Gurwinder Dalal MD Signed: 03/30/2021 11:48 AM Workstation Name: [id number]
[2021-03-30 13:22] LABS: HCG Qualitative,Urine Negative (Negative)
== END 2021-03-30 13:18 | disposition home or self-care (01) ==
LOC: ED 10:47
DX: J45.901 Unspecified asthma with (acute) exacerbation (principal); G89.29 Other chronic pain; Z88.5 Allergy status to narcotic agent; Z88.0 Allergy status to penicillin; Z91.018 Allergy to other foods
CPT/HCPCS: 71045; 81025; 99284

== ENCOUNTER 2021-05-16 18:32 | Inpatient (IN) | payer MEDICARE ==
[2021-05-16] MEDS ORDERED: SODIUM CHLORIDE 0.9% 1000 ML 1,000 ML IV ONE (19:39)
--- NOTE | 2021-05-16 19:44 | Emergency Department Report ---
HPI - General Chief Complaint: Overdose Time Seen by Provider: 05/16/21 19:19 - HPI HPI: This is a 40-year-old -[place] female presents to the emergency department via EMS from her residence after she was found unresponsive with a suspicion for an opiate overdose. 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 The patient takes oral morphine. EMS gave the patient Narcan and she became awake and alert in route. The patient says that she does not think that she took her medication in any larger quantity than as prescribed. She denies any current headache, chest pain, shortness of breath, fever, nausea, vomiting. ED Past Medical Hx - Past Medical History Previous Medical History?: Yes Hx Deep Vein Thrombosis: Yes Hx Pulmonary Embolism: Yes Hx Psychiatric Treatment: Yes Additional medical history: ITP. VASULAR NEUROSIS / LUPUS - Surgical History Past Surgical History?: Yes Hx Cholecystectomy: Yes Additional Surgical History: AMPUITEE. left AKA. left hip surgery x30 per pt. spleenectomy. lower back sx - Social History Smoking Status: Never Smoker Substance Use Type: None - Medications Home Medications: Home Medications Medication Instructions Recorded Confirmed Last Taken Type Calcium Carbonate [Oscal 1250MG 1,250 mg PO TID tablet 08/19/19 Unknown Rx TAB] Famotidine [Pepcid] 10 mg PO BID tablet 08/19/19 Unknown Rx Folic Acid/Vit B Comp W-C [Renal 1 cap PO QDAY capsule 08/19/19 Unknown Rx Caps] Hydrocortisone [Cortef TAB] 10 mg PO Q12HR tablet 08/19/19 Unknown Rx Loperamide [Imodium] 2 mg PO Q2H PRN capsule 08/19/19 Unknown Rx Magnesium Oxide [Mag-Ox] 400 mg PO BID tablet 08/19/19 Unknown Rx Pot Phosphate/Na Phosphate 1 each PO Q12HR powd.pack 08/19/19 Unknown Rx [Phos-Nak] Potassium Chloride [K-Dur] 30 meq PO QDAY tablet 08/19/19 Unknown Rx calcitrioL [Rocaltrol] 1 mcg PO QDAY capsule 08/19/19 Unknown Rx oxyCODONE /ACETAMINOPHEN [Percocet 1 tab PO Q6H PRN #14 tablet 08/19/19 Unknown Rx 5/325 mg] Linezolid 600 mg PO BID #14 tablet 08/20/19 Unknown Rx ED Review of Systems ROS: Stated complaint: OVERDOSE Other details as noted in HPI Comment: All other systems reviewed and negative Constitutional: denies: fever Eyes: denies: eye pain, vision change ENT: denies: ear pain, throat pain Respiratory: denies: cough, shortness of breath Cardiovascular: denies: chest pain, palpitations Gastrointestinal: denies: abdominal pain, vomiting Genitourinary: denies: dysuria, discharge Musculoskeletal: denies: back pain, arthralgia Skin: denies: rash, lesions Neurological: other (unresponsive episode). denies: headache Physical Exam - Physical Exam Vital Signs: Vital Signs 05/16/21 05/16/21 05/16/21 18:32 18:40 18:45 Temperature 98.2 F Pulse Rate 136 H 137 H 135 H Respiratory 14 20 15 Rate Blood Pressure 101/65 101/65 Blood Pressure 101/65 [Right] O2 Sat by Pulse 94 92 Oximetry 05/16/21 05/16/21 05/16/21 18:46 19:01 19:15 Temperature Pulse Rate 131 H 127 H Respiratory 13 13 Rate Blood Pressure 109/68 109/68 Blood Pressure [Right] O2 Sat by Pulse 94 97 98 Oximetry Physical Exam: GENERAL: The patient is ill-appearing. HENT: Normocephalic. Atraumatic. Patient has moist mucous membranes. EYES: Extraocular motions are intact. No nystagmus. NECK: Supple. Trachea is midline. CHEST/LUNGS: Clear to auscultation. There is no respiratory distress noted. HEART/CARDIOVASCULAR: Regular. There is moderate tachycardia. There is no murmur. ABDOMEN: Abdomen is soft, nontender. Patient has normal bowel sounds. There is no abdominal distention. SKIN: Skin is warm and dry. NEURO: The patient is sleepy but is arousable. She will go back to sleep if not stimulated. Cranial nerves II through XII grossly intact. Normal speech. MUSCULOSKELETAL: There is no tenderness or deformity. Left AKA. ED Course Vital Signs 05/16/21 05/16/21 05/16/21 18:32 18:40 18:45 Temperature 98.2 F Pulse Rate 136 H 137 H 135 H Respiratory 14 20 15 Rate Blood Pressure 101/65 101/65 Blood Pressure 101/65 [Right] O2 Sat by Pulse 94 92 Oximetry 05/16/21 05/16/21 05/16/21 18:46 19:01 19:15 Temperature Pulse Rate 131 H 127 H Respiratory 13 13 Rate Blood Pressure 109/68 109/68 Blood Pressure [Right] O2 Sat by Pulse 94 97 98 Oximetry ED Medical Decision Making - Lab Data Result diagrams: 05/16/21 22:53 05/16/21 22:53 Lab Results 05/16/21 05/16/21 05/16/21 Range/Units 22:53 22:53 22:53 WBC 15.4 H (4.5-11.0) K/mm3 RBC 4.50 (3.65-5.03) M/mm3 Hgb 11.0 (10.1-14.3) gm/dl Hct 35.7 (30.3-42.9) % MCV 79 (79-97) fl MCH 25 L (28-32) pg MCHC 31 (30-34) % RDW 18.2 H (13.2-15.2) % Plt Count 300 (140-440) K/mm3 Add Manual Diff Complete Total Counted 100 Seg Neuts % (Manual) 77.0 H (40.0-70.0) % Lymphocytes % (Manual) 11.0 L (13.4-35.0) % Monocytes % (Manual) 11.0 H (0.0-7.3) % Eosinophils % (Manual) 1.0 (0.0-4.3) % Nucleated RBC % Not Reportable Seg Neutrophils # Man 11.9 H (1.8-7.7) K/mm3 Band Neutrophils # 0.0 K/mm3 Lymphocytes # (Manual) 1.7 (1.2-5.4) K/mm3 Abs React Lymphs (Man) 0.0 K/mm3 Monocytes # (Manual) 1.7 H (0.0-0.8) K/mm3 Eosinophils # (Manual) 0.2 (0.0-0.4) K/mm3 Basophils # (Manual) 0.0 (0.0-0.1) K/mm3 Metamyelocytes # 0.0 K/mm3 Myelocytes # 0.0 K/mm3 Promyelocytes # 0.0 K/mm3 Blast Cells # 0.0 K/mm3 WBC Morphology Not Reportable Hypersegmented Neuts Not Reportable Hyposegmented Neuts Not Reportable Hypogranular Neuts Not Reportable Smudge Cells Not Reportable Toxic Granulation Not Reportable Toxic Vacuolation Not Reportable Dohle Bodies Not Reportable Pelger-Huet Anomaly Not Reportable Doyle Rods Not Reportable Platelet Estimate Not Reportable Clumped Platelets Not Reportable Plt Clumps, EDTA Not Reportable Large Platelets Not Reportable Giant Platelets Not Reportable Platelet Satelliting Not Reportable Plt Morphology Comment Not Reportable RBC Morphology Not Reportable Dimorphic RBCs Not Reportable Polychromasia Not Reportable Hypochromasia 1+ Poikilocytosis Not Reportable Anisocytosis 1+ Microcytosis Not Reportable Macrocytosis Not Reportable Spherocytes Not Reportable Pappenheimer Bodies Not Reportable Sickle Cells Not Reportable Target Cells Few Tear Drop Cells Not Reportable Ovalocytes Not Reportable Helmet Cells Not Reportable Quint[place] Bodies Not Reportable [place] Rings Not Reportable [place] Cells Not Reportable Bite Cells Not Reportable Crenated Cell Not Reportable Elliptocytes Not Reportable Acanthocytes (Spur) Not Reportable Rouleaux Not Reportable Hemoglobin C Crystals Not Reportable Schistocytes Rare Malaria parasites Not Reportable Carlo Bodies Not Reportable Hem Pathologist Commnt No PT 15.0 H (12.2-14.9) Sec. INR 1.06 (0.87-1.13) Sodium 136 L (137-145) mmol/L Potassium 3.5 L (3.6-5.0) mmol/L Chloride 110.9 H (98-107) mmol/L Carbon Dioxide 7 L* (22-30) mmol/L Anion Gap 22 mmol/L BUN 41 H (7-17) mg/dL Creatinine 1.8 H (0.6-1.2) mg/dL Estimated GFR 38 ml/min BUN/Creatinine Ratio 23 % Glucose 91 (65-100) mg/dL Calcium 8.5 (8.4-10.2) mg/dL Total Bilirubin 0.20 (0.1-1.2) mg/dL AST 54 H (5-40) units/L ALT 25 (7-56) units/L Alkaline Phosphatase 372 H (35-129) units/L Ammonia (25-60) umol/L Total Creatine Kinase (30-135) units/L CK-MB (CK-2) (0.0-4.0) ng/mL CK-MB (CK-2) Rel Index (0-4) Troponin T (0.00-0.029) ng/mL Total Protein 9.2 H (6.3-8.2) g/dL Albumin 3.8 L (3.9-5) g/dL Albumin/Globulin Ratio 0.7 % Triglycerides (2-149) mg/dL Cholesterol (50-199) mg/dL LDL Cholesterol Direct (50-130) mg/dL HDL Cholesterol (40-59) mg/dL Cholesterol/HDL Ratio % Plasma/Serum Alcohol (0-0.07) % 05/16/21 05/16/21 05/16/21 Range/Units 22:53 22:53 22:53 WBC (4.5-11.0) K/mm3 RBC (3.65-5.03) M/mm3 Hgb (10.1-14.3) gm/dl Hct (30.3-42.9) % MCV (79-97) fl MCH (28-32) pg MCHC (30-34) % RDW (13.2-15.2) % Plt Count (140-440) K/mm3 Add Manual Diff Total Counted Seg Neuts % (Manual) (40.0-70.0) % Lymphocytes % (Manual) (13.4-35.0) % Monocytes % (Manual) (0.0-7.3) % Eosinophils % (Manual) (0.0-4.3) % Nucleated RBC % Seg Neutrophils # Man (1.8-7.7) K/mm3 Band Neutrophils # K/mm3 Lymphocytes # (Manual) (1.2-5.4) K/mm3 Abs React Lymphs (Man) K/mm3 Monocytes # (Manual) (0.0-0.8) K/mm3 Eosinophils # (Manual) (0.0-0.4) K/mm3 Basophils # (Manual) (0.0-0.1) K/mm3 Metamyelocytes # K/mm3 Myelocytes # K/mm3 Promyelocytes # K/mm3 Blast Cells # K/mm3 WBC Morphology Hypersegmented Neuts Hyposegmented Neuts Hypogranular Neuts Smudge Cells Toxic Granulation Toxic Vacuolation Dohle Bodies Pelger-Huet Anomaly Doyle Rods Platelet Estimate Clumped Platelets Plt Clumps, EDTA Large Platelets Giant Platelets Platelet Satelliting Plt Morphology Comment RBC Morphology Dimorphic RBCs Polychromasia Hypochromasia Poikilocytosis Anisocytosis Microcytosis Macrocytosis Spherocytes Pappenheimer Bodies Sickle Cells Target Cells Tear Drop Cells Ovalocytes Helmet Cells Quint[place]-Henry Bodies [place] Rings [place] Cells Bite Cells Crenated Cell Elliptocytes Acanthocytes (Spur) Rouleaux Hemoglobin C Crystals Schistocytes Malaria parasites Carlo Bodies Hem Pathologist Commnt PT (12.2-14.9) Sec. INR (0.87-1.13) Sodium (137-145) mmol/L Potassium (3.6-5.0) mmol/L Chloride (98-107) mmol/L Carbon Dioxide (22-30) mmol/L Anion Gap mmol/L BUN (7-17) mg/dL Creatinine (0.6-1.2) mg/dL Estimated GFR ml/min BUN/Creatinine Ratio % Glucose (65-100) mg/dL Calcium (8.4-10.2) mg/dL Total Bilirubin (0.1-1.2) mg/dL AST (5-40) units/L ALT (7-56) units/L Alkaline Phosphatase (35-129) units/L Ammonia 60.0 (25-60) umol/L Total Creatine Kinase (30-135) units/L CK-MB (CK-2) (0.0-4.0) ng/mL CK-MB (CK-2) Rel Index (0-4) Troponin T 0.062 H (0.00-0.029) ng/mL Total Protein (6.3-8.2) g/dL Albumin (3.9-5) g/dL Albumin/Globulin Ratio % Triglycerides 96 (2-149) mg/dL Cholesterol 138 (50-199) mg/dL LDL Cholesterol Direct 75 (50-130) mg/dL HDL Cholesterol 46 (40-59) mg/dL Cholesterol/HDL Ratio 3.00 % Plasma/Serum Alcohol < 0.01 (0-0.07) % // Range/Units 22:53 WBC (4.5-11.0) K/mm3 RBC (3.65-5.03) M/mm3 Hgb (10.1-14.3) gm/dl Hct (30.3-42.9) % MCV (79-97) fl MCH (28-32) pg MCHC (30-34) % RDW (13.2-15.2) % Plt Count (140-440) K/mm3 Add Manual Diff Total Counted Seg Neuts % (Manual) (40.0-70.0) % Lymphocytes % (Manual) (13.4-35.0) % Monocytes % (Manual) (0.0-7.3) % Eosinophils % (Manual) (0.0-4.3) % Nucleated RBC % Seg Neutrophils # Man (1.8-7.7) K/mm3 Band Neutrophils # K/mm3 Lymphocytes # (Manual) (1.2-5.4) K/mm3 Abs React Lymphs (Man) K/mm3 Monocytes # (Manual) (0.0-0.8) K/mm3 Eosinophils # (Manual) (0.0-0.4) K/mm3 Basophils # (Manual) (0.0-0.1) K/mm3 Metamyelocytes # K/mm3 Myelocytes # K/mm3 Promyelocytes # K/mm3 Blast Cells # K/mm3 WBC Morphology Hypersegmented Neuts Hyposegmented Neuts Hypogranular Neuts Smudge Cells Toxic Granulation Toxic Vacuolation Dohle Bodies Pelger-Huet Anomaly Doyle Rods Platelet Estimate Clumped Platelets Plt Clumps, EDTA Large Platelets Giant Platelets Platelet Satelliting Plt Morphology Comment RBC Morphology Dimorphic RBCs Polychromasia Hypochromasia Poikilocytosis Anisocytosis Microcytosis Macrocytosis Spherocytes Pappenheimer Bodies Sickle Cells Target Cells Tear Drop Cells Ovalocytes Helmet Cells Quintana-Henry Bodies [place] Rings [place] Cells Bite Cells Crenated Cell Elliptocytes Acanthocytes (Spur) Rouleaux Hemoglobin C Crystals Schistocytes Malaria parasites Carlo Bodies Hem Pathologist Commnt PT (12.2-14.9) Sec. INR (0.87-1.13) Sodium (137-145) mmol/L Potassium (3.6-5.0) mmol/L Chloride (98-107) mmol/L Carbon Dioxide (22-30) mmol/L Anion Gap mmol/L BUN (7-17) mg/dL Creatinine (0.6-1.2) mg/dL Estimated GFR ml/min BUN/Creatinine Ratio % Glucose (65-100) mg/dL Calcium (8.4-10.2) mg/dL Total Bilirubin (0.1-1.2) mg/dL AST (5-40) units/L ALT (7-56) units/L Alkaline Phosphatase (35-129) units/L Ammonia (25-60) umol/L Total Creatine Kinase 2655 H (30-135) units/L CK-MB (CK-2) 55.7 H (0.0-4.0) ng/mL CK-MB (CK-2) Rel Index 2.0 (0-4) Troponin T (0.00-0.029) ng/mL Total Protein (6.3-8.2) g/dL Albumin (3.9-5) g/dL Albumin/Globulin Ratio % Triglycerides (2-149) mg/dL Cholesterol (50-199) mg/dL LDL Cholesterol Direct (50-130) mg/dL HDL Cholesterol (40-59) mg/dL Cholesterol/HDL Ratio % Plasma/Serum Alcohol (0-0.07) % - EKG Data -: EKG Interpreted by Me EKG shows normal: sinus rhythm, axis, intervals, QRS complexes, ST-T waves Rate: tachycardia (130 bpm) - EKG Data When compared to previous EKG there are: no significant change Interpretation: unchanged when compared t (02/25/21) - Radiology Data Radiology results: report reviewed, image reviewed interpreted by me: Chest x-ray does not show any acute process. There are no pleural effusions, obvious pneumonia and there is no pneumothorax. CT HEAD WITHOUT CONTRAST INDICATION / CLINICAL INFORMATION: Altered Mental Status. TECHNIQUE: All CT scans at this location are performed using CT dose reduction for ALARA by means of automated exposure control. COMPARISON: 02/25/2021 FINDINGS: No acute intracranial hemorrhage. Ventricles are normal in size without midline shift or mass effect. Areas of periventricular low-attenuation. There is also some low attenuation within the right frontoparietal region. This appears unchanged since February 25. Mild low attenuation within the left frontal white matter slightly more prominent than the right. No acute hemorrhage is seen. ADDITIONAL FINDINGS: None. IMPRESSION: 1. Areas of low-attenuation in the periventricular white matter. There is also a low attenuation within the left frontal white matter and right frontal parietal region. If there is concern for acute ischemic change MRI is recommended. Patient has had multiple scans in the last several months. - Medical Decision Making This patient initially presented to the emergency department via EMS with report of a possible overdose. The patient does take oral morphine for lupus pain. She received Narcan in route and slowly became more awake and alert. By the time she arrived to the emergency department she was arousable to the point wh ere she could answer some questions appropriately. However, shortly afterwards, the patient does go back to sleep if not continuously stimulated. She did not have any obvious deficits. Heart and lung sounds are normal to auscultation but the patient does have tachycardia. EKG shows sinus tachycardia without morphology consistent with ST elevation myocardial infarction. Chest x-ray does not show any pneumonia, pleural effusions, pneumothorax, focal consolidation, widened mediastinum, or any other acute process. CT of the head without contrast does not show any large vessel occlusion, hemorr derrick, or any other acute process. Patient's labs shows a leukocytosis of 15,000, some mild MOSES, rhabdomyolysis with a CK of about 2500, elevated troponin of 0.06, bicarb level of 7. Patient was given IV fluid resuscitation, a second dose of Narcan when she became sedated again, and a dose of sodium bicarbonate. She will be admitted to the hospital for further evaluation and treatment and was accepted for admission by the hospitalist, Dr. Jernigan. Critical Care Time: Yes Critical care time in (mins) excluding proc time.: 31 Critical care attestation.: If time is entered above; I have spent that time in minutes in the direct care of this critically ill patient, excluding procedure time. Critical care time was spent on this patient in doing her initial evaluation, multiple reevaluations, ordering and interpretation of labs and imaging, IV fluid resuscitation, sodium bicarbonate, Narcan, and discussion with the hospitalist service. Critical Care Time: 31 minutes ED Disposition Clinical Impression: Acute metabolic encephalopathy, Elevated troponin, MOSES (acute kidney injury), Low bicarbonate level Lupus (systemic lupus erythematosus) Qualifiers: Systemic lupus erythematosus type: unspecified Systemic lupus erythematosus organ involvement: unspecified Qualified Code(s): M32.9 - Systemic lupus erythematosus, unspecified Rhabdomyolysis Qualifiers: Rhabdomyolysis type: non-traumatic Qualified Code(s): M62.82 - Rhabdomyolysis Disposition: 09 ADMITTED INPATIENT Is pt being admited?: Yes Condition: Serious Time of Disposition: 01:42
[2021-05-16] MEDS ORDERED: SODIUM CHLORIDE 0.9% 1000 ML 1,000 ML ONE (23:11)
[2021-05-16] MEDS ORDERED: NALOXONE 2 MG/2 ML INJ ONE (23:12)
[2021-05-16 23:22] LABS: Hematocrit 35.7 % (30.3-42.9); Mean Corpuscular HGB Conc 31 % (30-34); Mean Corpuscular Volume 79 fl (79-97); Platelet Count 300 K/mm3 (140-440); Red Cell Distribution Width 18.2 % (13.2-15.2)
[2021-05-16 23:31] LABS: INR 1.06 (0.87-1.13)
[2021-05-16 23:37] LABS: Albumin 3.8 g/dL (3.9-5); Calcium 8.5 mg/dL (8.4-10.2)
--- NOTE | 2021-05-16 23:52 | XRay Report ---
CHEST 1 VIEW 05/16/2021 10:43 PM INDICATION / CLINICAL INFORMATION: AMS. COMPARISON: March thousand 21 FINDINGS: SUPPORT DEVICES: None. HEART / MEDIASTINUM: No significant abnormality. LUNGS / PLEURA: No significant pulmonary or pleural abnormality. No pneumothorax. ADDITIONAL FINDINGS: Degenerative change in the right humeral head is unchanged IMPRESSION: 1. No acute findings. Signer Name: Silver Membreno MD Signed: 05/16/2021 11:47 PM Workstation Name: [id number]
[2021-05-17] MEDS ORDERED: NALOXONE 2 MG/2 ML INJ IV ONE
[2021-05-17] MEDS ORDERED: NALOXONE 0.4 MG/1 ML INJ IV ONE
--- NOTE | 2021-05-17 00:55 | History and Physical Report ---
History of Present Illness Date of examination: 05/17/21 Date of admission: 05/17/21 Chief complaint: unresponsive History of present illness: This is a 40-year-old -[place] female seen in ED at bedside. The ED record, patient presents to the emergency department via EMS from her residence after she was found unresponsive with a suspicion for an opiate overdose. 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 Patient was sent to have taking oral morphine. EMS gave the patient Narcan and she became awake and alert in route. Patient deep asleep at the time of assessment but easy to arouse.CT of the head done only shows area of low attenuation in the periventricular white matter th ere is also area where low-attenuation within the left frontal white matter and the right frontal lobe perietal region. MRI has been recommended to rule out acute stroke. Past History Past Medical History: other (hx of lupus) Past Surgical History: No surgical history Social history: prescription drug abuse, full code Family history: no significant family history Medications and Allergies Allergies Allergy/AdvReac Type Severity Reaction Status Date / Time codeine Allergy Unknown Verified 02/16/21 23:21 Penicillins Allergy Swelling Verified 07/22/19 16:38 strawberry Allergy Unknown Verified 02/16/21 23:21 Home Medications Medication Instructions Recorded Confirmed Last Taken Type Calcium Carbonate [Oscal 1250MG 1,250 mg PO TID tablet 08/19/19 Unknown Rx TAB] Famotidine [Pepcid] 10 mg PO BID tablet 08/19/19 Unknown Rx Folic Acid/Vit B Comp W-C [Renal 1 cap PO QDAY capsule 08/19/19 Unknown Rx Caps] Hydrocortisone [Cortef TAB] 10 mg PO Q12HR tablet 08/19/19 Unknown Rx Loperamide [Imodium] 2 mg PO Q2H PRN capsule 08/19/19 Unknown Rx Magnesium Oxide [Mag-Ox] 400 mg PO BID tablet 08/19/19 Unknown Rx Pot Phosphate/Na Phosphate 1 each PO Q12HR powd.pack 08/19/19 Unknown Rx [Phos-Nak] Potassium Chloride [K-Dur] 30 meq PO QDAY tablet 08/19/19 Unknown Rx calcitrioL [Rocaltrol] 1 mcg PO QDAY capsule 08/19/19 Unknown Rx oxyCODONE /ACETAMINOPHEN [Percocet 1 tab PO Q6H PRN #14 tablet 08/19/19 Unknown Rx 5/325 mg] Linezolid 600 mg PO BID #14 tablet 08/20/19 Unknown Rx Review of Systems Constitutional: anorexia, fatigue, weakness Ears, nose, mouth and throat: no epistaxis, no bleeding gums Integumentary: no pruritis, no redness, no sores Exam - Constitutional Vitals: Temp Pulse Resp BP Pulse Ox 98.2 F 127 H 13 109/68 98 05/16/21 18:32 05/16/21 19:15 05/16/21 19:15 05/16/21 19:15 05/16/21 19:15 General appearance: Present: mild distress, cachectic, other (Patient looks unkept) - EENT Eyes: Present: PERRL ENT: hearing intact, clear oral mucosa - Neck Neck: Present: supple, normal ROM - Respiratory Respiratory effort: normal Respiratory: bilateral: CTA - Cardiovascular Heart Sounds: Present: S1 & S2. Absent: rub, click - Extremities Extremities: pulses symmetrical, No edema Peripheral Pulses: within normal limits - Abdominal General gastrointestinal: Present: soft, non-tender, non-distended, normal bowel sounds Female genitourinary: Present: normal - Integumentary Integumentary: Present: clear, warm, dry - Musculoskeletal Musculoskeletal: gait normal, strength equal bilaterally - Psychiatric Psychiatric: appropriate mood/affect, intact judgment & insight - Neurologic Neurologic: CNII-XII intact, moves all extremities - Allied Health Allied health notes reviewed: nursing HEART Score - HEART Score Troponin: Troponin T 0.062 ng/mL (0.00-0.029) H 05/16/21 22:53 Results - Labs CBC & Chem 7: 05/16/21 22:53 05/16/21 22:53 Labs: Abnormal lab results 05/16/21 05/16/21 05/16/21 Range/Units 22:53 22:53 22:53 WBC 15.4 H (4.5-11.0) K/mm3 MCH 25 L (28-32) pg RDW 18.2 H (13.2-15.2) % PT 15.0 H (12.2-14.9) Sec. Sodium 136 L (137-145) mmol/L Potassium 3.5 L (3.6-5.0) mmol/L Chloride 110.9 H (98-107) mmol/L Carbon Dioxide 7 L* (22-30) mmol/L BUN 41 H (7-17) mg/dL Creatinine 1.8 H (0.6-1.2) mg/dL AST 54 H (5-40) units/L Alkaline Phosphatase 372 H (35-129) units/L Troponin T (0.00-0.029) ng/mL Total Protein 9.2 H (6.3-8.2) g/dL Albumin 3.8 L (3.9-5) g/dL 05/16/21 Range/Units 22:53 WBC (4.5-11.0) K/mm3 MCH (28-32) pg RDW (13.2-15.2) % PT (12.2-14.9) Sec. Sodium (137-145) mmol/L Potassium (3.6-5.0) mmol/L Chloride (98-107) mmol/L Carbon Dioxide (22-30) mmol/L BUN (7-17) mg/dL Creatinine (0.6-1.2) mg/dL AST (5-40) units/L Alkaline Phosphatase (35-129) units/L Troponin T 0.062 H (0.00-0.029) ng/mL Total Protein (6.3-8.2) g/dL Albumin (3.9-5) g/dL Assessment and Plan - Patient Problems (1) MOSES (acute kidney injury) Current Visit: Yes Status: Acute Plan to address problem: Likely secondary to dehydration Continue IV hydration with normal saline Monitor kidney function Avoid nephrotoxic drugs (2) Encephalopathy Current Visit: No Status: Acute Plan to address problem: Likely secondary to drug overdose Patient was given Narcan and the ED record patient was awake on the way to the hospital after Narcan (3) Exacerbation of systemic lupus erythematosus Current Visit: No Status: Acute Plan to address problem: Supportive care (4) Leukocytosis Current Visit: Yes Status: Acute Plan to address problem: ? course no evidence of infection/likely reactive Patient has normal temperature Repeat WBCstart empiric antibiotic if needed (5) Low bicarbonate level Current Visit: Yes Status: Acute Plan to address problem: Continue IV hydration Patient given bicarb in the ED Repeat BMP results pending monitor bicarbonate level-we will give amp of bicarb if needed (6) Hypokalemia Current Visit: No Status: Acute Plan to address problem: Monitor electrolytes levels Replace as needed (7) Hyponatremia Current Visit: No Status: Acute Plan to address problem: Mildlikely secondary to dehydration Continue IV hydration and monitor sodium level (8) DVT prophylaxis Current Visit: Yes Status: Acute Plan to address problem: Metabolic acidosis subcutaneous heparin
[2021-05-17] MEDS ORDERED: SODIUM BICARB 8.4% 50 MEQ/50 ML SYRINGE IV ONE (01:10)
[2021-05-17 01:11] LABS: Anisocytosis 1+; Hypochromasia 1+; Schistocytes Rare; Target Cells Few; Total Cells Counted 100
--- NOTE | 2021-05-17 01:21 | Cat Scan Report ---
CT HEAD WITHOUT CONTRAST INDICATION / CLINICAL INFORMATION: Altered Mental Status. TECHNIQUE: All CT scans at this location are performed using CT dose reduction for ALARA by means of automated e xposure control. COMPARISON: 02/25/2021 FINDINGS: No acute intracranial hemorrhage. Ventricles are normal in size without midline shift or mass effect. Areas of periventricular low-attenuation. There is also some low attenuation within the right fronto parietal region. This appears unchanged since February 25. Mild low attenuation within the left frontal white matter slightly more prominent than the right. No acute hemorrhage is seen. ADDITIONAL FINDINGS: None. IMPRESSION: 1. Areas of low-attenuation in the periventricular white matter. There is also a low attenuation with in the left frontal white matter and right frontal parietal region. If there is concern for acute isc hemic change MRI is recommended. Patient has had multiple scans in the last several months. Signer Name: Silver Membreno MD Signed: 05/17/2021 1:17 AM Workstation Name: [id number]
[2021-05-17 01:45] LABS: Creatine Kinase MB 55.7 ng/mL (0.0-4.0)
[2021-05-17] MEDS ORDERED: SENNOSIDES 8.6 MG TAB PO PRN (03:51)
[2021-05-17] MEDS ORDERED: oxyCODONE /ACETAMINOPHEN 5-325MG TAB PO PRN (03:51)
[2021-05-17] MEDS ORDERED: ALUM-MAG HYDROXIDE-SIMETHICONE 200-200-20MG/5ML ORAL LIQD 30 ML PO PRN (03:51)
[2021-05-17] MEDS ORDERED: ACETAMINOPHEN 325 MG TAB PO PRN (03:51)
[2021-05-17] MEDS ORDERED: ONDANSETRON 4 MG/2 ML INJ IV PRN (03:51)
[2021-05-17] MEDS ORDERED: NALOXONE 0.4 MG/1 ML INJ IV PRN (03:51)
[2021-05-17] MEDS ORDERED: MAGNESIUM HYDROXIDE (MOM) ORAL LIQD UDC PO PRN (03:51)
[2021-05-17] MEDS ORDERED: METOCLOPRAMIDE 10 MG/2 ML INJ IV PRN ×2 (03:51→04:04)
[2021-05-17] MEDS ORDERED: ALBUTEROL 2.5 MG/3 ML NEBU IH PRN (03:51)
[2021-05-17] MEDS ORDERED: traMADol 50 MG TAB PO PRN (03:56)
[2021-05-17] MEDS ORDERED: SODIUM CHLORIDE 0.9% 1000 ML 1,000 ML IV SCH (04:00)
--- NOTE | 2021-05-17 08:45 | Progress Note ---
Assessment and Plan Assessment and plan: HPI: This is a 40-year-old -[place] female seen in ED at bedside. The ED record, patient presents to the emergency department via EMS from her residence after she was found unresponsive with a suspicion for an opiate overdose. 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 Patient was sent to have taking oral morphine. EMS gave the patient Narcan and she became awake and alert in route. Patient deep asleep at the time of assessment but easy to arouse.CT of the head done only shows area of low attenuation in the periventricular white matter there is also area where low-attenuation within the left frontal white matter and the right frontal lobe perietal region. MRI has been recommended to rule out acute stroke. Hospital Course to date: 05/17: MRI pending. Encephalopathy resolving. Pending psychiatric evaluation. Home health care coordinated with case management. Anticipate discharge in next 24 to 48 hours. Assessment and Plan (1) MOSES (acute kidney injury) Current Visit: Yes Status: Acute Plan to address problem: Likely secondary to pre-renal azotemia Continue IV hydration with normal saline Monitor kidney function Avoid nephrotoxic drugs (2) Encephalopathy Current Visit: No Status: Acute Plan to address problem: Likely secondary to drug overdose Patient was given Narcan and the ED record patient was awake on the way to the hospital after Narcan MRI pending to r/o stroke (3) Exacerbation of systemic lupus erythematosus Current Visit: No Status: Acute Plan to address problem: Supportive care (4) Leukocytosis Current Visit: Yes Status: Acute Plan to address problem: Likely reactive (5) Low bicarbonate level Current Visit: Yes Status: Acute Plan to address problem: Continue IV hydration Patient given bicarb in the ED Repeat BMP results pending monitor bicarbonate level-we will give amp of bicarb if needed (6) Hypokalemia Current Visit: No Status: Acute Plan to address problem: Monitor electrolytes levels Replace as needed (7) Hyponatremia Current Visit: No Status: Acute Plan to address problem: Mildlikely secondary to dehydration Continue IV hydration and monitor sodium level (8) DVT prophylaxis Current Visit: Yes Status: Acute Plan to address problem: Metabolic acidosis subcutaneous heparin History Interval history: No acute complaints. Stated that she is hungry. Hospitalist Physical - Physical exam Narrative exam: Physical Exam: VITAL SIGNS: Reviewed. GENERAL: The patient appears normally developed, Vital signs as documented. HEAD: No signs of head trauma. EYES: Pupils are equal. Extraocular motions intact. EARS: Hearing grossly intact. MOUTH: Oropharynx is normal. NECK: No adenopathy, no JVD. CHEST: Chest with clear breath sounds bilaterally. No wheezes, rales, or rhonchi. CARDIAC: Regular rate and rhythm. S1 and S2, without murmurs, gallops, or rubs. VASCULAR: No Edema. Peripheral pulses normal and equal in all extremities. ABDOMEN: Soft, non tender and non distended. No rebound or guarding, and no masses palpated. Bowel Sounds normal. MUSCULOSKELETAL: Good range of motion of all major joints. Extremities without clubbing, cyanosis or edema. NEUROLOGIC EXAM: Alert no focal sensory or strength deficits. PSYCHIATRIC: Mood normal. SKIN: detail exam as documented in skin assessment - Constitutional Vitals: Temp Pulse Resp BP Pulse Ox 98.2 F 115 H 11 L 119/64 100 05/16/21 18:32 05/17/21 06:01 05/17/21 06:01 05/17/21 06:01 05/17/21 06:01 General appearance: Present: mild distress, cachectic, other (Patient looks unk ept) HEART Score - HEART Score Troponin: Troponin T 0.062 ng/mL (0.00-0.029) H 05/16/21 22:53 Results - Labs CBC & Chem 7: 05/17/21 10:32 05/17/21 10:32 Labs: Laboratory Last Values WBC 15.4 K/mm3 (4.5-11.0) H 05/16/21 22:53 RBC 4.50 M/mm3 (3.65-5.03) 05/16/21 22:53 Hgb 11.0 gm/dl (10.1-14.3) 05/16/21 22:53 Hct 35.7 % (30.3-42.9) 05/16/21 22:53 MCV 79 fl (79-97) 05/16/21 22:53 MCH 25 pg (28-32) L 05/16/21 22:53 MCHC 31 % (30-34) 05/16/21 22:53 RDW 18.2 % (13.2-15.2) H 05/16/21 22:53 Plt Count 300 K/mm3 (140-440) 05/16/21 22:53 Add Manual Diff Complete 05/16/21 22:53 Total Counted 100 05/16/21 22:53 Seg Neuts % (Manual) 77.0 % (40.0-70.0) H 05/16/21 22:53 Lymphocytes % (Manual) 11.0 % (13.4-35.0) L 05/16/21 22:53 Monocytes % (Manual) 11.0 % (0.0-7.3) H 05/16/21 22:53 Eosinophils % (Manual) 1.0 % (0.0-4.3) 05/16/21 22:53 Nucleated RBC % Not Reportable 05/16/21 22:53 Seg Neutrophils # Man 11.9 K/mm3 (1.8-7.7) H 05/16/21 22:53 Band Neutrophils # 0.0 K/mm3 05/16/21 22:53 Lymphocytes # (Manual) 1.7 K/mm3 (1.2-5.4) 05/16/21 22:53 Abs React Lymphs (Man) 0.0 K/mm3 05/16/21 22:53 Monocytes # (Manual) 1.7 K/mm3 (0.0-0.8) H 05/16/21 22:53 Eosinophils # (Manual) 0.2 K/mm3 (0.0-0.4) 05/16/21 22:53 Basophils # (Manual) 0.0 K/mm3 (0.0-0.1) 05/16/21 22:53 Metamyelocytes # 0.0 K/mm3 05/16/21 22:53 Myelocytes # 0.0 K/mm3 05/16/21 22:53 Promyelocytes # 0.0 K/mm3 05/16/21 22:53 Blast Cells # 0.0 K/mm3 05/16/21 22:53 WBC Morphology Not Reportable 05/16/21 22:53 Hypersegmented Neuts Not Reportable 05/16/21 22:53 Hyposegmented Neuts Not Reportable 05/16/21 22:53 Hypogranular Neuts Not Reportable 05/16/21 22:53 Smudge Cells Not Reportable 05/16/21 22:53 Toxic Granulation Not Reportable 05/16/21 22:53 Toxic Vacuolation Not Reportable 05/16/21 22:53 Dohle Bodies Not Reportable 05/16/21 22:53 Pelger-Huet Anomaly Not Reportable 05/16/21 22:53 Doyle Rods Not Reportable 05/16/21 22:53 Platelet Estimate Not Reportable 05/16/21 22:53 Clumped Platelets Not Reportable 05/16/21 22:53 Plt Clumps, EDTA Not Reportable 05/16/21 22:53 Large Platelets Not Reportable 05/16/21 22:53 Giant Platelets Not Reportable 05/16/21 22:53 Platelet Satelliting Not Reportable 05/16/21 22:53 Plt Morphology Comment Not Reportable 05/16/21 22:53 RBC Morphology Not Reportable 05/16/21 22:53 Dimorphic RBCs Not Reportable 05/16/21 22:53 Polychromasia Not Reportable 05/16/21 22:53 Hypochromasia 1+ 05/16/21 22:53 Poikilocytosis Not Reportable 05/16/21 22:53 Anisocytosis 1+ 05/16/21 22:53 Microcytosis Not Reportable 05/16/21 22:53 Macrocytosis Not Reportable 05/16/21 22:53 Spherocytes Not Reportable 05/16/21 22:53 Pappenheimer Bodies Not Reportable 05/16/21 22:53 Sickle Cells Not Reportable 05/16/21 22:53 Target Cells Few 05/16/21 22:53 Tear Drop Cells Not Reportable 05/16/21 22:53 Ovalocytes Not Reportable 05/16/21 22:53 Helmet Cells Not Reportable 05/16/21 22:53 Quintana-Boaz Bodies Not Reportable 05/16/21 22:53 [place] Rings Not Reportable 05/16/21 22:53 Dina Cells Not Reportable 05/16/21 22:53 Bite Cells Not Reportable 05/16/21 22:53 Crenated Cell Not Reportable 05/16/21 22:53 Elliptocytes Not Reportable 05/16/21 22:53 Acanthocytes (Spur) Not Reportable 05/16/21 22:53 Rouleaux Not Reportable 05/16/21 22:53 Hemoglobin C Crystals Not Reportable 05/16/21 22:53 Schistocytes Rare 05/16/21 22:53 Malaria parasites Not Reportable 05/16/21 22:53 Carlo Bodies Not Reportable 05/16/21 22:53 Hem Pathologist Commnt No 05/16/21 22:53 PT 15.0 Sec. (12.2-14.9) H 05/16/21 22:53 INR 1.06 (0.87-1.13) 05/16/21 22:53 Sodium 136 mmol/L (137-145) L 05/16/21 22:53 Potassium 3.5 mmol/L (3.6-5.0) L 05/16/21 22:53 Chloride 110.9 mmol/L (98-107) H 05/16/21 22:53 Carbon Dioxide 7 mmol/L (22-30) L* 05/16/21 22:53 Anion Gap 22 mmol/L 05/16/21 22:53 BUN 41 mg/dL (7-17) H 05/16/21 22:53 Creatinine 1.8 mg/dL (0.6-1.2) H 05/16/21 22:53 Estimated GFR 38 ml/min 05/16/21 22:53 BUN/Creatinine Ratio 23 % 05/16/21 22:53 Glucose 91 mg/dL (65-100) 05/16/21 22:53 Hemoglobin A1c 5.2 % (4-6) 05/16/21 22:53 Calcium 8.5 mg/dL (8.4-10.2) 05/16/21 22:53 Total Bilirubin 0.20 mg/dL (0.1-1.2) 05/16/21 22:53 AST 54 units/L (5-40) H 05/16/21 22:53 ALT 25 units/L (7-56) 05/16/21 22:53 Alkaline Phosphatase 372 units/L (35-129) H 05/16/21 22:53 Ammonia 60.0 umol/L (25-60) 05/16/21 22:53 Total Creatine Kinase 2655 units/L (30-135) H 05/16/21 22:53 CK-MB (CK-2) 55.7 ng/mL (0.0-4.0) H 05/16/21 22:53 CK-MB (CK-2) Rel Index 2.0 (0-4) 05/16/21 22:53 Troponin T 0.062 ng/mL (0.00-0.029) H 05/16/21 22:53 Total Protein 9.2 g/dL (6.3-8.2) H 05/16/21 22:53 Albumin 3.8 g/dL (3.9-5) L 05/16/21 22:53 Albumin/Globulin Ratio 0.7 % 05/16/21 22:53 Triglycerides 96 mg/dL (2-149) 05/16/21 22:53 Cholesterol 138 mg/dL (50-199) 05/16/21 22:53 LDL Cholesterol Direct 75 mg/dL (50-130) 05/16/21 22:53 HDL Cholesterol 46 mg/dL (40-59) 05/16/21 22:53 Cholesterol/HDL Ratio 3.00 % 05/16/21 22:53 Plasma/Serum Alcohol < 0.01 % (0-0.07) 05/16/21 22:53 Active Medications - Current Medications Current Medications: Generic Name Dose Route Start Last Admin Trade Name Freq PRN Reason Stop Dose Admin Acetaminophen 650 mg 05/17/21 03:51 Acetaminophen 325 Mg Tab PO Q4H PRN Pain MILD(1-3)/Fever >100.5/MARIO Al Hydrox/Mg Hydrox/Simethicone 30 ml 05/17/21 03:51 Alum-Mag Hydroxide-Simethicone [id number]/5ml Oral Liqd 30 Ml PO Q4H PRN Indigestion Albuterol 2.5 mg 05/17/21 03:51 Albuterol 2.5 Mg/3 Ml Nebu IH Q4HRT PRN Shortness Of Breath Famotidine 10 mg 05/17/21 10:00 Famotidine 20 Mg/2 Ml Inj IV BID SHEKHAR Heparin Sodium (Porcine) 5,000 unit 05/17/21 10:00 Heparin 5,000 Unit/1 Ml Vial SUB-Q Q12HR SHEKHAR Sodium Chloride 1,000 mls @ 75 mls/hr 05/17/21 04:00 Nacl 0.9% 1000 Ml IV DIRECT SHEKHAR Magnesium Hydroxide 30 ml 05/17/21 03:51 Magnesium Hydroxide (Mom) Oral Liqd Udc PO Q4H PRN Constipation Metoclopramide HCl 5 mg 05/17/21 04:04 Metoclopramide 10 Mg/2 Ml Inj IV Q6H PRN Nausea And Vomiting Naloxone HCl 0.1 mg 05/17/21 03:51 Naloxone 0.4 Mg/1 Ml Inj IV Q2MIN PRN Res Rate </= 8 or 02 SAT < 92% Ondansetron HCl 4 mg 05/17/21 03:51 Ondansetron 4 Mg/2 Ml Inj IV Q8H PRN Nausea And Vomiting Oxycodone/Acetaminophen 1 tab 05/17/21 03:51 Oxycodone /Acetaminophen 5-325mg Tab PO Q6H PRN Pain, Moderate (4-6) Senna 8.6 mg 05/17/21 03:51 Sennosides 8.6 Mg Tab PO Q12HR PRN Constipation Sodium Chloride 10 ml 05/17/21 10:00 Sodium Chloride 0.9% 10 Ml Flush Syringe IV BID SHEKHAR Sodium Chloride 10 ml 05/17/21 03:51 Sodium Chloride 0.9% 10 Ml Flush Syringe IV PRN PRN LINE FLUSH Tramadol HCl 50 mg 05/17/21 03:56 Tramadol 50 Mg Tab PO Q4H PRN Pain, Moderate (4-6)
[2021-05-17] MEDS ORDERED: FAMOTIDINE 20 MG/2 ML INJ IV SCH (10:00)
[2021-05-17 11:03] LABS: Calcium 8.4 mg/dL (8.4-10.2)
[2021-05-17 11:09] LABS: Basophils # (Auto) 0.1 K/mm3 (0.0-0.1); Basophils % (Auto) 0.5 % (0.0-1.8); Eosinophils # (Auto) 0.4 K/mm3 (0.0-0.4); Eosinophils % (Auto) 3.1 % (0.0-4.3); Hematocrit 33.6 % (30.3-42.9); Lymphocytes # (Auto) 2.2 K/mm3 (1.2-5.4); Lymphocytes % (Auto) 19.4 % (13.4-35.0); Mean Corpuscular HGB Conc 30 % (30-34); Mean Corpuscular Volume 81 fl (79-97); Monocytes % (Auto) 8.7 % (0.0-7.3); Platelet Count 273 K/mm3 (140-440); Red Blood Count 4.18 M/mm3 (3.65-5.03); Red Cell Distribution Width 18.4 % (13.2-15.2)
[2021-05-17] MEDS: FAMOTIDINE 20 MG/2 ML INJ IV SCH ×2 (13:31→22:27)
[2021-05-17] MEDS: HEPARIN 5,000 UNIT/1 ML VIAL SUB-Q SCH ×2 (13:32→22:27)
--- NOTE | 2021-05-17 15:50 | Consultation ---
History of Present Illness Consult date: 05/17/21 History of present illness: This is a 40-year-old -[place] female seen in ED at bedside. The ED record, patient presents to the emergency department via EMS from her residence after she was found unresponsive with a suspicion for an opiate overdose. 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 Patient was sent to have taking oral morphine. EMS gave the patient Narcan and she became awake and alert in route. Patient deep asleep at the time of assessment but easy to arouse.CT of the head done only shows area of low attenuation in the periventricular white matter there is also area where low-attenuation within the left frontal white matter and the right frontal lobe perietal region. MRI has been recommended to rule out acute stroke. The patient is responsive today , reports no issues . No seizures . Patient reports taking pain medication. Past History Past Medical History: other (hx of lupus) Past Surgical History: No surgical history Social history: prescription drug abuse, full code Family history: no significant family history Medications and Allergies Allergies Allergy/AdvReac Type Severity Reaction Status Date / Time codeine Allergy Unknown Verified 02/16/21 23:21 Penicillins Allergy Swelling Verified 07/22/19 16:38 strawberry Allergy Unknown Verified 02/16/21 23:21 Home Medications Medication Instructions Recorded Confirmed Last Taken Type Calcium Carbonate [Oscal 1250MG 1,250 mg PO TID tablet 08/19/19 Unknown Rx TAB] Famotidine [Pepcid] 10 mg PO BID tablet 08/19/19 Unknown Rx Folic Acid/Vit B Comp W-C [Renal 1 cap PO QDAY capsule 08/19/19 Unknown Rx Caps] Hydrocortisone [Cortef TAB] 10 mg PO Q12HR tablet 08/19/19 Unknown Rx Loperamide [Imodium] 2 mg PO Q2H PRN capsule 08/19/19 Unknown Rx Magnesium Oxide [Mag-Ox] 400 mg PO BID tablet 08/19/19 Unknown Rx Pot Phosphate/Na Phosphate 1 each PO Q12HR powd.pack 08/19/19 Unknown Rx [Phos-Nak] Potassium Chloride [K-Dur] 30 meq PO QDAY tablet 08/19/19 Unknown Rx calcitrioL [Rocaltrol] 1 mcg PO QDAY capsule 08/19/19 Unknown Rx oxyCODONE /ACETAMINOPHEN [Percocet 1 tab PO Q6H PRN #14 tablet 08/19/19 Unknown Rx 5/325 mg] Linezolid 600 mg PO BID #14 tablet 08/20/19 Unknown Rx Active Meds: Active Medications Acetaminophen (Acetaminophen 325 Mg Tab) 650 mg PO Q4H PRN PRN Reason: Pain MILD(1-3)/Fever >100.5/MARIO Al Hydrox/Mg Hydrox/Simethicone (Alum-Mag Hydroxide-Simethicone [id number]/5ml Oral Liqd 30 Ml) 30 ml PO Q4H PRN PRN Reason: Indigestion Albuterol (Albuterol 2.5 Mg/3 Ml Nebu) 2.5 mg IH Q4HRT PRN PRN Reason: Shortness Of Breath Famotidine (Famotidine 20 Mg/2 Ml Inj) 10 mg IV BID [facility] Last Admin: 05/17/21 13:31 Dose: 10 mg Documented by: Heparin Sodium (Porcine) (Heparin 5,000 Unit/1 Ml Vial) 5,000 unit SUB-Q Q12HR [facility] Last Admin: 05/17/21 13:32 Dose: 5,000 unit Documented by: Sodium Chloride (Nacl 0.9% 1000 Ml) 1,000 mls @ 75 mls/hr IV DIRECT SHEKHAR Magnesium Hydroxide (Magnesium Hydroxide (Mom) Oral Liqd Udc) 30 ml PO Q4H PRN PRN Reason: Constipation Metoclopramide HCl (Metoclopramide 10 Mg/2 Ml Inj) 5 mg IV Q6H PRN PRN Reason: Nausea And Vomiting Naloxone HCl (Naloxone 0.4 Mg/1 Ml Inj) 0.1 mg IV Q2MIN PRN PRN Reason: Res Rate </= 8 or 02 SAT < 92% Ondansetron HCl (Ondansetron 4 Mg/2 Ml Inj) 4 mg IV Q8H PRN PRN Reason: Nausea And Vomiting Oxycodone/Acetaminophen (Oxycodone /Acetaminophen 5-325mg Tab) 1 tab PO Q6H PRN PRN Reason: Pain, Moderate (4-6) Senna (Sennosides 8.6 Mg Tab) 8.6 mg PO Q12HR PRN PRN Reason: Constipation Sodium Chloride (Sodium Chloride 0.9% 10 Ml Flush Syringe) 10 ml IV BID [facility] Last Admin: 05/17/21 13:32 Dose: 10 ml Documented by: Sodium Chloride (Sodium Chloride 0.9% 10 Ml Flush Syringe) 10 ml IV PRN PRN PRN Reason: LINE FLUSH Tramadol HCl (Tramadol 50 Mg Tab) 50 mg PO Q4H PRN PRN Reason: Pain, Moderate (4-6) Physical Examination - Vital Signs Vital Signs: Vital Signs Temp Pulse Resp BP Pulse Ox 98.2 F 136 H 14 101/65 94 05/16/21 18:32 05/16/21 18:32 05/16/21 18:32 05/16/21 18:32 05/16/21 18:32 - Physical Exam Narrative exam: The patient is alert, moves all 4 extremities . Gait is not tested . No cranial nerve abnormality noted . Results - Laboratory Findings CBC and BMP: 05/17/21 10:32 05/17/21 10:32 Abnormal Lab Findings: Abnormal Labs 05/16/21 05/16/21 05/16/21 22:53 22:53 22:53 WBC 15.4 H Hgb MCH 25 L RDW 18.2 H [place] % (Auto) [place] # (Auto) Seg Neuts % (Manual) 77.0 H Lymphocytes % (Manual) 11.0 L Monocytes % (Manual) 11.0 H Seg Neutrophils # Seg Neutrophils # Man 11.9 H Monocytes # (Manual) 1.7 H PT 15.0 H Sodium 136 L Potassium 3.5 L Chloride 110.9 H Carbon Dioxide 7 L* BUN 41 H Creatinine 1.8 H AST 54 H Alkaline Phosphatase 372 H Total Creatine Kinase CK-MB (CK-2) Troponin T Total Protein 9.2 H Albumin 3.8 L 05/16/21 05/16/21 05/17/21 22:53 22:53 10:32 WBC 11.4 H Hgb 10.0 L MCH 24 L RDW 18.4 H [place] % (Auto) 8.7 H [place] # (Auto) 1.0 H Seg Neuts % (Manual) Lymphocytes % (Manual) Monocytes % (Manual) Seg Neutrophils # 7.8 H Seg Neutrophils # Man Monocytes # (Manual) PT Sodium Potassium Chloride Carbon Dioxide BUN Creatinine AST Alkaline Phosphatase Total Creatine Kinase 2655 H CK-MB (CK-2) 55.7 H Troponin T 0.062 H Total Protein Albumin 05/17/21 10:32 WBC Hgb MCH RDW [place] % (Auto) [place] # (Auto) Seg Neuts % (Manual) Lymphocytes % (Manual) Monocytes % (Manual) Seg Neutrophils # Seg Neutrophils # Man Monocytes # (Manual) PT Sodium 135 L Potassium 3.4 L Chloride 109.1 H Carbon Dioxide 9 L* BUN 39 H Creatinine 1.5 H AST Alkaline Phosphatase Total Creatine Kinase CK-MB (CK-2) Troponin T Total Protein Albumin Assessment and Plan 1. Encephalopathy ( Head CT no bleed , patient reports cannot do an MRI since she is cluastrophobic - since clinically improved and CT Brain is stable we can hold off the MRI Brain ). 2. Needs a close monitering of Pain Medications and close follow up with Pain Management . 3. No further Recommendations from Neurology . 4. Call Back with Question . Dr. Kelly
--- NOTE | 2021-05-17 19:12 | Electrocardiograph Report ---
[facility] Test Date: 2021-05-16 Test Time: 18:58:49 Pat Name: ELYSE RODARTE Department: Room: A392 1 Gender: F [employer] Former: JUJU : 1980 Requested By: LANDEN REAVES Order Number: [id number] Reading MD: Malia Mac Measurements Intervals [place] Rate: 130 P: [place]: QRS: 24 QRSD: 68 T: QT: 320 QTc: 472 Interpretive Statements Sinus tachycardia Compared to ECG 02/25/2021 01:27:35 No significant change Electronically Signed On 05-17-2021 19:12:15 EDT by Malia Mac
[2021-05-17] MEDS: traZODone 50 MG TAB PO PRN (23:28)
[2021-05-18 05:24] LABS: Alanine Aminotransferase 33 units/L (7-56); Albumin 3.2 g/dL (3.9-5); BUN/Creatinine Ratio 28; Blood Urea Nitrogen 34 mg/dL (7-17); Calcium 7.9 mg/dL (8.4-10.2); Hemolysis Index 6
[2021-05-18 05:27] LABS: Hematocrit 31.2 % (30.3-42.9); Hemoglobin 10.1 gm/dl (10.1-14.3); Mean Corpuscular HGB Conc 32 % (30-34); Mean Corpuscular Volume 79 fl (79-97); Platelet Count 235 K/mm3 (140-440); Red Blood Count 3.94 M/mm3 (3.65-5.03); Red Cell Distribution Width 17.6 % (13.2-15.2)
[2021-05-18 07:50] LABS: Total Cells Counted 100
[2021-05-18 07:51] LABS: Anisocytosis 1+; Burr Cells 1+; Hypochromasia 1+; Platelet Estimate Consistent w Auto; Poikilocytosis 2+; Target Cells 1+
--- NOTE | 2021-05-18 08:18 | Progress Note ---
Assessment and Plan Assessment and plan: HPI: This is a 40-year-old -[place] female seen in ED at bedside. The ED record, patient presents to the emergency department via EMS from her residence after she was found unresponsive with a suspicion for an opiate overdose. 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 Patient was sent to have taking oral morphine. EMS gave the patient Narcan and she became awake and alert in route. Patient deep asleep at the time of assessment but easy to arouse.CT of the head done only shows area of low attenuation in the periventricular white matter there is also area where low-attenuation within the left frontal white matter and the right frontal lobe perietal region. MRI has been recommended to rule out acute stroke. Hospital Course to date: 05/17: MRI pending. Encephalopathy resolving. Pending psychiatric evaluation. Home health care coordinated with case management. Anticipate discharge in next 24 to 48 hours. 05/18: Neuro ok with holding off on MRI due to resolving encephalopathy and patient refusal due to claustrophobia. Awaiting [facility] recommendations. Assessment and Plan (1) MOSES (acute kidney injury) Current Visit: Yes Status: Acute Plan to address problem: Likely secondary to pre-renal azotemia Continue IV hydration with normal saline Monitor kidney function Avoid nephrotoxic drugs (2) Encephalopathy Current Visit: No Status: Acute Plan to address problem: Likely secondary to drug overdose Patient was given Narcan and the ED record patient was awake on the way to the hospital after Narcan MRI pending to r/o stroke (3) Exacerbation of systemic lupus erythematosus Current Visit: No Status: Acute Plan to address problem: Supportive care (4) Leukocytosis Current Visit: Yes Status: Acute Plan to address problem: Likely reactive (5) Low bicarbonate level Current Visit: Yes Status: Acute Plan to address problem: Continue IV hydration Patient given bicarb in the ED Repeat BMP results pending monitor bicarbonate level-we will give amp of bicarb if needed (6) Hypokalemia Current Visit: No Status: Acute Plan to address problem: Monitor electrolytes levels Replace as needed (7) Hyponatremia Current Visit: No Status: Acute Plan to address problem: Mildlikely secondary to dehydration Continue IV hydration and monitor sodium level (8) DVT prophylaxis Current Visit: Yes Status: Acute Plan to address problem: Metabolic acidosis subcutaneous heparin Hospitalist Physical - Constitutional Vitals: Temp Pulse Resp BP Pulse Ox 99.6 F 105 H 18 106/70 97 05/18/21 05:05 05/18/21 05:05 05/18/21 05:05 05/18/21 05:05 05/18/21 05:05 General appearance: Present: mild distress, cachectic, other (Patient looks unkept) HEART Score - HEART Score Troponin: Troponin T 0.062 ng/mL (0.00-0.029) H 05/16/21 22:53 Results - Labs CBC & Chem 7: 05/18/21 04:00 05/18/21 04:00 Labs: Laboratory Last Values WBC 8.5 K/mm3 (4.5-11.0) 05/18/21 04:00 RBC 3.94 M/mm3 (3.65-5.03) 05/18/21 04:00 Hgb 10.1 gm/dl (10.1-14.3) 05/18/21 04:00 Hct 31.2 % (30.3-42.9) 05/18/21 04:00 MCV 79 fl (79-97) 05/18/21 04:00 MCH 26 pg (28-32) L 05/18/21 04:00 MCHC 32 % (30-34) 05/18/21 04:00 RDW 17.6 % (13.2-15.2) H 05/18/21 04:00 Plt Count 235 K/mm3 (140-440) 05/18/21 04:00 Lymph % (Auto) 19.4 % (13.4-35.0) 05/17/21 10:32 Citrus % (Auto) Anode Builder 05/18/21 04:00 Eos % (Auto) 3.1 % (0.0-4.3) 05/17/21 10:32 Baso % (Auto) 0.5 % (0.0-1.8) 05/17/21 10:32 Lymph # (Auto) 2.2 K/mm3 (1.2-5.4) 05/17/21 10:32 Citrus # (Auto) 1.0 K/mm3 (0.0-0.8) H 05/17/21 10:32 Eos # (Auto) 0.4 K/mm3 (0.0-0.4) 05/17/21 10:32 Baso # (Auto) 0.1 K/mm3 (0.0-0.1) 05/17/21 10:32 Add Manual Diff Complete 05/18/21 04:00 Total Counted 100 05/18/21 04:00 Seg Neutrophils % 68.3 % (40.0-70.0) 05/17/21 10:32 Seg Neuts % (Manual) 66.0 % (40.0-70.0) 05/18/21 04:00 Lymphocytes % (Manual) 21.0 % (13.4-35.0) 05/18/21 04:00 Monocytes % (Manual) 6.0 % (0.0-7.3) 05/18/21 04:00 Eosinophils % (Manual) 7.0 % (0.0-4.3) H 05/18/21 04:00 Nucleated RBC % 3.0 % (0.0-0.9) H 05/18/21 04:00 Seg Neutrophils # 7.8 K/mm3 (1.8-7.7) H 05/17/21 10:32 Seg Neutrophils # Man 5.6 K/mm3 (1.8-7.7) 05/18/21 04:00 Band Neutrophils # 0.0 K/mm3 05/18/21 04:00 Lymphocytes # (Manual) 1.8 K/mm3 (1.2-5.4) 05/18/21 04:00 Abs React Lymphs (Man) 0.0 K/mm3 05/18/21 04:00 Monocytes # (Manual) 0.5 K/mm3 (0.0-0.8) 05/18/21 04:00 Eosinophils # (Manual) 0.6 K/mm3 (0.0-0.4) H 05/18/21 04:00 Basophils # (Manual) 0.0 K/mm3 (0.0-0.1) 05/18/21 04:00 Metamyelocytes # 0.0 K/mm3 05/18/21 04:00 Myelocytes # 0.0 K/mm3 05/18/21 04:00 Promyelocytes # 0.0 K/mm3 05/18/21 04:00 Blast Cells # 0.0 K/mm3 05/18/21 04:00 WBC Morphology Not Reportable 05/18/21 04:00 Hypersegmented Neuts Not Reportable 05/18/21 04:00 Hyposegmented Neuts Not Reportable 05/18/21 04:00 Hypogranular Neuts Not Reportable 05/18/21 04:00 Smudge Cells Not Reportable 05/18/21 04:00 Toxic Granulation Not Reportable 05/18/21 04:00 Toxic Vacuolation Not Reportable 05/18/21 04:00 Dohle Bodies Not Reportable 05/18/21 04:00 Pelger-Huet Anomaly Not Reportable 05/18/21 04:00 Doyle Rods Not Reportable 05/18/21 04:00 Platelet Estimate Consistent w auto 05/18/21 04:00 Clumped Platelets Not Reportable 05/18/21 04:00 Plt Clumps, EDTA Not Reportable 05/18/21 04:00 Large Platelets Not Reportable 05/18/21 04:00 Giant Platelets Not Reportable 05/18/21 04:00 Platelet Satelliting Not Reportable 05/18/21 04:00 Plt Morphology Comment Not Reportable 05/18/21 04:00 RBC Morphology Not Reportable 05/18/21 04:00 Dimorphic RBCs Not Reportable 05/18/21 04:00 Polychromasia Not Reportable 05/18/21 04:00 Hypochromasia 1+ 05/18/21 04:00 Poikilocytosis 2+ 05/18/21 04:00 Anisocytosis 1+ 05/18/21 04:00 Microcytosis Not Reportable 05/18/21 04:00 Macrocytosis Not Reportable 05/18/21 04:00 Spherocytes Not Reportable 05/18/21 04:00 Pappenheimer Bodies Not Reportable 05/18/21 04:00 Sickle Cells Not Reportable 05/18/21 04:00 Target Cells 1+ 05/18/21 04:00 Tear Drop Cells Not Reportable 05/18/21 04:00 Ovalocytes Not Reportable 05/18/21 04:00 Helmet Cells Not Reportable 05/18/21 04:00 [place] Bodies Not Reportable 05/18/21 04:00 [place] Rings Not Reportable 05/18/21 04:00 [place] Cells 1+ 05/18/21 04:00 Bite Cells Not Reportable 05/18/21 04:00 Crenated Cell Not Reportable 05/18/21 04:00 Elliptocytes Not Reportable 05/18/21 04:00 Acanthocytes (Spur) Not Reportable 05/18/21 04:00 Rouleaux Not Reportable 05/18/21 04:00 Hemoglobin C Crystals Not Reportable 05/18/21 04:00 Schistocytes Not Reportable 05/18/21 04:00 Malaria parasites Not Reportable 05/18/21 04:00 Carlo Bodies Not Reportable 05/18/21 04:00 Hem Pathologist Commnt No 05/18/21 04:00 PT 15.0 Sec. (12.2-14.9) H 05/16/21 22:53 INR 1.06 (0.87-1.13) 05/16/21 22:53 Sodium 136 mmol/L (137-145) L 05/18/21 04:00 Potassium 2.6 mmol/L (3.6-5.0) L* D 05/18/21 04:00 Chloride 110.5 mmol/L (98-107) H 05/18/21 04:00 Carbon Dioxide 10 mmol/L (22-30) L 05/18/21 04:00 Anion Gap 18 mmol/L 05/18/21 04:00 BUN 34 mg/dL (7-17) H 05/18/21 04:00 Creatinine 1.2 mg/dL (0.6-1.2) 05/18/21 04:00 Estimated GFR > 60 ml/min 05/18/21 04:00 BUN/Creatinine Ratio 28 % 05/18/21 04:00 Glucose 118 mg/dL (65-100) H 05/18/21 04:00 Hemoglobin A1c 5.2 % (4-6) 05/16/21 22:53 Calcium 7.9 mg/dL (8.4-10.2) L 05/18/21 04:00 Total Bilirubin 0.20 mg/dL (0.1-1.2) 05/18/21 04:00 AST 80 units/L (5-40) H 05/18/21 04:00 ALT 33 units/L (7-56) 05/18/21 04:00 Alkaline Phosphatase 324 units/L (35-129) H 05/18/21 04:00 Ammonia 60.0 umol/L (25-60) 05/16/21 22:53 Total Creatine Kinase 2655 units/L (30-135) H 05/16/21 22:53 CK-MB (CK-2) 55.7 ng/mL (0.0-4.0) H 05/16/21 22:53 CK-MB (CK-2) Rel Index 2.0 (0-4) 05/16/21 22:53 Troponin T 0.062 ng/mL (0.00-0.029) H 05/16/21 22:53 Total Protein 8.1 g/dL (6.3-8.2) 05/18/21 04:00 Albumin 3.2 g/dL (3.9-5) L 05/18/21 04:00 Albumin/Globulin Ratio 0.7 % 05/18/21 04:00 Triglycerides 96 mg/dL (2-149) 05/16/21 22:53 Cholesterol 138 mg/dL (50-199) 05/16/21 22:53 LDL Cholesterol Direct 75 mg/dL (50-130) 05/16/21 22:53 HDL Cholesterol 46 mg/dL (40-59) 05/16/21 22:53 Cholesterol/HDL Ratio 3.00 % 05/16/21 22:53 Plasma/Serum Alcohol < 0.01 % (0-0.07) 05/16/21 22:53 Meyer/IV: Voiding Method Bedpan Active Medications - Current Medications Current Medications: Generic Name Dose Route Start Last Admin Trade Name Freq PRN Reason Stop Dose Admin Acetaminophen 650 mg 05/17/21 03:51 Acetaminophen 325 Mg Tab PO Q4H PRN Pain MILD(1-3)/Fever >100.5/MARIO Al Hydrox/Mg Hydrox/Simethicone 30 ml 05/17/21 03:51 Alum-Mag Hydroxide-Simethicone [phone]/[phone] Oral Liqd 30 Ml PO Q4H PRN Indigestion Albuterol 2.5 mg 05/17/21 03:51 Albuterol 2.5 Mg/3 Ml Nebu IH Q4HRT PRN Shortness Of Breath Famotidine 10 mg 05/17/21 10:00 05/17/21 22:27 Famotidine 20 Mg/2 Ml Inj IV 10 mg BID SHEKHAR Administration Heparin Sodium (Porcine) 5,000 unit 05/17/21 10:00 05/17/21 22:27 Heparin 5,000 Unit/1 Ml Vial SUB-Q 5,000 unit Q12HR SHEKHAR Administration Sodium Chloride 1,000 mls @ 75 mls/hr 05/17/21 04:00 Nacl 0.9% 1000 Ml IV DIRECT SHEKHAR Magnesium Hydroxide 30 ml 05/17/21 03:51 Magnesium Hydroxide (Mom) Oral Liqd Udc PO Q4H PRN Constipation Metoclopramide HCl 5 mg 05/17/21 04:04 Metoclopramide 10 Mg/2 Ml Inj IV Q6H PRN Nausea And Vomiting Naloxone HCl 0.1 mg 05/17/21 03:51 Naloxone 0.4 Mg/1 Ml Inj IV Q2MIN PRN Res Rate </= 8 or 02 SAT < 92% Ondansetron HCl 4 mg 05/17/21 03:51 Ondansetron 4 Mg/2 Ml Inj IV Q8H PRN Nausea And Vomiting Oxycodone/Acetaminophen 1 tab 05/17/21 03:51 Oxycodone /Acetaminophen 5-325mg Tab PO Q6H PRN Pain, Moderate (4-6) Potassium Chloride 40 meq 05/18/21 08:00 Potassium Chloride Er 20 Meq Tab PO 05/18/21 11:01 Q3H SHEKHAR Senna 8.6 mg 05/17/21 03:51 Sennosides 8.6 Mg Tab PO Q12HR PRN Constipation Sodium Chloride 10 ml 05/17/21 10:00 05/17/21 22:28 Sodium Chloride 0.9% 10 Ml Flush Syringe IV 10 ml BID SHEKHAR Administration Sodium Chloride 10 ml 05/17/21 03:51 Sodium Chloride 0.9% 10 Ml Flush Syringe IV PRN PRN LINE FLUSH Tramadol HCl 50 mg 05/17/21 03:56 Tramadol 50 Mg Tab PO Q4H PRN Pain, Moderate (4-6) Trazodone HCl 50 mg 05/17/21 23:13 05/17/21 23:28 Trazodone 50 Mg Tab PO 50 mg QHS PRN Administration Sleep
[2021-05-18] MEDS: POTASSIUM CHLORIDE ER 20 MEQ TAB PO SCH ×2 (08:56→11:00)
[2021-05-18] MEDS: FAMOTIDINE 20 MG/2 ML INJ IV SCH (09:01)
[2021-05-18] MEDS: HEPARIN 5,000 UNIT/1 ML VIAL SUB-Q SCH ×2 (09:03→22:17)
[2021-05-18] MEDS: FAMOTIDINE 20 MG TAB PO SCH ×2 (09:05→22:16)
--- NOTE | 2021-05-18 12:44 | Consultation ---
History of Present Illness - Reason for Consult Consult date: 05/18/21 Reason for consult: OD - History of Present Psychiatric Illness The patient was seen today. A sitter is at bedside. She is in bed eating a salad, and talking on the phone. She gets off to speak with me. She is calm, cooperative and pleasant. She greets me and smiles during the encounter. She says "they say I took too many morphine pills." The patient says she has Lupus and stays in a lot of pain. She denies attempting to harm herself in any way. The patient says "I wasn't trying to hurt myself. I love living." She says "that's why I was upset when I woke up here." She says "I live in a [facility] and they give us out meds so I don't understand." She says "I pray and try to stay in an upbeat spirit, so, no, I wasn't trying to kill myself." She denies any illicit drug use or alcohol. She also denies any past suicidal attempts. She says she has a history of anxiety and takes xanax. She denies hallucinations of any kind. PAST PSYCHIATRIC HISTORY: Diagnoses: Anxiety Suicide attempts or Self-harm behavior: Denies Prior psychiatric hospitalizations: Denies Substance Abuse history: Denies Previous psychiatric medications tried: Xanax Outpatient treatment: Denies PAST MEDICAL HISTORY: None reported or document Family Psychiatric History: None reported or documented SOCIAL HISTORY Marital Status: Single Living Arrangements: residential Employment Status: retired Access to guns/weapons: Denies Education: History of Abuse:Yes Legal History: Denies REVIEW OF SYSTEMS Constitutional: Negative for weight loss ENT: Negative for stridor Respiratory: Negative for cough or hemoptysis All other systems reviewed and are negative MENTAL STATUS EXAMINATION General Appearance and Behavior: Age appropriate, good hygiene, wearing appropr iate clothes. calm, cooperative, pleasant Cooperation: cooperative Psychomotor Behavior: Psychomotor normal Mood: good Affect and affective range: congruent with stated mood Thought Process: Goal directed Thought Content: None Speech: Normal volume, Regular rate and rhythm, Suicidal Ideation: Denies Homicidal Ideation: Denies Hallucinations: Denies Delusions: None elicited Impulse Control: Unimpaired Insight and Judgment: Limited Memory: Normal Attention: Attentive Orientation: alert and oriented Assessment and Plan (1) Unintentional Overdose Current Visit: Yes Status: Acute Treatment Plan D/c 1013 Continue previously prescribed meds Sitter: per primary Medical: Per primary Disposition: Do not recommend acute inpatient psychiatric treatment Will sign off. Thanks Case staffed with Dr. Newman. Medications and Allergies Allergies Allergy/AdvReac Type Severity Reaction Status Date / Time codeine Allergy Unknown Verified 02/16/21 23:21 Penicillins Allergy Swelling Verified 07/22/19 16:38 strawberry Allergy Unknown Verified 02/16/21 23:21 Home Medications Medication Instructions Recorded Confirmed Last Taken Type Calcium Carbonate [Oscal 1250MG 1,250 mg PO TID tablet 08/19/19 Unknown Rx TAB] Famotidine [Pepcid] 10 mg PO BID tablet 08/19/19 Unknown Rx Folic Acid/Vit B Comp W-C [Renal 1 cap PO QDAY capsule 08/19/19 Unknown Rx Caps] Hydrocortisone [Cortef TAB] 10 mg PO Q12HR tablet 08/19/19 Unknown Rx Loperamide [Imodium] 2 mg PO Q2H PRN capsule 08/19/19 Unknown Rx Magnesium Oxide [Mag-Ox] 400 mg PO BID tablet 08/19/19 Unknown Rx Pot Phosphate/Na Phosphate 1 each PO Q12HR powd.pack 08/19/19 Unknown Rx [Phos-Nak] Potassium Chloride [K-Dur] 30 meq PO QDAY tablet 08/19/19 Unknown Rx calcitrioL [Rocaltrol] 1 mcg PO QDAY capsule 08/19/19 Unknown Rx oxyCODONE /ACETAMINOPHEN [Percocet 1 tab PO Q6H PRN #14 tablet 08/19/19 Unknown Rx 5/325 mg] Linezolid 600 mg PO BID #14 tablet 08/20/19 Unknown Rx Active Meds: Active Medications Acetaminophen (Acetaminophen 325 Mg Tab) 650 mg PO Q4H PRN PRN Reason: Pain MILD(1-3)/Fever >100.5/MARIO Al Hydrox/Mg Hydrox/Simethicone (Alum-Mag Hydroxide-Simethicone [phone]/5ml Oral Liqd 30 Ml) 30 ml PO Q4H PRN PRN Reason: Indigestion Albuterol (Albuterol 2.5 Mg/3 Ml Nebu) 2.5 mg IH Q4HRT PRN PRN Reason: Shortness Of Breath Famotidine (Famotidine 20 Mg Tab) 20 mg PO BID [facility] Last Admin: 05/18/21 09:05 Dose: 20 mg Documented by: Heparin Sodium (Porcine) (Heparin 5,000 Unit/1 Ml Vial) 5,000 unit SUB-Q Q12HR [facility] Last Admin: 05/18/21 09:03 Dose: 5,000 unit Documented by: Sodium Chloride (Nacl 0.9% 1000 Ml) 1,000 mls @ 75 mls/hr IV DIRECT [facility] Magnesium Hydroxide (Magnesium Hydroxide (Mom) Oral Liqd Udc) 30 ml PO Q4H PRN PRN Reason: Constipation Metoclopramide HCl (Metoclopramide 10 Mg/2 Ml Inj) 5 mg IV Q6H PRN PRN Reason: Nausea And Vomiting Naloxone HCl (Naloxone 0.4 Mg/1 Ml Inj) 0.1 mg IV Q2MIN PRN PRN Reason: Res Rate </= 8 or 02 SAT < 92% Ondansetron HCl (Ondansetron 4 Mg/2 Ml Inj) 4 mg IV Q8H PRN PRN Reason: Nausea And Vomiting Oxycodone/Acetaminophen (Oxycodone /Acetaminophen 5-325mg Tab) 1 tab PO Q6H PRN PRN Reason: Pain, Moderate (4-6) Senna (Sennosides 8.6 Mg Tab) 8.6 mg PO Q12HR PRN PRN Reason: Constipation Sodium Chloride (Sodium Chloride 0.9% 10 Ml Flush Syringe) 10 ml IV BID [facility] Last Admin: 05/18/21 09:02 Dose: 10 ml Documented by: Sodium Chloride (Sodium Chloride 0.9% 10 Ml Flush Syringe) 10 ml IV PRN PRN PRN Reason: LINE FLUSH Tramadol HCl (Tramadol 50 Mg Tab) 50 mg PO Q4H PRN PRN Reason: Pain, Moderate (4-6) Trazodone HCl (Trazodone 50 Mg Tab) 50 mg PO QHS PRN PRN Reason: Sleep Last Admin: 05/17/21 23:28 Dose: 50 mg Documented by: Mental Status Exam - Vital signs Last Vital Signs Temp 99.6 F 05/18/21 05:05 Pulse 105 H 05/18/21 05:05 Resp 18 05/18/21 05:05 BP 106/70 05/18/21 05:05 Pulse Ox 97 05/18/21 05:05 Results Result Diagrams: 05/18/21 04:00 05/18/21 04:00 Abnormal lab results 05/18/21 05/18/21 Range/Units 04:00 04:00 MCH 26 L (28-32) pg RDW 17.6 H (13.2-15.2) % Eosinophils % (Manual) 7.0 H (0.0-4.3) % Nucleated RBC % 3.0 H (0.0-0.9) % Eosinophils # (Manual) 0.6 H (0.0-0.4) K/mm3 Sodium 136 L (137-145) mmol/L Potassium 2.6 L* D (3.6-5.0) mmol/L Chloride 110.5 H (98-107) mmol/L Carbon Dioxide 10 L (22-30) mmol/L BUN 34 H (7-17) mg/dL Glucose 118 H (65-100) mg/dL Calcium 7.9 L (8.4-10.2) mg/dL AST 80 H (5-40) units/L Alkaline Phosphatase 324 H (35-129) units/L Albumin 3.2 L (3.9-5) g/dL All other labs normal.
--- NOTE | 2021-05-18 15:43 | Discharge Summary ---
Providers - Providers Date of Admission: 05/17/21 01:42 Date of discharge: 05/18/21 Attending physician: PATY GUZMAN MD 05/17/21 03:51 Consult to Physician [CONS] Stat Comment: Consulting Provider: DAVON ARGUETA Physician Instructions: Reason For Exam: AMS 05/17/21 09:22 Consult to Mental Health [CONS] Urgent Reason For Exam: Overdose 05/18/21 08:16 Consult to Physician [CONS] Routine Comment: Consulting Provider: MONSTER LONG Physician Instructions: Reason For Exam: mental health eval for overdose 05/18/21 10:45 Consult to Wound/ET Nurse [CONS] Routine Reason For Exam: wound eval Primary care physician: CLAIMS CONSULTANT Hospitalization Reason for admission: ams Condition: Serious Hospital course: HPI: This is a 40-year-old -[place] female seen in ED at bedside. The ED record, patient presents to the emergency department via EMS from her residence after she was found unresponsive with a suspicion for an opiate overdose. 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 Patient was sent to have taking oral morphine. EMS gave the patient Narcan and she became awake and alert in route. Patient deep asleep at the time of assessment but easy to arouse.CT of the head done only shows area of low attenuation in the periventricular white matter there is also area where low-attenuation within the left frontal white matter and the right frontal lobe perietal region. MRI has been recommended to rule out acute stroke. Hospital Course to date: 05/17: MRI pending. Encephalopathy resolving. Pending psychiatric evaluation. Home health care coordinated with case management. Anticipate discharge in next 24 to 48 hours. 05/18: Neuro ok with holding off on MRI due to resolving encephalopathy and patient refusal due to claustrophobia. Psychiatry states that patient did not have a suicide attempt. Patient can be discharge home and does not need inpatient or OP psych services. 1013 d/c. Will d/c home today. An appointment for wound care has been arranged by lead case manager for lower extremity wounds noted this hospitalization. Patient is advised to avoid all opioids and controlled substances. She was also advised to follow up with a primary care doctor in 3-5 days to discuss this hospitalization. Assessment and Plan (1) MOSES (acute kidney injury) Current Visit: Yes Status: Acute Plan to address problem: Likely secondary to pre-renal azotemia Continue IV hydration with normal saline Monitor kidney function Avoid nephrotoxic drugs (2) Encephalopathy Current Visit: No Status: Acute Plan to address problem: Likely secondary to drug overdose Patient was given Narcan and the ED record patient was awake on the way to the hospital after Narcan MRI pending to r/o stroke (3) Exacerbation of systemic lupus erythematosus Current Visit: No Status: Acute Plan to address problem: Supportive care (4) Leukocytosis Current Visit: Yes Status: Acute Plan to address problem: Likely reactive (5) Low bicarbonate level Current Visit: Yes Status: Acute Plan to address problem: Continue IV hydration Patient given bicarb in the ED Repeat BMP results pending monitor bicarbonate level-we will give amp of bicarb if needed (6) Hypokalemia Current Visit: No Status: Acute Plan to address problem: Monitor electrolytes levels Replace as needed (7) Hyponatremia Current Visit: No Status: Acute Plan to address problem: Mildlikely secondary to dehydration Continue IV hydration and monitor sodium level (8) DVT prophylaxis Current Visit: Yes Status: Acute Plan to address problem: Metabolic acidosis subcutaneous heparin Disposition: HOME / SELF CARE / HOMELESS Final Discharge Diagnosis (Prints w/discharge instructions): Overdose Time spent for discharge: 35 - Discharge Diagnoses (1) Acute metabolic encephalopathy Status: Acute Core Measure Documentation - Palliative Care Palliative Care/ Comfort Measures: Not Applicable - Core Measures Any of the following diagnoses?: none Exam - Physical Exam Narrative exam: Physical Exam: VITAL SIGNS: Reviewed. GENERAL: The patient appears normally developed, Vital signs as documented. HEAD: No signs of head trauma. EYES: Pupils are equal. Extraocular motions intact. EARS: Hearing grossly intact. MOUTH: Oropharynx is normal. NECK: No adenopathy, no JVD. CHEST: Chest with clear breath sounds bilaterally. No wheezes, rales, or rhonchi. CARDIAC: Regular rate and rhythm. S1 and S2, without murmurs, gallops, or rubs. VASCULAR: No Edema. Peripheral pulses normal and equal in all extremities. ABDOMEN: Soft, non tender and non distended. No rebound or guarding, and no masses palpated. Bowel Sounds normal. MUSCULOSKELETAL: Good range of motion of all major joints. Extremities without clubbing, cyanosis or edema. NEUROLOGIC EXAM: Alert no focal sensory or strength deficits. PSYCHIATRIC: Mood normal. SKIN: detail exam as documented in skin assessment - Constitutional Vitals: Temp Pulse Resp BP Pulse Ox 99.8 F H 111 H 18 108/68 98 05/18/21 13:32 05/18/21 13:32 05/18/21 13:32 05/18/21 13:32 05/18/21 13:32 Plan Activity: advance as tolerated Weight Bearing Status: Weight Bear as Tolerated Follow up with: PRIMARY CARE, [Primary Care Provider] - 7 Days
[2021-05-18] MEDS: traZODone 50 MG TAB PO PRN (22:16)
[2021-05-18 22:32] VITALS: BP 107/67
--- NOTE | 2021-05-19 08:54 | Progress Note ---
Assessment and Plan Assessment and plan: This is a 40-year-old -Citizen Of [place] female seen in ED at bedside. The ED record, patient presents to the emergency department via EMS from her residence after she was found unresponsive with a suspicion for an opiate overdose. 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 Patient was sent to have taking oral morphine. EMS gave the patient Narcan and she became awake and alert in route. Patient deep asleep at the time of assessment but easy to arouse.CT of the head done only shows area of low attenuation in the periventricular white matter there is also area where low-attenuation within the left frontal white matter and the right frontal lobe perietal region. MRI has been recommended to rule out acute stroke. Hospital Course to date: 05/17: MRI pending. Encephalopathy resolving. Pending psychiatric evaluation. Home health care coordinated with case management. Anticipate discharge in next 24 to 48 hours. 05/18: Neuro ok with holding off on MRI due to resolving encephalopathy and pa tient refusal due to claustrophobia. Psychiatry states that patient did not have a suicide attempt. Patient can be discharge home and does not need inpatient or OP psych services. 1013 d/c. Will d/c home today. An appointment for wound care has been arranged by social work case manager for lower extremity wounds noted this hospitalization. Patient is advised to avoid all opioids and controlled substances. She was also advised to follow up with a primary care doctor in 3-5 days to discuss this hospitalization. 05/19: Patient is medically clear for discharge. Assessment and Plan (1) MOSES (acute kidney injury) Current Visit: Yes Status: Acute Plan to address problem: Likely secondary to pre-renal azotemia Continue IV hydration with normal saline Monitor kidney function Avoid nephrotoxic drugs (2) Encephalopathy Current Visit: No Status: Acute Plan to address problem: Likely secondary to drug overdose Patient was given Narcan and the ED record patient was awake on the way to the hospital after Narcan MRI pending to r/o stroke (3) Exacerbation of systemic lupus erythematosus Current Visit: No Status: Acute Plan to address problem: Supportive care (4) Leukocytosis Current Visit: Yes Status: Acute Plan to address problem: Likely reactive (5) Low bicarbonate level Current Visit: Yes Status: Acute Plan to address problem: Continue IV hydration Patient given bicarb in the ED Repeat BMP results pending monitor bicarbonate level-we will give amp of bicarb if needed (6) Hypokalemia Current Visit: No Status: Acute Plan to address problem: Monitor electrolytes levels Replace as needed (7) Hyponatremia Current Visit: No Status: Acute Plan to address problem: Mildlikely secondary to dehydration Continue IV hydration and monitor sodium level (8) DVT prophylaxis Current Visit: Yes Status: Acute Plan to address problem: Metabolic acidosis subcutaneous heparin - Patient Problems (1) Acute metabolic encephalopathy Current Visit: Yes Status: Acute History Interval history: no acute complaints. Hospitalist Physical - Physical exam Narrative exam: Physical Exam: VITAL SIGNS: Reviewed. GENERAL: The patient appears normally developed, Vital signs as documented. HEAD: No signs of head trauma. EYES: Pupils are equal. Extraocular motions intact. EARS: Hearing grossly intact. MOUTH: Oropharynx is normal. NECK: No adenopathy, no JVD. CHEST: Chest with clear breath sounds bilaterally. No wheezes, rales, or rhonc hi. CARDIAC: Regular rate and rhythm. S1 and S2, without murmurs, gallops, or rubs. VASCULAR: No Edema. Peripheral pulses normal and equal in all extremities. ABDOMEN: Soft, non tender and non distended. No rebound or guarding, and no masses palpated. Bowel Sounds normal. MUSCULOSKELETAL: Good range of motion of all major joints. Extremities without clubbing, cyanosis or edema. NEUROLOGIC EXAM: Alert no focal sensory or strength deficits. PSYCHIATRIC: Mood normal. SKIN: detail exam as documented in skin assessment - Constitutional Vitals: Temp Pulse Resp BP Pulse Ox 100.2 F H 111 H 20 107/67 97 05/18/21 22:31 05/18/21 22:31 05/18/21 22:31 05/18/21 22:31 05/18/21 22:31 General appearance: Present: mild distress, cachectic, other (Patient looks unkept) HEART Score - HEART Score Troponin: Troponin T 0.062 ng/mL (0.00-0.029) H 05/16/21 22:53 Results - Labs CBC & Chem 7: 05/18/21 04:00 05/18/21 04:00 Labs: Laboratory Last Values WBC 8.5 K/mm3 (4.5-11.0) 05/18/21 04:00 RBC 3.94 M/mm3 (3.65-5.03) 05/18/21 04:00 Hgb 10.1 gm/dl (10.1-14.3) 05/18/21 04:00 Hct 31.2 % (30.3-42.9) 05/18/21 04:00 MCV 79 fl (79-97) 05/18/21 04:00 MCH 26 pg (28-32) L 05/18/21 04:00 MCHC 32 % (30-34) 05/18/21 04:00 RDW 17.6 % (13.2-15.2) H 05/18/21 04:00 Plt Count 235 K/mm3 (140-440) 05/18/21 04:00 Lymph % (Auto) 19.4 % (13.4-35.0) 05/17/21 10:32 Otero % (Auto) Motion Study Analyst 05/18/21 04:00 Eos % (Auto) 3.1 % (0.0-4.3) 05/17/21 10:32 Baso % (Auto) 0.5 % (0.0-1.8) 05/17/21 10:32 Lymph # (Auto) 2.2 K/mm3 (1.2-5.4) 05/17/21 10:32 Otero # (Auto) 1.0 K/mm3 (0.0-0.8) H 05/17/21 10:32 Eos # (Auto) 0.4 K/mm3 (0.0-0.4) 05/17/21 10:32 Baso # (Auto) 0.1 K/mm3 (0.0-0.1) 05/17/21 10:32 Add Manual Diff Complete 05/18/21 04:00 Total Counted 100 05/18/21 04:00 Seg Neutrophils % 68.3 % (40.0-70.0) 05/17/21 10:32 Seg Neuts % (Manual) 66.0 % (40.0-70.0) 05/18/21 04:00 Lymphocytes % (Manual) 21.0 % (13.4-35.0) 05/18/21 04:00 Monocytes % (Manual) 6.0 % (0.0-7.3) 05/18/21 04:00 Eosinophils % (Manual) 7.0 % (0.0-4.3) H 05/18/21 04:00 Nucleated RBC % 3.0 % (0.0-0.9) H 05/18/21 04:00 Seg Neutrophils # 7.8 K/mm3 (1.8-7.7) H 05/17/21 10:32 Seg Neutrophils # Man 5.6 K/mm3 (1.8-7.7) 05/18/21 04:00 Band Neutrophils # 0.0 K/mm3 05/18/21 04:00 Lymphocytes # (Manual) 1.8 K/mm3 (1.2-5.4) 05/18/21 04:00 Abs React Lymphs (Man) 0.0 K/mm3 05/18/21 04:00 Monocytes # (Manual) 0.5 K/mm3 (0.0-0.8) 05/18/21 04:00 Eosinophils # (Manual) 0.6 K/mm3 (0.0-0.4) H 05/18/21 04:00 Basophils # (Manual) 0.0 K/mm3 (0.0-0.1) 05/18/21 04:00 Metamyelocytes # 0.0 K/mm3 05/18/21 04:00 Myelocytes # 0.0 K/mm3 05/18/21 04:00 Promyelocytes # 0.0 K/mm3 05/18/21 04:00 Blast Cells # 0.0 K/mm3 05/18/21 04:00 WBC Morphology Not Reportable 05/18/21 04:00 Hypersegmented Neuts Not Reportable 05/18/21 04:00 Hyposegmented Neuts Not Reportable 05/18/21 04:00 Hypogranular Neuts Not Reportable 05/18/21 04:00 Smudge Cells Not Reportable 05/18/21 04:00 Toxic Granulation Not Reportable 05/18/21 04:00 Toxic Vacuolation Not Reportable 05/18/21 04:00 Dohle Bodies Not Reportable 05/18/21 04:00 Pelger-Huet Anomaly Not Reportable 05/18/21 04:00 Doyle Rods Not Reportable 05/18/21 04:00 Platelet Estimate Consistent w auto 05/18/21 04:00 Clumped Platelets Not Reportable 05/18/21 04:00 Plt Clumps, EDTA Not Reportable 05/18/21 04:00 Large Platelets Not Reportable 05/18/21 04:00 Giant Platelets Not Reportable 05/18/21 04:00 Platelet Satelliting Not Reportable 05/18/21 04:00 Plt Morphology Comment Not Reportable 05/18/21 04:00 RBC Morphology Not Reportable 05/18/21 04:00 Dimorphic RBCs Not Reportable 05/18/21 04:00 Polychromasia Not Reportable 05/18/21 04:00 Hypochromasia 1+ 05/18/21 04:00 Poikilocytosis 2+ 05/18/21 04:00 Anisocytosis 1+ 05/18/21 04:00 Microcytosis Not Reportable 05/18/21 04:00 Macrocytosis Not Reportable 05/18/21 04:00 Spherocytes Not Reportable 05/18/21 04:00 Pappenheimer Bodies Not Reportable 05/18/21 04:00 Sickle Cells Not Reportable 05/18/21 04:00 Target Cells 1+ 05/18/21 04:00 Tear Drop Cells Not Reportable 05/18/21 04:00 Ovalocytes Not Reportable 05/18/21 04:00 Helmet Cells Not Reportable 05/18/21 04:00 Quintana-Montegut Bodies Not Reportable 05/18/21 04:00 [place] Rings Not Reportable 05/18/21 04:00 Dina Cells 1+ 05/18/21 04:00 Bite Cells Not Reportable 05/18/21 04:00 Crenated Cell Not Reportable 05/18/21 04:00 Elliptocytes Not Reportable 05/18/21 04:00 Acanthocytes (Spur) Not Reportable 05/18/21 04:00 Rouleaux Not Reportable 05/18/21 04:00 Hemoglobin C Crystals Not Reportable 05/18/21 04:00 Schistocytes Not Reportable 05/18/21 04:00 Malaria parasites Not Reportable 05/18/21 04:00 Carlo Bodies Not Reportable 05/18/21 04:00 Hem Pathologist Commnt No 05/18/21 04:00 PT 15.0 Sec. (12.2-14.9) H 05/16/21 22:53 INR 1.06 (0.87-1.13) 05/16/21 22:53 Sodium 136 mmol/L (137-145) L 05/18/21 04:00 Potassium 2.6 mmol/L (3.6-5.0) L* D 05/18/21 04:00 Chloride 110.5 mmol/L (98-107) H 05/18/21 04:00 Carbon Dioxide 10 mmol/L (22-30) L 05/18/21 04:00 Anion Gap 18 mmol/L 05/18/21 04:00 BUN 34 mg/dL (7-17) H 05/18/21 04:00 Creatinine 1.2 mg/dL (0.6-1.2) 05/18/21 04:00 Estimated GFR > 60 ml/min 05/18/21 04:00 BUN/Creatinine Ratio 28 % 05/18/21 04:00 Glucose 118 mg/dL (65-100) H 05/18/21 04:00 Hemoglobin A1c 5.2 % (4-6) 05/16/21 22:53 Calcium 7.9 mg/dL (8.4-10.2) L 05/18/21 04:00 Total Bilirubin 0.20 mg/dL (0.1-1.2) 05/18/21 04:00 AST 80 units/L (5-40) H 05/18/21 04:00 ALT 33 units/L (7-56) 05/18/21 04:00 Alkaline Phosphatase 324 units/L (35-129) H 05/18/21 04:00 Ammonia 60.0 umol/L (25-60) 05/16/21 22:53 Total Creatine Kinase 2655 units/L (30-135) H 05/16/21 22:53 CK-MB (CK-2) 55.7 ng/mL (0.0-4.0) H 05/16/21 22:53 CK-MB (CK-2) Rel Index 2.0 (0-4) 05/16/21 22:53 Troponin T 0.062 ng/mL (0.00-0.029) H 05/16/21 22:53 Total Protein 8.1 g/dL (6.3-8.2) 05/18/21 04:00 Albumin 3.2 g/dL (3.9-5) L 05/18/21 04:00 Albumin/Globulin Ratio 0.7 % 05/18/21 04:00 Triglycerides 96 mg/dL (2-149) 05/16/21 22:53 Cholesterol 138 mg/dL (50-199) 05/16/21 22:53 LDL Cholesterol Direct 75 mg/dL (50-130) 05/16/21 22:53 HDL Cholesterol 46 mg/dL (40-59) 05/16/21 22:53 Cholesterol/HDL Ratio 3.00 % 05/16/21 22:53 Plasma/Serum Alcohol < 0.01 % (0-0.07) 05/16/21 22:53 Meyer/IV: Voiding Method Incontinent Active Medications - Current Medications Current Medications: Generic Name Dose Route Start Last Admin Trade Name Freq PRN Reason Stop Dose Admin Acetaminophen 650 mg 05/17/21 03:51 Acetaminophen 325 Mg Tab PO Q4H PRN Pain MILD(1-3)/Fever >100.5/MARIO Al Hydrox/Mg Hydrox/Simethicone 30 ml 05/17/21 03:51 Alum-Mag Hydroxide-Simethicone [id number]/5ml Oral Liqd 30 Ml PO Q4H PRN Indigestion Albuterol 2.5 mg 05/17/21 03:51 Albuterol 2.5 Mg/3 Ml Nebu IH Q4HRT PRN Shortness Of Breath Famotidine 20 mg 05/18/21 10:00 05/18/21 22:16 Famotidine 20 Mg Tab PO 20 mg BID SHEKHAR Administration Heparin Sodium (Porcine) 5,000 unit 05/17/21 10:00 05/18/21 22:17 Heparin 5,000 Unit/1 Ml Vial SUB-Q 5,000 unit Q12HR SHEKHAR Administration Sodium Chloride 1,000 mls @ 75 mls/hr 05/17/21 04:00 Nacl 0.9% 1000 Ml IV DIRECT SHEKHAR Magnesium Hydroxide 30 ml 05/17/21 03:51 Magnesium Hydroxide (Mom) Oral Liqd Udc PO Q4H PRN Constipation Metoclopramide HCl 5 mg 05/17/21 04:04 Metoclopramide 10 Mg/2 Ml Inj IV Q6H PRN Nausea And Vomiting Naloxone HCl 0.1 mg 05/17/21 03:51 Naloxone 0.4 Mg/1 Ml Inj IV Q2MIN PRN Res Rate </= 8 or 02 SAT < 92% Ondansetron HCl 4 mg 05/17/21 03:51 Ondansetron 4 Mg/2 Ml Inj IV Q8H PRN Nausea And Vomiting Oxycodone/Acetaminophen 1 tab 05/17/21 03:51 Oxycodone /Acetaminophen 5-325mg Tab PO Q6H PRN Pain, Moderate (4-6) Senna 8.6 mg 05/17/21 03:51 Sennosides 8.6 Mg Tab PO Q12HR PRN Constipation Sodium Chloride 10 ml 05/17/21 10:00 05/18/21 22:21 Sodium Chloride 0.9% 10 Ml Flush Syringe IV Not Given BID SHEKHAR Sodium Chloride 10 ml 05/17/21 03:51 Sodium Chloride 0.9% 10 Ml Flush Syringe IV PRN PRN LINE FLUSH Tramadol HCl 50 mg 05/17/21 03:56 Tramadol 50 Mg Tab PO Q4H PRN Pain, Moderate (4-6) Trazodone HCl 50 mg 05/17/21 23:13 05/18/21 22:16 Trazodone 50 Mg Tab PO 50 mg QHS PRN Administration Sleep
== END 2021-05-19 12:10 | disposition home or self-care (01) | DRG 917 ==
LOC: ED 18:32 → 4A 05-17 01:42 → 3A 05-17 04:07
PROVIDERS: ADMIT Internal Medicine Geriatric Medicine; ATTEND Internal Medicine
DX: T50.991A Poisoning by other drugs, medicaments and biological substances, accidental (unintentional), initial encounter (principal); G92.8 Other toxic encephalopathy; N17.9 Acute kidney failure, unspecified; E87.1 Hypo-osmolality and hyponatremia; M62.82 Rhabdomyolysis; R77.8 Other specified abnormalities of plasma proteins; M32.9 Systemic lupus erythematosus, unspecified; E87.8 Other disorders of electrolyte and fluid balance, not elsewhere classified; E86.0 Dehydration; Z88.6 Allergy status to analgesic agent; Z88.0 Allergy status to penicillin; Z91.018 Allergy to other foods; Z89.612 Acquired absence of left leg above knee; E87.6 Hypokalemia; Y92.89 Other specified places as the place of occurrence of the external cause
CPT/HCPCS: 36415; 70450; 71045; 80048; 80053; 80061; 80320; 82140; 82550; 82553; 83036; 84484; 85007; 85025; 85610; 93005; G0378; G0480; J1644; J2310; J7030